=== PATIENT | female | born 1935 | race Caucasian/White ===

== ENCOUNTER → 2017-11-04 11:11 | Outpatient (CLI) | payer MEDICARE, OTHER, SELFPAY ==
[2017-11-04 12:32] LABS: Absolute Neutrophil Count 3.7 X10^3/uL (2.0-7.7); Basophil# 0.05 X10^3/uL; Basophil% 0.9 % (0-1); Eosinophil# 0.11 X10^3/uL; Hematocrit 39.6 % (37-47); Hemoglobin 13.6 g/dl (12.0-15.0); Lymphocyte % 23.4 % (19-41); Mean Corp Hgb Conc 34.3 g/gl (32-36); Mean Platelet Vol. 9.9 fl (6.2-12.0); Monocyte# 0.42 X10^3/uL; Monocyte% 7.6 % (0-10); Neutrophil # 3.66 X10^3/uL (2.7-7.7); Neutrophil % 65.9 % (47-70); Platelet Count 206 K/mm3 (150-450); RBC Distribution Width CV 12.6 % (11.6-14.6); RBC Distribution Width SD 44.8 fl (35.1-43.9); White Blood Count 5.6 K/mm3 (4.4-11.0)
[2017-11-04 12:39] LABS: POSITIVE COUNT NO; POSITIVE DIFFERENTIAL NO; POSITIVE MORPHOLOGY NO
[2017-11-04 13:30] LABS: AST(SGOT) 30 U/L (15-37); Alanine Aminotransfer ALT/SGPT 30 U/L (13-56); Albumin, Serum 3.6 g/dL (3.2-5.0); Alkaline Phosphatase 82 U/L (45-117); Anion Gap 8 (5-15); BUN 13 mg/dL (7-18); BUN/Creat Ratio 21.1 RATIO (10-20); Calcium,Total 9.3 mg/dL (8.5-10.1); Chloride 101 mmol/L (98-107); Creatinine, Serum 0.62 mg/dL (0.55-1.02); EST Glomerular Filtration Rate 98 mL/min (>60); Est Glom Filt Rate - Afr Amer 119 mL/min (>60); Globulin 3.6 g/dL (2.2-4.2); Glucose 92 mg/dL (74-106); Potassium 3.6 mmol/L (3.5-5.1); Protein, Total 7.2 g/dL (6.4-8.2); Sodium Level 137 mmol/L (136-145); Thyroid Stim Hormone (TSH) 1.65 uIU/mL (0.358-3.74)
[2017-11-05 08:37] LABS: Vitamin D,25 Hydroxy 45.9 ng/mL (29.95-100.01)
== END ==
PROVIDERS: Family Provider Family Medicine Geriatric Medicine; PCP Family Medicine Geriatric Medicine; Visit Provider Family Medicine Geriatric Medicine
DX: E55.9 Vitamin D deficiency, unspecified (principal); I10 Essential (primary) hypertension
CPT/HCPCS: 36415; 80053; 82306; 84443; 85025

== ENCOUNTER 2017-11-14 06:24 | Day surgery (SDC) | payer MEDICARE, OTHER, SELFPAY ==
[2017-11-14] VITALS (8 sets, daily range): BP systolic 106–140; BP diastolic 64–88; PULSE 73–86; RESP 16–18; TEMP 36.4–36.9; O2SAT 93–100; BMI 22.3
--- NOTE | 2017-11-14 | COLBX_PTH ---
PATIENT: JADON SUNG LOC: EN U#:[id number] AGE/SX: 81/F ROOM: RE11/14/[address]: Dr. Jerry Claudio MD : [id number] BED: DIS: 11/14/2017 SPEC #: [id number] RECD: 11/14/17 14:30 STATUS: [place] LIAM #: [id number] MARIANNA: 11/14/17 00:[address]: Jerry Claudio DEPT: SURGICAL PATHOLOGY RECD BY: Jeramy Camacho ENTERED: 11/14/17 14:31 SP TYPE: COLON BX OTHR DR: Dr. Moreno Hernandez MD Tissues: A - Ascending colon B - COLON BIOPSY C - Rectum, NOS Procedures: Surgery Specimen Level IV HEADER OPERATION: Colonoscopy PRE-OP DIAGNOSIS: Screening and diarrhea unspecified TISSUE SUBMITTED: A ? Polyp of ascending colon cold snare, B ? Random colon biopsies, C ? Polyps of rectal biopsies MICROSCOPIC DIAGNOSIS A. Ascending colon polyp, biopsy: Tubular adenoma. B. Random biopsy: Mild melanosis coli. C. Rectal polyps, biopsy: Fragments of tubular adenoma. AM:eric 11/17/17 MICROSCOPIC DESCRIPTION Slides are reviewed. GROSS DESCRIPTION A - Received is one container labeled with the patient name and designated polyp ascending colon. The specimen consists of one irregular fragment of light pardo soft tissue that measures 0.5 x 0.5 x 0.1 cm. The specimen is totally submitted in one cassette. B - Received is one container labeled with the patient name and designated random colon. The specimen consists of multiple irregular fragments of light pardo soft tissue that in aggregate measure 0.6 x 0.3 x 0.1 cm. The specimen is totally submitted in one cassette. C - Received is one container labeled with the patient name and designated rectal polyps. The specimen consists of multiple irregular fragments of light pardo soft tissue that in aggregate measure 1 x 0.5 x 0.1 cm. The specimen is totally submitted in one cassette. /AM:eric 11/14/17 TC: 5 CPT: 02930 x3
--- NOTE | 2017-11-14 06:02 | PCM.HP.STD ---
Problem List (1) Screen for colon cancer Status: Acute History of Present Illness Date of Admission: 11/14/17 The patient is a 81 year old F who presents for screening colonoscopy. On March 11, 2017 I performed a hand-assisted laparoscopic sigmoid colectomy for severe diverticular disease with obstruction. I could not achieve a preoperative colonoscopy. She does have some problems with incontinence and excessive gas. She feels like things build up and then suddenly release. The length of the specimen was 22 cm and multiple diverticula were identified. The patient has multiple drug intolerances. 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) Hypertension (Chronic) Medical History: Medical History (Last Reviewed 09/15/17 @ 15:28 by Halima Sharma) Diarrhea (Acute) R19.7 Screen for colon cancer (Acute) Z12.11 Palpitations (Chronic) R00.2 Ventricular premature depolarization (Chronic) I49.3 Abnormal electrocardiogram (Chronic) R94.31 Benign cardiac neoplasm (Chronic) D15.1 Atrial myxoma (Chronic) D15.1 Diverticulitis large intestine (Acute) K57.32 Hypertension (Chronic) I10 Abdominal pain (Acute) R10.9 Allergies alprazolam [From Xanax] Allergy (Verified 09/15/17 15:29) Unknown amlodipine [From Norvasc] Allergy (Verified 09/15/17 15:29) Other cetirizine [From Zyrtec] Allergy (Verified 09/15/17 15:29) Unknown cimetidine [From Tagamet] Allergy (Verified 09/15/17 15:29) Unknown diltiazem [From Cardizem] Allergy (Verified 09/15/17 15:29) Unknown erythromycin base Allergy (Verified 09/15/17 15:29) Unknown famotidine [From Pepcid] Allergy (Verified 09/15/17 15:29) Unknown guaifenesin [From Entex LA] Allergy (Verified 09/15/17 15:29) Unknown house dust Allergy (Verified 09/15/17 15:29) Unknown lansoprazole [From Prevacid] Allergy (Verified 09/15/17 15:29) Unknown loracarbef [From Lorabid] Allergy (Verified 09/15/17 15:29) Unknown metoprolol [From Toprol XL] Allergy (Verified 09/15/17 15:29) Unknown mold Allergy (Verified 09/15/17 15:29) Unknown phenylephrine [From Entex LA] Allergy (Verified 09/15/17 15:29) Unknown phenylpropanolamine [From Entex LA] Allergy (Verified 09/15/17 15:29) Unknown promethazine [From Phenergan] Allergy (Verified 09/15/17 15:29) Unknown raloxifene [From Evista] Allergy (Verified 09/15/17 15:29) Unknown ranitidine [From Zantac] Allergy (Verified 09/15/17 15:29) Unknown risedronate sodium [From Actonel] Allergy (Verified 09/15/17 15:29) Unknown escitalopram [From Lexapro] Adverse Reaction (Severe, Verified 09/15/17 15:29) Unknown lisinopril Adverse Reaction (Severe, Verified 09/15/17 15:29) Lip swelling losartan [From Cozaar] Adverse Reaction (Severe, Verified 09/15/17 15:29) Swelling lips meloxicam Adverse Reaction (Severe, Verified 09/15/17 15:29) Unknown prednisone Adverse Reaction (Severe, Verified 09/15/17 15:29) Unknown zolpidem [From Ambien] Adverse Reaction (Severe, Verified 09/15/17 15:29) Unknown grass bent Allergy (Uncoded 03/04/17 13:05) Unknown Home Medications: Ambulatory Orders Medication Instructions Recorded Triamterene 37.5MG/Hctz 25MG 1 tab PO DAILY 06/25/16 [Maxzide 37.5 mg-25 mg Tablet] Potassium (Otc) [Potassium OTC] 99 mg PO TID 02/09/17 Ascorbic Acid [Vitamin C] 1,000 mg PO DAILY 03/04/17 Cholecalciferol (Vitamin D3) 1,000 unit PO BID 03/04/17 [Vitamin D3] [place] [[place]] 500 mg PO DAILY 03/04/17 Magnesium Oxide [Magnesium] 250 mg PO TID 03/04/17 Ubidecarenone/Vitamin E Mixed 1 ea PO DAILY 03/04/17 [Qzj12-Biy E 200 mg-20 Unit Sfg] Vit A/Vit C/Vit E/Zinc/Copper 1 ea PO BID 03/04/17 [Icaps Areds Formula Dr Tablet] Vitamin B Complex 1 ea PO DAILY 03/04/17 Surgical History: Surgical History (Last Reviewed 09/15/17 @ 15:29 by Halima Sharma) H/O partial resection of colon Z98.890, Z90.49 03/09 Surgical History: hysterectomy Psychiatric History: No pertinent psych hx WIRE STITCHER MACHINE History: No pertinent WIRE STITCHER MACHINE history Smoking Status: Former smoker - *Family History Maternal Family History: Family History (Last Reviewed 09/15/17 @ 15:29 by Halima Sharma) Mother CAD (coronary artery disease) Father Kidney disease History Items: No pertinent history Paternal Family History: Family History (Last Reviewed 09/15/17 @ 15:29 by Halima Sharma) Mother CAD (coronary artery disease) Father Kidney disease History Items: No pertinent history Review of Systems Constitutional: Reports: Fatigue HEENT: Denies: Difficulty Swallowing Cardiovascular: Denies: Chest Pain Respiratory: Denies: Cough Gastrointestinal: Reports: Diarrhea Genitourinary: Denies: Dysuria Skin: Denies: Dryness Neurological: Denies: Balance problems Psychiatric: Reports: Anxiety VTE Information - Inpt Only VTE Present on Admission: No - Physical Exam General: Alert, Oriented x3, Cooperative, No apparent distress HEENT: Atraumatic Oral: Moist Mucosa Lungs: Clear to auscultation Cardiovascular: Regular rate, Regular Rhythm Abdomen: Bowel Sounds Present, Soft, Non Tender Extremities: No clubbing Skin: No rashes Psych/Mental Status: Anxious Assessment/Plan All Active Problems (Last Reviewed 09/15/17 @ 15:28 by Halima Sharma) Diarrhea (Acute) Screen for colon cancer (Acute) Diverticulitis large intestine (Acute) Abdominal pain (Acute) Screening for intestinal cancer. Some alternating problems of diarrhea incontinence and constipation. Consideration for possible random colonic biopsies. She is aware of the technique, benefits, risks, alternatives. She has had an opportunity to ask and have questions answered. We will proceed as noted. Jerry Claudio M.D., F.A.C.S.
--- NOTE | 2017-11-14 06:08 | HP.PCM_ITS ---
Problem List (1) Screen for colon cancer Status: Acute History of Present Illness Date of Admission: 11/14/17 The patient is a 81 year old F who presents for screening colonoscopy. On March 11, 2017 I performed a hand-assisted laparoscopic sigmoid colectomy for severe diverticular disease with obstruction. I could not achieve a preoperative colonoscopy. She does have some problems with incontinence and excessive gas. She feels like things build up and then suddenly release. The length of the specimen was 22 cm and multiple diverticula were identified. The patient has multiple drug intolerances. 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) Hypertension (Chronic) Medical History: Medical History (Last Reviewed 09/15/17 @ 15:28 by Halima Sharma) Diarrhea (Acute) R19.7 Screen for colon cancer (Acute) Z12.11 Palpitations (Chronic) R00.2 Ventricular premature depolarization (Chronic) I49.3 Abnormal electrocardiogram (Chronic) R94.31 Benign cardiac neoplasm (Chronic) D15.1 Atrial myxoma (Chronic) D15.1 Diverticulitis large intestine (Acute) K57.32 Hypertension (Chronic) I10 Abdominal pain (Acute) R10.9 Allergies alprazolam [From Xanax] Allergy (Verified 09/15/17 15:29) Unknown amlodipine [From Norvasc] Allergy (Verified 09/15/17 15:29) Other cetirizine [From Zyrtec] Allergy (Verified 09/15/17 15:29) Unknown cimetidine [From Tagamet] Allergy (Verified 09/15/17 15:29) Unknown diltiazem [From Cardizem] Allergy (Verified 09/15/17 15:29) Unknown erythromycin base Allergy (Verified 09/15/17 15:29) Unknown famotidine [From Pepcid] Allergy (Verified 09/15/17 15:29) Unknown guaifenesin [From Entex LA] Allergy (Verified 09/15/17 15:29) Unknown house dust Allergy (Verified 09/15/17 15:29) Unknown lansoprazole [From Prevacid] Allergy (Verified 09/15/17 15:29) Unknown loracarbef [From Lorabid] Allergy (Verified 09/15/17 15:29) Unknown metoprolol [From Toprol XL] Allergy (Verified 09/15/17 15:29) Unknown mold Allergy (Verified 09/15/17 15:29) Unknown phenylephrine [From Entex LA] Allergy (Verified 09/15/17 15:29) Unknown phenylpropanolamine [From Entex LA] Allergy (Verified 09/15/17 15:29) Unknown promethazine [From Phenergan] Allergy (Verified 09/15/17 15:29) Unknown raloxifene [From Evista] Allergy (Verified 09/15/17 15:29) Unknown ranitidine [From Zantac] Allergy (Verified 09/15/17 15:29) Unknown risedronate sodium [From Actonel] Allergy (Verified 09/15/17 15:29) Unknown escitalopram [From Lexapro] Adverse Reaction (Severe, Verified 09/15/17 15:29) Unknown lisinopril Adverse Reaction (Severe, Verified 09/15/17 15:29) Lip swelling losartan [From Cozaar] Adverse Reaction (Severe, Verified 09/15/17 15:29) Swelling lips meloxicam Adverse Reaction (Severe, Verified 09/15/17 15:29) Unknown prednisone Adverse Reaction (Severe, Verified 09/15/17 15:29) Unknown zolpidem [From Ambien] Adverse Reaction (Severe, Verified 09/15/17 15:29) Unknown grass bent Allergy (Uncoded 03/04/17 13:05) Unknown Home Medications: Ambulatory Orders Medication Instructions Recorded Triamterene 37.5MG/Hctz 25MG 1 tab PO DAILY 06/25/16 [Maxzide 37.5 mg-25 mg Tablet] Potassium (Otc) [Potassium OTC] 99 mg PO TID 02/09/17 Ascorbic Acid [Vitamin C] 1,000 mg PO DAILY 03/04/17 Cholecalciferol (Vitamin D3) 1,000 unit PO BID 03/04/17 [Vitamin D3] [place] [[place]] 500 mg PO DAILY 03/04/17 Magnesium Oxide [Magnesium] 250 mg PO TID 03/04/17 Ubidecarenone/Vitamin E Mixed 1 ea PO DAILY 03/04/17 [Xym81-Wbh E 200 mg-20 Unit Sfg] Vit A/Vit C/Vit E/Zinc/Copper 1 ea PO BID 03/04/17 [Icaps Areds Formula Dr Tablet] Vitamin B Complex 1 ea PO DAILY 03/04/17 Surgical History: Surgical History (Last Reviewed 09/15/17 @ 15:29 by Halima Sharma) H/O partial resection of colon Z98.890, Z90.49 03/09 Surgical History: hysterectomy Psychiatric History: No pertinent psych hx DIRECTOR OF UNDERGRADUATE ADMISSIONS History: No pertinent DIRECTOR OF UNDERGRADUATE ADMISSIONS history Smoking Status: Former smoker - *Family History Maternal Family History: Family History (Last Reviewed 09/15/17 @ 15:29 by Halima Sharma) Mother CAD (coronary artery disease) Father Kidney disease History Items: No pertinent history Paternal Family History: Family History (Last Reviewed 09/15/17 @ 15:29 by Halima Sharma) Mother CAD (coronary artery disease) Father Kidney disease History Items: No pertinent history Review of Systems Constitutional: Reports: Fatigue HEENT: Denies: Difficulty Swallowing Cardiovascular: Denies: Chest Pain Respiratory: Denies: Cough Gastrointestinal: Reports: Diarrhea Genitourinary: Denies: Dysuria Skin: Denies: Dryness Neurological: Denies: Balance problems Psychiatric: Reports: Anxiety VTE Information - Inpt Only VTE Present on Admission: No - Physical Exam General: Alert, Oriented x3, Cooperative, No apparent distress HEENT: Atraumatic Oral: Moist Mucosa Lungs: Clear to auscultation Cardiovascular: Regular rate, Regular Rhythm Abdomen: Bowel Sounds Present, Soft, Non Tender Extremities: No clubbing Skin: No rashes Psych/Mental Status: Anxious Assessment/Plan All Active Problems (Last Reviewed 09/15/17 @ 15:28 by Halima Sharma) Diarrhea (Acute) Screen for colon cancer (Acute) Diverticulitis large intestine (Acute) Abdominal pain (Acute) Screening for intestinal cancer. Some alternating problems of diarrhea incontinence and constipation. Consideration for possible random colonic biopsies. She is aware of the technique, benefits, risks, alternatives. She has had an opportunity to ask and have questions answered. We will proceed as noted. Jerry Claudio M.D., F.A.C.S.
--- NOTE | 2017-11-14 08:05 | PCM.OPRPT ---
Problem List (1) Screen for colon cancer Status: Acute Report of Operation Date of Procedure: 11/14/17 Pre-Operative Diagnosis: Screening for intestinal malignancy, constipation diarrhea Post-Operative Diagnosis: Widely patent colorectal anastomosis, scattered sigmoid and pancolonic diverticulosis, sessile polyp of the ascending colon 11 mm, sessile polyps of the rectum 8 mm and 6 mm Surgery/Procedure Performed:: Colonoscopy with cold snare polypectomy ascending colon. Colonoscopy with cold forcep rectal polypectomy ?2. Random colonic biopsies with cold forceps Description of Surgical Findings:: Timeout and informed consent was obtained. 81-year-old female was taken to the endoscopy suite. She was placed in a left lateral decubitus position. Throughout the procedure she received 75 mg Demerol 3 mg of Versed as intravenous sedation. Digital rectal exam performed. Mild to moderate anal stenosis. No mass lesions. Flexible colonoscope was in the rectum. A colorectal anastomosis was identified absolutely widely patent. The scope was advanced through the remnant of the sigmoid descending colon readily advanced to the transverse colon. The cecum ileocecal valve area was nicely achieved. Bowel prep was adequate. There was a sessile 11 mm polyp of the ascending colon. Cold snare was used to resect and retrieved. Hemostasis was intact. The scope was further withdrawn from the ascending colon transverse colon and descending colon. There was scattered diverticulosis throughout the colon with more concentrated diverticulosis in the descending colon. There is no evidence of any obstruction. No mucosal thickening. No stricturing. Scope was withdrawn to the rectum the patent colorectal anastomosis identified. The scope was retroflexed and upon so doing 2 sessile polyps were identified. These were both removed with cold forcep eradication technique. Hemostasis again was intact. The scope was placed back in in antegrade viewing position. Excess fluid and air was aspirated free. The procedure was completed with patient tolerating it well. Throughout the procedure random colonic cold forcep biopsies were obtained as well. Impression Sessile polyp of the ascending colon. Sessile polyp of the rectum ?2. Scattered pancolonic diverticulosis with more concentrated diverticulosis of the descending colon No evidence for obstructive pattern Random colonic biopsy results pending One year ago the patient had a previous attempted a colonoscopy which failed Next colonoscopy recommended in 1 years secondary to identification of multiple polyps The patient will be notified of pathology results. No findings would correlate with the patient's complaint of alternating constipation and diarrhea. She will be notified of pathology if that adds any further information. The meds were given at 0745. The scope was inserted 0747. The cecum was reached at 0749. The procedure was completed at 0759. Cc: Dr. David Claudio M.D., F.A.C.S. Type of Anesthesia:: IV Sedation
== END 2017-11-14 09:30 | disposition home or self-care (01) ==
LOC: EN 06:24 → AC 06:26
PROVIDERS: Family Provider Family Medicine Geriatric Medicine; PCP Family Medicine Geriatric Medicine; Visit Provider Surgery
PROC: 0DJD8ZZ Inspection of Lower Intestinal Tract, Via Natural or Artificial Opening Endoscopic (ICD-10-PCS; CPT 45378; principal; 2017-11-14 07:25)
DX: Z12.11 Encounter for screening for malignant neoplasm of colon (principal); D12.2 Benign neoplasm of ascending colon; D12.8 Benign neoplasm of rectum; K57.30 Diverticulosis of large intestine without perforation or abscess without bleeding; K63.89 Other specified diseases of intestine; I49.3 Ventricular premature depolarization; D15.1 Benign neoplasm of heart; I10 Essential (primary) hypertension; Z87.19 Personal history of other diseases of the digestive system; Z79.899 Other long term (current) drug therapy; Z87.891 Personal history of nicotine dependence
CPT/HCPCS: 45380; 45385; 88305; 99152; 99153; J7120

== ENCOUNTER → 2018-11-30 15:23 | Outpatient (CLI) | payer MEDICARE, SELFPAY ==
[2018-08-03 13:32] VITALS: BMI 23.5
[2018-11-30 17:23] LABS: Absolute Lymphocyte Count 1.33 X10^3/uL (0.83-4.51); Absolute Neutrophil Count 5.7 X10^3/uL (2.0-7.7); Basophil# 0.07 X10^3/uL; Basophil% 0.9 % (0-1); Eosinophil# 0.07 X10^3/uL; Eosinophils% 0.9 % (0-5); Hematocrit 42.5 % (37-47); Hemoglobin 14.6 g/dL (12.0-15.0); Lymphocyte # 1.33 X10^3/ul (4.0); Lymphocyte % 16.6 % (19-41); Mean Corp Hgb Conc 34.4 g/dL (32-36); Mean Corpuscular Volume 99.1 fL (81-99); Mean Platelet Vol. 9.6 fl (6.2-12.0); Monocyte# 0.83 X10^3/uL; Monocyte% 10.4 % (0-10); NRBC Flagged by Analyzer 0 % (0-5); Neutrophil # 5.69 X10^3/uL (2.7-7.7); Platelet Count 230 K/mm3 (150-450); RBC Distribution Width CV 11.9 % (11.6-14.6); Red Blood Count 4.29 M/mm3 (4.2-5.4)
[2018-11-30 17:39] LABS: Vitamin D,25 Hydroxy 23.6 ng/mL (29.95-100.01)
[2018-11-30 17:44] LABS: AST(SGOT) 25 U/L (15-37); Alanine Aminotransfer ALT/SGPT 29 U/L (13-56); Albumin, Serum 3.6 g/dL (3.2-5.0); Alkaline Phosphatase 94 U/L (45-117); Anion Gap 6 (5-15); BUN 9 mg/dL (7-18); Calcium,Total 9.2 mg/dL (8.5-10.1); Chloride 100 mmol/L (98-107); EST Glomerular Filtration Rate 64 mL/min (>60); Est Glom Filt Rate - Afr Amer 77 mL/min (>60); Globulin 3.7 g/dL (2.2-4.2); Glucose 120 mg/dL (74-106); Potassium 3.4 mmol/L (3.5-5.1); Protein, Total 7.3 g/dL (6.4-8.2); Sodium Level 136 mmol/L (136-145); Thyroid Stim Hormone (TSH) 1.31 uIU/mL (0.358-3.74)
== END ==
PROVIDERS: Family Provider Family Medicine Geriatric Medicine; PCP Family Medicine Geriatric Medicine; Visit Provider Family Medicine Geriatric Medicine
DX: I10 Essential (primary) hypertension (principal); E55.9 Vitamin D deficiency, unspecified
CPT/HCPCS: 36415; 80053; 82306; 84443; 85025

== ENCOUNTER → 2018-12-09 15:39 | Outpatient (CLI) | payer MEDICARE, OTHER, SELFPAY ==
[2018-08-03 13:32] VITALS: BMI 23.5
[2018-12-09 17:29] LABS: Anion Gap 10 (5-15); BUN 17 mg/dL (7-18); Calcium,Total 9.5 mg/dL (8.5-10.1); Chloride 98 mmol/L (98-107); Creatinine, Serum 0.74 mg/dL (0.55-1.02); EST Glomerular Filtration Rate 80 mL/min (>60); Est Glom Filt Rate - Afr Amer 96 mL/min (>60); Glucose 102 mg/dL (74-106); Potassium 3.6 mmol/L (3.5-5.1); Sodium Level 137 mmol/L (136-145)
== END ==
PROVIDERS: Family Provider Family Medicine Geriatric Medicine; PCP Family Medicine Geriatric Medicine; Visit Provider Family Medicine Geriatric Medicine
DX: E87.6 Hypokalemia (principal)
CPT/HCPCS: 36415; 80048

== ENCOUNTER → 2019-03-01 15:40 | Outpatient (CLI) | payer MEDICARE, OTHER, SELFPAY ==
[2019-02-11 11:55] VITALS: BMI 24.3
[2019-03-01 16:57] LABS: Absolute Lymphocyte Count 1.39 X10^3/uL (0.83-4.51); Absolute Neutrophil Count 5.1 X10^3/uL (2.0-7.7); Basophil# 0.06 X10^3/uL; Basophil% 0.8 % (0-1); Eosinophil# 0.16 X10^3/uL; Eosinophils% 2.1 % (0-5); Hematocrit 39.9 % (37-47); Hemoglobin 13.7 g/dL (12.0-15.0); Lymphocyte # 1.39 X10^3/ul (4.0); Lymphocyte % 18.4 % (19-41); Mean Corp Hgb Conc 34.3 g/dL (32-36); Monocyte% 10.6 % (0-10); NRBC Flagged by Analyzer 0 % (0-5); Neutrophil # 5.13 X10^3/uL (2.7-7.7); Neutrophil % 67.8 % (47-70); Platelet Count 221 K/mm3 (150-450); RBC Distribution Width CV 12.1 % (11.6-14.6); RBC Distribution Width SD 43.8 fl (35.1-43.9); Red Blood Count 4.03 M/mm3 (4.2-5.4); White Blood Count 7.6 K/mm3 (4.4-11.0)
[2019-03-01 17:28] LABS: AST(SGOT) 24 U/L (15-37); Alanine Aminotransfer ALT/SGPT 28 U/L (13-56); Albumin, Serum 3.4 g/dL (3.2-5.0); Alkaline Phosphatase 91 U/L (45-117); Anion Gap 7 (5-15); BUN 13 mg/dL (7-18); BUN/Creat Ratio 17.2 RATIO (10-20); Calcium,Total 8.9 mg/dL (8.5-10.1); Chloride 103 mmol/L (98-107); Creatinine, Serum 0.76 mg/dL (0.55-1.02); EST Glomerular Filtration Rate 77 mL/min (>60); Est Glom Filt Rate - Afr Amer 94 mL/min (>60); Globulin 3.5 g/dL (2.2-4.2); Glucose 129 mg/dL (74-106); Potassium 3.5 mmol/L (3.5-5.1); Protein, Total 6.9 g/dL (6.4-8.2); Sodium Level 137 mmol/L (136-145); Thyroid Stim Hormone (TSH) 1.79 uIU/mL (0.358-3.74)
[2019-03-01 17:36] LABS: Vitamin D,25 Hydroxy 27.1 ng/mL (29.95-100.01)
== END ==
PROVIDERS: Family Provider Family Medicine Geriatric Medicine; PCP Family Medicine Geriatric Medicine; Visit Provider Family Medicine Geriatric Medicine
DX: I10 Essential (primary) hypertension (principal); E55.9 Vitamin D deficiency, unspecified
CPT/HCPCS: 36415; 80053; 82306; 84443; 85025

== ENCOUNTER → 2019-05-03 14:25 | Outpatient (CLI) | payer MEDICARE, OTHER, SELFPAY ==
[2019-05-03 14:21] VITALS: BMI 24.3
--- NOTE | 2019-05-03 14:26 | RAD_ITS ---
STUDY: X-RAY - RIGHT SHOULDER REASON FOR EXAM: Female, 83 years old. FALL, RT SHOULDER PAIN W/CONTUSION TECHNIQUE: 4 view(s) of the shoulder. COMPARISON: None. FINDINGS: Normal glenohumeral articulation. Normal acromioclavicular joint. Normal acromion. Normal humeral head and visualized proximal humerus. There is periarticular soft tissue calcification consistent with a calcific tendinitis. Normal visualized pulmonary apex. RAD/Shoulder min 2 Views IMPRESSION: Calcific tendinitis. Electronically Signed: Negrito Honeycutt, at 14:57 EST , Service support ,
== END ==
PROVIDERS: PCP Family Medicine Geriatric Medicine; Referring Provider Physician Assistant Surgical; Visit Provider Physician Assistant Surgical
DX: S40.011A Contusion of right shoulder, initial encounter (principal); X58.XXXA Exposure to other specified factors, initial encounter; Y93.9 Activity, unspecified; Y92.9 Unspecified place or not applicable; Y99.9 Unspecified external cause status
CPT/HCPCS: 73030

== ENCOUNTER → 2019-06-07 10:56 | Outpatient (CLI) | payer MEDICARE, OTHER, SELFPAY ==
[2019-05-03 14:21] VITALS: BMI 24.3
[2019-06-07 12:44] LABS: Absolute Lymphocyte Count 1.16 X10^3/uL (0.83-4.51); Absolute Neutrophil Count 5.7 X10^3/uL (2.0-7.7); Basophil# 0.06 X10^3/uL; Basophil% 0.8 % (0-1); Eosinophil# 0.03 X10^3/uL; Eosinophils% 0.4 % (0-5); Hematocrit 42.6 % (37-47); Hemoglobin 14.3 g/dL (12.0-15.0); Lymphocyte # 1.16 X10^3/ul (4.0); Lymphocyte % 15.4 % (19-41); Mean Corp Hgb Conc 33.6 g/dL (32-36); Mean Corpuscular Hgb 33.6 pg (27.0-32.0); Mean Corpuscular Volume 100.2 fL (81-99); Mean Platelet Vol. 9.7 fl (6.2-12.0); Monocyte# 0.55 X10^3/uL; Monocyte% 7.3 % (0-10); NRBC Flagged by Analyzer 0 % (0-5); Neutrophil # 5.73 X10^3/uL (2.7-7.7); Neutrophil % 75.8 % (47-70); Platelet Count 236 K/mm3 (150-450); RBC Distribution Width CV 12.7 % (11.6-14.6); RBC Distribution Width SD 47.1 fl (35.1-43.9); Red Blood Count 4.25 M/mm3 (4.2-5.4); White Blood Count 7.6 K/mm3 (4.4-11.0)
[2019-06-07 13:47] LABS: ALB/GLOB Ratio 1.2 RATIO (0.9-2.4); AST(SGOT) 21 U/L (15-37); Alanine Aminotransfer ALT/SGPT 20 U/L (13-56); Albumin, Serum 3.8 g/dL (3.2-5.0); Alkaline Phosphatase 85 U/L (45-117); Amylase 44 U/L (25-115); Anion Gap 10 (5-15); BUN 11 mg/dL (7-18); BUN/Creat Ratio 16.5 RATIO (10-20); Calcium,Total 9.4 mg/dL (8.5-10.1); Chloride 99 mmol/L (98-107); Creatinine, Serum 0.67 mg/dL (0.55-1.02); EST Glomerular Filtration Rate 90 mL/min (>60); Est Glom Filt Rate - Afr Amer 108 mL/min (>60); Globulin 3.2 g/dL (2.2-4.2); Glucose 147 mg/dL (74-106); Lipase 227 U/L (73-393); Potassium 3.3 mmol/L (3.5-5.1); Sodium Level 137 mmol/L (136-145); Thyroid Stim Hormone (TSH) 1.44 uIU/mL (0.358-3.74)
== END ==
PROVIDERS: PCP Family Medicine; Referring Provider Family Medicine; Visit Provider Family Medicine
DX: R00.0 Tachycardia, unspecified (principal); R14.0 Abdominal distension (gaseous)
CPT/HCPCS: 36415; 80053; 82150; 83690; 84443; 85025

== ENCOUNTER → 2019-11-11 10:52 | Outpatient (CLI) | payer MEDICARE, OTHER, SELFPAY ==
[2019-08-11 15:43] VITALS: BMI 24.3
[2019-11-11 12:39] LABS: Hemoglobin 13.8 g/dL (12.0-15.0); Mean Corp Hgb Conc 34.5 g/dL (32-36); Mean Corpuscular Hgb 35.8 pg (27.0-32.0); Mean Corpuscular Volume 103.9 fL (81-99); Mean Platelet Vol. 10.1 fl (6.2-12.0); Platelet Count 245 K/mm3 (150-450); RBC Distribution Width CV 12.2 % (11.6-14.6); Red Blood Count 3.85 M/mm3 (4.2-5.4); White Blood Count 8.9 K/mm3 (4.4-11.0)
[2019-11-11 13:24] LABS: ALB/GLOB Ratio 0.9 RATIO (0.9-2.4); AST(SGOT) 46 U/L (15-37); Alanine Aminotransfer ALT/SGPT 45 U/L (13-56); Albumin, Serum 3.4 g/dL (3.2-5.0); Alkaline Phosphatase 103 U/L (45-117); Anion Gap 5 (5-15); BUN 12 mg/dL (7-18); Calcium,Total 9.2 mg/dL (8.5-10.1); Chloride 96 mmol/L (98-107); Creatinine, Serum 0.93 mg/dL (0.55-1.02); EST Glomerular Filtration Rate 61 mL/min (>60); Est Glom Filt Rate - Afr Amer 74 mL/min (>60); Globulin 3.6 g/dL (2.2-4.2); Glucose 120 mg/dL (74-106); Potassium 3.1 mmol/L (3.5-5.1); Sodium Level 132 mmol/L (136-145)
== END ==
PROVIDERS: PCP Family Medicine; Referring Provider Family Medicine; Visit Provider Family Medicine
DX: I48.91 Unspecified atrial fibrillation (principal)
CPT/HCPCS: 36415; 80053; 84443; 85027

== ENCOUNTER → 2019-11-18 10:41 | Outpatient (CLI) | payer MEDICARE, OTHER, SELFPAY ==
[2019-08-11 15:43] VITALS: BMI 24.3
[2019-11-11 13:15] VITALS: BMI 25.2
--- NOTE | 2019-11-18 10:44 | ECHOD_ITS ---
Reason For Study: Afib Procedure This was a 2D Doppler, Color Flow transthoracic echocardiogram. Exam performed in department. Left Ventricle Normal LV size. Mild concentric left ventricular hypertrophy. Left ventricular systolic function is normal. The estimated ejection fraction is 60 %. No regional wall motion abnormalities noted. Atria Normal left atrium. Normal right atrium. 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 Mass measuring 1.4 by 1.5in RA unchanged from the previous. Mitral Valve Normal mitral valve. Mild (1+) eccentric mitral valve insufficiency. Tricuspid Valve Normal tricuspid valve. Mild tricuspid valve insufficiency. Pulmonary artery systolic pressure is 25 mmHg. Aortic Valve Trisinus/trileaflet aortic valve. Mild focal aortic valve calcification. Pulmonic Valve Normal pulmonic valve. Great Vessels Normal aortic root. The pulmonary artery is normal size. Normal inferior vena cava. Pericardium/Pleural No pericardial effusion. MMode/2D Measurements & Calculations LVIDd: 3.9 cm IVSd: 1.2 cm Ao root diam: 3.2 cm LVIDs: 2.4 cm LVPWd: 1.2 cm RVDd: 3.2 cm FS: 38.6 % LAV(MOD-bp): 53.1 ml LA A4 area: 17.9 cm2 LA dimension(2D): 4.8 cm LAV(MOD-bp) Indexed: 31.6 ml/m2 LAV(MOD-sp2): 51.2 ml LAV(MOD-sp4): 52.6 ml RA A4 area: 11.5 cm2 Doppler Measurements & Calculations MV E max bakari: 99.8 cm/sec Lat Peak E' Bakari: 7.0 cm/sec Med Peak E' Bakari: 4.1 cm/sec MV A max bakari: 117.6 cm/sec E/E' lat: 14.3 E/E' med: 24.2 MV E/A: 0.85 Ao V2 max: 169.9 cm/sec LV V1 max: 116.4 cm/sec PA V2 max: 78.0 cm/sec Ao max P.5 mmHg LV V1 max P.4 mmHg Ao V2 mean: 121.9 cm/sec Ao mean P.4 mmHg Ao V2 VTI: 36.0 cm PI end-d bakari: 116.5 cm/sec TR max bakari: 232.5 cm/sec TR max P.6 mmHg Interpretation Summary Normal LV size. Left ventricular systolic function is normal. The estimated ejection fraction is 60 %. 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 Mass measuring 1.4 by 1.5in RA unchanged from the previous. Ordering Physician: Tulio Roberts Referring Physician: Tulio Roberts Performed By: Delilah Tate, PADMINI, RVT
== END ==
PROVIDERS: PCP Family Medicine; Referring Provider Family Medicine; Visit Provider Family Medicine
DX: I48.91 Unspecified atrial fibrillation (principal); I34.0 Nonrheumatic mitral (valve) insufficiency; I36.1 Nonrheumatic tricuspid (valve) insufficiency; I35.8 Other nonrheumatic aortic valve disorders
CPT/HCPCS: 93306

== ENCOUNTER 2020-01-24 12:29 | Inpatient (IN) | payer MEDICARE, OTHER, SELFPAY ==
[2020-01-03 12:44] VITALS: BMI 25.0
[2020-01-24] VITALS (11 sets, daily range): BP systolic 134–178; BP diastolic 77–109; PULSE 78–124; RESP 12–20; TEMP 36.3–37.1; O2SAT 95–98; BMI 24.0; BMI 24.3; BMI 24.4
[2020-01-24 13:21] LABS: Absolute Lymphocyte Count 0.87 X10^3/uL (0.83-4.51); Absolute Neutrophil Count 5.1 X10^3/uL (2.0-7.7); Basophil# 0.07 X10^3/uL; Eosinophil# 0.03 X10^3/uL; Eosinophils% 0.4 % (0-5); Hematocrit 42.9 % (37-47); Hemoglobin 14.8 g/dL (12.0-15.0); Lymphocyte # 0.87 X10^3/ul (4.0); Lymphocyte % 12.5 % (19-41); Mean Corp Hgb Conc 34.5 g/dL (32-36); Mean Corpuscular Hgb 35.1 pg (27.0-32.0); Mean Corpuscular Volume 101.7 fL (81-99); Mean Platelet Vol. 9.2 fl (6.2-12.0); Monocyte# 0.83 X10^3/uL; Monocyte% 11.9 % (0-10); NRBC Flagged by Analyzer 0 % (0-5); Neutrophil # 5.13 X10^3/uL (2.7-7.7); Neutrophil % 73.6 % (47-70); Platelet Count 264 K/mm3 (150-450); RBC Distribution Width CV 12.7 % (11.6-14.6); Red Blood Count 4.22 M/mm3 (4.2-5.4)
--- NOTE | 2020-01-24 13:21 | ED.VISSUMM ---
- ER Visit Summary Date of Service: 01/24/20 Chief Complaint: Requesting alcohol detox History of Present Illness: The patient is a 84 F presenting requesting detox from alcohol. Patient states she drinks 6 drinks per day, vodka. She has been drinking for the past 50 years. She discussed this with 180 today and was advised to come to the hospital for admission for detox. She states she stopped drinking several years ago and developed an arrhythmia and started drinking again. She has felt anxious about quitting drinking. Denies other complaints. Last drink was this morning. She is not a smoker. Physical Examination: Vitals are stable. Patient is afebrile. Alert no acute distress. HEENT exam is unremarkable. Neck is supple. Lungs are clear and equal bilaterally. Heart is regular and tachycardic Abdomen is soft nontender nondistended. Extremities are unremarkable. Skin is warm and dry. No focal neurologic deficit. Remainder of exam is unremarkable. Emergency Department Course and Treatment: CBC, chemistries unremarkable other than sodium 129, potassium 3.0, glucose 111. Total bili 1.2, direct bili 0.54, alk phos 137. ALT 65, AST 83. Alcohol 61. Urine tox is pending. Discussed with the hospitalist for admission. Disposition: Admission Impression: Alcohol dependence This note was generated with [employer] dictation software. It may contain incorrect words, spelling, and punctuation that were not noted in review of the chart prior to signing ED Disposition - Plan for ED Patient: Referrals: Tulio Roberts MD [Primary Care Provider] -
[2020-01-24 13:34] LABS: AST(SGOT) 83 U/L (15-37); Alanine Aminotransfer ALT/SGPT 65 U/L (13-56); Albumin, Serum 3.2 g/dL (3.2-5.0); Alkaline Phosphatase 137 U/L (45-117); Anion Gap 11 (5-15); BUN 7 mg/dL (7-18); BUN/Creat Ratio 9.1 RATIO (10-20); Bilirubin, Direct 0.54 mg/dL (0.00-0.30); Calcium,Total 8.7 mg/dL (8.5-10.1); Chloride 92 mmol/L (98-107); Creatinine, Serum 0.77 mg/dL (0.55-1.02); EST Glomerular Filtration Rate 76 mL/min (>60); Est Glom Filt Rate - Afr Amer 92 mL/min (>60); Estimated Creatinine Clearance 35.52 ml/min; Globulin 3.6 g/dL (2.2-4.2); Glucose 111 mg/dL (74-106); Protein, Total 6.8 g/dL (6.4-8.2); Sodium Level 129 mmol/L (136-145)
[2020-01-24 13:56] LABS: Amphetamine Urine VISTA NEGATIVE (<1000 ng/mL); Barbiturate Urine VISTA NEGATIVE (< 200 ng/mL); Benzodiazepine Urine VISTA NEGATIVE (< 200 ng/mL); Cocaine Urine VISTA NEGATIVE (< 300 ng/mL); Ecstacy Urine VISTA NEGATIVE (< 500 ng/mL); Methadone Urine VISTA NEGATIVE (< 300 ng/mL); PCP Urine VISTA NEGATIVE (< 25 ng/mL); THC Urine VISTA NEGATIVE (< 50 ng/mL); Vista UDS pH Range 7
--- NOTE | 2020-01-24 14:02 | CM.ED ---
Social Work Consult: Substance Abuse Informant: Self Referral Met with patient in room. Introduced self and social media sr strategy manager role. Patient agreeable to speaking with this social media sr strategy manager. Patient confirms to be seeking medical management of withdrawal symptoms. Patient reports substance of choice as alcohol. Patient reports to drink 6 cocktails daily, vodka. Patient reports to have started drinking 40-50 years ago. Patient identifies next of kin at patient niece, Martha Watson that lives in [place]. Patient reports to have no family that lives local, no children. Patient identifies friends and local community activities as patient main support. Patient reports to have been depressed and down over the past 8 months due to being isolated to own home and community activities being canceled. Patient reports to spend a lot of time alone. Patient denies suicidal thoughts/plans/intents. Patient reports prior level of functioning as independent. Patient identifies Martha as HCPOA. Patient provides HCPOA to this social media sr strategy manager. This social media sr strategy manager obtained copy of HCPOA and placed on patient chart. Patient verbally agreeing to RAMP contact. Patient with no current questions. Support provided. Telephone call to Janessa Da Silva. This social media sr strategy manager updated on patient being admitted. Janessa to come and completed assessment with patient tomorrow. Rossy MAYFIELD, LIZETH
--- NOTE | 2020-01-24 14:06 | EKG12_ITS ---
Test Reason : SUBSTANCE ABUSE Blood Pressure : / mmHG Vent. 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
--- NOTE | 2020-01-24 14:13 | HP.PCM_ITS ---
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 The patient is a 84 year old F with past medical history as mentioned above presented to the emergency room requesting admission for acute alcohol withdrawal for medical stabilization. Patient states that she has been drinking for almost 50 years, every day. She drinks 5-6 drinks of mixed vodka every day and her last drink was this morning. She never went into detoxification program in the past. She has no significant withdrawal symptoms at this point. She had a history of hypertension and she has been on HCTZ/triamterene and take blood pressure has been under fair control according to the patient. She had a histo ry of diverticulitis in the past status post colectomy back in 2017. She had a history of multifocal atrial tachycardia but she is not on treatment and she has no complaints about it. In the emergency department, she was afebrile, with slight tachycardia, blood pressure was elevated, pulse ox was 98% on room air. Routine blood work was remarkable for sodium of 129, potassium is 3. LFT revealed slightly elevated bilirubin and liver transaminases as well as alkaline phosphatase. Urine drug screen was negative. Blood alcohol level was 61. EKG was done and patient was found to be in A. fib with RVR which is new. She is being admitted for acute alcohol withdrawal for medical stabilization as well as new onset A. fib with RVR. Past Medical History Past Medical History (Chronic Problems): Chronic Problems (Last Updated 01/24/20 @ 14:[address] Jazz Dietrich MD) Multifocal atrial tachycardia (Chronic) Alcohol abuse (Chronic) Atrial myxoma (Chronic) Essential hypertension (Chronic) Medical History: Medical History (Last Updated 01/24/20 @ 14:[address] Jazz Dietrich MD) Atrial myxoma (Chronic) D15.1 Essential hypertension (Chronic) I10 Benign cardiac neoplasm D15.1 ETOH abuse F10.10 Ventricular premature depolarization I49.3 Abnormal electrocardiogram (Inactive) R94.31 Allergies alprazolam [From Xanax] Allergy (Verified 01/24/20 12:40) Unknown atenolol Allergy (Verified 01/24/20 12:40) Shortness of breath cetirizine [From Zyrtec] Allergy (Verified 01/24/20 12:40) Unknown cimetidine [From Tagamet] Allergy (Verified 01/24/20 12:40) Unknown diltiazem [From Cardizem] Allergy (Verified 01/24/20 12:40) Unknown erythromycin base Allergy (Verified 01/24/20 12:40) Unknown famotidine [From Pepcid] Allergy (Verified 01/24/20 12:40) Unknown guaifenesin [From Entex LA] Allergy (Verified 01/24/20 12:40) Unknown house dust Allergy (Verified 01/24/20 12:40) Unknown lansoprazole [From Prevacid] Allergy (Verified 01/24/20 12:40) Unknown loracarbef [From Lorabid] Allergy (Verified 01/24/20 12:40) Unknown metoprolol [From Toprol XL] Allergy (Verified 01/24/20 12:40) Unknown mold Allergy (Verified 01/24/20 12:40) Unknown phenylephrine [From Entex LA] Allergy (Verified 01/24/20 12:40) Unknown phenylpropanolamine [From Entex LA] Allergy (Verified 01/24/20 12:40) Unknown promethazine [From Phenergan] Allergy (Verified 01/24/20 12:40) Unknown raloxifene [From Evista] Allergy (Verified 01/24/20 12:40) Unknown ranitidine [From Zantac] Allergy (Verified 01/24/20 12:40) Unknown risedronate sodium [From Actonel] Allergy (Verified 01/24/20 12:40) Unknown escitalopram [From Lexapro] Adverse Reaction (Severe, Verified 01/24/20 12:40) Unknown lisinopril Adverse Reaction (Severe, Verified 01/24/20 12:40) Lip swelling losartan [From Cozaar] Adverse Reaction (Severe, Verified 01/24/20 12:40) Swelling lips meloxicam Adverse Reaction (Severe, Verified 01/24/20 12:40) Unknown prednisone Adverse Reaction (Severe, Verified 01/24/20 12:40) Unknown zolpidem [From Ambien] Adverse Reaction (Severe, Verified 01/24/20 12:40) Unknown amlodipine [From Norvasc] Adverse Reaction (Verified 01/24/20 12:40) SOB clonazepam [From Klonopin] Adverse Reaction (Verified 01/24/20 12:40) NEEDS FOLLOW-UP reaction like hangover diphenhydramine [From Benadryl] Adverse Reaction (Verified 01/24/20 12:40) NEEDS FOLLOW-UP agitation metronidazole [From Flagyl] Adverse Reaction (Verified 01/24/20 12:41) Pain in joints grass bent Allergy (Uncoded 01/24/20 12:40) Unknown Home Medications: Ambulatory Orders Medication Instructions Recorded triamterene 37.5 1 tab PO DAILY #30 tab 02/11/19 mg-hydrochlorothiazide 25 mg tablet cholecalciferol (vitamin D3) 25 25 mcg PO DAILY 11/11/19 mcg (1,000 unit) capsule magnesium oxide 400 mg PO DAILY 11/11/19 zinc 50 mg tablet 50 mg PO DAILY 11/11/19 Ascorbic Acid 500 mg PO DAILY 01/24/20 Atenolol 25 mg PO DAILY 01/24/20 Potassium Chloride [K-Tab ER] 10 meq PO BID 01/24/20 Vitamin B Complex [B Complex] 1 tab PO DAILY 01/24/20 Vits A,C,E/Lutein/Minerals 1 tab PO DAILY 01/24/20 [Ocuvite with Lutein Tablet] Surgical History: Surgical History (Last Reviewed 01/24/20 @ 14:[address] Jazz Dietrich MD) H/O partial resection of colon Z98.890, Z90.49 03/09 History of hysterectomy Z90.710 Surgical History: hysterectomy Psychiatric History: No pertinent psych hx [employer] History: No pertinent [employer] history Lives: Alone Smoking Status: Former smoker Alcohol: Heavy Drugs: None - *Family History Maternal Family History: Family History (Last Reviewed 11/11/19 @ 16:[address] Rahul Hernandez MD) Mother CAD (coronary artery disease) Father Kidney disease Paternal Family History: Family History (Last Reviewed 11/11/19 @ 16:[address] Rahul Hernandez MD) Mother CAD (coronary artery disease) Father Kidney disease Review of Systems Constitutional: Denies: Anorexia, Fever, Weakness Eyes: Denies: Cataracts, Double vision, Drainage, Redness HEENT: Denies: Difficulty Hearing, Dysphasia, Ear Pain, Eye Pain, Nasal Congestion, Sore Throat Cardiovascular: Denies: Chest Pain, Claudication, Chest Pressure, Edema, Heaviness, Palpitations, Syncope Respiratory: Reports: Cough. Denies: Pleuritic Pain, Shortness of Breath, Sputum production, Wheezing Gastrointestinal: Denies: Abdominal Pain, Constipation, Diarrhea, Nausea, Vomiting Genitourinary: Denies: Dysuria, Frequency, Hematuria Musculoskeletal: Denies: Arm Pain, Back Pain, Foot Pain Skin: Denies: Dryness, Rash Neurological: Denies: Balance problems, Double vision, Change in Speech, Slurred speech, Headaches Psychiatric: Denies: Anxiety, Depression Endocrine: Denies: Change in Body Habitus, Polydipsia, Polyuria VTE Information - Inpt Only VTE Present on Admission: No VTE Mechan Device Prophylaxis: None VTE Pharm Prophylaxis ordered?: Yes Patient Problems: Active and Suspected Problems (Last Updated 01/24/20 @ 14:[address] Jazz Dietrich MD) Acute alcohol withdrawal (Acute) Hypokalemia (Acute) Hyponatremia (Acute) - Physical Exam Vitals/I&O's: Vital Signs Temp Pulse Resp BP Pulse Ox 97.4 F L 101 H 16 154/109 H 98 01/24/20 13:46 01/24/20 13:46 01/24/20 13:46 01/24/20 13:46 01/24/20 12:41 Oxygen Delivery Method Room Air Weight: 142 lb Body Mass Index (BMI) 24.0 General: Alert, Oriented x3, Cooperative, No apparent distress HEENT: Atraumatic, PERRLA, EOMI, Normocephalic Oral: Moist Mucosa, No Gingival or Mucosal Lesions/ Ulcerations Neck: Supple, No JVD, Negative Carotid Bruits Lungs: Clear to auscultation, Normal air movement, No rhonchi, No wheeze, No rales, Diminished Cardiovascular: Regular rate, Regular Rhythm, Normal S1, Normal S2, PMI Normal, Tachycardic Abdomen: Bowel Sounds Present, Soft, Non Tender, Non-Distended, No Hepato- splenomegaly, Obese Extremities: No clubbing, No cyanosis, Edema - Trace edema. Skin: No rashes, No breakdown Lymphatic: No Cervical, Supraclavicular, or Inguinal Adenopathy Neurological: Cranial nerves II-XII grossly intact, Motor Exam 5/5 strength throughout Psych/Mental Status: Normal Affect, Appropriate, Alert and oriented to time, place, person, mood and affect Laboratory Results 01/24/20 12:57: WBC 7.0, RBC 4.22, Hgb 14.8, Hct 42.9, MCV 101.7 H, MCH 35.1 H, MCHC 34.5, RDW Std Deviation 48.0 H, RDW Coeff of Jared 12.7, Plt Count 264, MPV 9.2, Immature Gran % (Auto) 0.600, Neut % (Auto) 73.6 H, Lymph % (Auto) 12.5 L, [place] % (Auto) 11.9 H, Eos % (Auto) 0.4, Baso % (Auto) 1.0, Absolute Neuts (auto) 5.1, Absolute Lymphs (auto) 0.87, Nucleated RBC % 0 01/24/20 12:57: Sodium 129 L, Potassium 3.0 L, Chloride 92 L, Carbon Dioxide 26.0, Anion Gap 11, BUN 7, Creatinine 0.77, Estim Creat Clear Calc 35.52, Est GFR (MDRD) Af Amer 92, Est GFR (MDRD) Non-Af 76, BUN/Creatinine Ratio 9.1 L, Glucose 111 H, Calcium 8.7, Total Bilirubin 1.20 H, Direct Bilirubin 0.54 H, AST 83 H, ALT 65 H, Alkaline Phosphatase 137 H, Total Protein 6.8, Albumin 3.2, Globulin 3.6 01/24/20 12:57: Ethyl Alcohol 61.0 01/24/20 13:20: Urine Opiates Screen NEGATIVE, Urine Methadone Screen NEGATIVE, Ur Barbiturates Screen NEGATIVE, Ur Phencyclidine Scrn NEGATIVE, Ur Amphetamines Screen NEGATIVE, U Methamphetamin-MDMA NEGATIVE, U Benzodiazepines Scrn NEGATIVE, Urine Cocaine Screen NEGATIVE, U Cannabinoids Screen NEGATIVE, Ur Drug Screen Comment Assessment/Plan All Active Problems (Last Updated 01/24/20 @ 14:[address] Jazz Dietrich MD) New onset A. fib with RVR (Acute) Acute alcohol withdrawal (Acute) Hypokalemia (Acute) Hyponatremia (Acute) This is an 84 years old female patient presented to the emergency room requestin g admission for acute alcohol withdrawal for medical stabilization and she was found to have new onset A. fib with RVR and she is being admitted for evaluation and treatment. #1 acute alcohol withdrawal: Patient has been drinking daily for almost 50 years. Blood alcohol level is 61. Urine drug screen was negative. Plan: Admit to PCU, cardiac monitoring, initiate alcohol withdrawal protocol with tapering phenobarbital, as needed Bentyl, Neurontin, Imodium, Zofran, trazodone, daily folic acid and thiamine, consult 180 program. Patient was worried about giving her new medicine which is phenobarbital for withdrawal because she has a very long list of allergies to medications. I discussed this with the pharmacy staff and stated that there was no interactions of phenobarbital with her medications and she does not need any adjustment of phenobarbital dosage. #2 acute new onset A. fib with RVR: In the past, patient had multifocal atrial tachycardia, was tried on multiple beta-blockers but she mentioned that she gets short of breath with atenolol metoprolol. Also, she is allergic to Cardizem. Case discussed with cardiology and recommended to start patient on metoprolol and recommended that she is not a candidate for anticoagulation. 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 Plan: Correct potassium, check serum magnesium, check TSH, start metoprolol 25 mg p.o. twice daily. No anticoagulation. #3 hypokalemia/hyponatremia: Low potassium is likely because of HCTZ/triamterene and low-sodium also because of the diuretics in addition to chronic liver disease secondary to alcohol abuse. Plan: Replace potassium, check serum magnesium, repeat BMP tomorrow morning. #4 elevated LFT: Likely due to alcoholic hepatitis, will monitor. #5 hypertension: Blood pressure was elevated, continue HCTZ/triamterene, start IV hydralazine as needed, she will be started on metoprolol twice daily as well. #6 DVT prophylaxis: Subcu Lovenox. This note was generated with [employer] dictation software. It may contain incorrect words, spelling, and punctuation that were not noted in checking the note before signing. Inpatient E&M: 69517 Init Hosp L3
[2020-01-24 15:59] LABS: Thyroid Stim Hormone (TSH) 1.82 uIU/mL (0.358-3.74)
[2020-01-24] MEDS: Phenobarbital 32.4 MG Tablet 64.8 MG PO ×3 (16:03→23:33)
[2020-01-24] MEDS: Metoprolol Tartrate 25 MG Tablet PO (21:04)
[2020-01-25] VITALS (11 sets, daily range): BP systolic 111–151; BP diastolic 73–91; PULSE 69–119; RESP 16–18; TEMP 36.1–36.9; O2SAT 94–96
[2020-01-25] MEDS: Phenobarbital 32.4 MG Tablet 64.8 MG PO ×5 (04:41→21:05)
[2020-01-25 05:33] LABS: ALB/GLOB Ratio 0.8 RATIO (0.9-2.4); AST(SGOT) 54 U/L (15-37); Alanine Aminotransfer ALT/SGPT 50 U/L (13-56); Albumin, Serum 2.6 g/dL (3.2-5.0); Alkaline Phosphatase 112 U/L (45-117); Anion Gap 7 (5-15); BUN 9 mg/dL (7-18); BUN/Creat Ratio 14.1 RATIO (10-20); Calcium,Total 8.3 mg/dL (8.5-10.1); Chloride 96 mmol/L (98-107); Creatinine, Serum 0.64 mg/dL (0.55-1.02); EST Glomerular Filtration Rate 94 mL/min (>60); Est Glom Filt Rate - Afr Amer 114 mL/min (>60); Estimated Creatinine Clearance 35.52 ml/min; Globulin 3.1 g/dL (2.2-4.2); Glucose 107 mg/dL (74-106); Potassium 3.6 mmol/L (3.5-5.1); Protein, Total 5.7 g/dL (6.4-8.2); Sodium Level 132 mmol/L (136-145)
[2020-01-25] MEDS: Magnesium Chloride 64 MG Delay Rel.Tablet 128 MG PO (08:02)
[2020-01-25] MEDS: Thiamine Hydrochloride 100 MG Tablet PO (08:03)
[2020-01-25] MEDS: Folic Acid 1 MG Tablet PO (08:03)
[2020-01-25] MEDS: Triamterene 37.5MG/Hctz 25MG Capsule 1 CAP PO (08:03)
--- NOTE | 2020-01-25 09:42 | ADDICTION ---
This service writer met with patient in her room to complete MSE, AUDIT, ASAM assessments and to begin planning for discharge. Patient was alert and oriented x4 and participated appropriately during interview. [facility]. She is scheduled to meet with Yadira Bautista, PhD at the [facility] for assessment and ongoing counseling on 02/04/2020. She plans to discharge to home and will engage in AA meetings and other fellowships for support. This service writer will inform [facility] Peer support that this patient needs recovery literature, meeting lists and other support-related information.
[2020-01-25] MEDS: Digoxin 250 MCG/ML Ampul 500 MCG IV (14:46)
[2020-01-25] MEDS: 0.9% Saline Lock 10 ML Syringe IV (14:46)
--- NOTE | 2020-01-25 15:08 | NURSING ---
This RN administering IV digoxin when pt complains of tender IV. Flushed with Saline with no issues or complaints. Continued to administer IV digoxin and pt refused for anymore to be given and refused another IV site. 75mcg out of 500mcg IV digoxin were not given. IV removed from RFA. Dr. Welsh notified.
[2020-01-25] MEDS: Carvedilol 12.5 MG Tablet PO (16:44)
--- NOTE | 2020-01-25 19:30 | PN_ITS ---
Patient Problems: Active and Suspected Problems (Last Updated 01/24/20 @ 14:[address] Jazz Dietrich MD) Acute alcohol withdrawal (Acute) Hypokalemia (Acute) Hyponatremia (Acute) Subjective: Patient was seen and examined today, she does not complain of any tremors, she states that she does not believe she can take metoprolol due to an allergy to this medication. I asked her if she would consent to take carvedilol and she agreed to try this. I have changed her to carvedilol 12 and half milligrams twice daily and also gave her 1 dose of IV Lanoxin today. This appeared to slow her rate down, she remains in atrial fib at this time. - Physical Exam Vitals/I&O's: Vital Signs Temp Pulse Resp BP Pulse Ox 97.3 F L 111 H 18 126/81 H 96 01/25/20 15:00 01/25/20 16:59 01/25/20 15:00 01/25/20 15:00 01/25/20 15:00 Oxygen Delivery Method Room Air Weight: 64.5 kg Body Mass Index (BMI) 24.3 Intake and Output for Last 24 Hours 01/23/20 01/24/20 01/25/20 23:59 23:59 23:59 Intake Total 800 / 800 600 / 600 Balance 800 / 800 600 / 600 General: Alert, Oriented x3, Cooperative, No apparent distress, Well developed, Well nourished HEENT: Atraumatic, PERRLA, EOMI, Normocephalic Oral: Moist Mucosa Neck: Supple, No JVD, Trachea Midline, Thyroid Normal Size and Texture Lungs: Clear to auscultation, Normal air movement, No rhonchi, No wheeze, No rales Cardiovascular: No murmurs, PMI Normal, Irregular Rate, No rub noted, No Gallop Abdomen: Bowel Sounds Present, Soft, Non Tender, Non-Distended Extremities: No clubbing, No cyanosis, No edema, Capillary Refill Less than 3 Seconds Skin: No rashes, No breakdown Musculoskeletal: No Tenderness to Palpation of Joints or Extremities Neurological: Cranial nerves II-XII grossly intact, Neuro grossly intact, Sensory exam intact to light touch and pain, Coordination normal Psych/Mental Status: Normal Affect, Appropriate, Alert and oriented to time, place, person, mood and affect Laboratory Results 01/25/20 04:38: Sodium 132 L, Potassium 3.6, Chloride 96 L, Carbon Dioxide 29.0, Anion Gap 7, BUN 9, Creatinine 0.64, Estim Creat Clear Calc 35.52, Est GFR (MDRD) Af Amer 114, Est GFR (MDRD) Non-Af 94, BUN/Creatinine Ratio 14.1, Glucose 107 H, Calcium 8.3 L, Total Bilirubin 1.70 H, AST 54 H, ALT 50, Alkaline Phosphatase 112, Total Protein 5.7 L, Albumin 2.6 L, Globulin 3.1, Albumin/Globulin Ratio 0.8 L Current Medications Carvedilol (Carvedilol 12.5 Mg Tablet) 12.5 mg PO BIDCM [facility] Last Admin: 01/25/20 16:44 Dose: 12.5 mg Documented by: Dicyclomine HCl (Dicyclomine 10 Mg Capsule) 20 mg PO Q6H PRN PRN PRN Reason: abdominal discomfort Enoxaparin Sodium (Enoxaparin 40 Mg/0.4 Ml Syringe) 40 mg SC DAILY [facility] Last Admin: 01/25/20 08:03 Dose: Not Given Documented by: Folic Acid (Folic Acid 1 Mg Tablet) 1 mg PO DAILY@0800 [facility] Last Admin: 01/25/20 08:03 Dose: 1 mg Documented by: Gabapentin (Gabapentin 300 Mg Capsule) 300 mg PO Q8H PRN PRN PRN Reason: moderate to severe anxiety Hydralazine HCl (Hydralazine 20 Mg/Ml Vial) 10 mg IV Q8H PRN PRN PRN Reason: for SBP>160 Sodium Chloride () 500 mls @ 15 mls/hr IV PRN PRN PRN Reason: Blood Transfusion Sodium Chloride () 250 mls @ 15 mls/hr IV .[id number] PRN PRN Reason: Saline Flush Sodium Chloride () 250 mls @ 15 mls/hr IV .[id number] PRN PRN Reason: Additional IVPB Infusion Loperamide HCl (Loperamide 2 Mg Capsule) 2 mg PO Q4H PRN PRN PRN Reason: LOOSE STOOLS Magnesium Chloride (Magnesium Chloride 64 Mg Delay Rel.Tablet) 128 mg PO DAILY [facility] Last Admin: 01/25/20 08:02 Dose: 128 mg Documented by: Ondansetron HCl (Ondansetron 8 Mg Tablet) 8 mg PO Q8H PRN PRN PRN Reason: NAUSEA Phenobarbital (Phenobarbital 32.4 Mg Tablet) 97.2 mg PO Q4H [facility]; Taper Stop: 01/28/20 23:59 Last Admin: 01/25/20 16:44 Dose: 97.2 mg Documented by: Potassium Chloride ([facility] 10 [facility]eq [facility]) [facility] Admin: 01/25/20 16:44 Dose: 10 meq Documented by: Senna (Senna Tablet) 2 tablet PO QHS PRN PRN PRN Reason: Constipation Sodium Chloride (0.9% Saline Lock 10 Ml Syringe) 10 - 40 ml IV UD PRN PRN Reason: SALINE FLUSH Last Admin: 01/25/20 14:46 Dose: 10 ml Documented by: Thiamine HCl (Thiamine Hydrochloride 100 Mg Tablet) [facility] Last Admin: 01/25/20 08:03 Dose: 100 mg Documented by: Trazodone HCl (Trazodone 100 Mg Tablet) 100 mg PO QHS PRN PRN PRN Reason: INSOMNIA Triamterene/HCTZ (Triamterene 37.5mg/Hctz 25mg Capsule) 1 cap PO DAILY [facility] Last Admin: 01/25/20 08:03 Dose: 1 cap Documented by: Medical Necessity - Tobacco Use Smoking Status: Former smoker Assessment/Plan All Active Problems (Last Updated 01/24/20 @ 14:[address] Jazz Dietrich MD) New onset A. fib with RVR (Acute) Acute alcohol withdrawal (Acute) Hypokalemia (Acute) Hyponatremia (Acute) #1 new onset atrial fibrillation with rapid ventricular response-patient remains in atrial fib at this time but the rate has decreased with the addition of a beta-adam and IV Lanoxin, continue present therapy, I will decide tomorrow whether the patient needs continued digoxin. #2 acute alcohol withdrawal-continue present medications #3 chronic alcoholism-patient is going to follow-up with 180 #4 hypokalemia-corrected at this time #5 elevated liver function tests-secondary to chronic alcohol use-improved at this time #6 right atrial myxoma-chronic #7 essential hypertension Inpatient E&M: 51445 [facility] Hosp L2
[2020-01-26] VITALS (11 sets, daily range): BP systolic 104–150; BP diastolic 51–83; PULSE 61–86; RESP 14–18; TEMP 36.7–37.1; O2SAT 91–95
[2020-01-26] MEDS: Phenobarbital 32.4 MG Tablet 64.8 MG PO ×5 (00:10→16:07)
[2020-01-26] MEDS: Thiamine Hydrochloride 100 MG Tablet PO (07:46)
[2020-01-26] MEDS: Carvedilol 12.5 MG Tablet PO ×2 (07:47→16:09)
[2020-01-26] MEDS: Folic Acid 1 MG Tablet PO (07:47)
--- NOTE | 2020-01-26 08:36 | ADDICTION ---
This headline writer met with patient to process discharge planning. Patient reported that she plans to discharge today per her physician. She reports that she plans to leave with or without successful completion. She reported feeling resentful about her personal belongings being locked up and noted that she believes that she has received the benefits from this program and does not want to continue after today. She also reported that she will need to call around for transportation but does have personal transportation options.
[2020-01-26] MEDS: Magnesium Chloride 64 MG Delay Rel.Tablet 128 MG PO (10:04)
[2020-01-26] MEDS: Triamterene 37.5MG/Hctz 25MG Capsule 1 CAP PO (10:05)
--- NOTE | 2020-01-26 18:34 | PCM.PROGNOTE ---
Patient Problems: Active and Suspected Problems (Last Updated 01/24/20 @ 14:[address] Jazz Dietrich MD) Acute alcohol withdrawal (Acute) Hypokalemia (Acute) Hyponatremia (Acute) Subjective: Patient was seen and examined today, she denies any tremor or nervousness, her heart rate is better controlled. Patient appears to be in atrial bigeminy at times. Objective: General: Alert, Oriented x3, Cooperative, No apparent distress, Well developed, Well nourished HEENT: Atraumatic, PERRLA, EOMI, Normocephalic Oral: Moist Mucosa Neck: Supple, No JVD, Trachea Midline, Thyroid Normal Size and Texture Lungs: Clear to auscultation, Normal air movement, No rhonchi, No wheeze, No rales Cardiovascular: No murmurs, PMI Normal, Irregular Rate, No rub noted, No Gallop Abdomen: Bowel Sounds Present, Soft, Non Tender, Non-Distended Extremities: No clubbing, No cyanosis, No edema, Capillary Refill Less than 3 Seconds Skin: No rashes, No breakdown Musculoskeletal: No Tenderness to Palpation of Joints or Extremities Neurological: Cranial nerves II-XII grossly intact, Neuro grossly intact, Sensory exam intact to light touch and pain, Coordination normal Psych/Mental Status: Normal Affect, Appropriate, Alert and oriented to time, place, person, mood and affect - Physical Exam Vitals/I&O's: Vital Signs Temp Pulse Resp BP Pulse Ox 98.7 F 82 16 104/71 95 01/26/20 14:35 01/26/20 14:35 01/26/20 14:35 01/26/20 14:35 01/26/20 14:35 Oxygen Delivery Method Room Air Weight: 64.5 kg Body Mass Index (BMI) 24.3 Intake and Output for Last 24 Hours 01/24/20 01/25/20 01/26/20 23:59 23:59 23:59 Intake Total 800 / 800 600 / 800 200 / 200 Balance 800 / 800 600 / 800 200 / 200 Current Medications Carvedilol ([facility]ilol 12.5 Mg Tablet) [facility] Last Admin: 01/26/20 16:09 Dose: 12.5 mg Documented by: Dicyclomine HCl (Dicyclomine 10 Mg Capsule) 20 mg PO Q6H PRN PRN PRN Reason: abdominal discomfort Enoxaparin Sodium (Enoxaparin 40 Mg/0.4 Ml Syringe) 40 mg SC DAILY [facility] Last Admin: 01/26/20 10:01 Dose: Not Given Documented by: Folic Acid (Folic Acid 1 Mg Tablet) 1 mg PO DAILY@0800 [facility] Last Admin: 01/26/20 07:47 Dose: 1 mg Documented by: Gabapentin (Gabapentin 300 Mg Capsule) 300 mg PO Q8H PRN PRN PRN Reason: moderate to severe anxiety Hydralazine HCl (Hydralazine 20 Mg/Ml Vial) 10 mg IV Q8H PRN PRN PRN Reason: for SBP>160 Sodium Chloride () 500 mls @ 15 mls/hr IV PRN PRN PRN Reason: Blood Transfusion Sodium Chloride () 250 mls @ 15 mls/hr IV .[id number] PRN PRN Reason: Saline Flush Sodium Chloride () 250 mls @ 15 mls/hr IV .[id number] PRN PRN Reason: Additional IVPB Infusion Loperamide HCl (Loperamide 2 Mg Capsule) 2 mg PO Q4H PRN PRN PRN Reason: LOOSE STOOLS Magnesium Chloride (Magnesium Chloride 64 Mg Delay Rel.Tablet) 128 mg PO DAILY [facility] Last Admin: 01/26/20 10:04 Dose: 128 mg Documented by: Ondansetron HCl (Ondansetron 8 Mg Tablet) 8 mg PO Q8H PRN PRN PRN Reason: NAUSEA Potassium Chloride (Potassium Chloride 10 Meq Tablet) [facility] Last Admin: 01/26/20 16:08 Dose: 10 meq Documented by: Senna (Senna Tablet) 2 tablet PO QHS PRN PRN PRN Reason: Constipation Sodium Chloride (0.9% Saline Lock 10 Ml Syringe) 10 - 40 ml IV UD PRN PRN Reason: SALINE FLUSH Last Admin: 01/25/20 14:46 Dose: 10 ml Documented by: Thiamine HCl (Thiamine Hydrochloride 100 Mg Tablet) [facility] Last Admin: 01/26/20 07:46 Dose: 100 mg Documented by: Trazodone HCl (Trazodone 100 Mg Tablet) 100 mg PO QHS PRN PRN PRN Reason: INSOMNIA Triamterene/HCTZ (Triamterene 37.5mg/Hctz 25mg Capsule) 1 cap PO DAILY [facility] Last Admin: 01/26/20 10:05 Dose: 1 cap Documented by: Medical Necessity - Tobacco Use Smoking Status: Former smoker Assessment/Plan All Active Problems (Last Updated 01/24/20 @ 14:[address] Jazz Dietrich MD) New onset A. fib with RVR (Acute) Acute alcohol withdrawal (Acute) Hypokalemia (Acute) Hyponatremia (Acute) #1 new onset atrial fibrillation with rapid ventricular response-patient remains in atrial fib at this time with what appears to be periods of atrial bigeminy, patient's rate is better controlled on her current medications and she has no complaints of any side effects. #2 acute alcohol withdrawal-I have decided to decrease the patient's phenobarbital to 3 times daily at a lower dose. #3 chronic alcoholism-patient is going to follow-up with 180 #4 hypokalemia-corrected at this time #5 elevated liver function tests-secondary to chronic alcohol use-improved at this time #6 right atrial myxoma-chronic #7 essential hypertension Inpatient E&M: 99318 Subs Hosp L2
[2020-01-26] MEDS: Phenobarbital 32.4 MG Tablet PO (22:16)
[2020-01-27 02:00] VITALS: BP 139/76; PULSE 74; RESP 12; TEMP 36.7; O2SAT 94
[2020-01-27 03:00] VITALS: PULSE 73
[2020-01-27 06:00] VITALS: BP 126/68; PULSE 73; RESP 18; TEMP 36.6; O2SAT 96
[2020-01-27] MEDS: Phenobarbital 32.4 MG Tablet PO (06:18)
[2020-01-27 07:51] VITALS: PULSE 78
[2020-01-27 08:24] VITALS: BP 141/92; PULSE 76; RESP 18; TEMP 36.8; O2SAT 98
[2020-01-27 08:27] VITALS: PULSE 76; O2SAT 98
[2020-01-27] MEDS: Carvedilol 12.5 MG Tablet PO (08:53)
[2020-01-27] MEDS: Enoxaparin 40 MG/0.4 ML Syringe SC (08:53)
[2020-01-27] MEDS: Triamterene 37.5MG/Hctz 25MG Capsule 1 CAP PO (08:53)
[2020-01-27] MEDS: Thiamine Hydrochloride 100 MG Tablet PO (08:53)
[2020-01-27] MEDS: Folic Acid 1 MG Tablet PO (08:53)
[2020-01-27] MEDS: Magnesium Chloride 64 MG Delay Rel.Tablet 128 MG PO (08:54)
--- NOTE | 2020-01-27 09:03 | PCM.DC ---
- Discharge Diagnoses Current Active Problems: Current Active and Chronic Problems (Last Updated 01/24/20 @ 14:[address] Jazz Dietrich MD) Multifocal atrial tachycardia (Chronic) Alcohol abuse (Chronic) Acute alcohol withdrawal (Acute) Hypokalemia (Acute) Hyponatremia (Acute) Atrial myxoma (Chronic) Essential hypertension (Chronic) You will use the following diet at home:: No restrictions Your food should be the consistency of: Regular Your liquids should be the consistency of: Regular/Thin Discharge Activity: Return to Normal Activity Weight Bearing Status: Full weight bearing Allergies/Adverse Reactions: Allergies alprazolam [From Xanax] Allergy (Verified 01/24/20 12:40) Unknown atenolol Allergy (Verified 01/24/20 12:40) Shortness of breath cetirizine [From Zyrtec] Allergy (Verified 01/24/20 12:40) Unknown cimetidine [From Tagamet] Allergy (Verified 01/24/20 12:40) Unknown diltiazem [From Cardizem] Allergy (Verified 01/24/20 12:40) Unknown erythromycin base Allergy (Verified 01/24/20 12:40) Unknown famotidine [From Pepcid] Allergy (Verified 01/24/20 12:40) Unknown guaifenesin [From Entex LA] Allergy (Verified 01/24/20 12:40) Unknown house dust Allergy (Verified 01/24/20 12:40) Unknown lansoprazole [From Prevacid] Allergy (Verified 01/24/20 12:40) Unknown loracarbef [From Lorabid] Allergy (Verified 01/24/20 12:40) Unknown metoprolol [From Toprol XL] Allergy (Verified 01/24/20 12:40) Unknown mold Allergy (Verified 01/24/20 12:40) Unknown phenylephrine [From Entex LA] Allergy (Verified 01/24/20 12:40) Unknown phenylpropanolamine [From Entex LA] Allergy (Verified 01/24/20 12:40) Unknown promethazine [From Phenergan] Allergy (Verified 01/24/20 12:40) Unknown raloxifene [From Evista] Allergy (Verified 01/24/20 12:40) Unknown ranitidine [From Zantac] Allergy (Verified 01/24/20 12:40) Unknown risedronate sodium [From Actonel] Allergy (Verified 01/24/20 12:40) Unknown escitalopram [From Lexapro] Adverse Reaction (Severe, Verified 01/24/20 12:40) Unknown lisinopril Adverse Reaction (Severe, Verified 01/24/20 12:40) Lip swelling losartan [From Cozaar] Adverse Reaction (Severe, Verified 01/24/20 12:40) Swelling lips meloxicam Adverse Reaction (Severe, Verified 01/24/20 12:40) Unknown prednisone Adverse Reaction (Severe, Verified 01/24/20 12:40) Unknown zolpidem [From Ambien] Adverse Reaction (Severe, Verified 01/24/20 12:40) Unknown amlodipine [From Norvasc] Adverse Reaction (Verified 01/24/20 12:40) SOB clonazepam [From Klonopin] Adverse Reaction (Verified 01/24/20 12:40) NEEDS FOLLOW-UP reaction like hangover diphenhydramine [From Benadryl] Adverse Reaction (Verified 01/24/20 12:40) NEEDS FOLLOW-UP agitation metronidazole [From Flagyl] Adverse Reaction (Verified 01/24/20 12:41) Pain in joints grass bent Allergy (Uncoded 01/24/20 12:40) Unknown Medications to take at Discharge triamterene 37.5 mg-hydrochlorothiazide 25 mg tablet 1 tab PO DAILY #30 tab 02/11/19 cholecalciferol (vitamin D3) 25 mcg (1,000 unit) capsule 25 mcg PO DAILY 11/11/19 magnesium oxide 400 mg PO DAILY 11/11/19 zinc 50 mg tablet 50 mg PO DAILY 11/11/19 Ascorbic Acid 500 mg PO DAILY 01/24/20 Potassium Chloride [K-Tab ER] 10 meq PO BID 01/24/20 Vitamin B Complex [B Complex] 1 tab PO DAILY 01/24/20 Vits A,C,E/Lutein/Minerals [Ocuvite with Lutein Tablet] 1 tab PO DAILY 01/24/20 Carvedilol [Coreg (Beta Nia)] 12.5 mg PO BIDCM #60 tab 01/27/20 Phenobarbital 15 mg PO BID #4 tablet 01/27/20 Potassium Chloride [K-Dur] 10 meq PO BIDCM tablet 01/27/20 The following prescriptions were given: Carvedilol [Coreg (Beta Nia)] 12.5 mg PO BIDCM #60 tab Transmission Status: Pending to [facility] Phenobarbital 15 mg PO BID #4 tablet Transmission Status: Sent to [facility] Primary Care Physician: Tulio Roberts MD [Primary Care Provider] - Please follow up with your Primary Care Physician in: in two weeks Test Results: Test results from this visit will be discussed in further detail at your follow-up appointment, if applicable. Please Follow Up With: 180 as directed
--- NOTE | 2020-01-27 18:09 | PCM.DC.SUM ---
Discharge Date and Diagnosis - Problem List Patient Problems: Active and Suspected Problems (Last Updated 01/24/20 @ 14:[address] Jazz Dietrich MD) Acute alcohol withdrawal (Acute) Hypokalemia (Acute) Hyponatremia (Acute) Date of Admission: 01/24/20 Date of Discharge: 01/27/20 - Primary Discharge Diagnosis Acute Problems: Active Problems (Last Updated 01/24/20 @ 14:[address] Jazz Dietrich MD) #1 new onset atrial fibrillation with rapid ventricular response-converted to normal sinus rhythm. #2 acute alcohol withdrawal #3 chronic alcoholism #4 hypokalemia #5 elevated liver function tests-secondary to chronic alcohol use #6 right atrial myxoma-chronic #7 essential hypertension - Secondary Discharge Diagnosis Chronic Problems: Chronic Problems (Last Updated 01/24/20 @ 14:[address] Jazz Dietrich MD) Multifocal atrial tachycardia (Chronic) Alcohol abuse (Chronic) Atrial myxoma (Chronic) Essential hypertension (Chronic) Hospital Course and Treatment Operations: None, colectomy - laparoscopic converted to hand assist left colectomy with mobilization of splenic flexure Procedures: None Summary of Care Provided: The patient is a 84 year old F was seen in the emergency room at [facility] requesting detox services for alcoholism. Work-up in the emergency room included labs which showed a sodium of 129, potassium of 3, patient's bilirubin was 1.2, tox screen was unremarkable, blood alcohol level 61. EKG was performed which showed the patient to be in atrial fib with RVR, she was admitted to PCU and started on metoprolol for her atrial fibrillation because she is not felt to be a good candidate for anticoagulation due to her alcohol use. Patient was placed on phenobarbital taper for her alcohol withdrawals which was very minor during the time of her stay in the hospital. Patient eventually converted to normal sinus rhythm. She was contacted by 180 and agreed to follow-up as an outpatient with them but not go into an inpatient alcohol detox program. On 01/27/2020, patient was seen and examined: On examination she appeared in good health and spirits, she does not appear to be in any distress. Vital signs as documented. Skin warm and dry and without overt rashes. Neck without JVD, thyroid appears normal, trachea is midline, neck is supple. Lungs clear, normal air movement was noted. Heart exam notable for regular rhythm, normal sounds and absence of murmurs, rubs or gallops. Abdomen unremarkable and without evidence of organomegaly, masses, or abdominal aortic enlargement, bowel sounds are present in all 4 quadrants, no abdominal tenderness was noted. Extremities nonedematous, no cyanosis was noted, no clubbing was noted. Neuro: Cranial nerves II through XII are grossly intact, no focal motor deficits were noted, sensation to light touch and pinprick is intact, motor exam 5/5 throughout. Psych: Patient is alert and oriented x3, she does not appear anxious or depressed, she does not appear agitated. Patient was felt to be stable for discharge on 01/27/2020. Patient Problems: Active and Suspected Problems (Last Updated 01/24/20 @ 14:[address] Jazz Dietrich MD) Acute alcohol withdrawal (Acute) Hypokalemia (Acute) Hyponatremia (Acute) - Physical Exam Vitals/I&O's: Vital Signs Temp Pulse Resp BP Pulse Ox 98.2 F 76 18 141/92 H 98 01/27/20 08:24 01/27/20 08:27 01/27/20 08:24 01/27/20 08:24 01/27/20 08:27 Oxygen Flow Rate (L/min) 2 Oxygen Delivery Method Room Air Weight: 64.5 kg Body Mass Index (BMI) 24.3 Intake and Output for Last 24 Hours 01/25/20 01/26/20 01/27/20 23:59 23:59 23:59 Intake Total 600 / 800 440 / 440 240 / 240 Balance 600 / 800 440 / 440 240 / 240 Discharge Activity: Return to Normal Activity Weight Bearing Status: Full weight bearing Home Medications: Medications to take at Discharge triamterene 37.5 mg-hydrochlorothiazide 25 mg tablet 1 tab PO DAILY #30 tab 02/11/19 cholecalciferol (vitamin D3) 25 mcg (1,000 unit) capsule 25 mcg PO DAILY 11/11/19 magnesium oxide 400 mg PO DAILY 11/11/19 zinc 50 mg tablet 50 mg PO DAILY 11/11/19 Ascorbic Acid 500 mg PO DAILY 01/24/20 Potassium Chloride [K-Tab ER] 10 meq PO BID 01/24/20 Vitamin B Complex [B Complex] 1 tab PO DAILY 01/24/20 Vits A,C,E/Lutein/Minerals [Ocuvite with Lutein Tablet] 1 tab PO DAILY 01/24/20 Carvedilol [Coreg (Beta Nia)] 12.5 mg PO BIDCM #60 tab 01/27/20 Phenobarbital 15 mg PO BID #4 tab 01/27/20 Potassium Chloride [K-Dur] 10 meq PO BIDCM tab 01/27/20 Following Prescriptions Were Given to Patient: Carvedilol [Coreg (Beta Nia)] 12.5 mg PO BIDCM #60 tab Transmission Status: Received by [facility] Phenobarbital 15 mg PO BID #4 tab Transmission Status: Received by [facility] Primary Care Physician: Tulio Roberts MD [Primary Care Provider] - Please follow up with your Primary Care Physician in: in two weeks Please Follow Up With: one-eighty Please Follow Up With: Tulio Roberts MD Disposition: Home Minutes spent on discharge:: 32 Patient Condition:: Stable Medical Necessity - Tobacco Use Smoking Status: Former smoker Meaningful Use Info Meaningful Use Diagnoses (Choose all that apply): None applicable Inpatient E&M: 47921 Disch Hosp
== END 2020-01-27 11:42 | disposition home or self-care (01) | DRG 897 ==
LOC: ED 14:26 → PCU 14:54
PROVIDERS: Admitting Provider Hospitalist; Emergency Provider Emergency Medicine; PCP Family Medicine; Visit Provider Internal Medicine
DX: F10.239 Alcohol dependence with withdrawal, unspecified (principal); K70.10 Alcoholic hepatitis without ascites; Y90.3 Blood alcohol level of 60-79 mg/100 ml; E87.1 Hypo-osmolality and hyponatremia; E87.6 Hypokalemia; I47.1 Supraventricular tachycardia; I49.3 Ventricular premature depolarization; I48.91 Unspecified atrial fibrillation; I10 Essential (primary) hypertension; Z79.899 Other long term (current) drug therapy; Z87.891 Personal history of nicotine dependence
CPT/HCPCS: 36415; 80048; 80053; 80076; 80307; 80320; 83735; 84443; 85025; 93005; 97110; 97162; 97166; 97530; 97535; 97802; 99285; A4216; G0480

== ENCOUNTER → 2020-03-31 | Outpatient (CLI) | payer MEDICARE, OTHER, SELFPAY ==
[2020-01-24 15:31] VITALS: BMI 24.3
--- NOTE | 2020-03-31 09:58 | VDLE_ITS ---
Reason For Study: Pain and swelling RIGHT GSV is normal. CFV is compressible, spontaneous, phasic, competent and demonstrates normal augmentation. FV is compressible, spontaneous, phasic, competent and demonstrates normal augmentation. POP V is compressible, spontaneous, phasic, competent and demonstrates normal augmentation. T/P Trunk is compressible. PTV is compressible. RT PerV is compressible. Heterogenous, vascular structure noted Rt Groin measuring 3.11cm x 1.19cm. Procedure Exam performed in department. A preliminary report was called and/or faxed to Halima Napoles NP. Interpretation Summary Deep veins of the right lower extremity are patent and compressible segmentally. There is no evidence of right lower extremity deep vein thrombosis. Valvular competence appears intact within the proximal deep venous system on the right . The right great saphenous vein appears patent and compressible segmentally. A heterogeneous, vascularized structure is noted in the right groin, measuring 3.11 cm x 1.19 cm. This may represent lymphadenopathy. Clinical correlation is advised. Ordering Physician: Halima Napoles Performed By: Delilah Tate, BENNETTCS, RVT
== END | disposition home or self-care (01) ==
PROVIDERS: PCP Family Medicine; Referring Provider Nurse Practitioner Family; Visit Provider Nurse Practitioner Family
DX: M79.89 Other specified soft tissue disorders (principal); M79.661 Pain in right lower leg
CPT/HCPCS: 93971

== ENCOUNTER → 2020-04-27 10:37 | Outpatient (CLI) | payer MEDICARE, OTHER, SELFPAY ==
[2020-01-24 15:31] VITALS: BMI 24.3
--- NOTE | 2020-04-27 10:41 | RAD_ITS ---
STUDY: X-RAY - RIGHT ANKLE REASON FOR EXAM: Right ankle pain, no specific injury. TECHNIQUE: 3 view(s) of the ankle. COMPARISON: None. FINDINGS: There is osteopenia. Normal visualized distal tibia and fibula. Normal medial and lateral malleoli. Normal tibiotalar articulation and ankle mortise. Normal visualized talus and calcaneus. The visualized subtalar, talonavicular, calcaneocuboid and tarsal articulations are normal. There is soft tissue swelling. RAD/Ankle min 3 Views IMPRESSION: Soft tissue swelling. No demonstrated fracture. Electronically Signed: Etienne Edwards MD at 14:42 EST Tel , Service support ,
--- NOTE | 2020-04-27 10:41 | RAD_ITS ---
STUDY: X-RAY CHEST REASON FOR EXAM: Female, 84 years old. cough TECHNIQUE: PA and lateral views of the chest. COMPARISON: 02/09/2017 FINDINGS: There are interstitial fibrotic changes of the lungs. There is no demonstrated pleural abnormality. Normal size heart. Normal mediastinum and shazia. Normal visualized pulmonary arteries. There is atherosclerotic calcification of the aortic arch with tortuosity. There is demineralization of the osseous structures. Prior vertebral augmentation of lower thoracic vertebral body with residual compression deformity. There is no demonstrated abnormality of the visualized soft tissue structures of the upper abdomen. RAD/Chest PA and Lateral IMPRESSION: No airspace consolidation or pleural effusion. Electronically Signed: Flakito Alford MD (Brooks) at 14:09 EST , Service support ,
[2020-04-27 11:52] LABS: Absolute Lymphocyte Count 1.24 X10^3/uL (0.83-4.51); Absolute Neutrophil Count 5.5 X10^3/uL (2.0-7.7); Basophil# 0.09 X10^3/uL; Basophil% 1.2 % (0-1); Eosinophils% 2.6 % (0-5); Hematocrit 37.7 % (37-47); Hemoglobin 12.2 g/dL (12.0-15.0); Lymphocyte # 1.24 X10^3/ul (4.0); Lymphocyte % 16.1 % (19-41); Mean Corp Hgb Conc 32.4 g/dL (32-36); Mean Corpuscular Hgb 32.6 pg (27.0-32.0); Mean Corpuscular Volume 100.8 fL (81-99); Mean Platelet Vol. 9.6 fl (6.2-12.0); Monocyte# 0.61 X10^3/uL; Monocyte% 7.9 % (0-10); NRBC Flagged by Analyzer 0 % (0-5); Neutrophil # 5.53 X10^3/uL (2.7-7.7); Neutrophil % 71.9 % (47-70); Platelet Count 266 K/mm3 (150-450); RBC Distribution Width CV 11.8 % (11.6-14.6); RBC Distribution Width SD 43.8 fl (35.1-43.9); Red Blood Count 3.74 M/mm3 (4.2-5.4); White Blood Count 7.7 K/mm3 (4.4-11.0)
[2020-04-27 12:13] LABS: ALB/GLOB Ratio 0.9 RATIO (0.9-2.4); AST(SGOT) 13 U/L (15-37); Alanine Aminotransfer ALT/SGPT 15 U/L (13-56); Albumin, Serum 3.5 g/dL (3.2-5.0); Alkaline Phosphatase 87 U/L (45-117); Anion Gap 3 (5-15); BUN 13 mg/dL (7-18); BUN/Creat Ratio 14.3 RATIO (10-20); Calcium,Total 9.9 mg/dL (8.5-10.1); Chloride 102 mmol/L (98-107); Creatinine, Serum 0.91 mg/dL (0.55-1.02); EST Glomerular Filtration Rate 63 mL/min (>60); Est Glom Filt Rate - Afr Amer 76 mL/min (>60); Globulin 3.7 g/dL (2.2-4.2); Glucose 111 mg/dL (74-106); Potassium 3.4 mmol/L (3.5-5.1); Protein, Total 7.2 g/dL (6.4-8.2); Sodium Level 137 mmol/L (136-145)
[2020-04-27 12:30] LABS: Vitamin B12 501 pg/mL (211-911); Vitamin D,25 Hydroxy 23.7 ng/mL
[2020-05-04 09:37] LABS: Vitamin B1, Thiamine 99.8 nmol/L (66.5-200.0)
== END ==
PROVIDERS: PCP Family Medicine; Referring Provider Family Medicine; Visit Provider Family Medicine
DX: R05 Cough (principal); R53.1 Weakness; I48.91 Unspecified atrial fibrillation; M25.571 Pain in right ankle and joints of right foot; Z87.81 Personal history of (healed) traumatic fracture; Z87.898 Personal history of other specified conditions
CPT/HCPCS: 36415; 71046; 73610; 80053; 82306; 82607; 84425; 85025

== ENCOUNTER → 2020-05-16 10:45 | Outpatient (CLI) | payer MEDICARE, OTHER, SELFPAY ==
[2020-05-02 14:35] VITALS: BMI 23.9
--- NOTE | 2020-05-16 10:48 | CDU_ITS ---
Reason For Study: Vision loss Rt. Velocities/BP Lt. Velocities/BP Prox CCA 61.7/14.7 cm/sec. Prox CCA 65.7/13.3 cm/sec. Mid CCA 39.5/13.4 cm/sec. Mid CCA 59.6/15.1 cm/sec. Dist CCA 46.5/17.9 cm/sec. Dist CCA 47.4/13.3 cm/sec. Prox ICA 30.8/10.7 cm/sec. Prox ICA 38.6/13.3 cm/sec. Mid ICA 48.2/17.7 cm/sec. Mid ICA 45.6/13.3 cm/sec. Dist ICA 53.5/21.2 cm/sec. Dist ICA 71.1/23.9 cm/sec. Rt. ICA/CCA = 1.2. Lt. ICA/CCA = 1.2. Prox ECA 69.5/9.1 cm/sec. Prox ECA 50/6.4 cm/sec. Rt. Vert. 36/12.5 cm/sec. Lt. Vert. 27.9/8.2 cm/sec. Right Extracranial There is homogeneous, smooth atherosclerotic plaque noted in the right common carotid artery. There is heterogeneous, irregular atherosclerotic plaque noted in the right internal carotid artery. There is intimal thickening but no significant atherosclerotic plaque noted in the right external carotid artery. Antegrade flow is noted in the right vertebral artery. Left Extracranial There is homogeneous, smooth atherosclerotic plaque noted in the left common carotid artery. There is homogeneous, smooth atherosclerotic plaque noted in the left internal carotid artery. There is intimal thickening but no significant atherosclerotic plaque noted in the left external carotid artery. Antegrade flow is noted in the left vertebral artery. Procedure Carotid Duplex 15781. This is a Carotid Duplex examination using B-mode, color flow and specral Doppler. Exam performed in department. Interpretation Summary Minimal plaque at the proximal right internal carotid artery with less than 50% stenosis. <50% stenosis right external carotid Smooth plaque at the origin of the left internal carotid artery with less than 50% stenosis <50% stenosis left external carotid Patent and antegrade vertebrals bilaterally Ordering Physician: Selam Bliss Referring Physician: Tulio Roberts Performed By: Ludmila Bee RVT
== END ==
PROVIDERS: PCP Family Medicine; Referring Provider Physician Assistant Medical; Visit Provider Physician Assistant Medical
DX: H53.122 Transient visual loss, left eye (principal)
CPT/HCPCS: 93880

== ENCOUNTER 2020-05-25 12:25 | Outpatient (RCR) | payer MEDICARE, OTHER, SELFPAY ==
[2020-05-02 14:35] VITALS: BMI 23.9
[2020-05-25] MEDS: COVID-19 VACC, MRNA(PFIZER)/PF 30 MCG/0.3 ML SYRINGE IM (12:59)
[2020-06-15] MEDS: COVID-19 VACC, MRNA(PFIZER)/PF 30 MCG/0.3 ML SYRINGE IM (12:49)
== END 2020-05-25 23:59 ==
LOC: IMMUN 12:25
PROVIDERS: PCP Family Medicine; Visit Provider Family Medicine
DX: Z23 Encounter for immunization (principal)
CPT/HCPCS: 0001A; 0002A; 91300

== ENCOUNTER → 2020-07-25 14:27 | Outpatient (CLI) | payer MEDICARE, OTHER, SELFPAY ==
[2020-05-02 14:35] VITALS: BMI 23.9
--- NOTE | 2020-07-25 14:30 | RAD_ITS ---
STUDY: X-RAY - SACROILIAC JOINTS REASON FOR EXAM: Female, 84 years old. Pain. TECHNIQUE: 3 view(s) of the sacroiliac joints were obtained. COMPARISON: None. FINDINGS: Normal bilateral sacroiliac joints. Normal visualized sacral ala and sacrum. Normal visualized iliac bones. There is atherosclerotic changes of the thoracic aorta and iliac arteries without aneurysm. RAD/S-I Jts 3 or More Views IMPRESSION: Normal x-ray examination of the bilateral sacroiliac joints. Electronically Signed: Jovani Christian DO at 23:17 EDT Tel [phone], Service support ,
--- NOTE | 2020-07-25 14:33 | RAD_ITS ---
STUDY: X-RAY - LUMBAR SPINE REASON FOR EXAM: Female, 84 years old. Lower back pain. TECHNIQUE: 5 view(s) of the lumbar spine were obtained. COMPARISON: 03/09/2015. FINDINGS: Normal lumbar lordosis. There is no substantial scoliosis. There is a normal alignment of the vertebrae. There is generalized demineralization of the vertebral bodies. There is a compression deformity of T12 with vertebral augmentation. There is age indeterminate compression deformities of both L3 and L4 which have mildly increased since the previous study. The remainder of the vertebral axial heights are maintained. There is multi-level degenerative disc disease with multi-level disc space narrowing. The soft tissue structures are unremarkable. RAD/L/S Spine Min 4 Views IMPRESSION: 1. Interval vertebral augmentation of a T12 compression deformity. 2. Mild worsening of compression deformities at L2 and L4 when compared previous study. 3. Osteopenia and degenerative changes. Electronically Signed: Jovani Christian DO at 23:16 EDT Tel [phone], Service support ,
== END ==
PROVIDERS: PCP Family Medicine; Referring Provider Family Medicine; Visit Provider Family Medicine
DX: M54.5 Low back pain (principal)
CPT/HCPCS: 72110; 72202

== ENCOUNTER 2020-08-12 05:57 | Inpatient (IN) | payer MEDICARE, OTHER, SELFPAY ==
[2020-05-02 14:35] VITALS: BMI 23.9
[2020-08-12] VITALS (17 sets, daily range): BP systolic 138–198; BP diastolic 88–118; PULSE 90–138; RESP 13–19; TEMP 36.6–37.1; O2SAT 92–98; BMI 30.7; BMI 26.1
--- NOTE | 2020-08-12 06:10 | RAD_ITS ---
STUDY: X-RAY CHEST REASON FOR EXAM: Female, 84 years old. SOB TECHNIQUE: Single AP portable view of the chest. COMPARISON: 04/27/2020 FINDINGS: Linear opacities in both lung bases consistent with bibasilar discoid atelectasis. Slightly elevated left hemidiaphragm which is unchanged. There is moderate cardiac enlargement. Normal mediastinum and shazia. Normal visualized pulmonary arteries. Normal visualized aortic arch and descending thoracic aorta. Normal visualized thoracic spine. Normal visualized ribs, clavicles, and shoulders. There is no demonstrated abnormality of the visualized soft tissue structures of the upper abdomen. RAD/Chest 1 View (Portable) IMPRESSION: Some bibasilar discoid atelectasis. Electronically Signed: Kishan Estrada MD at 6:26 EDT Tel , Service support ,
--- NOTE | 2020-08-12 06:10 | EKG12_ITS ---
Test Reason : DYSRHYTHMIA Blood Pressure : / mmHG Vent. Rate : 099 BPM Atrial Rate : 099 BPM P-R Int : 000 ms QRS Dur : 078 ms QT Int : 362 ms P-R-T Axes : 000 -52 023 degrees QTc Int : 464 ms Atrial fibrillation Left axis deviation Low voltage QRS Inferior infarct , age undetermined Possible Anterolateral infarct , age undetermined Abnormal ECG Confirmed by COLLIN OQUENDO, YAN ([id number]), metropolitan editor MERARI RUSSELL ([id number]) on 08/15/2020 9:39:25 AM Referred By: ZOE Confirmed By:YAN POALNCO MD
[2020-08-12 06:35] LABS: Absolute Lymphocyte Count 1.31 X10^3/uL (0.83-4.51); Absolute Neutrophil Count 8.7 X10^3/uL (2.0-7.7); Basophil# 0.04 X10^3/uL; Basophil% 0.4 % (0-1); Eosinophils% 0.9 % (0-5); Hematocrit 38.4 % (37-47); Hemoglobin 13.1 g/dL (12.0-15.0); Lymphocyte # 1.31 X10^3/ul (0.83-4.51); Lymphocyte % 11.6 % (19-41); Mean Corp Hgb Conc 34.1 g/dL (32-36); Mean Corpuscular Hgb 32.2 pg (27.0-32.0); Mean Corpuscular Volume 94.3 fL (81-99); Mean Platelet Vol. 9.8 fl (6.2-12.0); Monocyte# 1.09 X10^3/uL; Monocyte% 9.6 % (0-10); NRBC Flagged by Analyzer 0 % (0-5); Neutrophil # 8.71 X10^3/uL (2.7-7.7); Neutrophil % 77.1 % (47-70); Platelet Count 265 K/mm3 (150-450); RBC Distribution Width CV 13.1 % (11.6-14.6); RBC Distribution Width SD 45.3 fl (35.1-43.9); Red Blood Count 4.07 M/mm3 (4.2-5.4); White Blood Count 11.3 K/mm3 (4.4-11.0)
[2020-08-12] MEDS: Ondansetron 4 MG/2 ML Vial IV (06:37)
[2020-08-12] MEDS: Morphine 4 MG/ML Syringe IV (06:38)
--- NOTE | 2020-08-12 06:40 | EDS_ITS ---
HPI History of Present Illness Chief Complaint: Shortness of Breath Narrative Narrative: 84-year-old female patient of Dr. Roberts who is a poor informant. She reports that at 430 this morning she had the abrupt onset of shortness of breath. States that it was severe at worst moderate currently. It is worsened by nothing. Is also relieved by nothing. Patient reports that this began while she was sleeping in a chair. Patient denies any fever, chills, chest pain, or cough. She reports that she has epigastric abdominal pain that began today as well. She has had nausea without vomiting. No diarrhea. No melena or hematochezia. No dysuria or frequency. Patient reports that she has low back pain that began approximately 4 weeks ago after she tried to move something heavy. She reports that this is why she is sleeping in the chair. She states that pain is an 8 out of 10 currently and 10 out of 10 at worst. It is increased with movement. She denies any ration to her legs. No numbness or weakness in her legs. She states that she has been on [place], tramadol, and is currently on gabapentin for this. She has had x-rays. She has not had an MRI. She saw Dr. Vasquez yesterday for this. Prior similar symptoms: No PFSH [facility] Medical History (Updated 08/12/20 @ 07:[address] Cruz Dai MD) Abnormal electrocardiogram Atrial myxoma Benign cardiac neoplasm Essential hypertension ETOH abuse Ventricular premature depolarization Home Medications triamterene 37.5 mg-hydrochlorothiazide 25 mg tablet 1 tab PO DAILY #30 tab 02/11/19 [Rx Last Taken Unknown] cholecalciferol (vitamin D3) 25 mcg (1,000 unit) capsule 25 mcg PO DAILY 11/11/19 [History Last Taken 2 Days Ago ~01/22/20] magnesium oxide 400 mg PO DAILY 11/11/19 [History Last Taken 01/23/20] zinc 50 mg tablet 50 mg PO DAILY 11/11/19 [History Last Taken 3 Days Ago ~01/21/20] ascorbic acid (vitamin C) 500 mg PO DAILY 01/24/20 [History Last Taken 01/23/20] vitamin B complex 1 tab PO DAILY 01/24/20 [History Last Taken 01/23/20] potassium chloride 10 meq PO BIDCM tab 01/27/20 [Rx Last Taken Unknown] Allergy/AdvReac Type Severity Reaction Status Date / Time alprazolam [From Xanax] Allergy Unknown Verified 05/02/20 14:31 atenolol Allergy Shortness Verified 05/02/20 14:31 of breath carvedilol Allergy Anaphylaxis Verified 08/12/20 06:04 cetirizine [From Zyrtec] Allergy Unknown Verified 05/02/20 14:31 cimetidine [From Tagamet] Allergy Unknown Verified 05/02/20 14:31 diltiazem [From Cardizem] Allergy Unknown Verified 05/02/20 14:31 erythromycin base Allergy Unknown Verified 05/02/20 14:31 famotidine [From Pepcid] Allergy Unknown Verified 05/02/20 14:31 guaifenesin [From Entex [place]] Allergy Unknown Verified 05/02/20 14:31 house dust Allergy Unknown Verified 05/02/20 14:31 lansoprazole [From Prevacid] Allergy Unknown Verified 05/02/20 14:31 loracarbef [From Lorabid] Allergy Unknown Verified 05/02/20 14:31 metoprolol [From Toprol XL] Allergy Unknown Verified 05/02/20 14:31 mold Allergy Unknown Verified 05/02/20 14:31 phenylephrine [From Entex LA] Allergy Unknown Verified 05/02/20 14:31 phenylpropanolamine Allergy Unknown Verified 05/02/20 14:31 [From Entex LA] promethazine [From Phenergan] Allergy Unknown Verified 05/02/20 14:31 raloxifene [From Evista] Allergy Unknown Verified 05/02/20 14:31 ranitidine [From Zantac] Allergy Unknown Verified 05/02/20 14:31 risedronate sodium Allergy Unknown Verified 05/02/20 14:31 [From Actonel] escitalopram [From Lexapro] AdvReac Severe Unknown Verified 05/02/20 14:31 lisinopril AdvReac Severe Lip Verified 05/02/20 14:31 swelling losartan [From Cozaar] AdvReac Severe Swelling Verified 05/02/20 14:31 lips meloxicam AdvReac Severe Unknown Verified 05/02/20 14:31 prednisone AdvReac Severe Unknown Verified 05/02/20 14:31 zolpidem [From Ambien] AdvReac Severe Unknown Verified 05/02/20 14:31 amlodipine [From Norvasc] AdvReac SOB Verified 05/02/20 14:31 clonazepam [From Klonopin] AdvReac NEEDS Verified 05/02/20 14:31 FOLLOW-UP diphenhydramine AdvReac NEEDS Verified 05/02/20 14:31 [From Benadryl] FOLLOW-UP metronidazole [From Flagyl] AdvReac Pain in Verified 05/02/20 14:31 joints grass bent Allergy Unknown Uncoded 01/24/20 12:40 Family History Mother CAD (coronary artery disease) Father Kidney disease Surgical History H/O partial resection of colon History of hysterectomy Social History Smoking Status: Former smoker how long ago did patient quit smokin years ago alcohol intake: current alcohol intake frequency: 0-2 drinks per day Alcohol type: wine and hard liquor substance use type: does not use caffeine: Yes Type: coffee Number of servings: 1 ROS ROS ED Constitutional Constitutional ED: Denies chills, fever(s) or sweats Eyes Eyes: Denies change in vision ENT ENT ED: Denies sore throat Cardiovascular Cardiovascular: Denies chest pain Respiratory/Chest Respiratory/Chest: Reports dyspnea; Denies cough or dyspnea on exertion Gastrointestinal Gastrointestinal: Reports abdominal pain and nausea; Denies diarrhea, melena or vomiting Genitourinary Genitourinary ED: Denies dysuria or urinary frequency Musculoskeletal Musculoskeletal: Reports back pain; Denies myalgias Integumentary Denies rash Neurologic Neurologic: Denies headache(s), paresthesias or weakness EXAM Physical Exam Const Vital Signs: 08/12/20 05:59 08/12/20 06:28 Temperature 97.8 F Temperature Source Oral Pulse Rate 108 H Respiratory Rate 14 Respiratory Effort Short of Breath Respiratory Depth Normal Respiratory Pattern Normal Blood Pressure 198/114 H Blood Pressure Mean 142 Pulse Ox 94 Oxygen Delivery Method Room Air Room Air Positive well nourished and well developed General Appearance ED: well developed HEENT Reports normocephalic and head/scalp atraumatic Eyes PERRL Neck no lymphadenopathy, supple and no JVD General: Negative for tenderness Resp normal respiratory effort and clear to auscultation bilaterally Resp Narrative: No respiratory distress. No crackles or wheezing. Cardio no murmurs Rhythm: abnormal rhythm irregularly irregular GI non-distended GI Narrative: Moderate epigastric tenderness to palpation. Mild right upper quadrant tenderness to palpation. No guarding, rebound, or peritoneal signs. Auscultation: normoactive bowel sounds Palpation: soft and tender Back/Spine no CVA tenderness Back/Spine Narrative: Nontender. Negative straight leg raise bilaterally. 5 out of 5 dorsiflexion, plantarflexion, extensor hallucis longus bilaterally. Normal sensation light touch throughout. 2+ dorsalis pedis pulse bilaterally. Thoracic Spine / Upper Back: Negative for thoracic spinal tenderness or paraspinal muscle tenderness Lumbar Spine / Lower Back: Negative for lumbar spinal tenderness Extremity General Extremety ED: Negative for edema or tenderness General Extremity: Negative for edema Neuro oriented x3, CN's II-XII intact bilaterally and no sensory deficits noted Sensorium / Orientation: alert Motor Exam: strength 5/5 throughout Psych mental status grossly normal Skin no rashes or lesions noted MDM [facility] Lab Data Attestation: I reviewed the patient's lab results. Labs: Laboratory Results - last 24 hr 08/12/20 06:30 WBC 11.3 H RBC 4.07 L Hgb 13.1 Hct 38.4 MCV 94.3 MCH 32.2 H MCHC 34.1 RDW Std Deviation 45.3 H RDW Coeff of Jared 13.1 Plt Count 265 MPV 9.8 Immature Gran % (Auto) 0.400 Neut % (Auto) 77.1 H Lymph % (Auto) 11.6 L [place] % (Auto) 9.6 Eos % (Auto) 0.9 Baso % (Auto) 0.4 Absolute Neuts (auto) 8.7 H Absolute Lymphs (auto) 1.31 Nucleated RBC % 0 Radiography Chest X-Ray - ED: 1 View, Read by ED Physician and Read by Radiologist Diagnostic Testing: Radiology Impression Chest X-Ray 08/12/20 06:10 IMPRESSION: Some bibasilar discoid atelectasis. Electronically Signed: Kishan Estrada MD at 6:26 EDT Tel , Service support , One-view portable chest x-ray read by myself shows atelectasis. No infiltrate, effusion, or pulmonary edema. EKG Initial EKG: Attestation: I personally reviewed and interpreted this EKG as follows: Interpretation: Atrial Fibrillation Comments: EKG is A. fib at [address] changes. This is unchanged from January 2020. Treatment and Re-Evaluation Comments:: Emergency department course: Patient had an IV placed. She was given morphine and Zofran IV. She is resting more comfortably. Treatment plan: Patient will be checked out to the oncoming physician. Chest x- ray does not show an obvious source for her dyspnea. She does have atelectasis. I suspect that this is really more an issue from her abdominal pain. Appropriate labs, CT, and right upper quadrant ultrasound were ordered and are pending. Discharge Plan Triage Chief Complaint: Shortness of Breath ED Provider: Cruz Dai Dx/Rx/DC Orders Clinical Impression: Essential hypertension, Atrial fibrillation, Abdominal pain, acute, epigastric, Back pain Prescriptions: No Action triamterene-hydrochlorothiazid 37.5-25 mg tablet 1 tab PO DAILY Qty: 30 RF: 12 magnesium oxide 400 mg magnesium tablet 400 mg PO DAILY RF: 0 cholecalciferol (vitamin D3) 25 mcg (1,000 unit) capsule 25 mcg PO DAILY RF: 0 zinc 50 mg tablet 50 mg PO DAILY RF: 0 ascorbic acid (vitamin C) 500 MG tablet 500 mg PO DAILY RF: 0 vitamin B complex 1 EACH tablet 1 tab PO DAILY RF: 0 potassium chloride 10 MEQ tablet 10 meq PO BIDCM RF: 0 Primary Care Provider: Tulio Roberts Referrals: Tulio Roberts MD [Primary Care Provider] -
--- NOTE | 2020-08-12 06:46 | CT_ITS ---
STUDY: CT ABDOMEN AND PELVIS WITH CONTRAST REASON FOR EXAM: Female, 84 years old. Epigastric/Back pain RADIATION DOSAGE (If Supplied By Facility): CTDIvol = ( 15.59 ) mGy, DLP = ( 666.80 ) mGycm TECHNIQUE: Transaxial images were obtained from the dome of the diaphragm to the symphysis pubis without oral contrast. IV 100mL Isovue-300 was administered. Sagittal and coronal images were reconstructed. Individualized dose optimization techniques were used for this CT. COMPARISON: 02/09/2017 FINDINGS: The visualized lung bases are unremarkable. The visualized portions of the heart are within normal limits. No change in 1.5 cm bilobed cyst within the anterior segment the right lobe of the liver. Normal gallbladder and extrahepatic biliary system. Normal spleen. Normal pancreas. Normal bilateral adrenal glands. Normal right kidney. No change in exophytic cyst in the upper pole the left kidney. Normal visualized stomach. Normal small intestine. Normal colon. The appendix is visualized and appears normal. There is diffuse atherosclerotic calcification of the abdominal aorta, without a demonstrated aneurysm. Normal inferior vena cava. Normal retroperitoneum. Normal urinary bladder. Normal abdominal wall. Multiple chronic compression fractures of the lumbar spine with vertebroplasty at T12. CT/Abdomen/Pelvis W IV Cont ONLY IMPRESSION: No acute abnormality. Multiple compression fractures of the lumbar spine which are likely chronic. Clinical correlation and MRI may be useful. Electronically Signed: Kishan Estrada MD at 8:36 EDT Tel , Service support ,
--- NOTE | 2020-08-12 06:47 | US_ITS ---
STUDY: ABDOMINAL ULTRASOUND - RIGHT UPPER QUADRANT REASON FOR VISIT: Female, 84 years old abdominal pain. TECHNIQUE: Ultrasound evaluation of the right upper quadrant was performed with real-time and static fine-scale imaging. TECHNICAL QUALITY: Adequate. COMPARISON: CT abdomen and pelvis with IV contrast 08/12/2020. FINDINGS: Liver: The liver measures 17.2 cm. Mild increased echogenicity of the liver parenchyma due to fatty infiltration. The bile ducts are within normal limits. There is hepatic color flow. The direction of portal flow is hepatopetal. Anechoic cyst in the right hepatic lobe measures 2.0 x 1.6 x 1.7 cm. Gallbladder: Normal distended gallbladder. The gallbladder wall measures 1.7 mm. There is a negative sonographic Angel''s sign. There is no pericholecystic fluid. There is a small gallbladder polyp measuring 4 x 2 x 2 mm. No gallstones or sludge. Common Bile Duct (C.B.D.): The common bile duct measures 4.9 mm. Pancreas: The pancreatic tail is obscured by overlying bowel gas. The visualized portions of the pancreas are normal. There is normal echogenicity of the visualized portions of the pancreas. No mass or cyst in the visualized portions of the pancreas. The pancreatic duct is not dilated. Right Kidney: Normal size of the right kidney. The right kidney measures 9.6 x 5.0 x 5.7 cm. Normal renal cortex. The right cortex measures 0.8 cm. There is no demonstrated renal mass or cyst. There is no right hydronephrosis. US/Gallbladder IMPRESSION: 1. 2.0 x 1.6 x 1.7 cm right hepatic lobe cyst. 2. Mild hepatic steatosis. 3. 4 x 2 x 2 mm gallbladder polyp and negative sonographic Angel''s sign. 4. No acute abnormality in the right upper quadrant of the abdomen. Electronically Signed: Keith Hammer MD at 8:21 EDT , Service support ,
[2020-08-12 07:54] LABS: BNP,B-Type NATRIURETIC PEPTIDE 126.5 pg/mL (0-100)
[2020-08-12 08:06] LABS: ALB/GLOB Ratio 0.8 RATIO (0.9-2.4); AST(SGOT) 15 U/L (15-37); Alanine Aminotransfer ALT/SGPT 11 U/L (13-56); Alkaline Phosphatase 140 U/L (45-117); Anion Gap 12 (5-15); BUN 10 mg/dL (7-18); BUN/Creat Ratio 16.1 RATIO (10-20); Calcium,Total 9.1 mg/dL (8.5-10.1); Chloride 101 mmol/L (98-107); Creatinine, Serum 0.62 mg/dL (0.55-1.02); EST Glomerular Filtration Rate 97 mL/min (>60); Est Glom Filt Rate - Afr Amer 117 mL/min (>60); Estimated Creatinine Clearance 29.54 ml/min; Glucose 134 mg/dL (74-106); Lipase 83 U/L (73-393); Potassium 2.9 mmol/L (3.5-5.1); Sodium Level 137 mmol/L (136-145)
--- NOTE | 2020-08-12 11:44 | NURSING ---
aware per Dr. Barreto who just seen patient transfering patient to PCU for chestpain, more than back pain. Collar Tacker informed. Primary RN aware.
--- NOTE | 2020-08-12 11:50 | NURSING ---
Primary RN informed room 105 in pcu per supervisor blueprinting and photocopy.
[2020-08-12 12:01] LABS: Magnesium 1.8 mg/dL (1.6-2.6)
--- NOTE | 2020-08-12 12:06 | HP.PCM.HOS_ITS ---
HPI - General General Date of Admission: 08/12/20 HPI Narrative JADON SUNG, is a 84 F who came to the ER by EMS for chest pain and shortness of breath about 4 AM and felt her lower chest like vice. She said it persisted until she got morphine in ED about 7 AM. She further it was localized without radiation, diaphoresis, dizziness or syncope. She denies prior history of heart attack/coronary artery disease. EMS EKG shows sinus tachycardia with sinus arrhythmia and PVCs, LAD. ED EKG shows A. fib at 99 bpm with no RR progression. Old inferior lead Q waves. Currently patient does not have chest pain. After my ER patient patient seen patient back pain/chest pain rated with spine and therefore was admitted on MedSurg but it turned out to be atypical chest pain, ACS ruled out for transfer to PCU. First troponin is negative. Found to be hypokalemic and mild leukocytosis. Chest x-ray shows bibasilar atelectasis. Per ER physician she also complained of epigastric and upper abdominal pain for which CT abdomen and right upper quadrant sonogram were done. CT abdomen does not show acute abnormality. 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 (Unknown) Home Medications triamterene 37.5 mg-hydrochlorothiazide 25 mg tablet 1 tab PO DAILY #30 tab 02/11/19 [Rx Last Taken Unknown] cholecalciferol (vitamin D3) 25 mcg (1,000 unit) capsule 25 mcg PO DAILY 11/11/19 [History Last Taken 2 Days Ago ~01/22/20] magnesium oxide 400 mg PO DAILY 11/11/19 [History Last Taken 01/23/20] zinc 50 mg tablet 50 mg PO DAILY 11/11/19 [History Last Taken 3 Days Ago ~01/21/20] ascorbic acid (vitamin C) 500 mg PO DAILY 01/24/20 [History Last Taken 01/23/20] vitamin B complex 1 tab PO DAILY 01/24/20 [History Last Taken 11/01/20] potassium chloride 10 meq PO BIDCM tab 01/27/20 [Rx Last Taken Unknown] Allergy/AdvReac Type Severity Reaction Status Date / Time alprazolam [From Xanax] Allergy Unknown Verified 05/02/20 14:31 atenolol Allergy Shortness Verified 05/02/20 14:31 of breath carvedilol Allergy Anaphylaxis Verified 08/12/20 06:04 cetirizine [From Zyrtec] Allergy Unknown Verified 05/02/20 14:31 cimetidine [From Tagamet] Allergy Unknown Verified 05/02/20 14:31 diltiazem [From Cardizem] Allergy Unknown Verified 05/02/20 14:31 erythromycin base Allergy Unknown Verified 05/02/20 14:31 famotidine [From Pepcid] Allergy Unknown Verified 05/02/20 14:31 guaifenesin [From Entex LA] Allergy Unknown Verified 05/02/20 14:31 house dust Allergy Unknown Verified 05/02/20 14:31 lansoprazole [From Prevacid] Allergy Unknown Verified 05/02/20 14:31 loracarbef [From Lorabid] Allergy Unknown Verified 05/02/20 14:31 metoprolol [From Toprol XL] Allergy Unknown Verified 05/02/20 14:31 mold Allergy Unknown Verified 05/02/20 14:31 phenylephrine [From Entex LA] Allergy Unknown Verified 05/02/20 14:31 phenylpropanolamine Allergy Unknown Verified 05/02/20 14:31 [From Entex LA] promethazine [From Phenergan] Allergy Unknown Verified 05/02/20 14:31 raloxifene [From Evista] Allergy Unknown Verified 05/02/20 14:31 ranitidine [From Zantac] Allergy Unknown Verified 05/02/20 14:31 risedronate sodium Allergy Unknown Verified 05/02/20 14:31 [From Actonel] escitalopram [From Lexapro] AdvReac Severe Unknown Verified 05/02/20 14:31 lisinopril AdvReac Severe Lip Verified 05/02/20 14:31 swelling losartan [From Cozaar] AdvReac Severe Swelling Verified 05/02/20 14:31 lips meloxicam AdvReac Severe Unknown Verified 05/02/20 14:31 prednisone AdvReac Severe Unknown Verified 05/02/20 14:31 zolpidem [From Ambien] AdvReac Severe Unknown Verified 05/02/20 14:31 amlodipine [From Norvasc] AdvReac SOB Verified 05/02/20 14:31 clonazepam [From Klonopin] AdvReac NEEDS Verified 05/02/20 14:31 FOLLOW-UP diphenhydramine AdvReac NEEDS Verified 05/02/20 14:31 [From Benadryl] FOLLOW-UP metronidazole [From Flagyl] AdvReac Pain in Verified 05/02/20 14:31 joints grass bent Allergy Unknown Uncoded 01/24/20 12:40 Family History Mother CAD (coronary artery disease) Father Kidney disease Surgical History H/O partial resection of colon History of hysterectomy Social History (Updated 08/12/20 @ 12:[address] Tunde Barreto MD) Smoking Status: Former smoker how long ago did patient quit smokin years ago alcohol intake: former details: Patient states he quit alcohol in January 2020. substance use type: does not use caffeine: Yes Type: coffee Number of servings: 1 Prior Cardiac Testing/Procedures Prior Cardiac Testing/Procedures: Echocardiogram ROS ROS Narrative Constitutional: Reports fatigue and weakness HEENT: Left eye AMD and vision loss. Reports systems reviewed and no addt'l complaints, except as documented Respiratory/Chest: Chest pain or shortness of breath as mentioned in HPI. Gastrointestinal: Upper abdominal discomfort/dyspepsia. Denies coffee ground emesis, hematemesis or vomiting Genitourinary: Denies burning urination. Chronic urinary incontinence. Musculoskeletal: Lumbar spine and parasternal pain. Reports joint pain and limited range of motion Neurologic: Denies seizure-like activity Endocrinology: Reports systems reviewed and no addt'l complaints, except as documented Hematologic/Lymphatic: Reports systems reviewed and no addt'l complaints, except as documented Rest 12 ROS are negative except as mentioned in HPI Vital Signs Vital Signs Vital Signs: 08/12/20 05:59 08/12/20 06:28 08/12/20 08:54 Temperature 97.8 F Temperature Source Oral Pulse Rate 108 H 104 H Respiratory Rate 14 13 Respiratory Effort Short of Breath Respiratory Depth Normal Respiratory Pattern Normal Blood Pressure 198/114 H Blood Pressure Mean 142 Blood Pressure Source Blood Pressure Position Blood Pressure Location Pulse Ox 94 93 Oxygen Delivery Method Room Air Room Air Nasal Cannula Oxygen Flow Rate (L/min) 2 08/12/20 09:01 08/12/20 10:01 08/12/20 10:25 Temperature 97.8 F 98.8 F Temperature Source Temporal Oral Pulse Rate 101 H 101 H 95 Respiratory Rate 19 H 18 18 Respiratory Effort Respiratory Depth Respiratory Pattern Blood Pressure 190/114 H 190/112 H 186/106 H Blood Pressure Mean 139 138 132 Blood Pressure Source Monitor Blood Pressure Position Semi-Fowlers Blood Pressure Location Right Arm Pulse Ox 96 96 97 Oxygen Delivery Method Nasal Cannula Nasal Cannula Nasal Cannula Oxygen Flow Rate (L/min) 2 2 2 08/12/20 10:47 Temperature Temperature Source Pulse Rate 90 Respiratory Rate Respiratory Effort Respiratory Depth Respiratory Pattern Blood Pressure Blood Pressure Mean Blood Pressure Source Blood Pressure Position Blood Pressure Location Pulse Ox Oxygen Delivery Method Oxygen Flow Rate (L/min) Physical Exam Narrative General: Alert, Oriented x3, Cooperative HEENT: Atraumatic, PERRLA, EOMI, Normocephalic Oral: No Gingival or Mucosal Lesions/ Ulcerations Neck: Supple, No JVD, Negative Carotid Bruits Lungs: Air entry diminished in bilateral lung bases. No crepitation/rhonchi Cardiovascular: Irregular rate and rhythm, A. fib, PVCs, Normal S1, Normal S2, No murmurs Abdomen: Bowel Sounds Present, Soft, Non Tender, Non-Distended : No renal angle tenderness. No suprapubic tenderness. Extremities: No ankle edema, Capillary Refill Less than 3 Seconds Skin: No rashes, No breakdown Musculoskeletal/spine: Paraspinal lumbar muscles tenderness present. SLR bilateral negative. No acute bladder retention or cauda equina syndrome.. Neurological: Cranial nerves II-XII grossly intact, Deep Tendon Reflexes 2+/4 and Symmetrical, Neuro grossly intact Psych/Mental Status: Normal Affect, Appropriate. Lab / Micro Data Result Diagrams: 08/12/20 06:30 08/12/20 06:30 Labs: Laboratory Results - last 24 hr 08/12/20 08/12/20 08/12/20 06:30 06:30 06:30 WBC 11.3 H RBC 4.07 L Hgb 13.1 Hct 38.4 MCV 94.3 MCH 32.2 H MCHC 34.1 RDW Std Deviation 45.3 H RDW Coeff of Jared 13.1 Plt Count 265 MPV 9.8 Immature Gran % (Auto) 0.400 Neut % (Auto) 77.1 H Lymph % (Auto) 11.6 L [place] % (Auto) 9.6 Eos % (Auto) 0.9 Baso % (Auto) 0.4 Absolute Neuts (auto) 8.7 H Absolute Lymphs (auto) 1.31 Nucleated RBC % 0 Sodium 137 Potassium 2.9 L Chloride 101 Carbon Dioxide 24.0 Anion Gap 12 BUN 10 Creatinine 0.62 Estim Creat Clear Calc 29.54 Est GFR (MDRD) Af Amer 117 Est GFR (MDRD) Non-Af 97 BUN/Creatinine Ratio 16.1 Glucose 134 H Calcium 9.1 Magnesium Total Bilirubin 1.20 H AST 15 ALT 11 L Alkaline Phosphatase 140 H Troponin I < 0.015 B-Natriuretic Peptide 126.5 H Total Protein 7.0 Albumin 3.0 L Globulin 4.0 Albumin/Globulin Ratio 0.8 L Lipase 83 08/12/20 11:43 WBC RBC Hgb Hct MCV MCH MCHC RDW Std Deviation RDW Coeff of Jared Plt Count MPV Immature Gran % (Auto) Neut % (Auto) Lymph % (Auto) [place] % (Auto) Eos % (Auto) Baso % (Auto) Absolute Neuts (auto) Absolute Lymphs (auto) Nucleated RBC % Sodium Potassium Chloride Carbon Dioxide Anion Gap BUN Creatinine Estim Creat Clear Calc Est GFR (MDRD) Af Amer Est GFR (MDRD) Non-Af BUN/Creatinine Ratio Glucose Calcium Magnesium 1.8 Total Bilirubin AST ALT Alkaline Phosphatase Troponin I B-Natriuretic Peptide Total Protein Albumin Globulin Albumin/Globulin Ratio Lipase Radiology Impression Chest X-Ray 08/12/20 06:10 IMPRESSION: Some bibasilar discoid atelectasis. Electronically Signed: Kishan Estrada MD at 6:26 EDT Tel , Service support , Abdomen/Pelvis CT 08/12/20 06:46 IMPRESSION: No acute abnormality. Multiple compression fractures of the lumbar spine which are likely chronic. Clinical correlation and MRI may be useful. Electronically Signed: Kishan Estrada MD at 8:36 EDT Tel , Service support , Gallbladder Ultrasound 08/12/20 06:47 IMPRESSION: 1. 2.0 x 1.6 x 1.7 cm right hepatic lobe cyst. 2. Mild hepatic steatosis. 3. 4 x 2 x 2 mm gallbladder polyp and negative sonographic Angel''s sign. 4. No acute abnormality in the right upper quadrant of the abdomen. Electronically Signed: Keith Hammer MD at 8:21 EDT , Service support , Assessment & Plan Assessment/Plan (1) Hypokalemia: (2) New onset A. fib with RVR: (3) Atypical chest pain: PLAN: JADON SUNG, is a 84 F who came to the ER by EMS for chest pain and shortness of breath about 4 AM and felt better after morphine, First troponin is negative. 1. Atypical chest pain with shortness of breath suspicion of unstable angina: Patient is being admitted in PCU. Serial troponin enzymes. Repeat twelve-lead EKG. Patient initially not acutely distressed but convinced her to treadmill nuclear stress test. 2D echo ordered. ACS protocol ordered. ARLEEN risk score is 2. 2. Paroxysmal A. fib: [id number] score is 4 With 4.8%/year. Patient understands the risk and benefit of anticoagulant and does not want anticoagulants. She has refused in the past too. She is documented to have Afib WITH RVR during previous admission in 01/2020 whenseh was admitted for Alcohol withdrawal. Started on coreg 6.25 mg bid with holding parameters 3 hypokalemia: Low potassium is likely because of HCTZ/triamterene and low solute intake. She states she quit alcohol in 01/2020. K is replaced. Check Mg and Phos and repeat BMP tomorrow 4 Abd pain and elevated Alk phos: Right upper quadrant shows 4.2 x 2 mm gallbl adder polyp and about 2 cm right hepatic lobe cyst otherwise no acute abnormality. Probably bone source. CT abdomen does not show acute abnormality. 5 hypertension: Blood pressure was elevated, continue HCTZ/triamterene, start IV hydralazine as needed 6 DVT prophylaxis: Subcu Lovenox. Living will/advanced directive/end of life care: Patient does have living will or advanced directive. After discussion of benefits/risks procedures involved with full code, DNR CC arrest and DNR CC, the patient opted for DNR-CC Arrest with no intubation Patient does not want artificial life support including intubation, tube feed, ventilator and/chest compression, central venous catheter, vasopressor and DC shock if needed Total time spent in [id number] encounter in discussion of advanced direct benjamin 16 minutes. Visit Charges Inpatient E&M: 13477 Init Hosp L3 Procedures Hospitalists Procedures: 60089 Advncd Care Plan 30 Min
--- NOTE | 2020-08-12 12:22 | ECHOCS_ITS ---
Reason For Study: Afib/Flutter Procedure This was a 2D Doppler, Color Flow transthoracic echocardiogram. Technically difficult study. Patient had a hard time staying in position due to recent back injury. Multiple positions attempted and Definity used to calender let off helper in image quality. Exam performed portable in patient room. Left Ventricle Normal LV size. Left ventricular systolic function is normal. The estimated ejection fraction is 60 %. Stage 1 diastolic dysfunction. No regional wall motion abnormalities noted. Right Ventricle Normal RV size. Normal systolic function. Atria Normal left atrium. Normal right atrium. 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 unchanged. Mitral Valve Normal mitral valve. Tricuspid Valve Normal tricuspid valve. Aortic Valve Trisinus/trileaflet aortic valve. Pulmonic Valve The pulmonic valve is not well visualized. Great Vessels Normal aortic root. Pericardium/Pleural No pericardial effusion. Medication Diluted definity 4ml given slow IV push to enhance endocardial definition. MMode/2D Measurements & Calculations LVIDd: 3.8 cm IVSd: 1.4 cm LVOT diam: 1.9 cm LVIDs: 2.9 cm LVPWd: 0.94 cm FS: 23.4 % LVOT area: 2.9 cm2 LA dimension: 3.8 cm LAV(MOD-bp): 44.5 ml LA A4 area: 16.1 cm2 LAV(MOD-bp) Indexed: 25.9 ml/m2 LAV(MOD-sp2): 51.4 ml LAV(MOD-sp4): 37.7 ml Time Measurements MV dec time: 0.24 sec Doppler Measurements & Calculations MV E max bakari: 66.2 cm/sec Lat Peak E' Bakari: 5.4 cm/sec Med Peak E' Bakari: 6.1 cm/sec MV A max bakari: 131.7 cm/sec E/E' lat: 12.2 E/E' med: 10.9 MV E/A: 0.50 MV V2 max: 138.7 cm/sec MV P1/2t max bakari: 76.2 cm/sec Ao V2 max: 158.5 cm/sec MV max P.7 mmHg MV P1/2t: 81.3 msec Ao max P.1 mmHg MV V2 mean: 65.7 cm/sec MV dec slope: 274.7 cm/sec2 Ao V2 mean: 105.0 cm/sec MV mean P.2 mmHg Ao mean P.1 mmHg MV V2 VTI: 28.0 cm MVA(P1/2t): 2.7 cm2 Ao V2 VTI: 23.2 cm MVA(VTI): 2.0 cm2 TO(I,D): 2.4 cm2 TO(V,D): 2.2 cm2 LV V1 max: 120.4 cm/sec SV(LVOT): 56.1 ml PA V2 max: 93.1 cm/sec LV V1 max P.8 mmHg LV V1 mean P.6 mmHg LV V1 mean: 74.4 cm/sec LV V1 VTI: 19.2 cm PI end-d bakari: 131.1 cm/sec ECHO/Echo Complete W/ Contrast Interpretation Summary Normal LV size. Left ventricular systolic function is normal. The estimated ejection fraction is 60 %. Stage 1 diastolic dysfunction. 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 unchanged Contrast injection was performed. The study was technically difficult. Ordering Physician: Tunde Barreto Referring Physician: Tulio Roberts Performed By: Benjie Bettencourt RCS
--- NOTE | 2020-08-12 12:22 | EKG12_ITS ---
Test Reason : Blood Pressure : / mmHG Vent. Rate : 097 BPM Atrial Rate : 097 BPM P-R Int : 000 ms QRS Dur : 080 ms QT Int : 372 ms P-R-T Axes : 000 -52 -01 degrees QTc Int : 472 ms Atrial fibrillation Left axis deviation Inferior infarct , age undetermined Anterolateral infarct , age undetermined Abnormal ECG Confirmed by GRACIELA OQUENDO, VIJAY ([id number]), general expeditor MERARI RUSSELL ([id number]) on 08/16/2020 9:54:45 AM Referred By: JAY Confirmed By:VIJAY OWENS MD
[2020-08-12] MEDS: oxyCODONE 5 MG Tablet PO ×2 (13:11→21:51)
[2020-08-12 13:18] LABS: Phosphorus 3.4 mg/dL (2.5-4.9)
[2020-08-12] MEDS: Lactated Ringers 1,000 ML 75 ML IV (13:32)
[2020-08-12] MEDS: Cholecalciferol (VIT D3) 25 MCG TABLET (1,000 UNITS) PO (14:57)
[2020-08-12] MEDS: Ascorbic Acid 500 MG Tablet PO (14:58)
[2020-08-12] MEDS: Vitamin B Comp W-C Capsule 1 CAP PO (14:58)
[2020-08-12] MEDS: Magnesium Chloride 64 MG Delay Rel.Tablet 128 MG PO (14:58)
[2020-08-12] MEDS: Triamterene 37.5MG/Hctz 25MG Capsule 1 CAP PO (14:58)
[2020-08-12] MEDS: hydrALAZINE 25 MG Tablet PO ×2 (14:59→21:47)
[2020-08-12] MEDS: Potassium Chloride 10mEq/100mL 10 MEQ/100 ML IV.SOLN. 100 MEQ IV BOLUS ×4 (15:01→18:20)
--- NOTE | 2020-08-12 22:00 | NURSING ---
Pt given extensive education related to amiodarone d/t increased HR in afib. Pt is hesitant to take any rate controlling medication d/t several allergies to previous rate controlling medications. Offered written education but pt refused. Medicated pt for pain and pt states she is going to sleep. This RN suggested waiting for pain management to take effect and re-assess HR and if still uncontrolled then we would try the amiodarone Pt agreeable to this plan.
[2020-08-13] VITALS (14 sets, daily range): BP systolic 117–169; BP diastolic 70–118; PULSE 99–145; RESP 18–20; TEMP 36.8–38.1; O2SAT 91–99
[2020-08-13 06:28] LABS: Hematocrit 35.8 % (37-47); Hemoglobin 11.9 g/dL (12.0-15.0); Mean Corp Hgb Conc 33.2 g/dL (32-36); Mean Corpuscular Hgb 31.7 pg (27.0-32.0); Mean Corpuscular Volume 95.5 fL (81-99); Mean Platelet Vol. 9.7 fl (6.2-12.0); Platelet Count 248 K/mm3 (150-450); RBC Distribution Width CV 13.3 % (11.6-14.6); RBC Distribution Width SD 47.3 fl (35.1-43.9); Red Blood Count 3.75 M/mm3 (4.2-5.4); White Blood Count 11.8 K/mm3 (4.4-11.0)
[2020-08-13 06:56] LABS: ALB/GLOB Ratio 0.7 RATIO (0.9-2.4); AST(SGOT) 11 U/L (15-37); Alanine Aminotransfer ALT/SGPT 10 U/L (13-56); Albumin, Serum 2.6 g/dL (3.2-5.0); Alkaline Phosphatase 118 U/L (45-117); Anion Gap 8 (5-15); BUN 13 mg/dL (7-18); BUN/Creat Ratio 18.3 RATIO (10-20); Chloride 97 mmol/L (98-107); Cholesterol 178 mg/dL (200); Creatinine, Serum 0.71 mg/dL (0.55-1.02); EST Glomerular Filtration Rate 83 mL/min (>60); Est Glom Filt Rate - Afr Amer 101 mL/min (>60); Estimated Creatinine Clearance 29.54 ml/min; Globulin 3.8 g/dL (2.2-4.2); Glucose 129 mg/dL (74-106); High Density Lipoprotein 48 mg/dL; Potassium 3.1 mmol/L (3.5-5.1); Protein, Total 6.4 g/dL (6.4-8.2); Sodium Level 135 mmol/L (136-145); Thyroid Stim Hormone (TSH) 1.23 uIU/mL (0.358-3.74); Triglycerides 130 mg/dL; Very Low Density Lipoprotein 26 mg/dL (5-40)
[2020-08-13] MEDS: hydrALAZINE 25 MG Tablet PO (06:58)
[2020-08-13] MEDS: Potassium Chloride Oral Tablet 20 MEQ 40 MEQ PO ×2 (09:19→13:16)
[2020-08-13] MEDS: Vitamin B Comp W-C Capsule 1 CAP PO (09:19)
[2020-08-13] MEDS: Lidocaine 5% Patch 2 PATCH TOPICAL (09:20)
[2020-08-13] MEDS: Magnesium Chloride 64 MG Delay Rel.Tablet 128 MG PO (09:20)
[2020-08-13] MEDS: Triamterene 37.5MG/Hctz 25MG Capsule 1 CAP PO (09:20)
[2020-08-13] MEDS: Ascorbic Acid 500 MG Tablet PO (09:22)
[2020-08-13] MEDS: Cholecalciferol (VIT D3) 25 MCG TABLET (1,000 UNITS) PO (09:22)
[2020-08-13] MEDS: oxyCODONE 5 MG Tablet PO (09:34)
--- NOTE | 2020-08-13 12:04 | PN.HOSP_ITS ---
Subjective Subjective Patient did not had further chest pain. She has bony lumbar back pain and legs. No shortness of breath. Feels generalized weakness. Objective Data Objective Data Vital Signs: Vital Signs Temp Pulse Resp BP Pulse Ox 98.8 F 99 20 H 169/118 H 94 08/13/20 09:20 08/13/20 09:20 08/13/20 09:20 08/13/20 09:20 08/13/20 09:20 Oxygen Flow Rate (L/min) 2 Oxygen Delivery Method Room Air Weight: 132 lb 15.02 oz Body Mass Index (BMI) 26.1 Intake & Output: Intake and Output for Last 24 Hours 08/11/20 08/12/20 08/13/20 23:59 23:59 23:59 Intake Total 391.67 / 391.67 1000 / 1000 Balance 391.67 / 391.67 1000 / 1000 Lab / Micro Data Result Diagrams: 08/13/20 06:23 08/13/20 06:23 Labs: Laboratory Results - last 24 hr 08/12/20 08/12/20 08/12/20 11:18 11:43 17:05 WBC RBC Hgb Hct MCV MCH MCHC RDW Std Deviation RDW Coeff of Jared Plt Count MPV Sodium Potassium Chloride Carbon Dioxide Anion Gap BUN Creatinine Estim Creat Clear Calc Est GFR (MDRD) Af Amer Est GFR (MDRD) Non-Af BUN/Creatinine Ratio Glucose Calcium Phosphorus 3.4 Total Bilirubin AST ALT Alkaline Phosphatase Troponin I < 0.015 < 0.015 Total Protein Albumin Globulin Albumin/Globulin Ratio Triglycerides Cholesterol LDL Cholesterol VLDL Cholesterol HDL Cholesterol TSH 08/13/20 08/13/20 06:23 06:23 WBC 11.8 H RBC 3.75 L Hgb 11.9 L Hct 35.8 L MCV 95.5 MCH 31.7 MCHC 33.2 RDW Std Deviation 47.3 H RDW Coeff of Jared 13.3 Plt Count 248 MPV 9.7 Sodium 135 L Potassium 3.1 L Chloride 97 L Carbon Dioxide 30.0 Anion Gap 8 BUN 13 Creatinine 0.71 Estim Creat Clear Calc 29.54 Est GFR (MDRD) Af Amer 101 Est GFR (MDRD) Non-Af 83 BUN/Creatinine Ratio 18.3 Glucose 129 H Calcium 9.0 Phosphorus Total Bilirubin 0.90 AST 11 L ALT 10 L Alkaline Phosphatase 118 H Troponin I Total Protein 6.4 Albumin 2.6 L Globulin 3.8 Albumin/Globulin Ratio 0.7 L Triglycerides 130 Cholesterol 178 LDL Cholesterol 104 VLDL Cholesterol 26 HDL Cholesterol 48 TSH 1.23 Physical Exam Narrative General: Alert, Oriented x3, Cooperative HEENT: Atraumatic, PERRLA, EOMI, Normocephalic Oral: No Gingival or Mucosal Lesions/ Ulcerations Neck: Supple, No JVD, Negative Carotid Bruits Lungs: Air entry diminished in bilateral lung bases. No crepitation/rhonchi Cardiovascular: Sinus rhythm with PVCs, Normal S1, Normal S2, No murmurs Abdomen: Bowel Sounds Present, Soft, Non Tender, Non-Distended : No renal angle tenderness. No suprapubic tenderness. Extremities: No ankle edema, Capillary Refill Less than 3 Seconds Skin: No rashes, No breakdown Musculoskeletal/spine: Paraspinal lumbar muscles tenderness present. No acute cauda equina syndrome.. Neurological: Cranial nerves II-XII grossly intact, Deep Tendon Reflexes 2+/4 and Symmetrical, Neuro grossly intact Psych/Mental Status: Normal Affect, Appropriate. Assessment & Plan Assessment/Plan (1) Hypokalemia: (2) New onset A. fib with RVR: (3) Atypical chest pain: PLAN: JADON SUNG, is a 84 F who came to the ER by EMS for chest pain and shortness of breath about 4 AM and felt better after morphine, First troponin is negative. 1. Atypical chest pain with shortness of breath suspicion of unstable angina: Patient is being admitted in PCU. Serial troponin enzymes. Repeat twelve-lead EKG. 2D echo ordered. ACS protocol ordered. ARLEEN risk score is 2. 08/13: Serial troponin enzymes are negative. She is allergic to beta-adam, VERO/ARB, amlodipine, extensive allergy list. Fasting profile shows LDL 104, HDL 48. This is normal. Patient refused for stress test. 2. Paroxysmal A. fib: [id number] score is 4 With 4.8%/year. Patient understands the risk and benefit of anticoagulant and does not want anticoagulants. She has refused in the past too. She is documented to have Afib WITH RVR during previous admission in 01/2020 when she was admitted for Alcohol withdrawal. 08/13:quality assurance monitor body shows sinus tachycardia with PVCs, heart rate upper 100s. Patient is allergic to beta-adam metoprolol and Coreg. 3 hypokalemia: Low potassium is likely because of HCTZ/triamterene and low solute intake. She states she quit alcohol in 01/2020. K is replaced. Check Mg and Phos and repeat BMP tomorrow 08/13: Replace potassium. Magnesium and phosphorus are normal limit. 4 Abd pain and elevated Alk phos: Right upper quadrant shows 4.2 x 2 mm gall bladder polyp and about 2 cm right hepatic lobe cyst otherwise no acute abnormality. Probably bone source. CT abdomen does not show acute abnormality. 5 hypertension: Blood pressure was elevated, continue HCTZ/triamterene, start IV hydralazine as needed Blood pressure elevated. 6 DVT prophylaxis: Subcu Lovenox. PT and OT. Living will/advanced directive/end of life care: Patient does have living will or advanced directive. After discussion of benefits/risks procedures involved with full code, DNR CC arrest and DNR CC, the patient opted for DNR-CC Arrest with no intubation Patient does not want artificial life support including intubation, tube feed, ventilator and/chest compression, central venous catheter, vasopressor and DC shock if needed Total time spent in [id number] encounter in discussion of advanced directive 16 minutes. Visit Charges Inpatient E&M: 60069 Subs Hosp L2
[2020-08-13] MEDS: hydrALAZINE 50 MG Tablet PO (13:16)
[2020-08-13] MEDS: Morphine 2 MG/ML Syringe IV (13:16)
[2020-08-13] MEDS: 0.9% Saline Lock 10 ML Syringe IV (13:17)
[2020-08-13] MEDS: cloNIDine HCl 0.2 MG Tablet PO (16:35)
--- NOTE | 2020-08-13 18:14 | NURSING ---
Addendum entered by Shama Herrera 08/13/20 18:51: volleyball referee in room to talk with patient. Educated patient about beta adam importance and effects if HR remains elevated for long period of time. Patient has now decided to take metoprolol at this time. Notified pharmacy for them to re-enter into [facility]udose. Addendum entered by Shama Herrera 08/13/20 18:38: This RN in room to give PO metoprolol. Pt now refusing to take medication. Patient states that it is cause adverse reactions and she would rather not take it. She states that she is unable to recall what happens to her because she has taken so many medications, but she would rather not take. Original Note: This RN notified Dr barreto that 1 hour after clonidine PO given, HR remains 130-[address] Barreto Called this RN and asked to speak with the patient to talk about allergies to medications. Dr Barreto on speaker phone in room with patient and asked what her allergy is to metoprolol and coreg. Patient states that she has taken them before and they only worked for a short time. Attempted to educate the patient that this is different than an allergy to the medication. MD asked the patient how she would feel about taking metoprolol or coreg for just a day to see if it would help her HR since it is 130-140. Pt states, well I guess one pill won't kill me. Orders for Metoprolol 25 mg PO x1 and to d/c PO clonidine at this time. Per Dr Barreto, if no reaction in 1-2 hours, to have the supply chain planner RN ask night MD for Metoprolol 25 mg PO BID.
--- NOTE | 2020-08-13 18:50 | NURSING ---
Pt agreeable to taking Lopressor 25mg x1 at this time
[2020-08-13] MEDS: Metoprolol Tartrate 25 MG Tablet PO ×2 (18:55→22:42)
--- NOTE | 2020-08-13 22:26 | NURSING ---
PATIENT REFUSING TYLENOL FOR LOW GRADE TEMP. AT THIS TIME
[2020-08-14] VITALS (14 sets, daily range): BP systolic 109–134; BP diastolic 70–94; PULSE 94–126; RESP 20; TEMP 36.7–38.2; O2SAT 91–98
[2020-08-14] MEDS: 0.9% Saline Lock 10 ML Syringe IV ×2 (03:41→18:55)
[2020-08-14] MEDS: Lidocaine 5% Patch 2 PATCH TOPICAL (08:47)
[2020-08-14] MEDS: Triamterene 37.5MG/Hctz 25MG Capsule 1 CAP PO (08:48)
[2020-08-14] MEDS: Vitamin B Comp W-C Capsule 1 CAP PO (08:48)
[2020-08-14] MEDS: Cholecalciferol (VIT D3) 25 MCG TABLET (1,000 UNITS) PO (08:49)
[2020-08-14] MEDS: Ascorbic Acid 500 MG Tablet PO (08:49)
[2020-08-14] MEDS: Magnesium Chloride 64 MG Delay Rel.Tablet 128 MG PO (08:49)
[2020-08-14] MEDS: Metoprolol Tartrate 25 MG Tablet PO ×2 (09:57→22:23)
--- NOTE | 2020-08-14 10:55 | CASEMGMT ---
SARA FLORES assessment: Face to Face with patient for initial transition planning/care coordination assessment. SARA FLORES introduced self and role at [facility], pt voices understanding and consents to assessment. Pt is sitting up in chair in no distress. Pt is A/Ox4 and answers questions appropriately. Care providers, pharmacy, and demographics verified/updated. Presentation: Pt c/o SOB for 45 minutes with 'vice sequins stringer' feeling in lower chest Admitting dx: CP, intractable back pain PCP: Armando Specialists: Mary, cardio Preferred Pharmacy: [facility] Insurance: [facility] A/B, [employer] Prescription Benefit: MCR D Living Will/HPOA: Pt has LW/HPOA and is aware that they are on file at [facility]. Pt's niece, Martha Watson, is HPOA. LNOK: Martha Watson, niece/HPOA Living Arrangements: Pt states lives alone in 1 story condo with no steps in and states no concerns at home. Pt states has had more difficulty with ADL's s/p back injury about 4weeks ago and then again a couple days ago. Transportation: Pt states drives self or a friend drives and states no transportation concerns. DME/HHC: Pt states has a walker and states no need for any further DME. Pt states no hx of HHC or SNF in the past but has had OP therapy at [facility] in the last several weeks. Pt states concerns with going home at time of discharge and is interested in further rehab at discharge. Pt would like her niece/HPOA to be called regarding discharge plan and is ok with any information relayed with her. Terrell GOLDBERG updated on possible SNF, voices understanding. Pt is retired. Pt states does not smoke cigarettes or drink ETOH. Pt states no further concerns/needs. Call to niece and she states pt/niece would like [facility] and she just wants to make sure pt is safe on discharge. Niece lives in [place]. Pt is agreeable with referral to [facility], awaiting PT/OT mirian. CM/SW to follow. Advised pt to ask for CM if any further questions/concerns/needs arise, voices understanding. Pt Goal: Home, but is concerned about going home alone with back pain. Plan: SNF, pending acceptance/precert. S[place]en SARA FLORES
--- NOTE | 2020-08-14 12:16 | CASEMGMT ---
Addendum entered by Dunia Bedoya 08/14/20 13:31: SW received return call from Mary Jane at [facility] and they are full. YUSUF spoke with patient letting her know this information. She would like SW to call her niece. SW told her SW will do this, but wanted to keep her in the loop. YUSUF called patient's niece, Martha and let her know [facility] is full. She asked that referrals be sent to [facility] and [facility]. YUSUF told her SW will do this and let her know. YUSUF faxed referrals to both facilities and also called regarding referrals. Dunia CRAIN Original Note: Per RN CM patient feels she needs to go to a SNF for rehab. She asked that her niece be contacted regarding where she would go. SARA FLORES called patient's niece and they would like [facility]. SARA FLORES again confirmed this with patient. YUSUF faxed referral to [facility] and also called regarding referral. Plan: d/c SNF pending acceptance. Dunia Bedoya POWER PLANT OPERATOR APPRENTICEDelroy CRAIN
--- NOTE | 2020-08-14 12:34 | TREXTCAR_ITS ---
Diet 08/12/20 11:14 Diet: Cardiac - Heart Healthy Food consistency:: Regular Liquid Consistency:: Regular/Thin Type of Dietary Supplement:: Ensure Enlive Is pt able to select menu?: Yes Diet Comments: 120ml ensure enlive TID w/ meals Routine Orders/Code Status Suppository Type: Dulcolax 10mg Suppository Frequency: Daily PRN Routine Lab Work: CBC, BMP and - (Once weekly CBC and BMP.) Code Status: DNRCC-A (With no intubation) Therapies Weight Bearing: Weight bearing as tolerated Extremity Affected:: Bilateral Lower Physical Therapy: Eval and Treat Occupational Therapy: Eval and Treat Speech Therapy: Eval and Treat Problem/Diagnosis (1) Hypokalemia: Status: Acute (2) New onset A. fib with RVR: Status: Acute (3) Atypical chest pain: Status: Acute Allergies/Procedures Done in Hospital Allergies alprazolam [From Xanax] Allergy (Verified 05/02/20 14:31) Unknown atenolol Allergy (Verified 05/02/20 14:31) Shortness of breath carvedilol Allergy (Verified 08/12/20 06:04) Anaphylaxis cetirizine [From Zyrtec] Allergy (Verified 05/02/20 14:31) Unknown cimetidine [From Tagamet] Allergy (Verified 05/02/20 14:31) Unknown diltiazem [From Cardizem] Allergy (Verified 05/02/20 14:31) Unknown erythromycin base Allergy (Verified 05/02/20 14:31) Unknown famotidine [From Pepcid] Allergy (Verified 05/02/20 14:31) Unknown guaifenesin [From Entex LA] Allergy (Verified 05/02/20 14:31) Unknown house dust Allergy (Verified 05/02/20 14:31) Unknown lansoprazole [From Prevacid] Allergy (Verified 05/02/20 14:31) Unknown loracarbef [From Lorabid] Allergy (Verified 05/02/20 14:31) Unknown metoprolol [From Toprol XL] Allergy (Verified 05/02/20 14:31) Unknown mold Allergy (Verified 05/02/20 14:31) Unknown phenylephrine [From Entex LA] Allergy (Verified 05/02/20 14:31) Unknown phenylpropanolamine [From Entex LA] Allergy (Verified 05/02/20 14:31) Unknown promethazine [From Phenergan] Allergy (Verified 05/02/20 14:31) Unknown raloxifene [From Evista] Allergy (Verified 05/02/20 14:31) Unknown ranitidine [From Zantac] Allergy (Verified 05/02/20 14:31) Unknown risedronate sodium [From Actonel] Allergy (Verified 05/02/20 14:31) Unknown escitalopram [From Lexapro] Adverse Reaction (Severe, Verified 05/02/20 14:31) Unknown lisinopril Adverse Reaction (Severe, Verified 05/02/20 14:31) Lip swelling losartan [From Cozaar] Adverse Reaction (Severe, Verified 05/02/20 14:31) Swelling lips meloxicam Adverse Reaction (Severe, Verified 05/02/20 14:31) Unknown prednisone Adverse Reaction (Severe, Verified 05/02/20 14:31) Unknown zolpidem [From Ambien] Adverse Reaction (Severe, Verified 05/02/20 14:31) Unknown amlodipine [From Norvasc] Adverse Reaction (Verified 05/02/20 14:31) SOB clonazepam [From Klonopin] Adverse Reaction (Verified 05/02/20 14:31) NEEDS FOLLOW-UP reaction like hangover diphenhydramine [From Benadryl] Adverse Reaction (Verified 05/02/20 14:31) NEEDS FOLLOW-UP agitation metronidazole [From Flagyl] Adverse Reaction (Verified 05/02/20 14:31) Pain in joints grass bent Allergy (Uncoded 01/24/20 12:40) Unknown Type of Care/Length of Stay Estimated LOS: Convalescent Care Less Than 30 days Type of Care Needed: Skilled Rehab Potential: Good Prognosis: Good Additional Orders/Day of Discharge Day of Discharge: 08/14/20 Dietary and Speech Recommendations Dietitian Recommendations/Changes: Will continue cardiac diet as ordered and add 120ml ensure enlive TID w/ meals as tolerated. Follow Up Care Please follow up with your Primary Care Physician in: In 2 weeks Please Follow Up With: Kye Licona MD When: For osteoporosis, DEXA scan and bisphosphonate therapy Please Follow Up With: Rahul Hernandez MD When: In 2 to 3 weeks Discharge Plan Admission Admit Date/Time: 08/12/20 11:12 Primary Reason for Your Visit: Chest pain, A. fib with RVR Attending Provider: Tunde Barreto Primary Care Provider: Tulio Roberts Instructions Patient Instructions: ED AFIB, ED Chest Pain, Noncardiac Additional Instructions / Restrictions: Advised to take metoprolol 25 mg twice daily and hold it if heart rate is less than 60/min or SBP less than 100 mmHg. Patient is not allergic to metoprolol. Allergy list reviewed with patient and her niece with the nursing staff. Discharge Orders/Prescriptions Prescriptions: New polyethylene glycol 3350 17 gram Powder In Packet 17 g PO DAILY Qty: 0 RF: 0 sennosides-docusate sodium [Stool Softener-Stimulant Laxat] 8.6-50 mg Tablet 2 tab PO BID PRN (Reason: Constipation) Qty: 0 RF: 0 oxycodone 5 mg Tablet 5 mg PO Q4H PRN PRN (Reason: Pain Score 6-10) 2 Days Qty: 10 RF: 0 acetaminophen [Tylenol] 325 mg Tablet 650 mg PO Q6H PRN PRN (Reason: Pain Score 1-10/Temp > 100.7 F) Qty: 0 RF: 0 aspirin 81 mg Tablet,Delayed Release (Dr/Ec) 81 mg PO DAILY@0800 Qty: 0 RF: 0 bisacodyl 10 mg Suppository 10 mg CO DAILY PRN PRN (Reason: Constipation) Qty: 0 RF: 0 hydralazine 50 mg Tablet 50 mg PO BID Qty: 0 RF: 0 metoprolol tartrate 25 mg Tablet 25 mg PO BID Qty: 60 RF: 1 Continued triamterene-hydrochlorothiazid 37.5-25 mg tablet 1 tab PO DAILY Qty: 30 RF: 12 magnesium oxide 400 mg magnesium tablet 400 mg PO DAILY RF: 0 cholecalciferol (vitamin D3) 25 mcg (1,000 unit) capsule 25 mcg PO DAILY RF: 0 zinc 50 mg tablet 50 mg PO DAILY RF: 0 ascorbic acid (vitamin C) 500 MG tablet 500 mg PO DAILY RF: 0 vitamin B complex 1 EACH tablet 1 tab PO DAILY RF: 0 Changed potassium chloride 10 MEQ tablet 20 meq PO BIDCM Qty: 0 RF: 0 Referrals / Follow Up: Tulio Roberts MD [Primary Care Provider] - Disposition Disposition (needs filled in before D/C Order can be placed): Intermediate Facility
--- NOTE | 2020-08-14 12:58 | DS.PCM_ITS ---
Providers Date of Admission: 08/12/20 Primary Care Physician: Dr. Tulio Roberts MD Reason For Visit: INTRACTABLE BACK PAIN Diagnosis Discharge Diagnosis (1) Hypokalemia: Status: Acute Code(s): E87.6 - Hypokalemia (2) New onset A. fib with RVR: Status: Acute (3) Atypical chest pain: Status: Acute Code(s): R07.89 - Other chest pain Medications at Discharge Home Medications triamterene 37.5 mg-hydrochlorothiazide 25 mg tablet 1 tab PO DAILY #30 tab 02/11/19 cholecalciferol (vitamin D3) 25 mcg (1,000 unit) capsule 25 mcg PO DAILY 11/11/19 magnesium oxide 400 mg PO DAILY 11/11/19 zinc 50 mg tablet 50 mg PO DAILY 11/11/19 ascorbic acid (vitamin C) 500 mg PO DAILY 01/24/20 vitamin B complex 1 tab PO DAILY 01/24/20 acetaminophen [Tylenol] 650 mg PO Q6H PRN PRN #0 tab 08/14/20 aspirin 81 mg PO DAILY@0800 #0 tab 08/14/20 bisacodyl 10 mg MT DAILY PRN PRN #0 ea 08/14/20 hydralazine 50 mg PO BID #0 tab 08/14/20 metoprolol tartrate 25 mg PO BID #60 tab 08/14/20 oxycodone 5 mg PO Q4H PRN PRN 2 Days #10 tab 08/14/20 polyethylene glycol 3350 17 g PO DAILY #0 ea 08/14/20 potassium chloride 20 meq PO BIDCM #0 tab 08/14/20 sennosides-docusate sodium [Stool Softener-Stimulant Laxat] 2 tab PO BID PRN #0 tab 08/14/20 Hospital Course Summary of Care Provided Hospital Course: ? JADON SUNG, is a 84 F who came to the ER by EMS for chest pain and shortness of breath about 4 AM and felt better after morphine, First troponin is negative. 1.? Atypical chest pain with shortness of breath suspicion of unstable angina: Patient is being admitted in PCU.? Serial troponin enzymes.? Repeat twelve-lead EKG.?? ACS protocol ordered.? ARLEEN risk score is 2. Serial troponin enzymes are negative.? She is allergic to b VERO/ARB, amlodipine, extensive allergy list.? Fasting profile shows LDL 104, HDL 48.? This is normal.? Patient refused for stress test. Lastly she agreed for metoprolol. 2.? Paroxysmal A. fib: [id number]? score is 4 With 4.8%/year.? Patient understands the risk and benefit of anticoagulant and does not want anticoagulants.? She has refused in the past too.? She is documented to have Afib WITH RVR during previous admission in 01/2020 when she was admitted for Alcohol withdrawal. threat monitoring analyst shows sinus tachycardia with heart rate going up to 140s. Patient does not have true allergy of beta-adam but may be side effects. She agreed to take metoprolol after long discussion. Started on metoprolol 25 mg twice daily. Heart rate is better. ? I further talked to the patient's niece, Ms. Martha Watson and went into detail regarding beta-blockers but not to allergy of metoprolol.? Patient said she did not had or at least does not remember having hives rash or shortness of breath with this medication but might have unpleasant feeling or dizziness which may be side effect.? Advised to check heart rate before taking metoprolol and hold if heart rate is less than 60. Recent 2D echo in October 2019 shows EF 60% with normal left atrium, mild concentric LVH. 3 hypokalemia: Low potassium is likely because of HCTZ/triamterene and low solute intake. She states she quit alcohol in 01/2020. Potassium replaced. Magnesium and phosphorus are normal limit. 4 Abd pain and? elevated Alk phos: Right upper quadrant shows 4.2 x 2 mm gallbladder polyp and about 2 cm right hepatic lobe cyst otherwise no acute abnormality. Probably bone source. CT abdomen does not show acute abnormality.? 5 hypertension: Blood pressure was elevated, continue HCTZ/triamterene, start IV hydralazine as needed Blood pressure elevated. 6 DVT prophylaxis: Subcu Lovenox. PT and OT. ? Patient has osteoporosis advised to follow-up with Dr. Licona for DEXA scan. Discharge medication reconciliation done. Discharge follow-up instructions completed. Discharge process discussed with the patient and all questions were answered to patient's satisfaction. Patient in process of discharge to SNF Total time spent, exact 35 minutes on discharge meds reconciliation, examination, coordination of care with nurses and ancillary staff, review of imaging and blood test and discussion with the patient on follow-up instructions Living will/advanced directive/end of life care: Patient does have living will or advanced directive.? After discussion of benefits/risks procedures involved with? full code, DNR CC arrest and DNR CC, the patient opted for DNR-CC Arrest with no intubation Patient? does not want artificial life support including intubation, tube feed, ventilator and/chest compression, central venous catheter, vasopressor and DC shock if needed ?? Clinical Impression(s) from Imaging Studies Chest X-Ray 08/12/20 06:10 IMPRESSION: Some bibasilar discoid atelectasis. Electronically Signed: Kishan Estrada MD at 6:26 EDT Tel , Service support , Abdomen/Pelvis CT 08/12/20 06:46 IMPRESSION: No acute abnormality. Multiple compression fractures of the lumbar spine which are likely chronic. Clinical correlation and MRI may be useful. Electronically Signed: Kishan Estrada MD at 8:36 EDT Tel , Service support , Gallbladder Ultrasound 08/12/20 06:47 IMPRESSION: 1. 2.0 x 1.6 x 1.7 cm right hepatic lobe cyst. 2. Mild hepatic steatosis. 3. 4 x 2 x 2 mm gallbladder polyp and negative sonographic Angel''s sign. 4. No acute abnormality in the right upper quadrant of the abdomen. Physical Exam Narrative Please see progress note on the same date. ABG / Lab / Microbiology Data Result Diagrams: 08/13/20 06:23 08/13/20 06:23 D/C Instructions Please Follow Up With: Kye Licona MD Meaningful Use Info Meaningful Use Diagnoses (Choose all that apply): None applicable Discharge Plan Admission Admit Date/Time: 08/12/20 11:12 Primary Reason for Your Visit: Chest pain, A. fib with RVR Attending Provider: Tunde Barreto Primary Care Provider: Tulio Roberts Instructions Patient Instructions: ED AFIB, ED Chest Pain, Noncardiac Additional Instructions / Restrictions: Advised to take metoprolol 25 mg twice daily and hold it if heart rate is less than 60/min or SBP less than 100 mmHg. Patient is not allergic to metoprolol. Allergy list reviewed with patient and her niece with the nursing staff. Discharge Orders/Prescriptions Prescriptions: New polyethylene glycol 3350 17 gram Powder In Packet 17 g PO DAILY Qty: 0 RF: 0 sennosides-docusate sodium [Stool Softener-Stimulant Laxat] 8.6-50 mg Tablet 2 tab PO BID PRN (Reason: Constipation) Qty: 0 RF: 0 oxycodone 5 mg Tablet 5 mg PO Q4H PRN PRN (Reason: Pain Score 6-10) 2 Days Qty: 10 RF: 0 acetaminophen [Tylenol] 325 mg Tablet 650 mg PO Q6H PRN PRN (Reason: Pain Score 1-10/Temp > 100.7 F) Qty: 0 RF: 0 aspirin 81 mg Tablet,Delayed Release (Dr/Ec) 81 mg PO DAILY@0800 Qty: 0 RF: 0 bisacodyl 10 mg Suppository 10 mg MT DAILY PRN PRN (Reason: Constipation) Qty: 0 RF: 0 hydralazine 50 mg Tablet 50 mg PO BID Qty: 0 RF: 0 metoprolol tartrate 25 mg Tablet 25 mg PO BID Qty: 60 RF: 1 Continued triamterene-hydrochlorothiazid 37.5-25 mg tablet 1 tab PO DAILY Qty: 30 RF: 12 magnesium oxide 400 mg magnesium tablet 400 mg PO DAILY RF: 0 cholecalciferol (vitamin D3) 25 mcg (1,000 unit) capsule 25 mcg PO DAILY RF: 0 zinc 50 mg tablet 50 mg PO DAILY RF: 0 ascorbic acid (vitamin C) 500 MG tablet 500 mg PO DAILY RF: 0 vitamin B complex 1 EACH tablet 1 tab PO DAILY RF: 0 Changed potassium chloride 10 MEQ tablet 20 meq PO BIDCM Qty: 0 RF: 0 Referrals / Follow Up: Tulio Roberts MD [Primary Care Provider] - Disposition Disposition (needs filled in before D/C Order can be placed): Snf Facility Addendum Addendum: Please cancel the billing charge of the progress note on the same date. Visit Charges Inpatient E&M: 29769 Disch Hosp
[2020-08-14] MEDS: oxyCODONE 5 MG Tablet PO ×2 (14:11→22:47)
--- NOTE | 2020-08-14 14:14 | PHA.DC.MR ---
Pharmacy Service has performed discharge medication reconciliation for this patient. The patient's discharge medication list was reviewed for discrepancies and discrepancies were resolved. Home Medications triamterene 37.5 mg-hydrochlorothiazide 25 mg tablet 1 tab PO DAILY #30 tab 02/11/19 cholecalciferol (vitamin D3) 25 mcg (1,000 unit) capsule 25 mcg PO DAILY 11/11/19 magnesium oxide 400 mg PO DAILY 11/11/19 zinc 50 mg tablet 50 mg PO DAILY 11/11/19 ascorbic acid (vitamin C) 500 mg PO DAILY 01/24/20 vitamin B complex 1 tab PO DAILY 01/24/20 acetaminophen [Tylenol] 650 mg PO Q6H PRN PRN #0 tab 08/14/20 aspirin 81 mg PO DAILY@0800 #0 tab 08/14/20 bisacodyl 10 mg OR DAILY PRN PRN #0 ea 08/14/20 hydralazine 50 mg PO BID #0 tab 08/14/20 metoprolol tartrate 25 mg PO BID #60 tab 08/14/20 oxycodone 5 mg PO Q4H PRN PRN 2 Days #10 tab 08/14/20 polyethylene glycol 3350 17 g PO DAILY #0 ea 08/14/20 potassium chloride 20 meq PO BIDCM #0 tab 08/14/20 sennosides-docusate sodium [Stool Softener-Stimulant Laxat] 2 tab PO BID PRN #0 tab 08/14/20
--- NOTE | 2020-08-14 14:43 | PN.HOSP_ITS ---
Objective Data Objective Data Vital Signs: Vital Signs Temp Pulse Resp BP Pulse Ox 99.5 F H 94 20 H 118/89 H 92 08/14/20 14:20 08/14/20 14:20 08/14/20 14:20 08/14/20 14:20 08/14/20 14:20 Oxygen Flow Rate (L/min) 2 Oxygen Delivery Method Room Air Weight: 132 lb 15.02 oz Body Mass Index (BMI) 26.1 Intake & Output: Intake and Output for Last 24 Hours 08/12/20 08/13/20 08/14/20 23:59 23:59 23:59 Intake Total 391.67 / 391.67 1600 / 1650 630 / 630 Balance 391.67 / 391.67 1600 / 1650 630 / 630 Lab / Micro Data Result Diagrams: 08/13/20 06:23 08/13/20 06:23 Micro: Microbiology 08/14/20 13:40 Interface Orders SARS-CoV-2 Antigen (Rapid) - Final Physical Exam Narrative Seen and examined. Patient heart rate is controlled somewhat better on starting metoprolol yesterday. Patient questions regarding allergic medications answered. Actually, patient does not have true allergy-like rash, angioedema or shortness of breath or hives but may be side effect or adverse effect. General: Alert, Oriented x3, Cooperative HEENT: Atraumatic, PERRLA, EOMI, Normocephalic Oral: No Gingival or Mucosal Lesions/ Ulcerations Neck: Supple, No JVD, Negative Carotid Bruits Lungs:? Air entry diminished in bilateral lung bases.? No crepitation/rhonchi Cardiovascular: Sinus rhythm with PVCs, Normal S1, Normal S2, No murmurs Abdomen: Bowel Sounds Present, Soft, Non Tender, Non-Distended : No renal angle tenderness.? No suprapubic tenderness. Extremities: No ankle edema, Capillary Refill Less than 3 Seconds Skin: No rashes, No breakdown Musculoskeletal/spine: Paraspinal lumbar muscles tenderness present.? No acute cauda equina syndrome. Neurological: Cranial nerves II-XII grossly intact, Deep Tendon Reflexes 2+/4 and Symmetrical, Neuro grossly intact Psych/Mental Status: Normal Affect, Appropriate. Assessment & Plan Assessment/Plan (1) Hypokalemia: (2) New onset A. fib with RVR: (3) Atypical chest pain: PLAN: JADON STAMMER, is a 84 F who came to the ER by EMS for chest pain and shortness of breath about 4 AM and felt better after morphine, First troponin is negative. 1. Atypical chest pain with shortness of breath suspicion of unstable angina: Patient is being admitted in PCU. Serial troponin enzymes. Repeat twelve-lead EKG. 2D echo ordered. ACS protocol ordered. ARLEEN risk score is 2. 08/13: Serial troponin enzymes are negative. She is allergic to beta-adam, VERO/ARB, amlodipine, extensive allergy list. Fasting profile shows LDL 104, HDL 48. This is normal. Patient refused for stress test. 2. Paroxysmal A. fib: PUA1LO0-EOSs score is 4 With 4.8%/year. Patient understands the risk and benefit of anticoagulant and does not want anticoagulants. She has refused in the past too. She is documented to have Afib WITH RVR during previous admission in 01/2020 when she was admitted for Alcohol withdrawal. 08/13:gambling monitor shows sinus tachycardia with PVCs, heart rate upper 100s. 08/14: gambling monitor shows sinus rhythm with heart rate around 100s. I further talked to the patient's niece, Ms. Martha Watson and went into detail regarding beta-blockers but not to allergy of metoprolol. Patient said she did not had or at least does not remember having hives rash or shortness of breath with this medication but might have unpleasant feeling or dizziness which may be side effect. Advised to check heart rate before taking metoprolol and hold if heart rate is less than 60. 3 hypokalemia: Low potassium is likely because of HCTZ/triamterene and low solute intake. She states she quit alcohol in 01/2020. K is replaced. Check Mg and Phos and repeat BMP tomorrow 08/13: Replace potassium. Magnesium and phosphorus are normal limit. 4 Abd pain and elevated Alk phos: Right upper quadrant shows 4.2 x 2 mm gallbladder polyp and about 2 cm right hepatic lobe cyst otherwise no acute abnormality. Probably bone source. CT abdomen does not show acute abnormality. 5 hypertension: Blood pressure was elevated, continue HCTZ/triamterene, start IV hydralazine as needed Blood pressure elevated. 6 DVT prophylaxis: Subcu Lovenox. PT and OT. Discharge planning: Follow-up echo done not reported yet. Pending pre-CERT. Patient has osteoporosis advised to follow-up with Dr. Licona for DEXA scan. Living will/advanced directive/end of life care: Patient does have living will or advanced directive. After discussion of benefits/risks procedures involved with full code, DNR CC arrest and DNR CC, the patient opted for DNR-CC Arrest with no intubation Patient does not want artificial life support including intubation, tube feed, ventilator and/chest compression, central venous catheter, vasopressor and DC shock if needed Total time spent in tuce-wh-vgls encounter in discussion of advanced dir ective 16 minutes. Visit Charges Inpatient E&M: 17063 Subs Hosp L2
--- NOTE | 2020-08-14 14:55 | CASEMGMT ---
YUSUF received a call from Myrna at [facility] and they can accept patient. SW told her SW will let her know as soon as [place] gets back to and patient decides on a facility. Dunia CRIAN
--- NOTE | 2020-08-14 15:32 | CASEMGMT ---
Addendum entered by Dunia Bedoya 08/14/20 16:28: Patient said she prefers [facility]. YUSUF told her SW will work on setting up transportation. YUSUF notifed Ludmila at [facility], RN, racing secretary, and also called patient's niece. Convalescent completed on HENS. Physicians transported patient via [facility]c van. Plan: [facility] under skilled level of care on a convalescent stay. Physicians transported via [facility]c van. Dunia CRAIN Original Note: SW spoke with patient and updated her letting her know that her niece asked to send referrals to [facility] and [facility]. YUSUF told patient [facility] can accept her, but SW is still waiting on [facility] to get back to . PT/OT evaluations were faxed to [facility]. Await [facility]'s response and then see which facility patient prefers. Dunia CRAIN
[2020-08-14 15:59] LABS: Mucous, Urine 0 SEEN /hpf (<or=2+); Red Blood Cells-Urine 0 SEEN /hpf (0-5)
[2020-08-14 16:34] LABS: Color, Urine Yellow (Yellow); Glucose, Dipstick Normal (Normal); Ketone-Dipstick Negative (Negative); Leukocyte Esterase-Dipstick Negative /ul (Negative); Nitrite-Dipstick Negative (Negative); Occult Blood-Urine 10 /ul (Negative); Protein-Dipstick 30 mg/dl (Negative); Urine Bilirubin Dipstick Negative (Negative); Urine Clarity Clear (Clear); Urine Urobilinogen Normal (Normal)
[2020-08-14] MEDS: Acetaminophen 325 MG Tablet 650 MG PO (17:20)
[2020-08-14 17:31] LABS: Bacteria 1+ /hpf (None Seen); Squamous Epithelial Cells - UA 0-5 SEEN /hpf (5-10); White Blood Cells 0-5 SEEN /hpf (0-5)
--- NOTE | 2020-08-14 17:39 | RAD_ITS ---
STUDY: X-RAY CHEST REASON FOR EXAM: Female, 84 years old. Mild fever. No cough or respiratory symptoms TECHNIQUE: Single AP portable view of the chest. COMPARISON: 08/12/2020 FINDINGS: Poor inspiration with some bibasilar atelectasis. There is no demonstrated pleural abnormality. Normal size heart. Normal mediastinum and shazia. Normal visualized pulmonary arteries. There is atherosclerotic tortuosity of the aortic arch and descending thoracic aorta. Normal visualized thoracic spine. Normal visualized ribs, clavicles, and shoulders. There is no demonstrated abnormality of the visualized soft tissue structures of the upper abdomen. RAD/Chest 1 View (Portable) IMPRESSION: Poor inspiration with some bibasilar atelectasis per Electronically Signed: Kishan Estrada MD at 18:22 EDT Tel , Service support ,
[2020-08-14 17:50] LABS: Absolute Lymphocyte Count 1.08 X10^3/uL (0.83-4.51); Absolute Neutrophil Count 13.4 X10^3/uL (2.0-7.7); Basophil# 0.04 X10^3/uL; Basophil% 0.2 % (0-1); Hematocrit 38.7 % (37-47); Hemoglobin 12.9 g/dL (12.0-15.0); Lymphocyte # 1.08 X10^3/ul (0.83-4.51); Lymphocyte % 6.3 % (19-41); Mean Corp Hgb Conc 33.3 g/dL (32-36); Mean Platelet Vol. 10.1 fl (6.2-12.0); Monocyte# 2.56 X10^3/uL; Monocyte% 14.9 % (0-10); NRBC Flagged by Analyzer 0 % (0-5); Neutrophil # 13.36 X10^3/uL (2.7-7.7); POSITIVE DIFFERENTIAL YES; Platelet Count 262 K/mm3 (150-450); RBC Distribution Width CV 13.4 % (11.6-14.6); RBC Distribution Width SD 47.9 fl (35.1-43.9); Red Blood Count 4.03 M/mm3 (4.2-5.4); White Blood Count 17.1 K/mm3 (4.4-11.0)
[2020-08-14 18:06] LABS: Differential Indicated SCAN CRITERIA MET
[2020-08-14 18:13] LABS: ALB/GLOB Ratio 0.6 RATIO (0.9-2.4); AST(SGOT) 19 U/L (15-37); Alanine Aminotransfer ALT/SGPT 13 U/L (13-56); Albumin, Serum 2.6 g/dL (3.2-5.0); Alkaline Phosphatase 133 U/L (45-117); Anion Gap 6 (5-15); BUN 17 mg/dL (7-18); BUN/Creat Ratio 22.3 RATIO (10-20); Calcium,Total 9.3 mg/dL (8.5-10.1); Chloride 95 mmol/L (98-107); Creatinine, Serum 0.76 mg/dL (0.55-1.02); EST Glomerular Filtration Rate 76 mL/min (>60); Est Glom Filt Rate - Afr Amer 92 mL/min (>60); Estimated Creatinine Clearance 29.54 ml/min; Globulin 4.6 g/dL (2.2-4.2); Glucose 128 mg/dL (74-106); Potassium 4.3 mmol/L (3.5-5.1); Protein, Total 7.2 g/dL (6.4-8.2); Sodium Level 127 mmol/L (136-145)
[2020-08-14 18:49] LABS: Platelet Estimate ADEQUATE (ADEQ); Red Cell Morphology NORM C+C NORMAL (NORM C&C)
[2020-08-14] MEDS: levoFLOXacin IV 500 MG/100 ML BAG 100 MG IV (18:55)
[2020-08-15] VITALS (10 sets, daily range): BP systolic 111–132; BP diastolic 71–85; PULSE 88–125; RESP 15–18; TEMP 36.7–37.3; O2SAT 92–94
[2020-08-15] MEDS: Vitamin B Comp W-C Capsule 1 CAP PO (08:21)
[2020-08-15] MEDS: Triamterene 37.5MG/Hctz 25MG Capsule 1 CAP PO (08:21)
[2020-08-15] MEDS: Lidocaine 5% Patch 2 PATCH TOPICAL (08:21)
[2020-08-15] MEDS: Metoprolol Tartrate 25 MG Tablet PO (08:22)
[2020-08-15] MEDS: Magnesium Chloride 64 MG Delay Rel.Tablet 128 MG PO (08:22)
[2020-08-15] MEDS: Cholecalciferol (VIT D3) 25 MCG TABLET (1,000 UNITS) PO (08:23)
[2020-08-15] MEDS: Ascorbic Acid 500 MG Tablet PO (08:23)
[2020-08-15] MEDS: Acetaminophen 325 MG Tablet 650 MG PO (08:23)
[2020-08-15] MEDS: 0.9% Saline Lock 10 ML Syringe IV (10:00)
[2020-08-15] MEDS: levoFLOXacin IV 250 MG/50 ML BAG 50 MG IV (10:00)
--- NOTE | 2020-08-15 10:19 | CASEMGMT ---
YUSUF called Ludmila at [facility] and let her know patient will likely be coming today. Dunia Bedoya TRANSPORTATION MODELER BREANN
--- NOTE | 2020-08-15 10:50 | CASEMGMT ---
Patient has a Healthcare Power of Account Group Supervisor and a Healthcare Living Will on file at [facility]. Her niece Martha is her Healthcare Power of Account Group Supervisor. Dunia Bedoya TUBE MOUNTER BREANN
[2020-08-15] MEDS: oxyCODONE 5 MG Tablet PO (12:14)
[2020-08-15 12:44] LABS: Pathologist Review Reviewed
--- NOTE | 2020-08-15 13:50 | NURSING ---
Updated niece on patient condition
--- NOTE | 2020-08-15 15:01 | TREXTCAR_ITS ---
Diet 08/12/20 11:14 Diet: Cardiac - Heart Healthy Food consistency:: Regular Liquid Consistency:: Regular/Thin Type of Dietary Supplement:: Ensure Enlive Is pt able to select menu?: Yes Diet Comments: 120ml ensure enlive TID w/ meals Routine Orders/Code Status Suppository Type: Dulcolax 10mg Suppository Frequency: Daily PRN Routine Lab Work: CBC, BMP and - (Once weekly CBC and BMP.) Code Status: DNRCC-A (With no intubation) Therapies Weight Bearing: Weight bearing as tolerated Extremity Affected:: Bilateral Lower Physical Therapy: Eval and Treat Occupational Therapy: Eval and Treat Speech Therapy: Eval and Treat Problem/Diagnosis (1) Hypokalemia: Status: Acute (2) New onset A. fib with RVR: Status: Acute (3) Atypical chest pain: Status: Acute Allergies/Procedures Done in Hospital Allergies alprazolam [From Xanax] Allergy (Verified 05/02/20 14:31) Unknown atenolol Allergy (Verified 05/02/20 14:31) Shortness of breath carvedilol Allergy (Verified 08/12/20 06:04) Anaphylaxis cetirizine [From Zyrtec] Allergy (Verified 05/02/20 14:31) Unknown cimetidine [From Tagamet] Allergy (Verified 05/02/20 14:31) Unknown diltiazem [From Cardizem] Allergy (Verified 05/02/20 14:31) Unknown erythromycin base Allergy (Verified 05/02/20 14:31) Unknown famotidine [From Pepcid] Allergy (Verified 05/02/20 14:31) Unknown guaifenesin [From Entex LA] Allergy (Verified 05/02/20 14:31) Unknown house dust Allergy (Verified 05/02/20 14:31) Unknown lansoprazole [From Prevacid] Allergy (Verified 05/02/20 14:31) Unknown loracarbef [From Lorabid] Allergy (Verified 05/02/20 14:31) Unknown metoprolol [From Toprol XL] Allergy (Verified 05/02/20 14:31) Unknown mold Allergy (Verified 05/02/20 14:31) Unknown phenylephrine [From Entex LA] Allergy (Verified 05/02/20 14:31) Unknown phenylpropanolamine [From Entex LA] Allergy (Verified 05/02/20 14:31) Unknown promethazine [From Phenergan] Allergy (Verified 05/02/20 14:31) Unknown raloxifene [From Evista] Allergy (Verified 05/02/20 14:31) Unknown ranitidine [From Zantac] Allergy (Verified 05/02/20 14:31) Unknown risedronate sodium [From Actonel] Allergy (Verified 05/02/20 14:31) Unknown escitalopram [From Lexapro] Adverse Reaction (Severe, Verified 05/02/20 14:31) Unknown lisinopril Adverse Reaction (Severe, Verified 05/02/20 14:31) Lip swelling losartan [From Cozaar] Adverse Reaction (Severe, Verified 05/02/20 14:31) Swelling lips meloxicam Adverse Reaction (Severe, Verified 05/02/20 14:31) Unknown prednisone Adverse Reaction (Severe, Verified 05/02/20 14:31) Unknown zolpidem [From Ambien] Adverse Reaction (Severe, Verified 05/02/20 14:31) Unknown amlodipine [From Norvasc] Adverse Reaction (Verified 05/02/20 14:31) SOB clonazepam [From Klonopin] Adverse Reaction (Verified 05/02/20 14:31) NEEDS FOLLOW-UP reaction like hangover diphenhydramine [From Benadryl] Adverse Reaction (Verified 05/02/20 14:31) NEEDS FOLLOW-UP agitation metronidazole [From Flagyl] Adverse Reaction (Verified 05/02/20 14:31) Pain in joints grass bent Allergy (Uncoded 01/24/20 12:40) Unknown Type of Care/Length of Stay Estimated LOS: Convalescent Care Less Than 30 days Type of Care Needed: Skilled Rehab Potential: Good Prognosis: Good Additional Orders/Day of Discharge Day of Discharge: 08/14/20 Dietary and Speech Recommendations Dietitian Recommendations/Changes: Continue cardiac diet, 120ml ensure enlive TID w/ meals as tolerated. Follow Up Care Please follow up with your Primary Care Physician in: In 2 weeks Please Follow Up With: Kye Licona MD When: For osteoporosis, DEXA scan and bisphosphonate therapy Please Follow Up With: Rahul Hernandez MD When: In 2 to 3 weeks Discharge Plan Admission Admit Date/Time: 08/12/20 11:12 Primary Reason for Your Visit: Chest pain, A. fib with RVR Attending Provider: Shahram Osborne Primary Care Provider: Tulio Roberts Instructions Patient Instructions: ED AFIB, ED Chest Pain, Noncardiac Additional Instructions / Restrictions: Advised to take metoprolol 25 mg twice daily and hold it if heart rate is less than 60/min or SBP less than 100 mmHg. Patient is not allergic to metoprolol. Allergy list reviewed with patient and her niece with the nursing staff. Recommend BMP and CBC in 1 to 2 days to monitor resolution of her leukocytosis and hyponatremia. Cultures are still pending and if anything comes back positive we will notify the [facility]. Discharge Orders/Prescriptions Prescriptions: New polyethylene glycol 3350 17 gram Powder In Packet 17 g PO DAILY Qty: 0 RF: 0 sennosides-docusate sodium [Stool Softener-Stimulant Laxat] 8.6-50 mg Tablet 2 tab PO BID PRN (Reason: Constipation) Qty: 0 RF: 0 oxycodone 5 mg Tablet 5 mg PO Q4H PRN PRN (Reason: Pain Score 6-10) 2 Days Qty: 10 RF: 0 acetaminophen [Tylenol] 325 mg Tablet 650 mg PO Q6H PRN PRN (Reason: Pain Score 1-10/Temp > 100.7 F) Qty: 0 RF: 0 aspirin 81 mg Tablet,Delayed Release (Dr/Ec) 81 mg PO DAILY@0800 Qty: 0 RF: 0 bisacodyl 10 mg Suppository 10 mg NJ DAILY PRN PRN (Reason: Constipation) Qty: 0 RF: 0 hydralazine 50 mg Tablet 50 mg PO BID Qty: 0 RF: 0 metoprolol tartrate 25 mg Tablet 25 mg PO BID Qty: 60 RF: 1 levofloxacin 250 mg Tablet 250 mg PO DAILY@0600 Qty: 7 RF: 0 Continued magnesium oxide 400 mg magnesium tablet 400 mg PO DAILY RF: 0 cholecalciferol (vitamin D3) 25 mcg (1,000 unit) capsule 25 mcg PO DAILY RF: 0 zinc 50 mg tablet 50 mg PO DAILY RF: 0 ascorbic acid (vitamin C) 500 MG tablet 500 mg PO DAILY RF: 0 vitamin B complex 1 EACH tablet 1 tab PO DAILY RF: 0 Changed potassium chloride 10 MEQ tablet 20 meq PO BIDCM Qty: 0 RF: 0 Held triamterene-hydrochlorothiazid 37.5-25 mg tablet 1 tab PO DAILY Qty: 30 RF: 12 Hold Instructions: Resume on 08/18/20. She was hyponatremic to 127 on 08/14, recheck BMP in 1-2 days and restart if indicated Referrals / Follow Up: Tulio Roberts MD [Primary Care Provider] - Disposition Disposition (needs filled in before D/C Order can be placed): [facility]
--- NOTE | 2020-08-15 15:06 | DS.PCM_ITS ---
Providers Date of Admission: 08/12/20 Primary Care Physician: Dr. Tulio Roberts MD Reason For Visit: INTRACTABLE BACK PAIN Diagnosis Discharge Diagnosis (1) Hypokalemia: Status: Acute Code(s): E87.6 - Hypokalemia (2) New onset A. fib with RVR: Status: Acute (3) Atypical chest pain: Status: Acute Code(s): R07.89 - Other chest pain Medications at Discharge Home Medications triamterene 37.5 mg-hydrochlorothiazide 25 mg tablet 1 tab PO DAILY #30 tab 02/11/19 cholecalciferol (vitamin D3) 25 mcg (1,000 unit) capsule 25 mcg PO DAILY 11/11/19 magnesium oxide 400 mg PO DAILY 11/11/19 zinc 50 mg tablet 50 mg PO DAILY 11/11/19 ascorbic acid (vitamin C) 500 mg PO DAILY 01/24/20 vitamin B complex 1 tab PO DAILY 01/24/20 acetaminophen [Tylenol] 650 mg PO Q6H PRN PRN #0 tab 08/14/20 aspirin 81 mg PO DAILY@0800 #0 tab 08/14/20 bisacodyl 10 mg WI DAILY PRN PRN #0 ea 08/14/20 hydralazine 50 mg PO BID #0 tab 08/14/20 metoprolol tartrate 25 mg PO BID #60 tab 08/14/20 oxycodone 5 mg PO Q4H PRN PRN 2 Days #10 tab 08/14/20 polyethylene glycol 3350 17 g PO DAILY #0 ea 08/14/20 potassium chloride 20 meq PO BIDCM #0 tab 08/14/20 sennosides-docusate sodium [Stool Softener-Stimulant Laxat] 2 tab PO BID PRN #0 tab 08/14/20 levofloxacin 250 mg PO DAILY@0600 #7 tab 08/15/20 Hospital Course Operations None Procedures 2-D Echocardiogram Summary of Care Provided Minutes Spent on Discharge: 35 Hospital Course: Per HPI: JADON SUNG, is a 84 F who came to the ER by EMS for chest pain and shortness of breath about 4 AM and felt her lower chest like vice.? She said it persisted until she got morphine in ED about 7 AM.? She further it was localized without radiation, diaphoresis, dizziness or syncope.? She denies prior history of heart attack/coronary artery disease.? EMS EKG shows sinus tachycardia with sinus arrhythmia and PVCs, LAD.? ED EKG shows A. fib at 99 bpm with no RR progression.? Old inferior lead Q waves.? Currently patient does not have chest pain.? After my ER patient patient seen patient back pain/chest pain rated with spine and therefore was admitted on MedSurg but it turned out to be atypical chest pain, ACS ruled out for transfer to PCU. First troponin is negative.? Found to be hypokalemic and mild leukocytosis.? Chest x-ray shows bibasilar atelectasis.? Per ER physician she also complained of epigastric and upper abdominal pain for which CT abdomen and right upper quadrant sonogram were done.? CT abdomen does not show acute abnormality.? Right upper quadrant shows 4.2 x 2 mm gallbladder polyp and about 2 cm right hepatic lobe cyst otherwise no acute abnormality Hospital Course: 1.? Atypical chest pain with shortness of breath suspicion of unstable angina: Patient is being admitted in PCU.? Serial troponin enzymes.? Repeat twelve-lead EKG.? 2D echo ordered.? ACS protocol ordered.? ARLEEN risk score is 2. 08/13: Serial troponin enzymes are negative.? She is allergic to beta-adam, VERO/ARB, amlodipine, extensive allergy list.? Fasting profile shows LDL 104, HDL 48.? This is normal.? Patient refused for stress test. 08/15: Denies any chest pain or shortness of breath currently states that she actually feels much better. She has agreed to take metoprolol. Echo with an EF of 60% and stage I diastolic dysfunction. 2.? Paroxysmal A. fib: [id number]? score is 4 With 4.8%/year.? Patient understands the risk and benefit of anticoagulant and does not want anticoagulants.? She has refused in the past too.? She is documented to have Af ib WITH RVR during previous admission in 01/2020 when she was admitted for Alcohol withdrawal. 08/13:monitor worker shows sinus tachycardia with PVCs, heart rate upper 100s.? 08/14: monitor worker shows sinus rhythm with heart rate around 100s.? I further talked to the patient's niece, Ms. Martha Watson and went into detail regarding beta-blockers but not to allergy of metoprolol.? Patient said she did not had or at least does not remember having hives rash or shortness of breath with this medication but might have unpleasant feeling or dizziness which may be side effect.? Advised to check heart rate before taking metoprolol and hold if heart rate is less than 60. 08/15: With additional metoprolol 25 mg p.o. twice daily, her heart rate appears to have stabilized. She denies any shortness of breath or chest pain. Would recommend continue this medication potentially increasing it is necessary to control her heart rate on the outpatient side 3. Hypokalemia/hyponatremia: Low potassium is likely because of HCTZ/triamterene and low solute intake. She states she quit alcohol in 01/2020. K is replaced. Check Mg and Phos and repeat BMP tomorrow 08/13: Replace potassium.? Magnesium and phosphorus are normal limit. 08/15: Potassium is stable, would recommend following up BMP as an outpatient and hold her triamterene/hydrochlorothiazide on discharge until her sodium normalizes 4. Abd pain and? elevated Alk phos: Right upper quadrant shows 4.2 x 2 mm gallbladder polyp and about 2 cm right hepatic lobe cyst otherwise no acute abnormality. Probably bone source. CT abdomen does not show acute abnormality.? 5. Hypertension: Blood pressure was elevated, hold HCTZ/triamterene, continue with p.o. hydralazine twice daily to assist in controlling her hypertension 6. Fever of unknown origin: She was empirically started on Levaquin, she was given a dose of 500 mg x 1 and then transition to 250 mg daily secondary to her creatinine clearance being less than 30. Blood cultures are pending CT of her abdomen was unremarkable for any source of infection and her UA was not consistent with a UTI. She does not have any skin lesions to indicate the source of infection and her Covid test was negative. She is not complaining of any shortness of breath is not requiring any oxygen, will continue with Levaquin for 7 more days and will monitor her blood cultures and her urine cultures and relay any positive results to the senior living. I discussed the plan for discharge with her and she expressed understanding of the risk and benefits of going to the senior living today and she does want to go today to get started on her therapy for her back pain. I discussed with her the possibility of staying 1 more day to verify cultures and she felt like she could go to the senior living today. Physical Exam Const alert, oriented x3 and no apparent distress HEENT normocephalic and moist oral mucous membranes Eyes PERRL, EOMs intact bilaterally and conjunctivae normal Neck supple and no JVD Resp normal respiratory effort and clear to auscultation bilaterally Auscultation: Negative for crackles, rales, rhonchi or wheezes Cardio regular rate, S1 normal heart sound, S2 normal heart sound and no murmurs Rhythm: abnormal rhythm GI soft to palpation, non-tender and non-distended; Negative for hepatosplenomegaly Extremity no clubbing, cyanosis or edema Skin no rashes or lesions noted Neuro no focal motor deficits and no sensory deficits noted Psych affect normal ABG / Lab / Microbiology Data Result Diagrams: 08/14/20 17:20 08/14/20 17:20 Laboratory: Laboratory Results - last 24 hr 08/14/20 08/14/20 08/14/20 15:50 17:20 17:20 WBC 17.1 H RBC 4.03 L Hgb 12.9 Hct 38.7 MCV 96.0 MCH 32.0 MCHC 33.3 RDW Std Deviation 47.9 H RDW Coeff of Jared 13.4 Plt Count 262 MPV 10.1 Immature Gran % (Auto) 0.600 Neut % (Auto) 78.0 H Lymph % (Auto) 6.3 L Millard % (Auto) 14.9 H Eos % (Auto) 0.0 Baso % (Auto) 0.2 Absolute Neuts (auto) 13.4 H Absolute Lymphs (auto) 1.08 Nucleated RBC % 0 Differential Comment Diff Path Review Reviewed Platelet Estimate ADEQUATE RBC Morphology NORM C+C Sodium 127 L Potassium 4.3 Chloride 95 L Carbon Dioxide 26.0 Anion Gap 6 BUN 17 Creatinine 0.76 Estim Creat Clear Calc 29.54 Est GFR (MDRD) Af Amer 92 Est GFR (MDRD) Non-Af 76 BUN/Creatinine Ratio 22.3 H Glucose 128 H Calcium 9.3 Total Bilirubin 1.60 H AST 19 ALT 13 Alkaline Phosphatase 133 H Total Protein 7.2 Albumin 2.6 L Globulin 4.6 H Albumin/Globulin Ratio 0.6 L Urine Color Yellow Urine Clarity Clear Urine pH 7.0 Ur Specific Harford 1.010 Urine Protein 30 H Urine Glucose (UA) Normal Urine Ketones Negative Urine Occult Blood 10 H Urine Nitrite Negative Urine Bilirubin Negative Urine Urobilinogen Normal Ur Leukocyte Esterase Negative Urine RBC 0 SEEN Urine WBC 0-5 SEEN Ur Squamous Epith Cells 0-5 SEEN Urine Bacteria 1+ Urine Mucus 0 SEEN Microbiology: Microbiology 08/14/20 13:40 SARS-CoV-2 Antigen (Rapid) - Final Interface Orders Microbiology 08/14/20 13:40 Interface Orders SARS-CoV-2 Antigen (Rapid) - Final Radiography Diagnostic Testing: Radiology Impression Echocardiogram 08/12/20 12:22 Interpretation Summary Normal LV size. Left ventricular systolic function is normal. The estimated ejection fraction is 60 %. Stage 1 diastolic dysfunction. 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 unchanged Contrast injection was performed. The study was technically difficult. Ordering Physician: Tunde Barreto Referring Physician: Tulio Roberts Performed By: Benjie Bettencourt RCS Chest X-Ray 08/14/20 17:39 IMPRESSION: Poor inspiration with some bibasilar atelectasis per Electronically Signed: Kishan Estrada MD at 18:22 EDT Tel , Service support , D/C Instructions Please Follow Up With: Kye Licona MD Meaningful Use Info Meaningful Use Diagnoses (Choose all that apply): None applicable Discharge Plan Admission Admit Date/Time: 08/12/20 11:12 Primary Reason for Your Visit: Chest pain, A. fib with RVR Attending Provider: Shahram Osborne Primary Care Provider: Tulio Roberts Instructions Patient Instructions: ED AFIB, ED Chest Pain, Noncardiac Additional Instructions / Restrictions: Advised to take metoprolol 25 mg twice daily and hold it if heart rate is less than 60/min or SBP less than 100 mmHg. Patient is not allergic to metoprolol. Allergy list reviewed with patient and her niece with the nursing staff. Recommend BMP and CBC in 1 to 2 days to monitor resolution of her leukocytosis and hyponatremia. Cultures are still pending and if anything comes back positive we will notify the senior living. Discharge Orders/Prescriptions Prescriptions: New polyethylene glycol 3350 17 gram Powder In Packet 17 g PO DAILY Qty: 0 RF: 0 sennosides-docusate sodium [Stool Softener-Stimulant Laxat] 8.6-50 mg Tablet 2 tab PO BID PRN (Reason: Constipation) Qty: 0 RF: 0 oxycodone 5 mg Tablet 5 mg PO Q4H PRN PRN (Reason: Pain Score 6-10) 2 Days Qty: 10 RF: 0 acetaminophen [Tylenol] 325 mg Tablet 650 mg PO Q6H PRN PRN (Reason: Pain Score 1-10/Temp > 100.7 F) Qty: 0 RF: 0 aspirin 81 mg Tablet,Delayed Release (Dr/Ec) 81 mg PO DAILY@0800 Qty: 0 RF: 0 bisacodyl 10 mg Suppository 10 mg WI DAILY PRN PRN (Reason: Constipation) Qty: 0 RF: 0 hydralazine 50 mg Tablet 50 mg PO BID Qty: 0 RF: 0 metoprolol tartrate 25 mg Tablet 25 mg PO BID Qty: 60 RF: 1 levofloxacin 250 mg Tablet 250 mg PO DAILY@0600 Qty: 7 RF: 0 Continued magnesium oxide 400 mg magnesium tablet 400 mg PO DAILY RF: 0 cholecalciferol (vitamin D3) 25 mcg (1,000 unit) capsule 25 mcg PO DAILY RF: 0 zinc 50 mg tablet 50 mg PO DAILY RF: 0 ascorbic acid (vitamin C) 500 MG tablet 500 mg PO DAILY RF: 0 vitamin B complex 1 EACH tablet 1 tab PO DAILY RF: 0 Changed potassium chloride 10 MEQ tablet 20 meq PO BIDCM Qty: 0 RF: 0 Held triamterene-hydrochlorothiazid 37.5-25 mg tablet 1 tab PO DAILY Qty: 30 RF: 12 Hold Instructions: Resume on 08/18/20. She was hyponatremic to 127 on 08/14, recheck BMP in 1-2 days and restart if indicated Referrals / Follow Up: Tulio Roberts MD [Primary Care Provider] - Disposition Disposition (needs filled in before D/C Order can be placed): Custodial Facility Visit Charges Inpatient E&M: 94677 Disch Hosp
--- NOTE | 2020-08-15 15:19 | CASEMGMT ---
Patient is ready for discharge to [facility]. YUSUF set up transport for 430 via wc van. SW notified RN, school secretary, patient's niece, and Ludmila at [facility]. Orders were faxed to [facility]. Plan: d/c to [facility] under skilled level of care on a convalescent stay. [facility] transported patient via wc van. Dunia CRAIN
--- NOTE | 2020-08-15 16:00 | NURSING ---
Patient's niece Martha called and stated that she spoke with the patient and that she had confused nursing homes and actually wanted [facility]. I explained to her that Social Work was gone for the day and that I could not speak to [facility]'s availability, and transportation to [facility] was expected any moment. Jose F concluded the best course was to continue with DC to [facility] and if patient does not like it there she may pursue a transfer to [facility] at a later time.
--- NOTE | 2020-08-15 16:12 | CHAPLAIN ---
Type of Pastoral Visit _x__ Initial Visit ___ Follow-up Visit ___ On-call Visit ___ General Patient Visit ___ Spiritual Assessment ___ Family Conference ___ Bereavement ___ Rapid Response ___ Code Blue ___ Other (describe below) Pastoral Care Referral From _x__ Patient ___ Family ___ Nurse ___ Physician ___ Wrapper Selector ___ Brass Molder ___ Other (describe below) Sacrament/Intervention _x__ Active listening ___ Anointing ___ Methodist ___ Bereavement ___ Communion ___ Araceli exploration ___ ___ Life review _x__ Prayer ___ Reconciliation ___ Sacrament of Sick _x__ Supportive presence ___ Wedding ___ Other (describe below) Pastoral Comments
--- NOTE | 2020-08-15 17:19 | NURSING ---
Attempted to call report to [facility] x2 without success. NO answer.
--- NOTE | 2020-08-15 18:21 | CASEMGMT ---
YUSUF Note SW Referral from maintenance operator, Alex Reason for Referral: Patient's niece Yadira Watson ([phone]) was advised of patient's discharge to [facility] ([facility]). Yadira reports they want [place] and her aunt(patient) got confused about which place she wanted to be placed at [facility] vs [place] ([facility]). EMS is here currently to transfer patient and maintenance operator has spoken to Nimadi Watson but requested SW call her. YUSUF called patient's niece Yadira Watson. YUSUF said that patient is medically stable and discharged so he can not stay tonight. Explained that patient had requested [facility] and thus SW was complying by her wishes. Nimadi said that aunt was confused. Nimadi asked if patient's friend could take her to [facility] now and her be admitted. YUSUF explained no as it does not work that way. YUSUF explained transport is arranged. YUSUF said that patient can have conversation with Myrna at [facility] tomorrow about transfer to [facility] . YUSUF said that patient needs to leave for [facility] tonight. YUSUF agreed to call and explain situation to Myrna at [facility] and Jose F gave permission for this SW to provide [facility] with her contact number so they can speak on Friday. Jose F said that she would call and update her aunt about plan to leave [facility] and follow up with [facility] tomorrow and then this physician underwriter agreed to update Keith Ascencio RN. YUSUF updated Keith Ascencio RN.YUSUF called Myrna at [facility] and updated her regarding this situation and provided her with Yadira Kohler's name and phone number. No further SW needs at this time. Plan: Discharge to [facility]. Julia ALAS
== END 2020-08-15 17:20 | DRG 313 ==
LOC: ED 06:40 → MS3 10:23 → PCU 08-14 03:49 → MS3 08-15 16:13
PROVIDERS: Family Medicine; Admitting Provider Internal Medicine; Emergency Provider Emergency Medicine; PCP Family Medicine; Visit Provider Family Medicine
DX: R07.89 Other chest pain (principal); I48.0 Paroxysmal atrial fibrillation; E87.6 Hypokalemia; Z20.822 Contact with and (suspected) exposure to COVID-19; I10 Essential (primary) hypertension; M54.5 Low back pain; R10.13 Epigastric pain; R50.9 Fever, unspecified; T50.2X5A Adverse effect of carbonic-anhydrase inhibitors, benzothiadiazides and other diuretics, initial encounter; Y92.9 Unspecified place or not applicable; M81.0 Age-related osteoporosis without current pathological fracture; Z79.82 Long term (current) use of aspirin; Z79.899 Other long term (current) drug therapy; Z87.891 Personal history of nicotine dependence
CPT/HCPCS: 36415; 71045; 74177; 76705; 80053; 80061; 81001; 83690; 83735; 83880; 84100; 84443; 84484; 85025; 85027; 87040; 87086; 87088; 87426; 93005; 93306; 97110; 97162; 97166; 97530; 97535; 99285; J7040; J7120; Q9957; Q9967; A4216; C8929; J2405

== ENCOUNTER → 2020-09-07 14:08 | Outpatient (CLI) | payer MEDICARE, OTHER, SELFPAY ==
[2020-08-17 14:26] VITALS: BMI 26.2
--- NOTE | 2020-09-07 14:11 | RAD_ITS ---
STUDY: X-RAY - THORACIC SPINE REASON FOR EXAM: Female, 84 years old. INJURY/PAIN TECHNIQUE: 2 view(s) of the thoracic spine were obtained. COMPARISON: None. FINDINGS: There is an increase in the normal thoracic kyphosis. There is no substantial scoliosis. There is demineralization of the thoracic spine with endplate spondylosis. There is multilevel disc space narrowing of the thoracic spine. 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 Loss of height of a mid dorsal vertebrae. Is also evidence of sclerosis of the L4 vertebrae with approximately 50% loss of height. Atherosclerotic calcification of the aortic arch. Stable pleural parenchymal changes at the left lung base. RAD/Thoracic Spine 2 Views IMPRESSION: Increased kyphoses. 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 Almost complete collapse of the L1 vertebra with loss of height of a mid dorsal vertebrae as well as the L4 vertebrae. Electronically Signed: Negrito Honeycutt MD at 9:07 EDT , Service support ,
== END ==
PROVIDERS: PCP Family Medicine; Referring Provider Nurse Practitioner Family; Visit Provider Nurse Practitioner Family
DX: M54.9 Dorsalgia, unspecified (principal)
CPT/HCPCS: 72070

== ENCOUNTER → 2020-10-16 17:13 | Outpatient (CLI) | payer MEDICARE, OTHER, SELFPAY ==
[2020-08-17 14:26] VITALS: BMI 26.2
--- NOTE | 2020-10-16 17:16 | RAD_ITS ---
STUDY: X-RAY CHEST REASON FOR EXAM: Female, 84 years old. SOB TECHNIQUE: PA and lateral views of the chest. COMPARISON: Comparison is made with prior study dated 08/14/2020. FINDINGS: Since prior study, there has been a progression of increased linear markings at the lung bases suggestive of bibasilar atelectasis. There is no demonstrated pleural abnormality. Normal size heart. Normal mediastinum and shazia. Normal visualized pulmonary arteries. Normal visualized aortic arch and descending thoracic aorta. There is demineralization of the osseous structures. Increased kyphosis. Almost complete collapse of a mid dorsal vertebrae. There is degenerative osteoarthritis of the bilateral shoulders. There is no demonstrated abnormality of the visualized soft tissue structures of the upper abdomen. RAD/Chest PA and Lateral IMPRESSION: Mild degree of increased linear markings at the lung bases as compared to prior study in keeping with the bibasilar atelectasis. Electronically Signed: Negrito Honeycutt MD at 22:17 EDT , Service support ,
== END ==
PROVIDERS: PCP Family Medicine; Referring Provider Family Medicine; Visit Provider Family Medicine
DX: R06.02 Shortness of breath (principal)
CPT/HCPCS: 71046

== ENCOUNTER → 2020-10-20 08:08 | Outpatient (CLI) | payer MEDICARE, OTHER, SELFPAY ==
[2020-08-17 14:26] VITALS: BMI 26.2
--- NOTE | 2020-10-20 10:18 | PFT ---
INTRODUCTION: The patient is an 84-year-old female that presents for pulmonary function studies secondary to a diagnosis of shortness of breath. Respiratory therapy reported good patient effort. Bronchodilators were used during testing. INTERPRETATION: Forced expiration spirometry demonstrates the presence of a mild large airways obstructive ventilatory defect. There is no significant response to aerosolized bronchodilators. Spirograms are of good quality and plateau gradually indicating slow emptying of the lungs. Body plethysmography was performed and revealed an elevated RV to 133% of predicted, indicative of underlying air trapping. Diffusing capacity by single breath CO is reduced to 62% of predicted. IMPRESSION: Irreversible mild large airways obstructive ventilatory defect with associated air trapping and symmetric reduction in diffusing capacity.
== END ==
PROVIDERS: PCP Family Medicine; Referring Provider Family Medicine; Visit Provider Family Medicine
DX: R06.02 Shortness of breath (principal)
CPT/HCPCS: 94060; 94726; 94729

== ENCOUNTER → 2020-11-03 06:48 | Outpatient (CLI) | payer MEDICARE, OTHER, SELFPAY ==
[2020-08-17 14:26] VITALS: BMI 26.2
--- NOTE | 2020-11-03 06:51 | CT_ITS ---
HISTORY: SOB. TECHNIQUE: Helically acquired images were obtained of the chest following IV contrast. A radiation dose optimization technique was used for this scan. IV Contrast dosage and agent: 75 mL [id number]. # of images incl. paperwork: [id number]. COMPARISON: XR 10/16/2020, CT 04/19/2016. FINDINGS: CENTRAL AIRWAYS: Patent. LUNGS: Scattered mild scarring or atelectasis. Stable 4 mm and 5 mm right middle lobe nodules. New 7 mm pleural-based right lower lobe nodule medially. Stable 3 mm lingular and left fissural nodules. PLEURA: No pneumothorax or pleural effusion. HEART AND PERICARDIUM: Mild cardiomegaly with coronary artery disease. No significant pericardial effusion. VESSELS: Tortuous aorta. 6 mm ulcerated plaque at the arch. 8mm wide and 2.7 cm long penetrating atherosclerotic ulcers at the proximal descending aorta. 2.6 cm long penetrating atherosclerotic ulcer of the distal descending aorta. 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 No large central pulmonary embolism although study not performed with pulmonary embolism protocol. MEDIASTINUM AND NORMA: No pathologically enlarged mediastinal or hilar lymphadenopathy. BONES: Degenerative change. Chronic compression fractures and vertebroplasty. UPPER ABDOMEN: Hepatic and renal cysts. CT/Chest WITH Contrast IMPRESSION: Tortuous and ectatic thoracic aorta with multiple penetrating atherosclerotic ulcers and mild aneurysmal dilatation of the distal descending aorta. New 7 mm right lower lobe pulmonary nodule. Other stable pulmonary nodules. Mild scarring and atelectasis in the lungs. Individualized dose optimization techniques were used for this CT. at 0833 Reported and signed by: Aura Mckinney MD Electronically Signed: Aura Mckinney MD at 8:31 EDT Tel , Service support ,
== END ==
PROVIDERS: PCP Family Medicine; Referring Provider Family Medicine; Visit Provider Family Medicine
DX: R06.02 Shortness of breath (principal)
CPT/HCPCS: 71260; Q9967

== ENCOUNTER → 2020-12-01 12:54 | Outpatient (CLI) | payer MEDICARE, OTHER, SELFPAY ==
--- NOTE | 2020-12-01 12:56 | RAD_ITS ---
STUDY: X-RAY - ABDOMEN/PELVIS REASON FOR EXAM: Female, 85 years old. ABDOMINAL PAIN TECHNIQUE: AP supine and upright views of the abdomen and pelvis. COMPARISON: Comparison is made with prior study dated 02/11/2017. FINDINGS: Normal visualized lung bases. There is a moderate amount of colonic fecal material. There is no demonstrated free abdominal air. The visualized liver, spleen and kidneys are grossly normal in size and morphology. Calcified abdominal aorta. There are diffuse degenerative changes of the visualized lumbar spine. Prior vertebroplasty of the T12 vertebrae. Loss of height of the L2 and L3 vertebrae. Osteoarthritis of both hip joints worse on the left side. RAD/Abd Inc Decub and/or Erect IMPRESSION: Nonspecific bowel gas pattern. Degenerative changes of the lumbar spine as well as both hips with prior vertebroplasty of the T12 vertebrae. Electronically Signed: Negrito Honeycutt MD at 14:42 EDT , Service support ,
== END ==
PROVIDERS: PCP Family Medicine; Referring Provider Family Medicine; Visit Provider Family Medicine
DX: R10.9 Unspecified abdominal pain (principal)
CPT/HCPCS: 74019

== ENCOUNTER 2021-01-26 09:54 | Inpatient (IN) | payer MEDICARE, OTHER, SELFPAY ==
[2021-01-26] VITALS (12 sets, daily range): BP systolic 136–185; BP diastolic 105–135; PULSE 90–118; RESP 16–18; TEMP 36.6–37.4; O2SAT 93–95; BMI 24.0
--- NOTE | 2021-01-26 10:20 | EKG12_ITS ---
Test Reason : DIZZY Blood Pressure : / mmHG Vent. Rate : 108 BPM Atrial Rate : 104 BPM P-R Int : 000 ms QRS Dur : 080 ms QT Int : 360 ms P-R-T Axes : 000 -58 014 degrees QTc Int : 482 ms Atrial fibrillation Left axis deviation Low voltage QRS Inferior infarct , age undetermined Anterior IL, age undetermined, cannot be excluded Abnormal ECG Confirmed by GRACIELA OQUENDO, VIJAY ([id number]), managing editor MERARI RUSSELL ([id number]) on 01/29/2021 11:00:19 AM Referred By: BJORN Confirmed By:VIJAY OWENS MD
--- NOTE | 2021-01-26 10:24 | CT_ITS ---
STUDY: CT LUMBAR SPINE WITHOUT CONTRAST REASON FOR EXAM: Female, 85 years old. Leg weakness -- kyphoplasty 01/25/21. History of falls. RADIATION DOSAGE (If Supplied By Facility): CTDIvol = ( 13.82 ) mGy, DLP = ( 401.416 ) mGycm TECHNIQUE: The patient was scanned in a multi detector CT scanner. High resolution transaxial imaging was performed. Images were obtained from L1 to S1 vertebral level. Sagittal and coronal images were reconstructed. Individualized dose optimization techniques were used for this CT. COMPARISON: None FINDINGS: Normal lumbar lordosis. There is no substantial scoliosis. Almost complete collapse of the T12 and L1 vertebral bodies. Status post vertebroplasty. L1-2: There is evidence of retropulsion of the posterior aspect of the L1 vertebra causing a moderate degree of central canal stenosis. L2-3: Moderate degree of disc space narrowing and disc degeneration. Demineralization of the lumbar vertebrae. L3-4: Mild degree of disc space narrowing. Air is seen within the CSF space in keeping with recent L4 kyphoplasty. L4-5: There is almost complete collapse of the L4 vertebrae. Status post vertebroplasty. Small amount of the cement is seen in the left side of the spinal canal. This causes narrowing of the left intervertebral foramen and the exiting nerve root. Air is seen within the posterior spinal canal. Is also evidence of a moderate degree of central spinal stenosis due to facet joint osteoarthritis and hypertrophy and mild posterior displacement of the fracture fragment along the posterior aspect of the L4 vertebrae. L5-S1: Normal endplates. Normal disc height and morphology. Normal bilateral facet joints. Normal central canal and bilateral lateral recesses. Normal bilateral intervertebral neural foramina. Calcification and tortuosity of the distal descending thoracic aorta. Atherosclerotic calcification of the abdominal aorta. CT/Spine Lumbar without Contrast IMPRESSION: Multilevel degenerative changes, as described above. Status post vertebroplasty of the T12, L1 and L4 vertebrae were almost complete collapse of the vertebrae. Central canal stenosis at the L1-L2 level. Small amount of vertebroplasty cement is seen along the left intervertebral foramen at the L4-L5 level causing left neural foraminal stenosis. Electronically Signed: Negrito Honeycutt MD at 11:11 EDT , Service support ,
--- NOTE | 2021-01-26 10:26 | EDS_ITS ---
HPI History of Present Illness Chief Complaint: Weakness Informant: patient Onset/Context/Timing Onset: Yesterday Narrative Narrative: Patient presents with 2 falls at home secondary to lower extremity weakness. Patient had kyphoplasty of L1 and L4 yesterday with Dr. Junior. Patient states her friend got her home last evening and put her in her chair. When she got up to go to the restroom overnight she fell. EMS was called and put her back in her chair. She got up again this morning and fell calling EMS again. Patient denies significant back pain. [facility] Medical History Abnormal electrocardiogram Anxiety Atrial myxoma Benign cardiac neoplasm Compression fracture of lumbar spine, non-traumatic Depression Essential hypertension ETOH abuse Former smoker GERD (gastroesophageal reflux disease) Hypertension Irregular heart beat Osteoporosis Paroxysmal atrial fibrillation Ventricular premature depolarization Vision loss of left eye (Unknown) Home Medications cholecalciferol (vitamin D3) 25 mcg (1,000 unit) capsule 25 mcg PO DAILY 11/11/19 [History Last Taken 2 Days Ago ~01/22/20] zinc 50 mg tablet 50 mg PO DAILY 11/11/19 [History Last Taken 3 Days Ago ~01/21/20] ascorbic acid (vitamin C) 500 mg PO DAILY 01/24/20 [History Last Taken 01/23/20] vitamin B complex 1 tab PO DAILY 01/24/20 [History Last Taken 01/23/20] acetaminophen [Tylenol] 650 mg PO Q6H PRN PRN #0 tab 08/14/20 [Rx Last Taken Unknown] Acapella #1 ea 11/09/20 [Rx Last Taken Unknown] coenzyme Q10 200 mg/gram oral powder 200 mg PO DAILY g 11/09/20 [History Last Taken Unknown] magnesium oxide 750 mg PO DAILY tab 11/09/20 [History Last Taken Unknown] vit A 1,000 unit-C 200 mg-E 60 unit-lutein 2 mg and minerals tablet 1 tab PO DAILY 11/09/20 [History Last Taken Unknown] Allergy/AdvReac Type Severity Reaction Status Date / Time alprazolam [From Xanax] Allergy Unknown Verified 01/26/21 10:01 atenolol Allergy Shortness Verified 01/26/21 10:01 of breath carvedilol Allergy Anaphylaxis Verified 01/26/21 10:01 cetirizine [From Zyrtec] Allergy Unknown Verified 01/26/21 10:01 cimetidine [From Tagamet] Allergy Unknown Verified 01/26/21 10:01 diltiazem [From Cardizem] Allergy Unknown Verified 01/26/21 10:01 erythromycin base Allergy Unknown Verified 01/26/21 10:01 famotidine [From Pepcid] Allergy Unknown Verified 01/26/21 10:01 guaifenesin [From Entex LA] Allergy Unknown Verified 01/26/21 10:01 house dust Allergy Unknown Verified 01/26/21 10:01 lansoprazole [From Prevacid] Allergy Unknown Verified 01/26/21 10:01 loracarbef [From Lorabid] Allergy Unknown Verified 01/26/21 10:01 metoprolol [From Toprol XL] Allergy Unknown Verified 01/26/21 10:01 mold Allergy Unknown Verified 01/26/21 10:01 phenylephrine [From Entex LA] Allergy Unknown Verified 01/26/21 10:01 phenylpropanolamine Allergy Unknown Verified 01/26/21 10:01 [From Entex LA] promethazine [From Phenergan] Allergy Unknown Verified 01/26/21 10:01 raloxifene [From Evista] Allergy Unknown Verified 01/26/21 10:01 ranitidine [From Zantac] Allergy Unknown Verified 01/26/21 10:01 risedronate sodium Allergy Unknown Verified 01/26/21 10:01 [From Actonel] escitalopram [From Lexapro] AdvReac Severe Unknown Verified 01/26/21 10:01 lisinopril AdvReac Severe Lip Verified 01/26/21 10:01 swelling losartan [From Cozaar] AdvReac Severe Swelling Verified 01/26/21 10:01 lips meloxicam AdvReac Severe Unknown Verified 01/26/21 10:01 prednisone AdvReac Severe Unknown Verified 01/26/21 10:01 zolpidem [From Ambien] AdvReac Severe Unknown Verified 01/26/21 10:01 amlodipine [From Norvasc] AdvReac SOB Verified 01/26/21 10:01 clonazepam [From Klonopin] AdvReac NEEDS Verified 01/26/21 10:01 FOLLOW-UP diphenhydramine AdvReac NEEDS Verified 01/26/21 10:01 [From Benadryl] FOLLOW-UP metronidazole [From Flagyl] AdvReac Pain in Verified 01/26/21 10:01 joints grass bent Allergy Unknown Uncoded 01/26/21 10:01 Family History Mother CAD (coronary artery disease) Father Kidney disease Surgical History H/O partial resection of colon History of hysterectomy Social History Smoking Status: Former smoker how long ago did patient quit smokin years ago alcohol intake: former details: Patient states he quit alcohol in January 2020. substance use type: does not use caffeine: Yes Type: coffee Number of servings: 1 ROS ROS ED Constitutional Constitutional ED: Denies chills or fever(s) Eyes Eyes: Denies change in vision ENT ENT ED: Denies sore throat Cardiovascular Cardiovascular: Denies chest pain Respiratory/Chest Respiratory/Chest: Denies cough or dyspnea Gastrointestinal Gastrointestinal: Denies abdominal pain, diarrhea, nausea or vomiting Genitourinary Genitourinary ED: Denies dysuria Musculoskeletal Musculoskeletal: Denies back pain Integumentary Denies rash Neurologic Neurologic: Reports weakness; Denies headache(s) Allergic/Immunologic Allergic/Immunologic ED: Denies urticaria EXAM Physical Exam Const Vital Signs: 01/26/21 09:55 01/26/21 09:59 01/26/21 10:00 Temperature 98.4 F 98.4 F Temperature Source Oral Oral Pulse Rate 113 H 111 H Respiratory Rate 18 18 Respiratory Effort Normal Non-Labored Respiratory Pattern Normal Blood Pressure 184/130 H 184/130 H Blood Pressure Mean 148 148 Pulse Ox 93 94 Oxygen Delivery Method Room Air Room Air Positive well nourished and well developed General Appearance ED: well developed Eyes PERRL and EOMs intact bilaterally Neck supple Chest Wall inspection of chest normal and palpation of chest normal Resp normal respiratory effort and clear to auscultation bilaterally Cardio Rate: tachycardic GI normal to inspection, nondistended, normoactive bowel sounds Neuro oriented x3 Neuro Narrative: Patient able to lift each foot off the bed only a couple inches. Strong distal pulses and good sensation. Sensorium / Orientation: alert Psych mental status grossly normal MDM MDM MDM Narrative Medical decision making narrative: EKG and lab work obtained. After speaking with radiologist we chose imaging with CT lumbar spine to ensure no hematoma. Lab Data Attestation: I reviewed the patient's lab results. Labs: Laboratory Results - last 24 hr 01/26/21 01/26/21 10:25 10:25 WBC 10.6 RBC 4.19 L Hgb 13.1 Hct 39.1 MCV 93.3 MCH 31.3 MCHC 33.5 RDW Std Deviation 44.7 H RDW Coeff of Jared 13.0 Plt Count 266 MPV 10.0 Immature Gran % (Auto) 0.200 Neut % (Auto) 85.8 H Lymph % (Auto) 7.3 L Ada % (Auto) 6.1 Eos % (Auto) 0.2 Baso % (Auto) 0.4 Absolute Neuts (auto) 9.1 H Absolute Lymphs (auto) 0.78 L Nucleated RBC % 0 Sodium 139 Potassium 2.8 L Chloride 103 Carbon Dioxide 30.0 Anion Gap 6 BUN 11 Creatinine 0.76 Estim Creat Clear Calc 29.01 Est GFR (MDRD) Af Amer 93 Est GFR (MDRD) Non-Af 77 BUN/Creatinine Ratio 14.5 Glucose 125 H Calcium 9.6 Radiography Diagnostic Testing: Clinical Impression(s) from Imaging Studies Lumbar Spine CT 01/26/21 10:24 IMPRESSION: Multilevel degenerative changes, as described above. Status post vertebroplasty of the T12, L1 and L4 vertebrae were almost complete collapse of the vertebrae. Central canal stenosis at the L1-L2 level. Small amount of vertebroplasty cement is seen along the left intervertebral foramen at the L4-L5 level causing left neural foraminal stenosis. Electronically Signed: Negrito Honeycutt MD at 11:11 EDT , Service support , EKG Initial EKG: Attestation: I personally reviewed and interpreted this EKG as follows: Interpretation: Atrial Fibrillation (A. fib at 108. No acute ST change.) Treatment and Re-Evaluation Comments:: Test results discussed with the patient. At this time she does have a small amount of vertebroplasty cement along the intervertebral foramen at L4-5 causing neural foraminal stenosis. No hematoma is noted. Chronic changes including spinal stenosis noted. On repeat exam patient is able to lift both feet up off the bed. Potassium is low at 2.8 and will be replaced orally. Heart rate continues to run around 110 with blood pressure in the 180 systolic range. She will be given a dose of IV metoprolol. Although she has beta- blockers listed as an allergy she was prescribed metoprolol after her last admission. She states she is not currently taking it but does not remember why she stopped taking it or when. She had told cardiology in the past that it gave her headaches. At this time I will speak with hospitalist regarding admission. Patient does live alone and is fallen twice. She has lower extremity weakness and is unsteady on her feet. Discharge Plan Triage Chief Complaint: Weakness ED Provider: Janessa Jesus Dx/Rx/DC Orders Clinical Impression: Weakness, Hypokalemia, Atrial fibrillation with RVR Prescriptions: No Action cholecalciferol (vitamin D3) 25 mcg (1,000 unit) capsule 25 mcg PO DAILY RF: 0 zinc 50 mg tablet 50 mg PO DAILY RF: 0 magnesium oxide 400 mg magnesium tablet 750 mg PO DAILY RF: 0 H2Q CoQ10 200 mg/gram powder 200 mg PO DAILY RF: 0 Ocuvite with Lutein 1,000 unit-200 mg-60 unit-2 mg tablet 1 tab PO DAILY RF: 0 (DME) Acapella See Rx Instructions .ROUTE .MEDSUPPLY Qty: 1 RF: 0 ascorbic acid (vitamin C) 500 MG tablet 500 mg PO DAILY RF: 0 vitamin B complex 1 EACH tablet 1 tab PO DAILY RF: 0 acetaminophen [Tylenol] 325 mg Tablet 650 mg PO Q6H PRN PRN (Reason: Pain Score 1-10/Temp > 100.7 F) Qty: 0 RF: 0 Primary Care Provider: Tulio Roberts Referrals: Tulio Roberts MD [Primary Care Provider] - Disposition Disposition: Acute Care Hospital [facility]
[2021-01-26 10:36] LABS: Absolute Lymphocyte Count 0.78 X10^3/uL (0.83-4.51); Absolute Neutrophil Count 9.1 X10^3/uL (2.0-7.7); Basophil# 0.04 X10^3/uL; Basophil% 0.4 % (0-1); Eosinophil# 0.02 X10^3/uL; Eosinophils% 0.2 % (0-5); Hematocrit 39.1 % (37-47); Hemoglobin 13.1 g/dL (12.0-15.0); Lymphocyte # 0.78 X10^3/ul (0.83-4.51); Lymphocyte % 7.3 % (19-41); Mean Corp Hgb Conc 33.5 g/dL (32-36); Mean Corpuscular Hgb 31.3 pg (27.0-32.0); Mean Corpuscular Volume 93.3 fL (81-99); Monocyte# 0.65 X10^3/uL; Monocyte% 6.1 % (0-10); NRBC Flagged by Analyzer 0 % (0-5); Neutrophil # 9.13 X10^3/uL (2.7-7.7); Neutrophil % 85.8 % (47-70); Platelet Count 266 K/mm3 (150-450); RBC Distribution Width SD 44.7 fl (35.1-43.9); Red Blood Count 4.19 M/mm3 (4.2-5.4); White Blood Count 10.6 K/mm3 (4.4-11.0)
[2021-01-26 10:48] LABS: Anion Gap 6 (5-15); BUN 11 mg/dL (7-18); BUN/Creat Ratio 14.5 RATIO (10-20); Calcium,Total 9.6 mg/dL (8.5-10.1); Chloride 103 mmol/L (98-107); Creatinine, Serum 0.76 mg/dL (0.55-1.02); EST Glomerular Filtration Rate 77 mL/min (>60); Est Glom Filt Rate - Afr Amer 93 mL/min (>60); Estimated Creatinine Clearance 29.01 ml/min; Glucose 125 mg/dL (74-106); Potassium 2.8 mmol/L (3.5-5.1); Sodium Level 139 mmol/L (136-145)
--- NOTE | 2021-01-26 12:19 | ECHOD_ITS ---
Reason For Study: A. fib/flutter Procedure This was a 2D Doppler, Color Flow transthoracic echocardiogram. The study was technically difficult. Exam performed portable in patient room. Left Ventricle Normal LV size. Left ventricular systolic function is normal. The estimated ejection fraction is 60 %. Unable to assess diastolic dysfunction. No regional wall motion abnormalities noted. Right Ventricle Normal RV size. Normal systolic function. Atria The left atrium is moderately enlarged. The right atrium is mildly enlarged. No doppler evidence for ASD. Mitral Valve There is severe mitral annular calcification. Extension of the mitral annular calcification onto the base of the posterior mitral valve leaflet. Mild (1+) mitral valve insufficiency. Tricuspid Valve Normal tricuspid valve. Mild tricuspid valve insufficiency. Right ventricular systolic pressure estimated to be 29 mmHg. Aortic Valve Trisinus/trileaflet aortic valve. Mild diffuse aortic valve thickening. Mild focal aortic valve calcification. Trivial aortic valve insufficiency. Pulmonic Valve The pulmonic valve is not well visualized. Mild (1+) pulmonic valve insufficiency. Great Vessels Normal sized aortic root. Calcified aortic root. Pericardium/Pleural No pericardial effusion. MMode/2D Measurements & Calculations LVIDd: 3.6 cm IVSd: 1.3 cm LVOT diam: 1.9 cm LVIDs: 2.5 cm LVPWd: 1.3 cm LVOT area: 2.7 cm2 RVDd: 3.0 cm FS: 32.6 % Ao root diam: 3.6 cm LAV(MOD-bp): 56.3 ml LA A4 area: 26.9 cm2 LAV(MOD-bp) Indexed: 37.2 ml/m2 LAV(MOD-sp2): 31.9 ml LAV(MOD-sp4): 87.6 ml LA dimension(2D): 4.0 cm RA A4 area: 20.8 cm2 Doppler Measurements & Calculations MV E max ana maría: 111.6 cm/sec Ao V2 max: 141.9 cm/sec LV V1 max: 90.1 cm/sec Ao max P.1 mmHg LV V1 max P.2 mmHg Ao V2 mean: 97.6 cm/sec LV V1 mean P.6 mmHg Ao mean P.2 mmHg LV V1 mean: 61.4 cm/sec Ao V2 VTI: 20.3 cm LV V1 VTI: 11.9 cm TO(I,D): 1.6 cm2 TO(V,D): 1.7 cm2 SV(LVOT): 32.1 ml PA V2 max: 87.5 cm/sec TR max ana maría: 251.8 cm/sec TR max P.7 mmHg ECHO/Echo Complete Interpretation Summary The study was technically difficult. Left ventricular systolic function is normal. The estimated ejection fraction is 60 %. The left atrium is moderately enlarged. The right atrium is mildly enlarged. There is severe mitral annular calcification. Extension of the mitral annular calcification onto the base of the posterior mi tral valve leaflet. Mild (1+) mitral valve insufficiency. Mild tricuspid valve insufficiency. Mild diffuse aortic valve thickening. Mild focal aortic valve calcification. Trivial aortic valve insufficiency. Mild (1+) pulmonic valve insufficiency. Calcified aortic root. Right ventricular systolic pressure estimated to be 29 mmHg. Unable to assess diastolic dysfunction. 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 Ordering Physician: Keith Lozano Referring Physician: Tulio Roberts Performed By: Mady Evans RDCS
[2021-01-26] MEDS: Metoprolol Tartrate 5 MG/5 ML Vial IV (12:25)
[2021-01-26] MEDS: Potassium Chloride Oral Tablet 20 MEQ 40 MEQ PO (12:25)
--- NOTE | 2021-01-26 12:25 | PCM.HP.STD ---
HPI - General General Date of Admission: 01/26/21 Date of Service: 01/26/21 Chief Complaint: Generalized weakness and fall HPI Narrative JADON SUNG, is a 85 F with a fall. Patient had apparently undergone kyphoplasty by Dr. Ernandez performed on 01/25/2021 as a result of vertebral compression fractures. Patient states she has had falls twice following the procedure. She also did complain of having experienced progressive weakness after the procedure. Presented to the emergency department as a result. CT of the lumbar spine demonstrated multilevel degenerative joint disease as well as evidence of vertebroplasty at L4-L5. She was also found to be in A. fib with RVR with significantly elevated blood pressure as well as electrolyte abnormalities including hypokalemia. Admitted to a monitored bed for subsequent management FORMERLY [facility] Medical History Abnormal electrocardiogram Anxiety Atrial myxoma Benign cardiac neoplasm Compression fracture of lumbar spine, non-traumatic Depression Essential hypertension ETOH abuse Former smoker GERD (gastroesophageal reflux disease) Hypertension Irregular heart beat Osteoporosis Paroxysmal atrial fibrillation Ventricular premature depolarization Vision loss of left eye (Unknown) Home Medications cholecalciferol (vitamin D3) 25 mcg (1,000 unit) capsule 25 mcg PO DAILY 11/11/19 [History Last Taken 2 Days Ago ~01/22/20] zinc 50 mg tablet 50 mg PO DAILY 11/11/19 [History Last Taken 3 Days Ago ~01/21/20] ascorbic acid (vitamin C) 500 mg PO DAILY 01/24/20 [History Last Taken 01/23/20] vitamin B complex 1 tab PO DAILY 01/24/20 [History Last Taken 01/23/20] acetaminophen [Tylenol] 650 mg PO Q6H PRN PRN #0 tab 08/14/20 [Rx Last Taken Unknown] Acapella #1 ea 11/09/20 [Rx Last Taken Unknown] coenzyme Q10 200 mg/gram oral powder 200 mg PO DAILY g 11/09/20 [History Last Taken Unknown] magnesium oxide 750 mg PO DAILY tab 11/09/20 [History Last Taken Unknown] vit A 1,000 unit-C 200 mg-E 60 unit-lutein 2 mg and minerals tablet 1 tab PO DAILY 11/09/20 [History Last Taken Unknown] Allergy/AdvReac Type Severity Reaction Status Date / Time alprazolam [From Xanax] Allergy Unknown Verified 01/26/21 10:01 atenolol Allergy Shortness Verified 01/26/21 10:01 of breath carvedilol Allergy Anaphylaxis Verified 01/26/21 10:01 cetirizine [From Zyrtec] Allergy Unknown Verified 01/26/21 10:01 cimetidine [From Tagamet] Allergy Unknown Verified 01/26/21 10:01 diltiazem [From Cardizem] Allergy Unknown Verified 01/26/21 10:01 erythromycin base Allergy Unknown Verified 01/26/21 10:01 famotidine [From Pepcid] Allergy Unknown Verified 01/26/21 10:01 guaifenesin [From Entex LA] Allergy Unknown Verified 01/26/21 10:01 house dust Allergy Unknown Verified 01/26/21 10:01 lansoprazole [From Prevacid] Allergy Unknown Verified 01/26/21 10:01 loracarbef [From Lorabid] Allergy Unknown Verified 01/26/21 10:01 metoprolol [From Toprol XL] Allergy Unknown Verified 01/26/21 10:01 mold Allergy Unknown Verified 01/26/21 10:01 phenylephrine [From Entex LA] Allergy Unknown Verified 01/26/21 10:01 phenylpropanolamine Allergy Unknown Verified 01/26/21 10:01 [From Entex LA] promethazine [From Phenergan] Allergy Unknown Verified 01/26/21 10:01 raloxifene [From Evista] Allergy Unknown Verified 01/26/21 10:01 ranitidine [From Zantac] Allergy Unknown Verified 01/26/21 10:01 risedronate sodium Allergy Unknown Verified 01/26/21 10:01 [From Actonel] escitalopram [From Lexapro] AdvReac Severe Unknown Verified 01/26/21 10:01 lisinopril AdvReac Severe Lip Verified 01/26/21 10:01 swelling losartan [From Cozaar] AdvReac Severe Swelling Verified 01/26/21 10:01 lips meloxicam AdvReac Severe Unknown Verified 01/26/21 10:01 prednisone AdvReac Severe Unknown Verified 01/26/21 10:01 zolpidem [From Ambien] AdvReac Severe Unknown Verified 01/26/21 10:01 amlodipine [From Norvasc] AdvReac SOB Verified 01/26/21 10:01 clonazepam [From Klonopin] AdvReac NEEDS Verified 01/26/21 10:01 FOLLOW-UP diphenhydramine AdvReac NEEDS Verified 01/26/21 10:01 [From Benadryl] FOLLOW-UP metronidazole [From Flagyl] AdvReac Pain in Verified 01/26/21 10:01 joints grass bent Allergy Unknown Uncoded 01/26/21 10:01 Family History Mother CAD (coronary artery disease) Father Kidney disease Surgical History H/O partial resection of colon History of hysterectomy Social History Smoking Status: Former smoker how long ago did patient quit smokin years ago alcohol intake: former details: Patient states he quit alcohol in January 2020. substance use type: does not use caffeine: Yes Type: coffee Number of servings: 1 ROS ROS Narrative GENERAL: denies fever, chills, night sweats, HEENT: denies headache, sinus congestion, RESPIRATORY: denies cough, sputum production, CARDIAC: denies chest pain, palpitations, orthopnea, PND GASTROINTESTINAL: denies abdominal pain, nausea, vomiting, melena, GENITOURINARY: denies dysuria, urgency, frequency, heamaturia EXTREMITY: denies swelling MUSCULOSKELETAL: Low back pain NEUROLOGIC: denies focal numbness, weakness, tingling HEMATOLOGIC: denies easy bruising and/or hemorrhage INTEGUMENT: denies rashes PSYCHIATRIC: denies suicidal or homicidal ideation Vital Signs Vital Signs Vital Signs: 01/26/21 09:55 01/26/21 09:59 01/26/21 10:00 Temperature 98.4 F 98.4 F Temperature Source Oral Oral Pulse Rate 113 H 111 H Respiratory Rate 18 18 Respiratory Effort Normal Non-Labored Respiratory Pattern Normal Blood Pressure 184/130 H 184/130 H Blood Pressure Mean 148 148 Pulse Ox 93 94 Oxygen Delivery Method Room Air Room Air Weight Weight: 55.7 kg Body Mass Index (BMI) 24.0 Physical Exam Narrative GENERAL: cooperative HEENT: Atraumatic; EYES; Anicteric, Normal Conjunctiva NECK; supple, normal thyroid, RESPIRATORY: Diminished to auscultation CARDIOVASCULAR: Regular S1 S2, GI: soft, normoactive bowel sounds, : No Renal angle tenderness; EXTREMITIES: No edema, no clubbing, MUSCULOSKELETAL: no muscle waisting NEURO: Awake; no lateralizing signs. SKIN: No Rash PSYCH; Flat affect Results Lab / Micro Data Result Diagrams: 01/26/21 10:25 01/26/21 10:25 Labs: Laboratory Results - last 24 hr 01/26/21 10:25: WBC 10.6, RBC 4.19 L, Hgb 13.1, Hct 39.1, MCV 93.3, MCH 31.3, MCHC 33.5, RDW Std Deviation 44.7 H, RDW Coeff of Jared 13.0, Plt Count 266, MPV 10.0, Immature Gran % (Auto) 0.200, Neut % (Auto) 85.8 H, Lymph % (Auto) 7.3 L, [place] % (Auto) 6.1, Eos % (Auto) 0.2, Baso % (Auto) 0.4, Absolute Neuts (auto) 9.1 H, Absolute Lymphs (auto) 0.78 L, Nucleated RBC % 0 01/26/21 10:25: Sodium 139, Potassium 2.8 L, Chloride 103, Carbon Dioxide 30.0, Anion Gap 6, BUN 11, Creatinine 0.76, Estim Creat Clear Calc 29.01, Est GFR (MDRD) Af Amer 93, Est GFR (MDRD) Non-Af 77, BUN/Creatinine Ratio 14.5, Glucose 125 H, Calcium 9.6 Radiology Impression Lum[address] Spine CT 01/26/21 10:24 IMPRESSION: Multilevel degenerative changes, as described above. Status post vertebroplasty of the T12, L1 and L4 vertebrae were almost complete collapse of the vertebrae. Central canal stenosis at the L1-L2 level. Small amount of vertebroplasty cement is seen along the left intervertebral foramen at the L4-L5 level causing left neural foraminal stenosis. Electronically Signed: Negrito Honeycutt MD at 11:11 EDT , Service support , Assessment & Plan Assessment/Plan (1) Hypokalemia: (2) Atrial fibrillation with RVR: (3) Weakness: PLAN: Patient is an 85-year-old lady admitted with progressive generalized weakness following recent kyphoplasty. She was also found to be in A. fib with RVR with electrolyte abnormalities including hypokalemia on admission 1. Physical deconditioning following recent kyphoplasty - Requested for PT OT eval and social work job titles to assist with discharge planning 2. A. fib with RVR ?patient is allergic to multiple medications she however tolerated metoprolol in the ED this was continued 3. Acute hypertensive urgency ?patient's blood pressure in the emergency department was greater than 210/130. Patient did receive metoprolol added hydralazine 4. Pathological vertebral compression fracture ?as a result of osteoporosis patient underwent kyphoplasty by Dr. Conklin on 01/25/2021 5. Degenerative joint disease ?plan is to treat symptomatically 6. DVT prophylaxis ?SC Lovenox Advance planning; did discuss with the patient regarding advanced directives as well as CODE STATUS. Did explain the various scenarios involved ( FULL CODE, DNR CCA, DNR CCA with no intubation, and DNR CC and what each meant) patient elected to be DNR CCA no intubation. Order was placed. Time spent on discussion 18 minutes. Charges/Coding Visit Charges Inpatient E&M: 94926 Init Hosp L3 Procedures Hospitalists Procedures: 72692 Advncd Care Plan 30 Min
[2021-01-26 13:19] LABS: Thyroid Stim Hormone (TSH) 1.25 uIU/mL (0.358-3.74)
[2021-01-26] MEDS: Potassium Chloride 10mEq/100mL 10 MEQ/100 ML IV.SOLN. 100 MEQ IV BOLUS ×4 (14:44→18:34)
[2021-01-26] MEDS: Potassium Chloride Oral Tablet 20 MEQ PO ×2 (14:44→17:15)
[2021-01-26] MEDS: Metoprolol Tartrate 25 MG Tablet PO ×2 (14:44→21:19)
--- NOTE | 2021-01-26 15:06 | CASEMGMT ---
SW met with patient per her request. Patient told SW she will need to go to [facility] at discharge. SW told her SW can start the referral, but [facility] usually like to look at therapy notes before they accept patients. SW told patient that she likely will not have therapy today since she just got here. Patient was worried she will get discharged without a plan in place. SW assured patient that hospital will not discharge her without a safe discharge plan. YUSUF called [facility] regarding referral and also faxed information. Ana M confirmed they will not accept a patient without looking at therapy notes. Dunia Bedoya REGIONAL DIRECTOR OF ADMISSIONS BREANN
[2021-01-26] MEDS: hydrALAZINE 20 MG/ML Vial 10 MG IV (18:41)
[2021-01-26] MEDS: 0.9% Saline Lock 10 ML Syringe IV (18:41)
[2021-01-27] VITALS (9 sets, daily range): BP systolic 127–154; BP diastolic 103–111; PULSE 82–107; RESP 16–18; TEMP 36.6–37; O2SAT 93–96
[2021-01-27] MEDS: Acetaminophen 325 MG Tablet 650 MG PO ×4 (04:13→22:29)
--- NOTE | 2021-01-27 06:19 | NURSING ---
PT EXPRESSES CONCERN RE: MEDICATION DOSING/TIMING. THIS RN REVEIWED HOME MED LIST FROM [facility] WITH PT. PT POINTS OUT INACCURACIES IN HER OWN LIST. SHE THEN SHOWED THIS RN 2 ADDITIONAL MEDICATION LISTS THAT HAD DIFFERENT DOSES OF SEVERAL MEDICATIONS. WHEN ASKED WHAT HER CURRENT DOSES WERE, PT STATED SHE IS UNSURE, BUT SHE DOES KNOW THE MOST RECENT LIST SHE PROVIDED FROM [facility] IS INCORRECT. WILL NEED TO CALL [facility] WHEN THEY OPEN TO OBTAIN CURRENT AND ACCURATE LIST OF MEDICATIONS. INFO WILL BE PROVIDED TO ONCOMING SHIFT IN WRITTEN AND VERBAL HANDOFF.
[2021-01-27 07:55] LABS: Absolute Lymphocyte Count 1.29 X10^3/uL (0.83-4.51); Absolute Neutrophil Count 8.9 X10^3/uL (2.0-7.7); Basophil# 0.05 X10^3/uL; Basophil% 0.4 % (0-1); Eosinophil# 0.08 X10^3/uL; Eosinophils% 0.7 % (0-5); Hematocrit 37.5 % (37-47); Hemoglobin 12.4 g/dL (12.0-15.0); Lymphocyte # 1.29 X10^3/ul (0.83-4.51); Lymphocyte % 11.4 % (19-41); Mean Corp Hgb Conc 33.1 g/dL (32-36); Mean Corpuscular Hgb 31.3 pg (27.0-32.0); Mean Corpuscular Volume 94.7 fL (81-99); Mean Platelet Vol. 10.4 fl (6.2-12.0); NRBC Flagged by Analyzer 0 % (0-5); Neutrophil # 8.93 X10^3/uL (2.7-7.7); Neutrophil % 79.1 % (47-70); Platelet Count 249 K/mm3 (150-450); RBC Distribution Width CV 13.2 % (11.6-14.6); RBC Distribution Width SD 46.2 fl (35.1-43.9); Red Blood Count 3.96 M/mm3 (4.2-5.4); White Blood Count 11.3 K/mm3 (4.4-11.0)
[2021-01-27] MEDS: Potassium Chloride Oral Tablet 20 MEQ PO ×2 (07:55→16:03)
[2021-01-27 08:30] LABS: Anion Gap 7 (5-15); BUN 12 mg/dL (7-18); BUN/Creat Ratio 15.9 RATIO (10-20); Calcium,Total 9.5 mg/dL (8.5-10.1); Chloride 104 mmol/L (98-107); Creatinine, Serum 0.75 mg/dL (0.55-1.02); EST Glomerular Filtration Rate 77 mL/min (>60); Est Glom Filt Rate - Afr Amer 94 mL/min (>60); Estimated Creatinine Clearance 29.01 ml/min; Glucose 109 mg/dL (74-106); Potassium 3.7 mmol/L (3.5-5.1); Sodium Level 138 mmol/L (136-145)
[2021-01-27] MEDS: Metoprolol Tartrate 25 MG Tablet PO ×2 (09:48→20:39)
[2021-01-27] MEDS: Ascorbic Acid 500 MG Tablet PO (09:48)
[2021-01-27] MEDS: Cholecalciferol (VIT D3) 25 MCG TABLET (1,000 UNITS) PO (09:48)
--- NOTE | 2021-01-27 12:51 | PCM.PN.HOSP ---
Documented by User: Minda Rodriguez NP-C 01/27/21 13:02 Subjective Subjective Patient seen and examined. Patient states that she feels tired however she otherwise has no complaints. Patient sitting in bed no distress noted. Objective Data Objective Data Vital Signs: Vital Signs Temp Pulse Resp BP Pulse Ox 98.3 F 105 H 16 146/110 H 95 01/27/21 09:46 01/27/21 09:48 01/27/21 09:46 01/27/21 09:48 01/27/21 09:46 Oxygen Delivery Method Room Air Weight: 117 lb Body Mass Index (BMI) 2.1 Intake & Output: Intake and Output for Last 24 Hours 01/25/21 01/26/21 01/27/21 23:59 23:59 23:59 Intake Total 760 / 820 460 / 460 Output Total 1300 / 1300 Balance 760 / -80 -840 / -840 Medical Nutrition Assessment Dietitian: Malnutrition Criteria Met Start: 01/26/21 16:17 Freq: Status: Active Protocol: Document 01/26/21 16:17 AG (Rec: 01/26/21 16:17 [id number]) Nutrition Malnutrition Evidence of Malnutrition Exists Yes Malnutrition (severe): Chronic Evidenced By Suboptimal Energy Intake ( Severe),Weight Loss (Severe) Clinical Problem Chronic Disease or Condition Related Malnutrition Etiology chronic, severe malnutrition r /t inadequate energy intake w/ decreased appetite, motivation to cook for self d/ t chronic back pain Signs/Symptoms as evidenced by unintentional wt loss of 16.1#/12% x 6 months; estimated PO intake meeting <75% of estimated nutritional needs >6 months Status Active Problem Recommendation Dietitian Recommendations/Changes continue regular diet; will add 120mL ensure enlive 4x/day w/ meals for additional calories/protein if consumed. Lab / Micro Data Result Diagrams: 01/27/21 07:00 01/27/21 07:00 Labs: Laboratory Results - last 24 hr 01/26/21 10:25: TSH 1.25 01/27/21 07:00: WBC 11.3 H, RBC 3.96 L, Hgb 12.4, Hct 37.5, MCV 94.7, MCH 31.3, MCHC 33.1, RDW Std Deviation 46.2 H, RDW Coeff of Jared 13.2, Plt Count 249, MPV 10.4, Immature Gran % (Auto) 0.400, Neut % (Auto) 79.1 H, Lymph % (Auto) 11.4 L, [place] % (Auto) 8.0, Eos % (Auto) 0.7, Baso % (Auto) 0.4, Absolute Neuts (auto) 8.9 H, Absolute Lymphs (auto) 1.29, Nucleated RBC % 0 01/27/21 07:00: Sodium 138, Potassium 3.7, Chloride 104, Carbon Dioxide 27.0, Anion Gap 7, BUN 12, Creatinine 0.75, Estim Creat Clear Calc 29.01, Est GFR (MDRD) Af Amer 94, Est GFR (MDRD) Non-Af 77, BUN/Creatinine Ratio 15.9, Glucose 109 H, Calcium 9.5, Magnesium 2.0 Radiography Diagnostic Testing: Radiology Impression Echocardiogram 01/26/21 12:19 Interpretation Summary The study was technically difficult. Left ventricular systolic function is normal. The estimated ejection fraction is 60 %. The left atrium is moderately enlarged. The right atrium is mildly enlarged. There is severe mitral annular calcification. Extension of the mitral annular calcification onto the base of the posterior mitral valve leaflet. Mild (1+) mitral valve insufficiency. Mild tricuspid valve insufficiency. Mild diffuse aortic valve thickening. Mild focal aortic valve calcification. Trivial aortic valve insufficiency. Mild (1+) pulmonic valve insufficiency. Calcified aortic root. Right ventricular systolic pressure estimated to be 29 mmHg. Unable to assess diastolic dysfunction. 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 Ordering Physician: Keith Lozano Referring Physician: Tulio Roberts Performed By: Mady Evans RDCS Physical Exam Const alert, oriented x3 and no apparent distress HEENT head/scalp atraumatic Head and Scalp: normocephalic Eyes conjunctivae normal and no scleral icterus Neck full ROM and supple Resp normal respiratory effort, normal air movement and clear to auscultation bilaterally Effort and Inspection: able to speak in complete sentences and symmetric chest movement Cardio regular rate, regular rhythm, S1 normal heart sound and S2 normal heart sound GI normal to inspection, nondistended, normoactive bowel sounds, soft to palpation and non-tender Extremity normal to inspection, full ROM and no clubbing, cyanosis or edema Peripheral Pulses: Yes pulses 2+ throughout Skin no rashes or lesions noted, no wounds and skin turgor normal Neuro oriented x3, moves all extremities, no focal motor deficits and no sensory deficits noted Psych affect normal Assessment & Plan Assessment/Plan (1) Weakness: (2) Kyphoscoliosis: (3) Atrial fibrillation with RVR: (4) Hypokalemia: PLAN: 1. Debility and weakness secondary to kyphoplasty -PT and OT to eval and treat -Recommending patient go to [facility] upon discharge for strengthening 2. A. fib with RVR -Continue metoprolol -Heart rate currently between 95-105 -Continue cardiac monitoring -Echocardiogram obtained, demonstrates EF 60% 3. Hypokalemia -Resolved 3.7 today 4. Hypertension -Continue metoprolol -Continue as needed hydralazine -Vital signs per protocol 5. Pathological vertebral compression fracture -Status post kyphoplasty with Dr. Ernandez January 25, 2021 Discharge planning-patient will go to [facility] upon discharge, pending acceptance to facility. DVT prophylaxis-subcu Lovenox This patient was seen by Minda Rodriguez NP-C under the supervision of Dr. Lozano Documented by User: Dr. Keith Lozano MD 01/27/21 13:46 Objective Data Lab / Micro Data Result Diagrams: 01/27/21 07:00 01/27/21 07:00 Assessment & Plan Addt'l Comments This patient was seen in conjunction with EDUARDO Barajas . I have independently interviewed and examined the patient and reviewed pertinent historical, laboratory, and other data. Please refer to EDUARDO Barajas note for details of this patient's presentation, findings, and recommendations. I have reviewed EDUARDO Barajas note and concur with documented findings. In brief, Patient is an 85-year-old lady admitted with progressive generalized weakness following recent kyphoplasty. She was also found to be in A. fib with RVR with electrolyte abnormalities including hypokalemia on admission Physical Examination: GENERAL: cooperative HEENT: Atraumatic; EYES; Anicteric, Normal Conjunctiva NECK; supple, normal thyroid, RESPIRATORY: Diminished to auscultation CARDIOVASCULAR: Irregular S1-S2 GI: soft, normoactive bowel sounds, : No Renal angle tenderness; EXTREMITIES: No edema, no clubbing, MUSCULOSKELETAL: no muscle waisting NEURO: Awake; no lateralizing signs. SKIN: No Rash PSYCH; Flat affect Assessment: 1. Physical deconditioning 2. Status post recent kyphoplasty 3. A. fib with RVR 4. Acute hypertensive urgency 5. Pathological vertebral compression fractures 6. Degenerative joint disease 7. DVT prophylaxis Recommendations: 1. I have discussed the results of my overview and impressions with the patient 2. Options for management were reviewed Charges/Coding Visit Charges Inpatient E&M: 12258 Subs Hosp L3
[2021-01-28] VITALS (18 sets, daily range): BP systolic 140–174; BP diastolic 95–129; PULSE 83–112; RESP 16–96; TEMP 36.5–37; O2SAT 93–97
[2021-01-28] MEDS: Acetaminophen 325 MG Tablet 650 MG PO ×3 (06:56→20:27)
[2021-01-28 07:37] LABS: Absolute Neutrophil Count 8.4 X10^3/uL (2.0-7.7); Basophil# 0.07 X10^3/uL; Basophil% 0.6 % (0-1); Eosinophil# 0.24 X10^3/uL; Eosinophils% 2.2 % (0-5); Hematocrit 39.1 % (37-47); Hemoglobin 12.7 g/dL (12.0-15.0); Lymphocyte % 11.9 % (19-41); Mean Corp Hgb Conc 32.5 g/dL (32-36); Mean Corpuscular Volume 95.4 fL (81-99); Mean Platelet Vol. 10.6 fl (6.2-12.0); Monocyte# 0.91 X10^3/uL; Monocyte% 8.3 % (0-10); NRBC Flagged by Analyzer 0 % (0-5); Neutrophil # 8.35 X10^3/uL (2.7-7.7); Neutrophil % 76.5 % (47-70); Platelet Count 256 K/mm3 (150-450); RBC Distribution Width CV 13.3 % (11.6-14.6); RBC Distribution Width SD 47.2 fl (35.1-43.9); White Blood Count 10.9 K/mm3 (4.4-11.0)
[2021-01-28] MEDS: Potassium Chloride Oral Tablet 20 MEQ PO ×2 (08:02→15:57)
[2021-01-28] MEDS: Senna/Docusate Sodium 1 Tablet 2 TABLET PO (08:06)
[2021-01-28 08:07] LABS: Anion Gap 7 (5-15); BUN 25 mg/dL (7-18); BUN/Creat Ratio 32.3 RATIO (10-20); Calcium,Total 9.5 mg/dL (8.5-10.1); Chloride 109 mmol/L (98-107); Creatinine, Serum 0.77 mg/dL (0.55-1.02); EST Glomerular Filtration Rate 75 mL/min (>60); Est Glom Filt Rate - Afr Amer 91 mL/min (>60); Estimated Creatinine Clearance 29.01 ml/min; Glucose 112 mg/dL (74-106); Potassium 4.1 mmol/L (3.5-5.1); Sodium Level 141 mmol/L (136-145)
[2021-01-28] MEDS: Cholecalciferol (VIT D3) 25 MCG TABLET (1,000 UNITS) PO (09:32)
[2021-01-28] MEDS: Ascorbic Acid 500 MG Tablet PO (09:32)
[2021-01-28] MEDS: Metoprolol Tartrate 25 MG Tablet PO ×2 (09:32→20:26)
--- NOTE | 2021-01-28 12:03 | PN.HOSP_ITS ---
Documented by User: Minda Rodriguez NP-C 01/28/21 12:07 Subjective Subjective Patient seen and examined. Patient states that she is still weak but is feeling slightly improved. Patient states that she has no complaints at this time. Objective Data Objective Data Vital Signs: Vital Signs Temp Pulse Resp BP Pulse Ox 98.6 F 83 18 140/95 H 95 01/28/21 09:30 01/28/21 09:32 01/28/21 09:30 01/28/21 09:32 01/28/21 09:30 Oxygen Delivery Method Room Air Weight: 119 lb 0.794 oz Body Mass Index (BMI) 2.1 Intake & Output: Intake and Output for Last 24 Hours 01/26/21 01/27/21 01/28/21 23:59 23:59 22:59 Intake Total 760 / 820 560 / 680 180 / 180 Output Total 1400 / 1525 225 / 225 Balance 760 / -80 -840 / -845 -45 / -45 Medical Nutrition Assessment Dietitian: Malnutrition Criteria Met Start: 01/26/21 16:17 Freq: Status: Active Protocol: Document 01/26/21 16:17 AG (Rec: 01/26/21 16:17 AG [id number]) Nutrition Malnutrition Evidence of Malnutrition Exists Yes Malnutrition (severe): Chronic Evidenced By Suboptimal Energy Intake ( Severe),Weight Loss (Severe) Clinical Problem Chronic Disease or Condition Related Malnutrition Etiology chronic, severe malnutrition r /t inadequate energy intake w/ decreased appetite, motivation to cook for self d/ t chronic back pain Signs/Symptoms as evidenced by unintentional wt loss of 16.1#/12% x 6 months; estimated PO intake meeting <75% of estimated nutritional needs >6 months Status Active Problem Recommendation Dietitian Recommendations/Changes continue regular diet; will add 120mL ensure enlive 4x/day w/ meals for additional calories/protein if consumed. Lab / Micro Data Result Diagrams: 01/28/21 05:45 01/28/21 05:45 Labs: Laboratory Results - last 24 hr 01/28/21 05:45: WBC 10.9, RBC 4.10 L, Hgb 12.7, Hct 39.1, MCV 95.4, MCH 31.0, MCHC 32.5, RDW Std Deviation 47.2 H, RDW Coeff of Jared 13.3, Plt Count 256, MPV 10.6, Immature Gran % (Auto) 0.500, Neut % (Auto) 76.5 H, Lymph % (Auto) 11.9 L, [place] % (Auto) 8.3, Eos % (Auto) 2.2, Baso % (Auto) 0.6, Absolute Neuts (auto) 8.4 H, Absolute Lymphs (auto) 1.30, Nucleated RBC % 0 01/28/21 05:45: Sodium 141, Potassium 4.1, Chloride 109 H, Carbon Dioxide 25.0, Anion Gap 7, BUN 25 H, Creatinine 0.77, Estim Creat Clear Calc 29.01, Est GFR (MDRD) Af Amer 91, Est GFR (MDRD) Non-Af 75, BUN/Creatinine Ratio 32.3 H, Glucose 112 H, Calcium 9.5 Physical Exam Const alert, oriented x3 and no apparent distress HEENT head/scalp atraumatic Eyes conjunctivae normal and no scleral icterus Neck full ROM and supple Resp normal respiratory effort, normal air movement and clear to auscultation bilaterally Effort and Inspection: able to speak in complete sentences and symmetric chest movement Cardio regular rate, regular rhythm, S1 normal heart sound and S2 normal heart sound GI normal to inspection, nondistended, normoactive bowel sounds, soft to palpation and non-tender Extremity normal to inspection, full ROM and no clubbing, cyanosis or edema Skin no rashes or lesions noted, no wounds and skin turgor normal Neuro oriented x3, moves all extremities, no focal motor deficits and no sensory deficits noted Psych affect normal Assessment & Plan Assessment/Plan (1) Weakness: (2) Kyphoscoliosis: (3) Atrial fibrillation with RVR: (4) Hypokalemia: PLAN: Patient is an 85-year-old female who came in with weakness, atrial fibrillation with RVR. Patient recently recently underwent kyphoplasty with Dr. Ernandez on January 25, 2021 and since has had difficulty with weakness. 1. Debility and weakness secondary to kyphoplasty -PT and OT following -Recommending patient go to [facility] upon discharge for strengthening 2. A. fib with RVR -Continue metoprolol -Heart rate stable in 80s -Continue cardiac monitoring -Echocardiogram obtained, demonstrates EF 60% 3. Hypokalemia -Resolved 4.1 today 4. Hypertension -Continue metoprolol -Continue as needed hydralazine -Vital signs per protocol 5. Pathological vertebral compression fracture -Status post kyphoplasty with Dr. Ernandez January 25, 2021 Discharge planning-patient will go to [facility] upon discharge, pending acceptance to facility. [facility] patient was seen by EDUARDO Barajas under the supervision of Dr. Lozano Documented by User: Dr. Keith Lozano MD 01/28/21 13:04 Objective Data Lab / Micro Data Result Diagrams: 01/28/21 05:45 01/28/21 05:45 Assessment & Plan Addt'l Comments This patient was seen in conjunction with EDUARDO Barajas . I have independently interviewed and examined the patient and reviewed pertinent historical, laboratory, and other data. Please refer to EDUARDO Barajas note for details of this patient's presentation, findings, and recommendations. I have reviewed EDUARDO Barajas note and concur with documented findings. In brief, Patient is an 85-year-old lady admitted with progressive generalized weakness following recent kyphoplasty. She was also found to be in A. fib with RVR with electrolyte abnormalities including hypokalemia on admission 01/28/2021; patient seen participating in physical therapy. Remains profoundly weak. Plan is for patient to be discharged to [facility] pending insurance approval Physical Examination: GENERAL: cooperative HEENT: Atraumatic; EYES; Anicteric, Normal Conjunctiva NECK; supple, normal thyroid, RESPIRATORY: Diminished to auscultation CARDIOVASCULAR: Irregular S1-S2 GI: soft, normoactive bowel sounds, : No Renal angle tenderness; EXTREMITIES: No edema, no clubbing, MUSCULOSKELETAL: no muscle waisting NEURO: Awake; no lateralizing signs. SKIN: No Rash PSYCH; Flat affect Assessment: 1. Physical deconditioning 2. Status post recent kyphoplasty 3. A. fib with RVR 4. Acute hypertensive urgency 5. Pathological vertebral compression fractures 6. Degenerative joint disease 7. DVT prophylaxis Recommendations: 1. I have discussed the results of my overview and impressions with the patient 2. Options for management were reviewed Charges/Coding Visit Charges Inpatient E&M: 41136 Subs Hosp L2
[2021-01-28 13:51] LABS: Bedside Glucose 125 mg/dL (70-110)
--- NOTE | 2021-01-28 13:57 | NURSING ---
This RN came in to check on pt following pt's visitor coming to the desk and telling her that she seemed more confused. This RN went in to assess pt. Pt having difficulty finding words. This RN notified charge entry specialist, Loulou Pena. Stroke alert called and Jamie Rodriguez NP notified.
--- NOTE | 2021-01-28 14:06 | CT_ITS ---
STUDY: CTA HEAD AND NECK WITH CONTRAST REASON FOR EXAM: Female, 85 years old. CVA RADIATION DOSAGE (If Supplied By Facility): CTDIvol = ( ) mGy, DLP = ( ) mGycm TECHNIQUE: CT angiography was performed with a multi-detector CT scanner. Data acquisition was obtained from the skull base through the vertex following intravenous administration of IV 100mL [id number]-[id number]. MIP images were reconstructed from the axial data set. Post-processing of the angiographic images was performed, with multiplanar reformation and 3D reconstruction. Individualized dose optimization techniques were used for this CT. COMPARISON: No relevant priors. FINDINGS: There is calcified plaque formation of the right cavernous carotid artery, without a cross-sectional luminal stenosis. There is calcified plaque formation of the left cavernous carotid artery, without a cross-sectional luminal stenosis. Normal right A1 segments of the anterior cerebral artery. Normal left A1 segments of the anterior cerebral artery. Normal intact anterior communicating artery (ACOM). Normal bilateral A2 segments of the anterior cerebral arteries. Normal right M1 and M2 segments of the middle cerebral arteries, with a normal M1 bifurcation. Normal left M1 and M2 segments of the middle cerebral arteries, with a normal M1 bifurcation. Normal right posterior communicating artery (PCOM). There is non-visualization of the left posterior communicating artery (PCOM). Normal basilar artery with a normal basilar bifurcation. The visualized bilateral superior cerebellar (SCA) arteries are normal. There is irregularity of the bilateral posterior cerebral arteries with mild/moderate luminal narrowing, suggesting atherosclerotic plaque formation, without an occlusion. AORTIC ARCH: There is atherosclerotic plaque of the visualized aortic arch. RIGHT CAROTID ARTERIES: Normal right common carotid artery (CCA). There is mild atherosclerotic plaque formation with minimal narrowing of the right carotid bulb. Normal origin of the right internal carotid (ICA) artery without a hemodynamically significant stenosis. There is atherosclerotic tortuous elongation of the cervical portion of the right internal carotid artery. LEFT CAROTID ARTERIES: Normal left common carotid artery (CCA). There is mild atherosclerotic plaque formation with minimal narrowing of the left carotid bulb. Normal origin of the left internal carotid (ICA) artery without a hemodynamically significant stenosis. There is atherosclerotic tortuous elongation of the cervical portion of the left internal carotid artery. VERTEBRAL ARTERIES: Normal bilateral vertebral arteries. CT/STROKE CTA Head AND Neck W/Con IMPRESSION: CTA head: No large vessel occlusion. Atherosclerosis with stenosis of the bilateral inspector precision CTA NECK: No occlusion or significant stenosis. Mild atherosclerotic plaque. N.B. : The above Results were Read Back by Caroline Miller MD to MD Keith, and understanding confirmed on 01/28/2021 14:50:19 (ET). Electronically Signed: Caroline Miller MD at 14:55 EST Tel , Service support ,
--- NOTE | 2021-01-28 14:06 | CT_ITS ---
STUDY: CT BRAIN WITHOUT CONTRAST REASON FOR EXAM: Female, 85 years old. CVA RADIATION DOSAGE (If Supplied By Facility): CTDIvol = ( ) mGy, DLP = ( ) mGycm TECHNIQUE: Transaxial CT imaging of the brain was performed without administration of intravenous contrast material. Individualized dose optimization techniques were used for this CT. COMPARISON: None. FINDINGS: There is cerebral atrophy with widening of the extra-axial spaces and ventricular dilatation. There are areas of decreased attenuation within the white matter tracts of the supratentorial brain, consistent with microvascular disease changes. There is no intracranial hemorrhage. There are no findings of an acute ischemic infarction. Normal soft tissue structures. Normal visualized paranasal sinuses. CT/STROKE Brain/Head without Cont IMPRESSION: CTA head: No large vessel occlusion. 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 Mild atherosclerotic plaque. N.B. : The above Results were Read Back by Caroline Miller MD to MD Keiht, and understanding confirmed on 01/28/2021 14:50:19 (ET). Electronically Signed: Caroline Miller MD at 14:55 EST Tel , Service support ,
--- NOTE | 2021-01-28 14:31 | PCM.HOSP.N ---
Hospitalist Note Stroke alert called for increased confusion and difficulty word finding. Patient immediately taken to CT, CT and CTA obtained. Stroke alert protocol initiated and [facility] consult initiated by Eliana RUIZ. I was present throughout evaluation and coordination with [facility] stroke team. Patient NIH 1, per Dr. Pérez with [facility] neurology TPA is not indicated at this time, states if CTA positive for clot to contact [facility] again for further follow-up. Recommends MRI, which is ordered. Dr. Lozano at initiation of such drug alert and updated on [facility] recommendations and CT results.
[2021-01-28] MEDS: Enoxaparin 40 MG/0.4 ML Syringe SC (14:43)
[2021-01-29] VITALS (14 sets, daily range): BP systolic 138–153; BP diastolic 96–115; PULSE 71–115; RESP 12–18; TEMP 36.3–36.9; O2SAT 93–97
[2021-01-29] MEDS: Acetaminophen 325 MG Tablet 650 MG PO ×3 (00:30→20:55)
[2021-01-29 06:09] LABS: Absolute Lymphocyte Count 1.56 X10^3/uL (0.83-4.51); Absolute Neutrophil Count 7.4 X10^3/uL (2.0-7.7); Basophil# 0.06 X10^3/uL; Basophil% 0.6 % (0-1); Hematocrit 36.5 % (37-47); Hemoglobin 12.1 g/dL (12.0-15.0); Lymphocyte # 1.56 X10^3/ul (0.83-4.51); Lymphocyte % 15.5 % (19-41); Mean Corp Hgb Conc 33.2 g/dL (32-36); Mean Corpuscular Hgb 31.7 pg (27.0-32.0); Mean Corpuscular Volume 95.5 fL (81-99); Mean Platelet Vol. 10.7 fl (6.2-12.0); Monocyte# 0.85 X10^3/uL; Monocyte% 8.5 % (0-10); NRBC Flagged by Analyzer 0 % (0-5); Neutrophil # 7.35 X10^3/uL (2.7-7.7); Neutrophil % 73.1 % (47-70); Platelet Count 251 K/mm3 (150-450); RBC Distribution Width CV 13.5 % (11.6-14.6); RBC Distribution Width SD 47.6 fl (35.1-43.9); Red Blood Count 3.82 M/mm3 (4.2-5.4); White Blood Count 10.1 K/mm3 (4.4-11.0)
[2021-01-29 06:32] LABS: Anion Gap 4 (5-15); BUN 20 mg/dL (7-18); BUN/Creat Ratio 31.2 RATIO (10-20); Calcium,Total 9.3 mg/dL (8.5-10.1); Chloride 110 mmol/L (98-107); Creatinine, Serum 0.64 mg/dL (0.55-1.02); EST Glomerular Filtration Rate 94 mL/min (>60); Est Glom Filt Rate - Afr Amer 113 mL/min (>60); Estimated Creatinine Clearance 29.01 ml/min; Glucose 105 mg/dL (74-106); Potassium 4.6 mmol/L (3.5-5.1); Sodium Level 140 mmol/L (136-145)
--- NOTE | 2021-01-29 09:53 | CASEMGMT ---
YUSUF faxed updated clinicals to [facility]. Await their response. YUSUF also received a call from patient's niece, Martha. She asked if patient will be leaving today. YUSUF told Martha that SW does not know as the physician has not been around yet. YUSUF also let her know Friday patient let SW know she wanted to go to [facility]. [facility] has not accepted yet as they wanted to look at her PT/OT. Dunia Bedoya COST CONTROL ANALYST BREANN
[2021-01-29] MEDS: Enoxaparin 30 MG/0.3 ML Syringe SC (10:53)
[2021-01-29] MEDS: Cholecalciferol (VIT D3) 25 MCG TABLET (1,000 UNITS) PO (10:53)
[2021-01-29] MEDS: Metoprolol Tartrate 50 MG Tablet PO ×2 (10:53→20:14)
[2021-01-29] MEDS: Ascorbic Acid 500 MG Tablet PO (10:53)
--- NOTE | 2021-01-29 11:21 | PN.HOSP_ITS ---
Documented by User: Minda Rodriguez NP-C 01/29/21 11:26 Subjective Subjective Patient seen and examined. Patient is more alert and awake than previous days. Patient states that she is feeling better and is looking forward to working with therapy today. Spoke with niece on the phone regarding plan of care and she is agreeable assess patient. Awaiting approval for patient to go to [facility]. Objective Data Objective Data Vital Signs: Vital Signs Temp Pulse Resp BP Pulse Ox 98 F 99 14 153/110 H 96 01/29/21 08:23 01/29/21 11:00 01/29/21 08:23 01/29/21 10:53 01/29/21 08:23 Oxygen Delivery Method Room Air Weight: 122 lb 2.177 oz Body Mass Index (BMI) 2.1 Intake & Output: Intake and Output for Last 24 Hours 01/28/21 01/28/21 01/29/21 00:59 23:59 23:59 Intake Total 490 / 490 Output Total 550 / 550 Balance -60 / -60 Medical Nutrition Assessment Dietitian: Malnutrition Criteria Met Start: 01/26/21 16:17 Freq: Status: Active Protocol: Document 01/26/21 16:17 AG (Rec: 01/26/21 16:17 AG [id number]) Nutrition Malnutrition Evidence of Malnutrition Exists Yes Malnutrition (severe): Chronic Evidenced By Suboptimal Energy Intake ( Severe),Weight Loss (Severe) Clinical Problem Chronic Disease or Condition Related Malnutrition Etiology chronic, severe malnutrition r /t inadequate energy intake w/ decreased appetite, motivation to cook for self d/ t chronic back pain Signs/Symptoms as evidenced by unintentional wt loss of 16.1#/12% x 6 months; estimated PO intake meeting <75% of estimated nutritional needs >6 months Status Active Problem Recommendation Dietitian Recommendations/Changes continue regular diet; will add 120mL ensure enlive 4x/day w/ meals for additional calories/protein if consumed. Lab / Micro Data Result Diagrams: 01/29/21 05:34 01/29/21 05:34 Labs: Laboratory Results - last 24 hr 01/28/21 13:44: POC Glucose 125 H 01/29/21 05:34: WBC 10.1, RBC 3.82 L, Hgb 12.1, Hct 36.5 L, MCV 95.5, MCH 31.7, MCHC 33.2, RDW Std Deviation 47.6 H, RDW Coeff of Jared 13.5, Plt Count 251, MPV 10.7, Immature Gran % (Auto) 0.300, Neut % (Auto) 73.1 H, Lymph % (Auto) 15.5 L, Bracken % (Auto) 8.5, Eos % (Auto) 2.0, Baso % (Auto) 0.6, Absolute Neuts (auto) 7.4, Absolute Lymphs (auto) 1.56, Nucleated RBC % 0 01/29/21 05:34: Sodium 140, Potassium 4.6, Chloride 110 H, Carbon Dioxide 26.0, Anion Gap 4 L, BUN 20 H, Creatinine 0.64, Estim Creat Clear Calc 29.01, Est GFR (MDRD) Af Amer 113, Est GFR (MDRD) Non-Af 94, BUN/Creatinine Ratio 31.2 H, Glucose 105, Calcium 9.3 Radiography Diagnostic Testing: Radiology Impression Brain CT 01/28/21 14:06 IMPRESSION: There is no intracranial hemorrhage. N.B. : The above Results were Read Back by Caroline Miller MD to SARA Parker, and understanding confirmed on 01/28/2021 14:26:13 (ET). Electronically Signed: Caroline Miller MD at 14:23 EST Tel , Service support , Head/Neck CTA 01/28/21 14:06 IMPRESSION: CTA head: No large vessel occlusion. Atherosclerosis with stenosis of the bilateral carpet cutter CTA NECK: No occlusion or significant stenosis. Mild atherosclerotic plaque. N.B. : The above Results were Read Back by Caroline Miller MD to MD Keith, and understanding confirmed on 01/28/2021 14:50:19 (ET). Electronically Signed: Caroline Miller MD at 14:55 EST Tel , Service support , Physical Exam Const alert, oriented x3 and no apparent distress HEENT head/scalp atraumatic Head and Scalp: normocephalic Eyes conjunctivae normal and no scleral icterus Neck full ROM and supple Resp normal respiratory effort Effort and Inspection: able to speak in complete sentences and symmetric chest movement Cardio regular rate, regular rhythm, S1 normal heart sound and S2 normal heart sound GI normal to inspection, nondistended, normoactive bowel sounds, soft to palpation and non-tender Extremity normal to inspection, full ROM and no clubbing, cyanosis or edema Skin no rashes or lesions noted, no wounds and skin turgor normal Neuro oriented x3, moves all extremities, no focal motor deficits and no sensory deficits noted Psych affect normal Assessment & Plan Assessment/Plan (1) Weakness: (2) Kyphoscoliosis: (3) Atrial fibrillation with RVR: (4) Hypokalemia: PLAN: Patient is an 85-year-old female who came in with weakness, atrial fibrillation with RVR. Patient recently recently underwent kyphoplasty with Dr. Ernandez on January 25, 2021 and since has had difficulty with weakness. 1. Debility and weakness secondary to kyphoplasty -PT and OT following -Recommending patient go to [facility] upon discharge for strengthening 2. A. fib with RVR -Metoprolol increased due to heart rate continuing to go into the 100s -Heart rate stable -Continue cardiac monitoring -Echocardiogram obtained, demonstrates EF 60% 3. Rule out stroke secondary to difficulty word finding -Patient was a stroke alert on 01/28/2021 due to increased confusion and dif ficulty word finding -CT and CTA negative for acute findings, per [facility] telestroke neurology patient w as originally ordered for an MRI today however patient has severe claustrophobia and is allergic to all medications for sedation so patient will have a repeat brain CT at 24 hours post onset of symptoms. -NIH every [address] obtained 4. Hypokalemia -Resolved 4.6 today 5. Hypertension -Continue metoprolol -Continue as needed hydralazine -Vital signs per protocol 6. Pathological vertebral compression fracture -Status post kyphoplasty with Dr. Ernandez January 25, 2021 Discharge planning-patient will go to [facility] upon discharge, facility accepted for transfer for tomorrow 01/30/2021 DVT prophylaxis-subcu Lovenox This patient was seen by EDUARDO Barajas under the supervision of Dr. Esquivel. Documented by User: Dr. Martha Esquivel DO 01/29/21 17:52 Subjective Subjective This patient was seen in conjunction with Derick Rodriguez NP. The following is representation my independent history and physical examination. Please see below for addendum the above. Patient reports that she is feeling fine today. She is insistent that she did not have a stroke and is not wanting to do the MRI. She is willing to do a CAT scan at 24 hours to rule out any issue. The plan is for discharge to [facility] tomorrow. Objective Data Lab / Micro Data Result Diagrams: 01/29/21 05:34 01/29/21 05:34 Physical Exam Const alert, oriented x3, no apparent distress and average body habitus Constitutional Narrative: Elderly white female sitting up in bed, appears comfor table, nontoxic Exam Limitations: no limitations HEENT head/scalp atraumatic, moist oral mucous membranes and oropharynx normal Head and Scalp: normocephalic Resp normal respiratory effort, no retractions, no use of accessory muscles and clear to auscultation bilaterally Auscultation: Negative for crackles, rales, rhonchi or wheezes Cardio regular rate, regular rhythm, S1 normal heart sound, S2 normal heart sound, no murmurs, no rub, no gallops, no clicks and no JVD GI normal to inspection, nondistended, normoactive bowel sounds, soft to palpation, non-tender and non-distended Extremity normal to inspection and no clubbing, cyanosis or edema Peripheral Pulses: Yes pulses 2+ throughout Skin no rashes or lesions noted, no wounds, skin turgor normal, no jaundice, no petechiae and no mottling Neuro oriented x3, CN's II-XII intact bilaterally, moves all extremities and no focal motor deficits Neuro Narrative: Generalized weakness noted Sensorium / Orientation: awake and alert Speech: speech normal Psych affect normal Assessment & Plan Assessment/Plan (1) Weakness: (2) Hypokalemia: PLAN: Assessment: Debility and weakness secondary to kyphoplasty Atrial fibrillation with RVR Word finding difficulties Hypokalemia-resolved Hypertension Vertebral compression fractures status post kyphoplasty 01/25/2021 Vitamin D deficiency Plan: Increase metoprolol to 50 mg twice daily Not anticoagulated secondary to multiple falls Patient unable to tolerate MRI therefore repeat CT was done at 24 hours and negative for any changes Hypokalemia has resolved and would recommend not continuing triamterene hydrochlorothiazide at discharge -May need to start other antihypertensives but will monitor with metoprolol increase Stop scheduled potassium Continue PT OT Plan for discharge to [facility] tomorrow Charges/Coding Visit Charges Inpatient E&M: 91357 Subs Hosp L2
--- NOTE | 2021-01-29 12:11 | CASEMGMT ---
YUSUF received a call from Ana M at [facility] and they can accept patient. They are not able to take her today, but tomorrow would be fine. YUSUF notified ZAFAR Her, physician, and patient. YUSUF also called patient's niece/POA Martha and let her know [facility] can accept patient, but she will not go until tomorrow. She thanked YUSUF for the update. YUSUF will notify Martha tomorrow when patient will be leaving. Plan: [facility] under skilled level of care. Dunia Bedoya NET TECHNICAL ARCHITECTDelroy CRAIN
--- NOTE | 2021-01-29 14:00 | CT_ITS ---
STUDY: CT BRAIN WITHOUT CONTRAST REASON FOR EXAM: Female, 85 years old. Stroke follow up RADIATION DOSAGE (If Supplied By Facility): CTDIvol = ( 44.99 ) mGy, DLP = ( 796.11 ) mGycm TECHNIQUE: Transaxial CT imaging of the brain was performed without administration of intravenous contrast material. Individualized dose optimization techniques were used for this CT. COMPARISON: Comparison is made with prior examination dated 01/28/2021. FINDINGS: Normal soft tissue structures. Normal calvarium. There is mild cerebral atrophy with widening of the extra-axial spaces and ventricular dilatation. There are areas of decreased attenuation within the white matter tracts of the supratentorial brain, consistent with microvascular disease changes. Normal basal ganglia and thalami. Normal brainstem. There is mild cerebellar atrophy. There is no intracranial hemorrhage. There are no findings of an acute ischemic infarction. Atherosclerotic calcification of the cavernous portions of the internal carotid arteries bilaterally. Normal visualized paranasal sinuses. CT/Brain/Head without Contrast IMPRESSION: Chronic involutional changes of the brain. Electronically Signed: Negrito Honeycutt MD at 14:59 EST , Service support ,
--- NOTE | 2021-01-29 15:15 | NURSING ---
This RN reviewed SN charting
[2021-01-30] VITALS (7 sets, daily range): BP systolic 151–161; BP diastolic 96–103; PULSE 80–88; RESP 14–18; TEMP 36.3–36.6; O2SAT 94
[2021-01-30 07:12] LABS: Absolute Lymphocyte Count 1.35 X10^3/uL (0.83-4.51); Absolute Neutrophil Count 7.1 X10^3/uL (2.0-7.7); Basophil# 0.04 X10^3/uL; Basophil% 0.4 % (0-1); Eosinophil# 0.17 X10^3/uL; Eosinophils% 1.8 % (0-5); Hematocrit 37.2 % (37-47); Hemoglobin 11.9 g/dL (12.0-15.0); Lymphocyte # 1.35 X10^3/ul (0.83-4.51); Lymphocyte % 14.2 % (19-41); Mean Corpuscular Hgb 31.2 pg (27.0-32.0); Mean Corpuscular Volume 97.4 fL (81-99); Mean Platelet Vol. 10.3 fl (6.2-12.0); Monocyte# 0.81 X10^3/uL; Monocyte% 8.5 % (0-10); NRBC Flagged by Analyzer 0 % (0-5); Neutrophil # 7.07 X10^3/uL (2.7-7.7); Neutrophil % 74.7 % (47-70); Platelet Count 256 K/mm3 (150-450); RBC Distribution Width CV 13.2 % (11.6-14.6); RBC Distribution Width SD 47.8 fl (35.1-43.9); Red Blood Count 3.82 M/mm3 (4.2-5.4); White Blood Count 9.5 K/mm3 (4.4-11.0)
[2021-01-30 07:41] LABS: Anion Gap 6 (5-15); BUN 19 mg/dL (7-18); BUN/Creat Ratio 26.7 RATIO (10-20); Calcium,Total 9.3 mg/dL (8.5-10.1); Chloride 109 mmol/L (98-107); Creatinine, Serum 0.71 mg/dL (0.55-1.02); EST Glomerular Filtration Rate 83 mL/min (>60); Est Glom Filt Rate - Afr Amer 100 mL/min (>60); Estimated Creatinine Clearance 29.01 ml/min; Glucose 104 mg/dL (74-106); Potassium 4.2 mmol/L (3.5-5.1); Sodium Level 141 mmol/L (136-145)
[2021-01-30] MEDS: Enoxaparin 30 MG/0.3 ML Syringe SC (08:43)
[2021-01-30] MEDS: Metoprolol Tartrate 50 MG Tablet PO (08:43)
[2021-01-30] MEDS: Cholecalciferol (VIT D3) 25 MCG TABLET (1,000 UNITS) PO (08:43)
[2021-01-30] MEDS: Ascorbic Acid 500 MG Tablet PO (08:43)
--- NOTE | 2021-01-30 09:26 | PCM.TXEXTCAR ---
Documented by User: EDUARDO Barajas 01/30/21 09:40 Diet 01/26/21 12:20 Diet: Regular - General Food consistency:: Regular Liquid Consistency:: Regular/Thin Type of Dietary Supplement:: Magic Cup Dessert Diet Comments: Magic Cup BID w/ lunch and dinner Routine Orders/Code Status Enema Type: Fleetz Enema Frequency: Daily PRN Suppository Type: Dulcolax 10mg Suppository Frequency: Daily PRN O2 Frequency: PRN Wound(s) mid back: Wound Type: Puncture Suggestions for Active Care Change Position every (hours): 2 Hours to sit in a chair: 3 Times a day to sit in chair: 2 Therapies Physical Therapy: Eval and Treat Occupational Therapy: Eval and Treat Problem/Diagnosis (1) Weakness: Status: Acute (2) Hypokalemia: Status: Acute Allergies/Procedures Done in Hospital Allergies alprazolam [From Xanax] Allergy (Verified 01/26/21 10:01) Unknown atenolol Allergy (Verified 01/26/21 10:01) Shortness of breath carvedilol Allergy (Verified 01/26/21 10:01) Anaphylaxis cetirizine [From Zyrtec] Allergy (Verified 01/26/21 10:01) Unknown cimetidine [From Tagamet] Allergy (Verified 01/26/21 10:01) Unknown diltiazem [From Cardizem] Allergy (Verified 01/26/21 10:01) Unknown erythromycin base Allergy (Verified 01/26/21 10:01) Unknown famotidine [From Pepcid] Allergy (Verified 01/26/21 10:01) Unknown grass pollen Allergy (Verified 01/29/21 07:01) NEEDS FOLLOW-UP grass bent guaifenesin [From Entex LA] Allergy (Verified 01/26/21 10:01) Unknown house dust Allergy (Verified 01/26/21 10:01) Unknown lansoprazole [From Prevacid] Allergy (Verified 01/26/21 10:01) Unknown loracarbef [From Lorabid] Allergy (Verified 01/26/21 10:01) Unknown metoprolol [From Toprol XL] Allergy (Verified 01/26/21 10:01) Unknown mold Allergy (Verified 01/26/21 10:01) Unknown phenylephrine [From Entex LA] Allergy (Verified 01/26/21 10:01) Unknown phenylpropanolamine [From Entex LA] Allergy (Verified 01/26/21 10:01) Unknown promethazine [From Phenergan] Allergy (Verified 01/26/21 10:01) Unknown raloxifene [From Evista] Allergy (Verified 01/26/21 10:01) Unknown ranitidine [From Zantac] Allergy (Verified 01/26/21 10:01) Unknown risedronate sodium [From Actonel] Allergy (Verified 01/26/21 10:01) Unknown escitalopram [From Lexapro] Adverse Reaction (Severe, Verified 01/26/21 10:) Unknown lisinopril Adverse Reaction (Severe, Verified 01/26/21 10:) Lip swelling losartan [From Cozaar] Adverse Reaction (Severe, Verified 01/26/21 10:) Swelling lips meloxicam Adverse Reaction (Severe, Verified 01/26/21 10:) Unknown prednisone Adverse Reaction (Severe, Verified 01/26/21 10:) Unknown zolpidem [From Ambien] Adverse Reaction (Severe, Verified 01/26/21 10:01) Unknown amlodipine [From Norvasc] Adverse Reaction (Verified 01/26/21 10:01) SOB clonazepam [From Klonopin] Adverse Reaction (Verified 01/26/21 10:) NEEDS FOLLOW-UP reaction like hangover diphenhydramine [From Benadryl] Adverse Reaction (Verified 01/26/21 10:01) NEEDS FOLLOW-UP agitation metronidazole [From Flagyl] Adverse Reaction (Verified 01/26/21 10:) Pain in joints Type of Care/Length of Stay Estimated LOS: Convalescent Care Less Than 30 days Type of Care Needed: Skilled Rehab Potential: Good Prognosis: Good Additional Orders/Day of Discharge Day of Discharge: 01/30/21 Dietary and Speech Recommendations Dietitian Recommendations/Changes: Will continue regular diet and try Magic BID w/ lunch and dinner for tolerance. Will d/c ensure compact 4x/day w/ medpass due to patient refusal. Plans for [place] under skilled level of care tomorrow. Follow Up Care Please follow up with your Primary Care Physician in: upon discharge from [place] Discharge Plan Admission Admit Date/Time: 01/26/21 12:19 Primary Reason for Your Visit: Weakness, Debility, AFib Attending Provider: Martha Esquivel Primary Care Provider: Tulio Roberts Discharge Orders/Prescriptions Prescriptions: New metoprolol tartrate 50 mg Tablet 50 mg PO BID Qty: 0 RF: 0 hydralazine 25 mg tablet 25 mg PO TID Qty: 90 RF: 0 Continued cholecalciferol (vitamin D3) 25 mcg (1,000 unit) capsule 25 mcg PO DAILY RF: 0 zinc 50 mg tablet 50 mg PO DAILY RF: 0 magnesium oxide 400 mg magnesium tablet 750 mg PO DAILY RF: 0 H2Q CoQ10 200 mg/gram powder 200 mg PO DAILY RF: 0 Ocuvite with Lutein 1,000 unit-200 mg-60 unit-2 mg tablet 1 tab PO DAILY RF: 0 ascorbic acid (vitamin C) 500 MG tablet 500 mg PO DAILY RF: 0 vitamin B complex 1 EACH tablet 1 tab PO DAILY RF: 0 acetaminophen [Tylenol] 325 mg Tablet 650 mg PO Q6H PRN PRN (Reason: Pain Score 1-10/Temp > 100.7 F) Qty: 0 RF: 0 Discontinued triamterene-hydrochlorothiazid [Maxzide] 75-50 mg Tablet 1 tab PO DAILY RF: 0 No Action (DME) Acapella See Rx Instructions .ROUTE .MEDSUPPLY Qty: 1 RF: 0 Referrals / Follow Up: Tulio Roberts MD [Primary Care Provider] - Disposition Disposition (needs filled in before D/C Order can be placed): [facility] Documented by User: Dr. Martha Esquivel DO 01/30/21 10:25 Allergies/Procedures Done in Hospital Allergies alprazolam [From Xanax] Allergy (Verified 01/26/21 10:01) Unknown atenolol Allergy (Verified 01/26/21 10:01) Shortness of breath carvedilol Allergy (Verified 01/26/21 10:01) Anaphylaxis cetirizine [From Zyrtec] Allergy (Verified 01/26/21 10:01) Unknown cimetidine [From Tagamet] Allergy (Verified 01/26/21 10:01) Unknown diltiazem [From Cardizem] Allergy (Verified 01/26/21 10:01) Unknown erythromycin base Allergy (Verified 01/26/21 10:01) Unknown famotidine [From Pepcid] Allergy (Verified 01/26/21 10:01) Unknown grass pollen Allergy (Verified 01/29/21 07:01) NEEDS FOLLOW-UP grass bent guaifenesin [From Entex LA] Allergy (Verified 01/26/21 10:01) Unknown house dust Allergy (Verified 01/26/21 10:01) Unknown lansoprazole [From Prevacid] Allergy (Verified 01/26/21 10:01) Unknown loracarbef [From Lorabid] Allergy (Verified 01/26/21 10:01) Unknown metoprolol [From Toprol XL] Allergy (Verified 01/26/21 10:01) Unknown mold Allergy (Verified 01/26/21 10:01) Unknown phenylephrine [From Entex LA] Allergy (Verified 01/26/21 10:01) Unknown phenylpropanolamine [From Entex LA] Allergy (Verified 01/26/21 10:01) Unknown promethazine [From Phenergan] Allergy (Verified 01/26/21 10:01) Unknown raloxifene [From Evista] Allergy (Verified 01/26/21 10:01) Unknown ranitidine [From Zantac] Allergy (Verified 01/26/21 10:01) Unknown risedronate sodium [From Actonel] Allergy (Verified 01/26/21 10:01) Unknown escitalopram [From Lexapro] Adverse Reaction (Severe, Verified 01/26/21 10:01) Unknown lisinopril Adverse Reaction (Severe, Verified 01/26/21 10:01) Lip swelling losartan [From Cozaar] Adverse Reaction (Severe, Verified 01/26/21 10:01) Swelling lips meloxicam Adverse Reaction (Severe, Verified 01/26/21 10:01) Unknown prednisone Adverse Reaction (Severe, Verified 01/26/21 10:01) Unknown zolpidem [From Ambien] Adverse Reaction (Severe, Verified 01/26/21 10:01) Unknown amlodipine [From Norvasc] Adverse Reaction (Verified 01/26/21 10:01) SOB clonazepam [From Klonopin] Adverse Reaction (Verified 01/26/21 10:01) NEEDS FOLLOW-UP reaction like hangover diphenhydramine [From Benadryl] Adverse Reaction (Verified 01/26/21 10:01) NEEDS FOLLOW-UP agitation metronidazole [From Flagyl] Adverse Reaction (Verified 01/26/21 10:01) Pain in joints Discharge Plan Admission Admit Date/Time: 01/26/21 12:19 Primary Reason for Your Visit: Weakness, Debility, AFib Attending Provider: Martha Esquivel Primary Care Provider: Tulio Roberts Discharge Orders/Prescriptions Prescriptions: New metoprolol tartrate 50 mg Tablet 50 mg PO BID Qty: 0 RF: 0 hydralazine 25 mg tablet 25 mg PO TID Qty: 90 RF: 0 Continued cholecalciferol (vitamin D3) 25 mcg (1,000 unit) capsule 25 mcg PO DAILY RF: 0 zinc 50 mg tablet 50 mg PO DAILY RF: 0 magnesium oxide 400 mg magnesium tablet 750 mg PO DAILY RF: 0 H2Q CoQ10 200 mg/gram powder 200 mg PO DAILY RF: 0 Ocuvite with Lutein 1,000 unit-200 mg-60 unit-2 mg tablet 1 tab PO DAILY RF: 0 ascorbic acid (vitamin C) 500 MG tablet 500 mg PO DAILY RF: 0 vitamin B complex 1 EACH tablet 1 tab PO DAILY RF: 0 acetaminophen [Tylenol] 325 mg Tablet 650 mg PO Q6H PRN PRN (Reason: Pain Score 1-10/Temp > 100.7 F) Qty: 0 RF: 0 Discontinued triamterene-hydrochlorothiazid [Maxzide] 75-50 mg Tablet 1 tab PO DAILY RF: 0 No Action (DME) Acapella See Rx Instructions .ROUTE .MEDSUPPLY Qty: 1 RF: 0 Referrals / Follow Up: Tulio Roberts MD [Primary Care Provider] - Disposition Disposition (needs filled in before D/C Order can be placed): Senior Care Facility
--- NOTE | 2021-01-30 09:40 | PCM.DC.SUM ---
Documented by User: EDUARDO Barajas 01/30/21 09:50 Providers Date of Admission: 01/26/21 Primary Care Physician: Dr. Tulio Roberts MD Reason For Visit: AFIB, HYPOKALEMIA, FAILURE TO THRIVE Diagnosis Discharge Diagnosis (1) Weakness: Status: Acute Code(s): R53.1 - Weakness (2) Hypokalemia: Status: Acute Code(s): E87.6 - Hypokalemia Medications at Discharge Home Medications cholecalciferol (vitamin D3) 25 mcg (1,000 unit) capsule 25 mcg PO DAILY 11/11/19 zinc 50 mg tablet 50 mg PO DAILY 11/11/19 ascorbic acid (vitamin C) 500 mg PO DAILY 01/24/20 vitamin B complex 1 tab PO DAILY 01/24/20 acetaminophen [Tylenol] 650 mg PO Q6H PRN PRN #0 tab 08/14/20 Acapella #1 ea 11/09/20 coenzyme Q10 200 mg/gram oral powder 200 mg PO DAILY g 11/09/20 magnesium oxide 750 mg PO DAILY tab 11/09/20 vit A 1,000 unit-C 200 mg-E 60 unit-lutein 2 mg and minerals tablet 1 tab PO DAILY 11/09/20 hydralazine 25 mg PO TID #90 tab 01/30/21 metoprolol tartrate 50 mg PO BID #0 tab 01/30/21 Hospital Course Operations None Procedures 2-D Echocardiogram and EKG Summary of Care Provided Minutes Spent on Discharge: 35 Hospital Course: Patient is an 85-year-old female who initially presented with weakness following a kyphoplasty on 01/25/[address] Ernandez. Patient was also noted to have A. fib with RVR upon presentation, echocardiogram demonstrates EF 60%. Patient was initiated on metoprolol which was increased on 01/29/21 to 50 mg twice daily, patient has tolerated well. Patient was also noted to have continued hypertension and was initiated on hydralazine 25 mg 3 times daily. Patient will be discharged to [facility] with PT and OT orders. Physical Exam Const alert, oriented x3, no apparent distress and average body habitus Constitutional Narrative: Elderly white female sitting up in bed, appears comfortable, nontoxic Exam Limitations: no limitations HEENT head/scalp atraumatic, moist oral mucous membranes and oropharynx normal Eyes conjunctivae normal and no scleral icterus Neck full ROM and supple Resp normal respiratory effort, normal air movement, no retractions, no use of accessory muscles and clear to auscultation bilaterally Effort and Inspection: able to speak in complete sentences and symmetric chest movement Auscultation: Negative for crackles, rales, rhonchi or wheezes Cardio regular rate, regular rhythm, S1 normal heart sound, S2 normal heart sound, no murmurs, no rub, no gallops, no clicks and no JVD GI normal to inspection, nondistended, normoactive bowel sounds, soft to palpation, non-tender and non-distended Extremity normal to inspection, full ROM and no clubbing, cyanosis or edema Skin no rashes or lesions noted, no wounds, skin turgor normal, no jaundice, no petechiae and no mottling Neuro oriented x3, CN's II-XII intact bilaterally, moves all extremities, no focal motor deficits and no sensory deficits noted Neuro Narrative: Generalized weakness noted Sensorium / Orientation: awake and alert Speech: speech normal Psych affect normal Medical Records Data Medical Nutrition Assessment Dietitian: Malnutrition Criteria Met Start: 01/26/21 16:17 Freq: Status: Active Protocol: Document 01/29/21 14:56 RMA (Rec: 01/29/21 14:56 RMA [id number]) Nutrition Malnutrition Evidence of Malnutrition Exists Yes Malnutrition (severe): Chronic Evidenced By Suboptimal Energy Intake ( Severe),Weight Loss (Severe) Clinical Problem Chronic Disease or Condition Related Malnutrition Etiology chronic, severe malnutrition r /t inadequate energy intake w/ decreased appetite, motivation to cook for self d/ t chronic back pain Signs/Symptoms as evidenced by unintentional wt loss of 16.1#/12% x 6 months; estimated PO intake meeting <75% of estimated nutritional needs >6 months Status Active Problem Recommendation Dietitian Recommendations/Changes Will continue regular diet and try Magic BID w/ lunch and dinner for tolerance. Will d/c ensure compact 4x/day w/ medpass due to patient refusal. Plans for [place] under skilled level of care tomorrow . Weight / BMI Weight Weight: 118 lb 6.212 oz Body Mass Index (BMI) 2.1 ABG / Lab / Microbiology Data Result Diagrams: 01/30/21 06:10 01/30/21 06:10 Laboratory: Laboratory Results - last 24 hr 01/30/21 06:10: WBC 9.5, RBC 3.82 L, Hgb 11.9 L, Hct 37.2, MCV 97.4, MCH 31.2, MCHC 32.0, RDW Std Deviation 47.8 H, RDW Coeff of Jared 13.2, Plt Count 256, MPV 10.3, Immature Gran % (Auto) 0.400, Neut % (Auto) 74.7 H, Lymph % (Auto) 14.2 L, Marshall % (Auto) 8.5, Eos % (Auto) 1.8, Baso % (Auto) 0.4, Absolute Neuts (auto) 7.1, Absolute Lymphs (auto) 1.35, Nucleated RBC % 0 01/30/21 06:10: Sodium 141, Potassium 4.2, Chloride 109 H, Carbon Dioxide 26.0, Anion Gap 6, BUN 19 H, Creatinine 0.71, Estim Creat Clear Calc 29.01, Est GFR (MDRD) Af Amer 100, Est GFR (MDRD) Non-Af 83, BUN/Creatinine Ratio 26.7 H, Glucose 104, Calcium 9.3 Radiography Diagnostic Testing: Radiology Impression Brain CT 01/29/21 14:00 IMPRESSION: Chronic involutional changes of the brain. Electronically Signed: Negrito Honeycutt MD at 14:59 EST , Service support , D/C Instructions Discharge Diet: Low fat / Low cholesterol Discharge Activity: Use Walker Call your doctor if your incision/area has: Swelling at the incision site Call your doctor if you observe: Dizziness, Fainting spells, Chest pain and Increased palpitations (irregular heartbeat) Meaningful Use Info Meaningful Use Diagnoses (Choose all that apply): None applicable Discharge Plan Admission Admit Date/Time: 01/26/21 12:19 Primary Reason for Your Visit: Weakness, Debility, AFib Attending Provider: Martha Esquivel Primary Care Provider: Tulio Roberts Discharge Orders/Prescriptions Prescriptions: New metoprolol tartrate 50 mg Tablet 50 mg PO BID Qty: 0 RF: 0 hydralazine 25 mg tablet 25 mg PO TID Qty: 90 RF: 0 Continued cholecalciferol (vitamin D3) 25 mcg (1,000 unit) capsule 25 mcg PO DAILY RF: 0 zinc 50 mg tablet 50 mg PO DAILY RF: 0 magnesium oxide 400 mg magnesium tablet 750 mg PO DAILY RF: 0 H2Q CoQ10 200 mg/gram powder 200 mg PO DAILY RF: 0 Ocuvite with Lutein 1,000 unit-200 mg-60 unit-2 mg tablet 1 tab PO DAILY RF: 0 ascorbic acid (vitamin C) 500 MG tablet 500 mg PO DAILY RF: 0 vitamin B complex 1 EACH tablet 1 tab PO DAILY RF: 0 acetaminophen [Tylenol] 325 mg Tablet 650 mg PO Q6H PRN PRN (Reason: Pain Score 1-10/Temp > 100.7 F) Qty: 0 RF: 0 Discontinued triamterene-hydrochlorothiazid [Maxzide] 75-50 mg Tablet 1 tab PO DAILY RF: 0 No Action (DME) Acapella See Rx Instructions .ROUTE .MEDSUPPLY Qty: 1 RF: 0 Referrals / Follow Up: Tulio Roberts MD [Primary Care Provider] - Disposition Disposition (needs filled in before D/C Order can be placed): Group Home Facility Documented by User: Dr. Martha Esquivel DO 01/30/21 17:01 Providers Date of Admission: 01/26/21 Reason For Visit: AFIB, HYPOKALEMIA, FAILURE TO THRIVE Medications at Discharge Home Medications cholecalciferol (vitamin D3) 25 mcg (1,000 unit) capsule 25 mcg PO DAILY 11/11/19 zinc 50 mg tablet 50 mg PO DAILY 11/11/19 ascorbic acid (vitamin C) 500 mg PO DAILY 01/24/20 vitamin B complex 1 tab PO DAILY 01/24/20 acetaminophen [Tylenol] 650 mg PO Q6H PRN PRN #0 tab 08/14/20 Acapella #1 ea 11/09/20 coenzyme Q10 200 mg/gram oral powder 200 mg PO DAILY g 11/09/20 magnesium oxide 750 mg PO DAILY tab 11/09/20 vit A 1,000 unit-C 200 mg-E 60 unit-lutein 2 mg and minerals tablet 1 tab PO DAILY 11/09/20 hydralazine 25 mg PO TID #90 tab 01/30/21 metoprolol tartrate 50 mg PO BID #0 tab 01/30/21 Hospital Course Operations None Procedures 2-D Echocardiogram Summary of Care Provided Minutes Spent on Discharge: 39 Hospital Course: Mrs. Eli is an 85-year-old white female who presented to the emergency department on 01/26/2021 with a chief complaint of generalized weakness and status post fall. The patient had apparently undergone a kyphoplasty done by Dr. Mark Snell on 01/25/2021 for vertebral compression fractures. The patient reported on admission that she had fallen twice since the procedure was performed. She also complained of having some progressive weakness after the procedure as well. She presented to the emergency department for this and a CT of her lumbar spine was performed that showed multilevel degenerative disc disease as well as evidence of a vertebroplasty at L4-L5. On admission she was also found to be in atrial fibrillation with RVR and had elevated blood pressure as well as electrolyte abnormalities including hypokalemia. She was admitted to PCU for further care. She was not anticoagulated for her A. fib which was a chronic issue for her because of her falling. Since her rate was uncontrolled she was initiated on metoprolol which she tolerated well throughout her hospitalization. She does have multiple medication allergies and metoprolol XL is one of them although during this course she was placed on metoprolol succinate 50 mg twice daily to control her heart rate and did well with this at least during her hospitalization. She does indicate she has follow-up with Dr. Hernandez soon and will let him know if she does not tolerate the metoprolol at this point. With her A. fib an echocardiogram was performed on 01/26/2021 and showed an EF of 60% with biatrial enlargement and severe mitral annular calcification with mild mitral valve insufficiency and a right ventricular systolic pressure of 29 mmHg. A mobile echodensity was found in the right atrium which was compared to previous echocardiogram and appeared to be stable and consistent with a myxoma. Overall the appearance of the right atrium is unchanged. She was seen by therapy services and recommended for continued skilled therapy at discharge. On 01/28/2021 she had an episode of acute increased confusion and word finding difficulties and therefore stroke team was obtained. Her initial work-up was negative and she was evaluated by the [facility] stroke neurologist. Her NIH was 1 and TPA was not given. An MRI was ordered but the patient declined as she does not tolerate enclosed spaces and she has multiple medication allergies which prohibited use to give her anything for relaxation to enable increased tolerance. A repeat CT scan was done at 24 hours and was negative. Her blood pressure remained elevated and her allergies were reviewed and hydralazine which she was given IV during her hospitalization and tolerated it well was initiated at low-dose. She had no further neurological issues during her course of stay and was able to be discharged to [facility] on 01/30/2021 in stable condition. Discharge diagnoses: Debility and weakness Thoracic compression fractures status post kyphoplasty A. fib with RVR-rate now controlled Hypokalemia-resolved Hypertension Vitamin D deficiency Severe malnutrition Atrial myxoma Physical Exam Const alert, oriented x3, no apparent distress and average body habitus Constitutional Narrative: Elderly white female sitting up in the chair at the bedside, reading the paper, appears comfortable, nontoxic Exam Limitations: no limitations HEENT normocephalic, head/scalp atraumatic, moist oral mucous membranes and oropharynx normal Eyes PERRL, EOMs intact bilaterally, conjunctivae normal and no scleral icterus Neck full ROM, supple, no JVD and thyroid normal General: trachea midline Resp normal respiratory effort, normal air movement, no retractions, no use of accessory muscles and clear to auscultation bilaterally Effort and Inspection: able to speak in complete sentences and symmetric chest movement Auscultation: Negative for crackles, rales, rhonchi or wheezes Cardio regular rate, S1 normal heart sound, S2 normal heart sound, no murmurs, no rub, no gallops, no clicks, no JVD and peripheral pulses 2+ throughout Cardio Narrative: Irregular rhythm GI normal to inspection, nondistended, normoactive bowel sounds, soft to palpation, non-tender and non-distended Palpation: no hepatosplenomegaly Extremity normal to inspection, full ROM and no clubbing, cyanosis or edema General Extremity: no tenderness to palpation of joints or extremities Skin no rashes or lesions noted, no wounds, skin turgor normal, no jaundice, no petechiae and no mottling General Skin Exam: no breakdown Lesions: no lesions Rashes: no rashes Neuro oriented x3, CN's II-XII intact bilaterally, moves all extremities, no focal motor deficits and no sensory deficits noted Neuro Narrative: Generalized weakness noted Sensorium / Orientation: awake and alert Speech: speech normal Psych affect normal ABG / Lab / Microbiology Data Result Diagrams: 01/30/21 06:10 01/30/21 06:10 Discharge Plan Admission Admit Date/Time: 01/26/21 12:19 Primary Reason for Your Visit: Weakness, Debility, AFib Attending Provider: Martha Esquivel Primary Care Provider: Tulio Roberts Discharge Orders/Prescriptions Prescriptions: New metoprolol tartrate 50 mg Tablet 50 mg PO BID Qty: 0 RF: 0 hydralazine 25 mg tablet 25 mg PO TID Qty: 90 RF: 0 Continued cholecalciferol (vitamin D3) 25 mcg (1,000 unit) capsule 25 mcg PO DAILY RF: 0 zinc 50 mg tablet 50 mg PO DAILY RF: 0 magnesium oxide 400 mg magnesium tablet 750 mg PO DAILY RF: 0 H2Q CoQ10 200 mg/gram powder 200 mg PO DAILY RF: 0 Ocuvite with Lutein 1,000 unit-200 mg-60 unit-2 mg tablet 1 tab PO DAILY RF: 0 ascorbic acid (vitamin C) 500 MG tablet 500 mg PO DAILY RF: 0 vitamin B complex 1 EACH tablet 1 tab PO DAILY RF: 0 acetaminophen [Tylenol] 325 mg Tablet 650 mg PO Q6H PRN PRN (Reason: Pain Score 1-10/Temp > 100.7 F) Qty: 0 RF: 0 Discontinued triamterene-hydrochlorothiazid [Maxzide] 75-50 mg Tablet 1 tab PO DAILY RF: 0 No Action (DME) Acapella See Rx Instructions .ROUTE .MEDSUPPLY Qty: 1 RF: 0 Referrals / Follow Up: Tulio Roberts MD [Primary Care Provider] - Disposition Disposition (needs filled in before D/C Order can be placed): Group Home Facility Charges/Coding Visit Charges Inpatient E&M: 57417 SNF Disch >30 Min
[2021-01-30] MEDS: hydrALAZINE 25 MG Tablet PO (10:41)
--- NOTE | 2021-01-30 10:53 | CASEMGMT ---
Social Work Patient is ready for discharge to [facility]. YUSUF faxed orders and negative COVID to [facility]. Convalescent was completed on [facility]. YUSUF also arranged for patient to get picked up at 1130 via wc van by [facility]. YUSUF called Ana M at [facility] and left her a voice mail letting her know patient will bet picked up at 1130. YUSUF notified RN, patient, edge banding off bearer, and patient's niece Martha. Plan: d/c to [facility] under skilled level of care on a convalescent stay. [facility] transported via wc van. Dunia Bedoya INTERNAL CONTROLS CONSULTANT [employer]WER PIPE PRESS OPERATOR
--- NOTE | 2021-01-30 10:59 | PHA.DC.MR ---
Pharmacy Service has performed discharge medication reconciliation for this patient. The patient's discharge medication list was reviewed for discrepancies and discrepancies were resolved. Home Medications cholecalciferol (vitamin D3) 25 mcg (1,000 unit) capsule 25 mcg PO DAILY 11/11/19 zinc 50 mg tablet 50 mg PO DAILY 11/11/19 ascorbic acid (vitamin C) 500 mg PO DAILY 01/24/20 vitamin B complex 1 tab PO DAILY 01/24/20 acetaminophen [Tylenol] 650 mg PO Q6H PRN PRN #0 tab 08/14/20 Acapella #1 ea 11/09/20 coenzyme Q10 200 mg/gram oral powder 200 mg PO DAILY g 11/09/20 magnesium oxide 750 mg PO DAILY tab 11/09/20 vit A 1,000 unit-C 200 mg-E 60 unit-lutein 2 mg and minerals tablet 1 tab PO DAILY 11/09/20 hydralazine 25 mg PO TID #90 tab 01/30/21 metoprolol tartrate 50 mg PO BID #0 tab 01/30/21
--- NOTE | 2021-01-30 11:00 | NURSING ---
Report called to nurse Patterson for pt to be d/c to [place].
== END 2021-01-30 11:42 | disposition skilled nursing facility (03) | DRG 308 ==
LOC: ED 12:30 → PCU 12:36
PROVIDERS: Nurse Practitioner Family; Admitting Provider Internal Medicine; Emergency Provider Emergency Medicine; PCP Family Medicine; Visit Provider Internal Medicine
DX: I48.0 Paroxysmal atrial fibrillation (principal); E43 Unspecified severe protein-calorie malnutrition; R53.1 Weakness; M48.061 Spinal stenosis, lumbar region without neurogenic claudication; E87.6 Hypokalemia; I16.0 Hypertensive urgency; M80.08XD Age-related osteoporosis with current pathological fracture, vertebra(e), subsequent encounter for fracture with routine healing; R41.0 Disorientation, unspecified; I11.9 Hypertensive heart disease without heart failure; M41.9 Scoliosis, unspecified; K21.9 Gastro-esophageal reflux disease without esophagitis; Z68.24 Body mass index [BMI] 24.0-24.9, adult; Z79.899 Other long term (current) drug therapy; Z91.81 History of falling; Z87.891 Personal history of nicotine dependence; Z98.890 Other specified postprocedural states
CPT/HCPCS: 36415; 70450; 70496; 70498; 72131; 80048; 82962; 83735; 84443; 85025; 87426; 92610; 93005; 93306; 97110; 97161; 97166; 97530; 97535; 97802; 99251; 99285; J7040; Q9967; A4216; G0463

== ENCOUNTER → 2021-09-27 | Outpatient (CLI) | payer MEDICARE, OTHER, SELFPAY ==
[2021-09-27 15:54] LABS: BUN 17 mg/dL (7-18); BUN/Creat Ratio 20.6 RATIO (10-20); Calcium,Total 9.6 mg/dL (8.5-10.1); Cholesterol 238 mg/dL (200); Creatinine, Serum 0.82 mg/dL (0.55-1.02); EST Glomerular Filtration Rate 70 mL/min (>60); Est Glom Filt Rate - Afr Amer 84 mL/min (>60); Glucose 96 mg/dL (74-106); Sodium Level 137 mmol/L (136-145); Triglycerides 88 mg/dL
[2021-09-27 15:55] LABS: Anion Gap 5 (5-15); Chloride 105 mmol/L (98-107); High Density Lipoprotein 71 mg/dL; Potassium 3.7 mmol/L (3.5-5.1); Very Low Density Lipoprotein 18 mg/dL (5-40)
== END | disposition home or self-care (01) ==
LOC: MFPLAB 14:01
PROVIDERS: PCP Family Medicine; Visit Provider Family Medicine
DX: I10 Essential (primary) hypertension (principal)
CPT/HCPCS: 36415; 80048; 80061

== ENCOUNTER → 2021-10-10 | Outpatient (CLI) | payer MEDICARE, OTHER, SELFPAY ==
--- NOTE | 2021-10-11 05:25 | PFTCOMP_ITS ---
COMPLETE PULMONARY FUNCTION TEST INTERPRETATION Brief HPI: Patient is an 85-year-old female, currently under the care of myself, who presents to [facility] for complete pulmonary function tests secondary to diagnosis of bronchiectasis. Respiratory therapist reports good effort and reproducible results. Interpretation: Forced expiration spirometry shows a moderately severe large airways obstructive ventilatory defect with an FEV1 of 51% predicted. There is no significant bronchodilator response by strict ATS criteria. Spirograms are of good quality and plateau slowly, indicating slowly emptying areas of the lungs. The respiratory flow volume loop shows decreased expiratory flow rates at all lung volumes consistent with airway obstruction. Lung volumes by body plethysmography show a normal total lung capacity at 4.52 L, 96% predicted. FRC and RV are elevated out of proportion. Lung volume measurements are consistent with air-trapping. Diffusion capacity by carbon monoxide is decreased at 48% predicted. The airway resistance is normal. Compared to previous pulmonary function tests from 10/20/2020, there is been significant worsening in air trapping. Impression: Irreversible moderately severe large airways obstructive ventilatory defect with a symmetric reduction in diffusing capacity, resulting in air trapping.
== END | disposition home or self-care (01) ==
LOC: PSN 13:05
PROVIDERS: PCP Family Medicine; Referring Provider Internal Medicine Critical Care Medicine; Visit Provider Internal Medicine Critical Care Medicine
DX: J47.9 Bronchiectasis, uncomplicated (principal)
CPT/HCPCS: 94060; 94726; 94729

== ENCOUNTER → 2022-04-17 | Outpatient (CLI) | payer MEDICARE, OTHER, SELFPAY ==
[2022-04-17 15:11] LABS: Absolute Lymphocyte Count 1.23 X10^3/uL (0.83-4.51); Absolute Neutrophil Count 5.3 X10^3/uL (2.0-7.7); Basophil# 0.05 X10^3/uL; Basophil% 0.7 % (0-1); Eosinophil# 0.12 X10^3/uL; Eosinophils% 1.6 % (0-5); Hematocrit 41.4 % (37-47); Lymphocyte # 1.23 X10^3/ul (0.83-4.51); Lymphocyte % 16.7 % (19-41); Mean Corp Hgb Conc 31.4 g/dL (32-36); Mean Corpuscular Hgb 30.4 pg (27.0-32.0); Mean Corpuscular Volume 96.7 fL (81-99); Mean Platelet Vol. 10.1 fl (6.2-12.0); Monocyte# 0.66 X10^3/uL; NRBC Flagged by Analyzer 0 % (0-5); Neutrophil # 5.27 X10^3/uL (2.7-7.7); Neutrophil % 71.7 % (47-70); Platelet Count 263 K/mm3 (150-450); RBC Distribution Width SD 46.1 fl (35.1-43.9); Red Blood Count 4.28 M/mm3 (4.2-5.4); White Blood Count 7.4 K/mm3 (4.4-11.0)
[2022-04-17 16:07] LABS: ALB/GLOB Ratio 1.1 RATIO (0.9-2.4); AST(SGOT) 12 U/L (15-37); Alanine Aminotransfer ALT/SGPT 12 U/L (13-56); Albumin, Serum 3.4 g/dL (3.2-5.0); Alkaline Phosphatase 88 U/L (45-117); Anion Gap 8 (5-15); BUN 10 mg/dL (7-18); BUN/Creat Ratio 15.2 RATIO (10-20); Calcium,Total 8.9 mg/dL (8.5-10.1); Chloride 105 mmol/L (98-107); Creatinine, Serum 0.66 mg/dL (0.55-1.02); EST Glomerular Filtration Rate 91 mL/min (>60); Est Glom Filt Rate - Afr Amer 110 mL/min (>60); Ferritin 56 ng/mL (8-252); Globulin 3.1 g/dL (2.2-4.2); Glucose 95 mg/dL (74-106); Potassium 3.8 mmol/L (3.5-5.1); Protein, Total 6.5 g/dL (6.4-8.2); Sodium Level 142 mmol/L (136-145); Thyroid Stim Hormone (TSH) 2.04 uIU/mL (0.358-3.74)
[2022-04-17 16:36] LABS: Vitamin B12 292 pg/mL (211-911)
== END | disposition home or self-care (01) ==
LOC: MFPLAB 11:53
PROVIDERS: PCP Family Medicine; Referring Provider Family Medicine; Visit Provider Family Medicine
DX: R53.83 Other fatigue (principal)
CPT/HCPCS: 36415; 80053; 82306; 82607; 82728; 84443; 85025

== ENCOUNTER 2022-05-03 17:33 | Emergency (ER) | payer MEDICARE, OTHER, SELFPAY ==
[2022-05-03 17:34] VITALS: TEMP 36.8; BMI 22.8
[2022-05-03 17:36] VITALS: BP 151/105; PULSE 96; RESP 14; O2SAT 97
--- NOTE | 2022-05-03 17:54 | EDS_ITS ---
HPI History of Present Illness Chief Complaint: Shortness of Breath Narrative Narrative: 86-year-old female past medical history of COPD, chronic back pain, presents with multiple somatic complaints that she began experiencing approximately 1 to 2 hours ago. She states that at around 1:00 in the afternoon she took a Monegasque chocolate that had THC in it. She was taking it for her back pain. At around 4 5 PM she began having feelings of euphoria, and that things were not real. Sh e may have felt slightly lightheaded but denies any nausea or vomiting. This is the first time she had ever taken anything of this nature that was [id number]. She took it at the suggestion of a friend to help with her chronic back pain. She denies any fevers or chills. No dysuria or hematuria but states that she felt strange and thinks that this affected my whole system. [facility] Medical History Abnormal electrocardiogram Anxiety Atrial myxoma Benign cardiac neoplasm Compression fracture of lumbar spine, non-traumatic Depression Essential hypertension ETOH abuse Former smoker GERD (gastroesophageal reflux disease) Hypertension Irregular heart beat Osteoporosis Paroxysmal atrial fibrillation Ventricular premature depolarization Vision loss of left eye (Unknown) Home Medications cholecalciferol (vitamin D3) 25 mcg (1,000 unit) capsule 25 mcg PO DAILY vitamin 11/11/19 [History Last Taken 2 Days Ago ~01/22/20] zinc 50 mg tablet 50 mg PO DAILY supplement 11/11/19 [History Last Taken 3 Days Ago ~01/21/20] ascorbic acid (vitamin C) 500 mg tablet 500 mg PO DAILY supplement 01/24/20 [History Last Taken 01/23/20] vitamin B complex 1 tab PO DAILY supplement 01/24/20 [History Last Taken 01/23/20] acetaminophen 325 mg tablet (Tylenol) 650 mg PO Q6H PRN PRN Pain Score 1-10/Temp > 100.7 F #0 tabs 08/14/20 [Rx Last Taken Unknown] Acapella #1 ea 11/09/20 [Rx Last Taken Unknown] magnesium oxide 750 mg PO DAILY supplement 11/09/20 [History Last Taken Unknown] vit A 300 mcg-C 200 mg-E 27 mg-lutein 2 mg and minerals tablet (Ocuvite with Lutein) 1 tab PO DAILY supplement 11/09/20 [History Last Taken Unknown] coenzyme Q10 200 mg capsule (Co Q-10) 200 mg PO DAILY 05/22/21 [History Last Taken Unknown] metoprolol tartrate 25 mg tablet 25 mg PO BID #180 tabs 05/22/21 [Rx Last Taken Unknown] naproxen sodium 220 mg tablet (Aleve) 220 mg PO BID PRN 05/22/21 [History Last Taken Unknown] potassium chloride 20 mEq tablet,extended release(part/cryst) 20 meq PO DAILY 05/22/21 [History Last Taken Unknown] triamterene 37.5 mg-hydrochlorothiazide 25 mg tablet 1 tab PO DAILY 05/22/21 [History Last Taken Unknown] hydralazine 25 mg tablet 25 mg PO BID 10/31/21 [History Last Taken Unknown] Allergy/AdvReac Type Severity Reaction Status Date / Time alprazolam [From Xanax] Allergy Unknown Verified 05/03/22 17:36 atenolol Allergy Shortness Verified 05/03/22 17:36 of breath carvedilol Allergy Anaphylaxis Verified 05/03/22 17:36 cetirizine [From Zyrtec] Allergy Unknown Verified 05/03/22 17:36 cimetidine [From Tagamet] Allergy Unknown Verified 05/03/22 17:36 diltiazem [From Cardizem] Allergy Unknown Verified 05/03/22 17:36 erythromycin base Allergy Unknown Verified 05/03/22 17:36 famotidine [From Pepcid] Allergy Unknown Verified 05/03/22 17:36 grass pollen Allergy NEEDS Verified 05/03/22 17:36 FOLLOW-UP guaifenesin [From Entex LA] Allergy Unknown Verified 05/03/22 17:36 house dust Allergy Unknown Verified 05/03/22 17:36 lansoprazole [From Prevacid] Allergy Unknown Verified 05/03/22 17:36 loracarbef [From Lorabid] Allergy Unknown Verified 05/03/22 17:36 metoprolol [From Toprol XL] Allergy Unknown Verified 05/03/22 17:36 mold Allergy Unknown Verified 05/03/22 17:36 phenylephrine [From Entex LA] Allergy Unknown Verified 05/03/22 17:36 phenylpropanolamine Allergy Unknown Verified 05/03/22 17:36 [From Entex LA] promethazine [From Phenergan] Allergy Unknown Verified 05/03/22 17:36 raloxifene [From Evista] Allergy Unknown Verified 05/03/22 17:36 ranitidine [From Zantac] Allergy Unknown Verified 05/03/22 17:36 risedronate sodium Allergy Unknown Verified 05/03/22 17:36 [From Actonel] escitalopram [From Lexapro] AdvReac Severe Unknown Verified 05/03/22 17:36 lisinopril AdvReac Severe Lip Verified 05/03/22 17:36 swelling losartan [From Cozaar] AdvReac Severe Swelling Verified 05/03/22 17:36 lips meloxicam AdvReac Severe Unknown Verified 05/03/22 17:36 prednisone AdvReac Severe Unknown Verified 05/03/22 17:36 zolpidem [From Ambien] AdvReac Severe Unknown Verified 05/03/22 17:36 amlodipine [From Norvasc] AdvReac SOB Verified 05/03/22 17:36 clonazepam [From Klonopin] AdvReac NEEDS Verified 05/03/22 17:36 FOLLOW-UP diphenhydramine AdvReac NEEDS Verified 05/03/22 17:36 [From Benadryl] FOLLOW-UP metronidazole [From Flagyl] AdvReac Pain in Verified 05/03/22 17:36 joints Family History Mother CAD (coronary artery disease) Father Kidney disease Surgical History H/O partial resection of colon History of hysterectomy Social History Smoking Status: Former smoker how long ago did patient quit smokin years ago alcohol intake: former details: Patient states he quit alcohol in January 2020. substance use type: does not use caffeine: Yes Type: coffee Number of servings: 1 ROS ROS ED ROS Narrative Constitutional: No fever, no chills. HEENT: No sore throat. No neck pain. No loss of vision. No rhinorrhea. Cardiovascular: No chest pain. No palpitations. No pedal edema. Respiratory: No cough, transient shortness of breath. Abdominal: No abdominal pain. No nausea. No vomiting. Genitourinary: No dysuria. No hematuria. Musculoskeletal: No myalgias. No arthralgias. Neurologic: No headaches. No dizziness. No lightheadedness. Skin: No rash. No change in color. Psychiatric: No depression. No anxiety. Feelings of euphoria, and questionable hallucinations. EXAM Physical Exam Narrative Exam Narrative: Afebrile. Vital signs noted. HEENT: Normocephalic. Atraumatic. PERRL, EOMI. Neck soft and supple. No point tenderness or step off. Cardiovascular: Regular rate and rhythm. No murmurs, rubs, or gallops appreciated. Respiratory: No tachypnea. Lungs clear to auscultation bilaterally. Gastrointestinal: Abdomen soft, nontender, with normoactive bowel sounds. No rebound or guarding. Neurological: Awake. Alert. Nonfocal, nonlateralizing. Skin: No rash. Normal color. No pallor. Musculoskeletal: No pedal edema. Full range of motion extremities. Const Vital Signs: 05/03/22 17:34 05/03/22 17:36 05/03/22 17:42 Temperature 98.2 F Temperature Source Temporal Pulse Rate 96 Respiratory Rate 14 Respiratory Effort Short of Breath Respiratory Depth Normal Respiratory Pattern Normal Blood Pressure 151/105 H Blood Pressure Mean 120 Pulse Ox 97 Oxygen Delivery Method Room Air Room Air MDM MDM MDM Narrative Medical decision making narrative: I looked at this substance which she took, which was a Monegasque chocolate that did contain THC. I do feel that part of her symptomatology is secondary to intoxication with THC I reviewed her laboratory work. CBC shows normal white count of 8.5, hemoglobin 13.2 and normal, normal platelet count of 261. Electrolyte panel/BMP was obtained and reviewed which shows potassium of 3.4 which was replaced orally. Glucose appropriately elevated at 150 with a normal anion gap of 6. She has a normal BUN of 16 and a normal creatinine of 0.7. Urinalysis is negative for infection with 0-5 WBCs and she has 5 ketones. She was bolused normal saline 500 mL intravenously. I do feel that all of this is most likely side effect from her taking the Monegasque chocolate that had THC contained within. Of note, patient declined the potassium because she states she has it at home and that she is already on potassium supplementation. I feel she be discharged safely home with follow-up. She was told to avoid use of this substance in the future. Return instructions were reviewed. Disposition is discharged home in stable condition. Lab Data Attestation: I reviewed the patient's lab results. Labs: Laboratory Results - last 24 hr 05/03/22 05/03/22 05/03/22 18:00 18:03 18:03 WBC 8.5 RBC 4.28 Hgb 13.2 Hct 40.9 MCV 95.6 MCH 30.8 MCHC 32.3 RDW Std Deviation 45.2 H RDW Coeff of Jared 13.0 Plt Count 261 MPV 9.9 Immature Gran % (Auto) 0.400 Neut % (Auto) 74.6 H Lymph % (Auto) 14.8 L Dubois % (Auto) 8.1 Eos % (Auto) 1.4 Baso % (Auto) 0.7 Absolute Neuts (auto) 6.4 Absolute Lymphs (auto) 1.26 Nucleated RBC % 0 Sodium 141 Potassium 3.4 L Chloride 106 Carbon Dioxide 29.0 Anion Gap 6 BUN 16 Creatinine 0.76 Estim Creat Clear Calc 31.35 Est GFR (MDRD) Af Amer 92 Est GFR (MDRD) Non-Af 76 BUN/Creatinine Ratio 21.0 H Glucose 150 H Calcium 9.3 Urine Color Yellow Urine Clarity Clear Urine pH 5.0 Ur Specific Waldron 1.025 Urine Protein 30 H Urine Glucose (UA) Normal Urine Ketones 5 H Urine Occult Blood Negative Urine Nitrite Negative Urine Bilirubin Negative Urine Urobilinogen 1 H Ur Leukocyte Esterase 500 H Urine RBC 0 SEEN Urine WBC 0-5 SEEN Ur Squamous Epith Cells 0-5 SEEN Urine Bacteria 0 SEEN Urine Mucus 0 SEEN Discharge Plan Triage Chief Complaint: Shortness of Breath ED Provider: Keith Cheek Dx/Rx/DC Orders Clinical Impression: Adverse effect of synthetic cannabinoids, initial encounter, Hypokalemia, Euphoria, Chronic back pain Instructions: ED Drug Reaction, Other, ED Hypokalemia Prescriptions: No Action cholecalciferol (vitamin D3) 25 mcg (1,000 unit) capsule 25 mcg PO DAILY zinc 50 mg tablet 50 mg PO DAILY magnesium oxide 400 mg magnesium tablet 750 mg PO DAILY triamterene-hydrochlorothiazid 37.5-25 mg tablet 1 tab PO DAILY naproxen sodium [Aleve] 220 mg tablet 220 mg PO BID PRN potassium chloride 20 mEq tablet,ER particles/crystals 20 meq PO DAILY coenzyme Q10 [Co Q-10] 200 mg capsule 200 mg PO DAILY metoprolol tartrate 25 mg tablet 25 mg PO BID Qty: 180 3RF hydralazine 25 mg tablet 25 mg PO BID Ocuvite with Lutein 1,000 unit-200 mg-60 unit-2 mg tablet 1 tab PO DAILY Rx Instructions: administer after a meal (DME) Acapella See Rx Instructions .ROUTE .MEDSUPPLY Qty: 1 0RF Rx Instructions: As directed ascorbic acid (vitamin C) 500 MG tablet 500 mg PO DAILY vitamin B complex 1 EACH tablet 1 tab PO DAILY acetaminophen [Tylenol] 325 mg Tablet 650 mg PO Q6H PRN PRN (Reason: Pain Score 1-10/Temp > 100.7 F) Qty: 0 0RF Primary Care Provider: Jasmina Gallagher Referrals: Jasmina Gallagher, [Primary Care Provider] - 1-2 Days if not improving Disposition Disposition: Home, Self Care
[2022-05-03 18:18] LABS: Bacteria 0 SEEN /hpf (None Seen); Mucous, Urine 0 SEEN /hpf (<or=2+); Red Blood Cells-Urine 0 SEEN /hpf (0-5)
[2022-05-03 18:21] LABS: Absolute Lymphocyte Count 1.26 X10^3/uL (0.83-4.51); Absolute Neutrophil Count 6.4 X10^3/uL (2.0-7.7); Basophil# 0.06 X10^3/uL; Basophil% 0.7 % (0-1); Eosinophil# 0.12 X10^3/uL; Eosinophils% 1.4 % (0-5); Hematocrit 40.9 % (37-47); Hemoglobin 13.2 g/dL (12.0-15.0); Lymphocyte # 1.26 X10^3/ul (0.83-4.51); Lymphocyte % 14.8 % (19-41); Mean Corp Hgb Conc 32.3 g/dL (32-36); Mean Corpuscular Hgb 30.8 pg (27.0-32.0); Mean Corpuscular Volume 95.6 fL (81-99); Mean Platelet Vol. 9.9 fl (6.2-12.0); Monocyte# 0.69 X10^3/uL; Monocyte% 8.1 % (0-10); NRBC Flagged by Analyzer 0 % (0-5); Neutrophil # 6.37 X10^3/uL (2.7-7.7); Neutrophil % 74.6 % (47-70); Platelet Count 261 K/mm3 (150-450); RBC Distribution Width SD 45.2 fl (35.1-43.9); Red Blood Count 4.28 M/mm3 (4.2-5.4); White Blood Count 8.5 K/mm3 (4.4-11.0)
[2022-05-03 18:24] LABS: Color, Urine Yellow (Yellow); Glucose, Dipstick Normal (Normal); Ketone-Dipstick 5 mg/dl (Negative); Leukocyte Esterase-Dipstick 500 /ul (Negative); Nitrite-Dipstick Negative (Negative); Occult Blood-Urine Negative /ul (Negative); Protein-Dipstick 30 mg/dl (Negative); Specific Gravity, Urine 1.025 (1.002-1.030); Urine Bilirubin Dipstick Negative (Negative); Urine Clarity Clear (Clear); Urine Urobilinogen 1 mg/dl (Normal)
[2022-05-03 18:34] LABS: Squamous Epithelial Cells - UA 0-5 SEEN /hpf (5-10); White Blood Cells 0-5 SEEN /hpf (0-5)
[2022-05-03 18:38] LABS: Anion Gap 6 (5-15); BUN 16 mg/dL (7-18); Calcium,Total 9.3 mg/dL (8.5-10.1); Chloride 106 mmol/L (98-107); Creatinine, Serum 0.76 mg/dL (0.55-1.02); EST Glomerular Filtration Rate 76 mL/min (>60); Est Glom Filt Rate - Afr Amer 92 mL/min (>60); Estimated Creatinine Clearance 31.35 ml/min; Glucose 150 mg/dL (74-106); Potassium 3.4 mmol/L (3.5-5.1); Sodium Level 141 mmol/L (136-145)
[2022-05-03 18:57] VITALS: BP 163/118; PULSE 84; RESP 20; O2SAT 94
== END 2022-05-03 19:09 | disposition home or self-care (01) ==
PROVIDERS: Emergency Provider Emergency Medicine; PCP Family Medicine; Visit Provider Emergency Medicine
DX: E87.6 Hypokalemia (principal); J44.9 Chronic obstructive pulmonary disease, unspecified; T40.725A Adverse effect of synthetic cannabinoids, initial encounter; G89.29 Other chronic pain; I10 Essential (primary) hypertension; Z87.891 Personal history of nicotine dependence; M54.9 Dorsalgia, unspecified; R06.02 Shortness of breath
CPT/HCPCS: 80048; 81001; 85025; 96360; 99284; J7040; A4216

== ENCOUNTER → 2022-07-15 | Outpatient (CLI) | payer MEDICARE, OTHER, SELFPAY ==
[2022-07-15 15:11] LABS: Absolute Lymphocyte Count 1.29 X10^3/uL (0.83-4.51); Absolute Neutrophil Count 5.8 X10^3/uL (2.0-7.7); Basophil# 0.06 X10^3/uL; Basophil% 0.8 % (0-1); Eosinophil# 0.07 X10^3/uL; Eosinophils% 0.9 % (0-5); Hemoglobin 13.4 g/dL (12.0-15.0); Lymphocyte # 1.29 X10^3/ul (0.83-4.51); Lymphocyte % 16.6 % (19-41); Mean Corp Hgb Conc 32.7 g/dL (32-36); Mean Corpuscular Hgb 30.8 pg (27.0-32.0); Mean Corpuscular Volume 94.3 fL (81-99); Mean Platelet Vol. 9.9 fl (6.2-12.0); Monocyte# 0.55 X10^3/uL; Monocyte% 7.1 % (0-10); NRBC Flagged by Analyzer 0 % (0-5); Neutrophil # 5.81 X10^3/uL (2.7-7.7); Neutrophil % 74.5 % (47-70); Platelet Count 311 K/mm3 (150-450); RBC Distribution Width CV 13.2 % (11.6-14.6); RBC Distribution Width SD 45.9 fl (35.1-43.9); Red Blood Count 4.35 M/mm3 (4.2-5.4); White Blood Count 7.8 K/mm3 (4.4-11.0)
[2022-07-15 15:25] LABS: Vitamin B12 625 pg/mL (211-911); Vitamin D,25 Hydroxy 49.3 ng/mL
[2022-07-15 15:27] LABS: ALB/GLOB Ratio 0.9 RATIO (0.9-2.4); AST(SGOT) 17 U/L (15-37); Alanine Aminotransfer ALT/SGPT 17 U/L (13-56); Albumin, Serum 3.3 g/dL (3.2-5.0); Alkaline Phosphatase 75 U/L (45-117); Anion Gap 5 (5-15); BUN 23 mg/dL (7-18); BUN/Creat Ratio 25.6 RATIO (10-20); CRP 3.48 mg/L (0.0-3.0); Calcium,Total 9.6 mg/dL (8.5-10.1); Chloride 102 mmol/L (98-107); EST Glomerular Filtration Rate 63 mL/min (>60); Est Glom Filt Rate - Afr Amer 76 mL/min (>60); Globulin 3.8 g/dL (2.2-4.2); Glucose 191 mg/dL (74-106); Potassium 3.5 mmol/L (3.5-5.1); Protein, Total 7.1 g/dL (6.4-8.2); Sodium Level 136 mmol/L (136-145); Uric Acid 5.2 mg/dL (2.6-6.0)
[2022-07-15 15:46] LABS: Erythrocyte Sedimentation Rate 23 mm/hr (0-30)
== END | disposition home or self-care (01) ==
PROVIDERS: PCP Family Medicine; Referring Provider Podiatrist; Visit Provider Podiatrist
DX: M79.674 Pain in right toe(s) (principal); E55.9 Vitamin D deficiency, unspecified; E53.8 Deficiency of other specified B group vitamins
CPT/HCPCS: 36415; 80053; 82306; 82607; 84550; 85025; 85652; 86140

== ENCOUNTER → 2022-07-22 | Outpatient (CLI) | payer MEDICARE, OTHER, SELFPAY ==
--- NOTE | 2022-07-22 14:58 | ART_ITS ---
Reason For Study: PVD Procedure A bilateral lower extremity continuous wave Doppler with analog waveform analysis,segmental pressures,and ankle brachial indexes without exercise. Unable to walk patient on treadmill due to patient arriving in wheelchair. Left Segmental Pressures Left brachial= 161mmHg. Left posterior tibial artery = 160mmHg. Left dorsalis pedis artery = 172mmHg. Left digit = 145 mmHg. The left dorsalis pedis waveforms are triphasic. The left posterior tibial artery waveforms are triphasic. Right Segmental Pressures Right brachial= 156mmHg. Right posterior tibial artery = 177mmHg. Right dorsalis pedis artery = 163mmHg. Right digit = 120 mmHg. The right dorsalis pedis waveforms are triphasic. The right posterior tibial artery waveforms are triphasic. Indices The right ankle brachial index by the dorsalis pedis is 1.01. The right ankle brachial index by the posterior tibial artery is 1.10. The right digital-brachial index is 0.75. The left ankle brachial index by the dorsalis pedis is 1.07. The left ankle brachial index by the posterior tibial artery is 0.99. The left digital-brachial index is 0.90. VL/Lower Ext Art Exam w/o Exercis Interpretation Summary Right lower extremity posterior tibialis and dorsalis pedis ankle-brachial froilan roque are 1.1 and 1.01 which is normal with normal triphasic Doppler waveforms. Right digital brachial index borderline abnormal at 0.75 suggestive of possible distal small vessel disease. Normal left lower extremity posterior tibialis and dorsalis pedis ankle-brachia l indices of 0.99 and 1.07 respectively with normal triphasic Doppler waveforms. Normal left digital brachial index of 0.9 although the waveform is notably depr essed. Possible distal small vessel disease. Ordering Physician: Min Schaefer Referring Physician: Jasmina Gallagher Performed By: Ludmila Bee RVT
== END | disposition home or self-care (01) ==
LOC: CVS 14:56
PROVIDERS: PCP Family Medicine; Referring Provider Podiatrist; Visit Provider Podiatrist
DX: I73.9 Peripheral vascular disease, unspecified (principal)
CPT/HCPCS: 93923

== ENCOUNTER → 2023-01-10 | Outpatient (CLI) | payer MEDICARE, OTHER, SELFPAY ==
--- NOTE | 2023-01-10 10:48 | RAD_ITS ---
STUDY: X-RAY - UNILATERAL RIBS ( RIGHT ) REASON FOR EXAM: Female, 87 years old. Rib injury. Right rib pain. TECHNIQUE: 3 view(s) of the ribs. COMPARISON: None. FINDINGS: Osteopenia. Irregularity of the lateral aspect of the sixth and seventh ribs which may represent acute injury. The visualized lung is clear and expanded. RAD/Ribs Unil 2V No CXR IMPRESSION: Osteopenia with irregularity of the right sixth and seventh ribs which may represent acute injury. No pneumothorax. Electronically Signed: Clinton Bauman MD at 14:40 EDT ,
== END | disposition home or self-care (01) ==
LOC: MTRAD 10:46
PROVIDERS: PCP Family Medicine; Referring Provider Family Medicine; Visit Provider Family Medicine
DX: S29.9XXA Unspecified injury of thorax, initial encounter (principal); X58.XXXA Exposure to other specified factors, initial encounter
CPT/HCPCS: 71100

== ENCOUNTER → 2023-01-14 | Outpatient (CLI) | payer MEDICARE, OTHER, SELFPAY ==
--- NOTE | 2023-01-14 14:53 | RAD_ITS ---
STUDY: X-RAY - RIGHT SHOULDER REASON FOR EXAM: Female, 87 years old. Pain following injury. TECHNIQUE: 4 view(s) of the shoulder. COMPARISON: Comparison is made with prior study of May 03, 2019. FINDINGS: There is moderate degenerative arthrosis of the glenohumeral articulation. Normal acromioclavicular joint. Normal acromion. There is demineralization of the humerus and visualized osseous structures. Prior vertebroplasty of lower dorsal vertebrae. The soft tissue structures are unremarkable. Normal visualized pulmonary apex. RAD/Shoulder min 2 Views IMPRESSION: Degenerative changes. No acute abnormality is seen. Electronically Signed: Negrito Honeycutt MD at 15:23 EDT ,
== END | disposition home or self-care (01) ==
LOC: MTRAD 14:53
PROVIDERS: PCP Family Medicine; Referring Provider Physician Assistant; Visit Provider Physician Assistant
DX: S49.91XA Unspecified injury of right shoulder and upper arm, initial encounter (principal); X58.XXXA Exposure to other specified factors, initial encounter
CPT/HCPCS: 73030

== ENCOUNTER 2023-02-05 23:49 | Emergency (ER) | payer MEDICARE, OTHER, SELFPAY ==
[2023-02-05 23:52] VITALS: BP 174/107; PULSE 82; RESP 14; TEMP 36.4; O2SAT 99; BMI 24.3
--- NOTE | 2023-02-06 00:10 | CT_ITS ---
EXAM: CT ABDOMEN AND PELVIS WITHOUT INTRAVENOUS CONTRAST CLINICAL INDICATION: RLQ pain TECHNIQUE: Helically acquired images were obtained of the abdomen and pelvis without intravenous contrast. This CT exam was performed using one or more of the following dose reduction techniques: automated exposure control, adjustment of the mA and/or kV according to patient size, and/or use of iterative reconstruction technique. RADIATION DOSE: CTDIvol = 6.78 mGy, DLP = 276.73 mGy-cm COMPARISON: 08/12/2020. FINDINGS: LOWER THORAX: Coronary artery calcifications. Lung bases are clear. No cardiomegaly. No significant pericardial effusion. ABDOMEN: LIVER: Small hepatic cyst. GALLBLADDER AND BILE DUCTS: Unremarkable. No calcified gallstones. No gallbladder distention or wall edema. No intra- or extrahepatic biliary ductal dilation. PANCREAS: Unremarkable. No focal cystic mass. SPLEEN: Unremarkable. Normal size without focal cystic or solid mass. ADRENALS: Unremarkable. No nodules. KIDNEYS AND URETERS: Mild right hydroureteronephrosis with perinephric stranding due to a 2 mm stone in the right ureteral orifice of the bladder or immediately adjacent to it. Simple left renal cysts. No follow-up of these simple cysts is necessary. Normal renal size and position. STOMACH AND BOWEL: Unremarkable. No stomach or bowel distention. No focal inflammatory change. PELVIS: APPENDIX: The appendix is not identified with certainty but there are no signs of appendicitis. BLADDER: Unremarkable. REPRODUCTIVE: Hysterectomy. ABDOMEN and PELVIS: INTRAPERITONEAL SPACE: Unremarkable. No ascites or other fluid collection. No free air. BONES/JOINTS: Multiple old compression fractures involving T12, L1, and L4 all of which have undergone vertebroplasty. No suspicious lytic or blastic abnormality. SOFT TISSUES: Unremarkable. No discrete abdominal or pelvic wall hernia. VASCULATURE: See above. LYMPH NODES: Unremarkable. No enlarged lymph nodes. CT/Abdomen/Pelvis without Cont IMPRESSION: 1. Mild right hydroureteronephrosis with perinephric stranding due to a 2 mm stone in the right ureteral orifice of the bladder or immediately adjacent to it. 2. Small hepatic cyst. No follow-up imaging necessary. 3. Coronary artery disease. 4. The appendix is not identified with certainty but there are no signs of appendicitis. 5. Hysterectomy. 6. Multiple old compression fractures involving T12, L1, and L4 all of which have undergone vertebroplasty. Electronically Signed: Vick Chavez MD at 1:14 EST ,
--- NOTE | 2023-02-06 00:12 | EX.ED.DYSGE1 ---
HPI History of Present Illness Chief Complaint: Abd Pain Informant: patient Onset/Context/Timing Onset: Yesterday Context: Gradual Onset Timing: Waxes and wanes Current Severity: Moderate Maximum Severity: Moderate Narrative Narrative: Patient present secondary to right lower quadrant abdominal pain. She states she developed right lower quadrant pain last evening but it seemed to get better after taking Tylenol. She felt better during the day today but pain recurred tonight and did not improve with Tylenol. She has had a partial colon resection secondary to a blockage. She states she had a good bowel movement today and does not feel as if she is obstructed. She denies urinary symptoms but states she does have some intermittent incontinence. No history of kidney stones. 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) Home Medications cholecalciferol (vitamin D3) 25 mcg (1,000 unit) capsule 25 mcg PO DAILY vitamin 11/11/19 [History Last Taken 2 Days Ago ~01/22/20] zinc 50 mg tablet 50 mg PO DAILY supplement 11/11/19 [History Last Taken 3 Days Ago ~01/21/20] vitamin B complex 1 tab PO DAILY supplement 01/24/20 [History Last Taken 01/23/20] acetaminophen 325 mg tablet (Tylenol) 650 mg (2 x 325 mg) PO Q6H PRN PRN Pain Score 1-10/Temp > 100.7 F #0 tabs 08/14/20 [Rx Last Taken Unknown] Acapella #1 ea 11/09/20 [Rx Last Taken Unknown] magnesium oxide 750 mg PO DAILY supplement 11/09/20 [History Last Taken Unknown] vit A 300 mcg-C 200 mg-E 27 mg-lutein 2 mg and minerals tablet (Ocuvite with Lutein) 1 tab PO DAILY supplement 11/09/20 [History Last Taken Unknown] coenzyme Q10 200 mg capsule (Co Q-10) 200 mg PO DAILY 05/22/21 [History Last Taken Unknown] metoprolol tartrate 25 mg tablet 25 mg PO BID #180 tabs 05/22/21 [Rx Last Taken Unknown] potassium chloride 20 mEq tablet,extended release(part/cryst) 20 meq PO DAILY 05/22/21 [History Last Taken Unknown] triamterene 37.5 mg-hydrochlorothiazide 25 mg tablet 1 tab PO DAILY 05/22/21 [History Last Taken Unknown] hydralazine 25 mg tablet 25 mg PO BID 10/31/21 [History Last Taken Unknown] hydrocodone-acetaminophen 5-325mg 5mg-325mg 1 tab PO Q6H PRN PRN Pain 3 days #10 TABLETS 02/06/23 [Rx Last Taken Unknown] ibuprofen 400 mg tablet 400 mg PO Q8H PRN pain #10 tabs 02/06/23 [Rx Last Taken Unknown] ondansetron 4 mg disintegrating tablet 4 mg PO Q8H PRN PRN Nausea #10 tabs 02/06/23 [Rx Last Taken Unknown] Allergy/AdvReac Type Severity Reaction Status Date / Time alprazolam [From Xanax] Allergy Unknown Verified 02/05/23 23:50 atenolol Allergy Shortness Verified 02/05/23 23:50 of breath carvedilol Allergy Anaphylaxis Verified 02/05/23 23:50 cetirizine [From Zyrtec] Allergy Unknown Verified 02/05/23 23:50 cimetidine [From Tagamet] Allergy Unknown Verified 02/05/23 23:50 diltiazem [From Cardizem] Allergy Unknown Verified 02/05/23 23:50 erythromycin base Allergy Unknown Verified 02/05/23 23:50 famotidine [From Pepcid] Allergy Unknown Verified 02/05/23 23:50 grass pollen Allergy NEEDS Verified 02/05/23 23:50 FOLLOW-UP guaifenesin [From Entex LA] Allergy Unknown Verified 02/05/23 23:50 house dust Allergy Unknown Verified 02/05/23 23:50 lansoprazole [From Prevacid] Allergy Unknown Verified 02/05/23 23:50 loracarbef [From Lorabid] Allergy Unknown Verified 02/05/23 23:50 metoprolol [From Toprol XL] Allergy Unknown Verified 02/05/23 23:50 mold Allergy Unknown Verified 02/05/23 23:50 phenylephrine [From Entex LA] Allergy Unknown Verified 02/05/23 23:50 phenylpropanolamine Allergy Unknown Verified 02/05/23 23:50 [From Entex LA] promethazine [From Phenergan] Allergy Unknown Verified 02/05/23 23:50 raloxifene [From Evista] Allergy Unknown Verified 02/05/23 23:50 ranitidine [From Zantac] Allergy Unknown Verified 02/05/23 23:50 risedronate sodium Allergy Unknown Verified 02/05/23 23:50 [From Actonel] escitalopram [From Lexapro] AdvReac Severe Unknown Verified 02/05/23 23:50 lisinopril AdvReac Severe Lip Verified 02/05/23 23:50 swelling losartan [From Cozaar] AdvReac Severe Swelling Verified 02/05/23 23:50 lips meloxicam AdvReac Severe Unknown Verified 02/05/23 23:50 prednisone AdvReac Severe Unknown Verified 02/05/23 23:50 zolpidem [From Ambien] AdvReac Severe Unknown Verified 02/05/23 23:50 amlodipine [From Norvasc] AdvReac SOB Verified 02/05/23 23:50 clonazepam [From Klonopin] AdvReac NEEDS Verified 02/05/23 23:50 FOLLOW-UP diphenhydramine AdvReac NEEDS Verified 02/05/23 23:50 [From Benadryl] FOLLOW-UP metronidazole [From Flagyl] AdvReac Pain in Verified 02/05/23 23:50 joints Family History Mother CAD (coronary artery disease) Father Kidney disease Surgical History H/O partial resection of colon History of hysterectomy Social History Smoking Status: Former smoker how long ago did patient quit smokin years ago alcohol intake: former details: Patient states he quit alcohol in January 2020. substance use type: does not use caffeine: Yes Type: coffee Number of servings: 1 ROS ROS ED Constitutional Constitutional ED: Denies chills or fever(s) Eyes Eyes: Denies discharge from eye(s) ENT ENT ED: Denies discharge from eye(s), rhinorrhea or sore throat Cardiovascular Cardiovascular: Denies chest pain Respiratory/Chest Respiratory/Chest: Denies cough or dyspnea Gastrointestinal Gastrointestinal: Reports abdominal pain; Denies diarrhea, nausea or vomiting Genitourinary Genitourinary ED: Denies dysuria Musculoskeletal Musculoskeletal: Reports back pain; Denies extremity pain Integumentary Denies Abrasions or rash Neurologic Neurologic: Denies headache(s) or weakness Psychiatric Psychiatric: Denies anxiety or depression Allergic/Immunologic Allergic/Immunologic ED: Denies lip swelling or urticaria EXAM Physical Exam Const Vital Signs: 02/05/23 23:52 02/06/23 01:14 Temperature 97.6 F L Temperature Source Oral Pulse Rate 82 85 Respiratory Rate 14 15 Blood Pressure 174/107 H 173/117 H Blood Pressure Mean 129 135 Pulse Ox 99 93 Oxygen Delivery Method Room Air Positive well nourished and well developed General Appearance ED: well developed HEENT Reports moist mucous membranes Eyes EOMs intact bilaterally Chest Wall inspection of chest normal and palpation of chest normal Resp normal respiratory effort and clear to auscultation bilaterally Cardio regular rate and regular rhythm GI GI Narrative: Abdomen soft with focal tenderness in the right lower quadrant. No guarding or rebound. Hypoactive bowel sounds. Extremity normal to inspection Neuro oriented x3 and no sensory deficits noted Neuro Narrative: No focal neurologic deficit. Psych mental status grossly normal Skin no rashes or lesions noted MDM MDM MDM Narrative Medical decision making narrative: IV line established. Patient given fentanyl and Zofran for pain and nausea. Labwork obtained to evaluate for leukocytosis, anemia, and electrolyte derangement. Urinalysis obtained to evaluate for infection/hematuria. CT flank obtained to evaluate for possible kidney stone, appendicitis, other etiology of her pain. History & Record Review Discussion w/independent historian: Patient Lab Data Attestation: I reviewed the patient's lab results. Labs: Laboratory Results - last 24 hr 02/06/23 02/06/23 00:35 01:28 WBC 10.7 RBC 4.38 Hgb 14.5 Hct 42.6 MCV 97.3 MCH 33.1 H MCHC 34.0 RDW Std Deviation 47.4 H RDW Coeff of Jared 13.2 Plt Count 251 MPV 9.7 Immature Gran % (Auto) 0.400 Neut % (Auto) 82.8 H Lymph % (Auto) 7.7 L [place] % (Auto) 8.2 Eos % (Auto) 0.4 Baso % (Auto) 0.5 Absolute Neuts (auto) 8.8 H Absolute Lymphs (auto) 0.82 L Nucleated RBC % 0 Sodium 137 Potassium 3.6 Chloride 103 Carbon Dioxide 25.0 Anion Gap 9 BUN 13 Creatinine 0.79 Estim Creat Clear Calc 30.76 Est GFR (MDRD) Af Amer 88 Est GFR (MDRD) Non-Af 73 BUN/Creatinine Ratio 16.4 Glucose 154 H Calcium 9.5 Total Bilirubin 0.50 Direct Bilirubin 0.20 AST 15 ALT 14 Alkaline Phosphatase 100 Total Protein 6.8 Albumin 3.2 Globulin 3.6 Urine Color Yellow Urine Clarity Clear Urine pH 8.0 Ur Specific [place] 1.010 Urine Protein 30 H Urine Glucose (UA) 100 H Urine Ketones 15 H Urine Occult Blood 250 H Urine Nitrite Negative Urine Bilirubin Negative Urine Urobilinogen Normal Ur Leukocyte Esterase 25 H Urine RBC 50-100 SEEN Urine WBC 0 SEEN Ur Squamous Epith Cells 0 SEEN Urine Bacteria 0 SEEN Urine Mucus 0 SEEN Radiography Diagnostic Testing: Clinical Impression(s) from Imaging Studies Abdomen/Pelvis CT 02/06/23 00:10 IMPRESSION: 1. Mild right hydroureteronephrosis with perinephric stranding due to a 2 mm stone in the right ureteral orifice of the bladder or immediately adjacent to it. 2. Small hepatic cyst. No follow-up imaging necessary. 3. Coronary artery disease. 4. The appendix is not identified with certainty but there are no signs of appendicitis. 5. Hysterectomy. 6. Multiple old compression fractures involving T12, L1, and L4 all of which have undergone vertebroplasty. Electronically Signed: Vick Chavez MD at 1:14 EST , Treatment and Re-Evaluation :: CBC was normal white count at 10.7 with a hemoglobin of 14.5. Chemistry studies unremarkable with normal renal function. Glucose is 154. LFTs are normal. Urinalysis reveals 50-100 red cells with no evidence of infection. CT flank reveals mild right hydroureteronephrosis with perinephric stranding due to a 2 mm stone in the right ureteral orifice of the bladder. Cristino evaluation patient still slightly uncomfortable. She is given p.o. ibuprofen. Test results are discussed with her. She does believe that she has had Vicodin in the past will be given a short course of [place] along with Zofran and ibuprofen. She had been seen by Dr. Francois previously and will be referred to Dr. Muhammad for follow-up as needed. Discharge Plan Triage Chief Complaint: Abd Pain ED Provider: Janessa Jesus Dx/Rx/DC Orders Clinical Impression: Ureterolithiasis Instructions: ED Kidney Stone w/ Colic Prescriptions: New hydrocodone-acetaminophen 5-325 mg tablet 1 tab PO Q6H PRN PRN (Reason: Pain) 3 Days Qty: 10 0RF ondansetron 4 mg tablet,disintegrating 4 mg PO Q8H PRN PRN (Reason: Nausea) Qty: 10 0RF ibuprofen 400 mg tablet 400 mg PO Q8H PRN (Reason: pain) Qty: 10 0RF No Action cholecalciferol (vitamin D3) 25 mcg (1,000 unit) capsule 25 mcg PO DAILY zinc 50 mg tablet 50 mg PO DAILY magnesium oxide 400 mg magnesium tablet 750 mg PO DAILY triamterene-hydrochlorothiazid 37.5-25 mg tablet 1 tab PO DAILY potassium chloride 20 mEq tablet,ER particles/crystals 20 meq PO DAILY coenzyme Q10 [Co Q-10] 200 mg capsule 200 mg PO DAILY metoprolol tartrate 25 mg tablet 25 mg PO BID Qty: 180 3RF hydralazine 25 mg tablet 25 mg PO BID Ocuvite with Lutein 1,000 unit-200 mg-60 unit-2 mg tablet 1 tab PO DAILY Rx Instructions: administer after a meal (DME) Acapella See Rx Instructions .ROUTE .MEDSUPPLY Qty: 1 0RF Rx Instructions: As directed vitamin B complex 1 EACH tablet 1 tab PO DAILY acetaminophen [Tylenol] 325 mg Tablet 650 mg PO Q6H PRN PRN (Reason: Pain Score 1-10/Temp > 100.7 F) Qty: 0 0RF Primary Care Provider: Jasmina Gallagher Referrals: Los Muhammad MD [Med Staff - Active Staff] - As Needed Jasmina Gallagher DO [Primary Care Provider] - Disposition Disposition: Home, Self Care
[2023-02-06] MEDS: Ondansetron 4 MG/2 ML Vial IV (00:34)
[2023-02-06] MEDS: 0.9% Normal Saline (1000mL) 1,000 ML 150 ML IV (00:34)
[2023-02-06] MEDS: fentaNYL 100 MCG/2 ML Ampul 25 MCG IV (00:34)
[2023-02-06 00:51] LABS: Absolute Lymphocyte Count 0.82 X10^3/uL (0.83-4.51); Absolute Neutrophil Count 8.8 X10^3/uL (2.0-7.7); Basophil# 0.05 X10^3/uL; Basophil% 0.5 % (0-1); Eosinophil# 0.04 X10^3/uL; Eosinophils% 0.4 % (0-5); Hematocrit 42.6 % (37-47); Hemoglobin 14.5 g/dL (12.0-15.0); Lymphocyte # 0.82 X10^3/ul (0.83-4.51); Lymphocyte % 7.7 % (19-41); Mean Corpuscular Hgb 33.1 pg (27.0-32.0); Mean Corpuscular Volume 97.3 fL (81-99); Mean Platelet Vol. 9.7 fl (6.2-12.0); Monocyte# 0.88 X10^3/uL; Monocyte% 8.2 % (0-10); NRBC Flagged by Analyzer 0 % (0-5); Neutrophil # 8.84 X10^3/uL (2.7-7.7); Neutrophil % 82.8 % (47-70); Platelet Count 251 K/mm3 (150-450); RBC Distribution Width CV 13.2 % (11.6-14.6); RBC Distribution Width SD 47.4 fl (35.1-43.9); Red Blood Count 4.38 M/mm3 (4.2-5.4); White Blood Count 10.7 K/mm3 (4.4-11.0)
[2023-02-06 01:09] LABS: AST(SGOT) 15 U/L (15-37); Alanine Aminotransfer ALT/SGPT 14 U/L (13-56); Albumin, Serum 3.2 g/dL (3.2-5.0); Alkaline Phosphatase 100 U/L (45-117); Anion Gap 9 (5-15); BUN 13 mg/dL (7-18); BUN/Creat Ratio 16.4 RATIO (10-20); Calcium,Total 9.5 mg/dL (8.5-10.1); Chloride 103 mmol/L (98-107); Creatinine, Serum 0.79 mg/dL (0.55-1.02); EST Glomerular Filtration Rate 73 mL/min (>60); Est Glom Filt Rate - Afr Amer 88 mL/min (>60); Estimated Creatinine Clearance 30.76 ml/min; Globulin 3.6 g/dL (2.2-4.2); Glucose 154 mg/dL (74-106); Potassium 3.6 mmol/L (3.5-5.1); Protein, Total 6.8 g/dL (6.4-8.2); Sodium Level 137 mmol/L (136-145)
[2023-02-06 01:14] VITALS: BP 173/117; PULSE 85; RESP 15; O2SAT 93
[2023-02-06 01:36] LABS: Bacteria 0 SEEN /hpf (None Seen); Mucous, Urine 0 SEEN /hpf (<or=2+); Squamous Epithelial Cells - UA 0 SEEN /hpf (5-10); White Blood Cells 0 SEEN /hpf (0-5)
[2023-02-06 01:40] LABS: Color, Urine Yellow (Yellow); Glucose, Dipstick 100 mg/dl (Normal); Ketone-Dipstick 15 mg/dl (Negative); Leukocyte Esterase-Dipstick 25 /ul (Negative); Nitrite-Dipstick Negative (Negative); Occult Blood-Urine 250 /ul (Negative); Protein-Dipstick 30 mg/dl (Negative); Urine Bilirubin Dipstick Negative (Negative); Urine Clarity Clear (Clear); Urine Urobilinogen Normal (Normal)
[2023-02-06 01:53] LABS: Red Blood Cells-Urine 50-100 SEEN /hpf (0-5)
[2023-02-06] MEDS: Ibuprofen 200 MG Tablet 400 MG PO (02:10)
[2023-02-06] MEDS: Oxymetazoline 0.05% 1 SPRAY SPRAY.BTL 2 SPRAY NASAL (02:11)
[2023-02-06 03:00] VITALS: BP 163/87; PULSE 81; RESP 16; O2SAT 99
== END 2023-02-06 07:48 | disposition home or self-care (01) ==
PROVIDERS: Emergency Provider Emergency Medicine; PCP Family Medicine; Visit Provider Emergency Medicine
DX: N13.2 Hydronephrosis with renal and ureteral calculous obstruction (principal); I10 Essential (primary) hypertension; Z79.899 Other long term (current) drug therapy; Z87.891 Personal history of nicotine dependence
CPT/HCPCS: 74176; 80048; 80076; 81001; 85025; 96361; 96374; 96375; 99285; J7030; A4216; J2405

== ENCOUNTER → 2023-04-09 | Outpatient (CLI) | payer MEDICARE, OTHER, SELFPAY ==
--- OUTSIDE RECORDS SUMMARY | 2023-04-09 14:43 | XMS RPT_ITS | CCD ---
Author Name Unknown Address [address] [place] [address] Organization [facility] Providers Care Gluing Pressman Name Role Phone Jerry Claudio MD Unavailable [phone] Allergies Allergy Classification Reported Allergen(s) Allergy Type Date of Onset Reaction(s) Facility (1 source) ALPRAZolam Drug Allergy 2 [facility] Work Phone: [phone] (1 source) amLODIPine Drug Allergy 7 SOB [facility] Work Phone: [phone] (1 source) cetirizine Drug Allergy 2 [facility] Work Phone: [phone] (2 sources) dilTIAZem Drug Allergy 2 edema and confusion [facility] Work Phone: [phone] (1 source) erythromycin Drug Allergy 2 [facility] Work Phone: [phone] (1 source) escitalopram Drug Allergy 7 [facility] Work Phone: [phone] (1 source) famotidine Drug Allergy 2 [facility] Work Phone: (1 source) lisinopril Drug Allergy 7 lip swelling [facility] Work Phone: (1 source) loracarbef Drug Allergy 2 [facility] Work Phone: (1 source) losartan Drug Allergy 7 Swelling of lips [facility] Work Phone: [phone] (1 source) meloxicam Drug Allergy 7 [facility] Work Phone: (2 sources) metoprolol Drug Allergy 2 SOB [facility] Work Phone: [phone] (1 source) predniSONE Drug Allergy 2 [facility] Work Phone: [phone] (1 source) promethazine Drug Allergy 2 [facility] Work Phone: (1 source) pseudoephedrine Drug Allergy 2 [facility] Work Phone: [phone] (1 source) raloxifene Drug Allergy 2 [facility] Work Phone: [phone] (1 source) zolpidem Drug Allergy 2 [facility] Work Phone: [phone] (1 source) ACTONIL drug allergy 2 [facility] Work Phone: Medications Completed/Discontinued Medications Medication Drug Class(es) Dates Sig (Normalized) Sig (Original) amLODIPine 5 mg oral tablet (2 sources) Dihydropyridine Calcium Channel Nia Start: 04-05-2016 End: 05-23-2016 take 1 tablet by mouth once daily AMLODIPINE BESYLATE 5 MG TABS One tablet by mouth daily AMLODIPINE BESYLATE [id number] Selam Bliss PA-C amoxicillin 875 mg / clavulanate 125 mg oral tablet (2 sources) Penicillin-class Antibacterial End: 07-29-2012 AMOXICILLIN-POT CLAVULANATE 875-125 MG TABS AMOXICILLIN-POT CLAVULANATE [id number] Mj Savage ascorbic acid (3 sources) Start: 04-05-2016 End: 12-14-2016 VITAMIN C TABS 1000mg daily ASCORBIC ACID TABS [id number] Ariadna Mendoza RN Problems Active Problems Problem Classification Problem Date Documented Da te Episodic/Chronic Cardiac dysrhythmias (1 source) Ventricular premature depolarization; Translations: [Ventricular premature depolarization] Onset: 04-05-2016 04-05-2016 Chronic Essential hypertension (1 source) Hypertensive disorder; Translations: [Essential (primary) hypertension] Onset: 07-23-2012 07-23-2012 Chronic Past or Other Problems Problem Classification Problem Date Documented Date Episodic/Chronic Cardiac dysrhythmias (1 source) Palpitations; Translations: [Palpitations] Onset: 07-23-2012 07-23-2012 Episodic Intestinal obstruction without hernia (1 source) Obstruction of colon; Translations: [Other intestinal obstruction unspecified as to partial versus complete obstruction] Onset: 02-19-2017 02-19-2017 Episodic Other and unspecified benign neoplasm (2 sources) Atrial myxoma ; Translations: [Benign neoplasm of heart] Onset: 04-24-2016 05-23-2016 Episodic Skin and subcutaneous tissue infections (1 source) Carbuncle of buttock; Translations: [Carbuncle of buttock] 08-15-2011 Episodic Unclassified (1 source) Electrocardiogram abnormal; Translations: [Abnormal electrocardiogram [ECG] [EKG]] Onset: 04-05-2016 04-05-2016 Episodic Results Test Name Value Interpretation Reference Range Facil ity Vital Signs Date Time Vital Sign Value Performing Clinician Facility 02-19-2017 09:41-0500 BMI (Body Mass Index) 21.97 kg/m2 Jerry Claudio MD [facility] Work Phone: 02-19-2017 09:41-0500 Body Temperature 97.8 [degF] Jerry Claudio MD [facility] Work Phone: 02-19-2017 09:41-0500 BP Diastolic 96 mm[Hg] Jerry Claudio MD [facility] Work Phone: 02-19-2017 09:41-0500 BP Systolic 147 mm[Hg] Jerry Claudio MD [facility] Work Phone: 02-19-2017 09:41-0500 Height 163.83 cm Jerry Claudio MD [facility] Work Phone: 02-19-2017 09:41-0500 Pulse (Heart Rate) 90 /min Jerry Claudio MD [facility] Work Phone: 02-19-2017 09:41-0500 Respiratory Rate 20 /min Jerry Claudio MD [facility] Work Phone: 02-19-2017 09:41-0500 Weight 58.97 kg Jerry Claudio MD [facility] Work Phone: 04-05-2016 10:17-0500 BP Diastolic 100 mm[Hg] Jerry Claudio MD [facility] Work Phone: 04-05-2016 10:17-0500 BP Systolic 170 mm[Hg] Jerry Claudio MD [facility] Work Phone: 04-05-2016 10:17-0500 BSA (Body Surface Area) 1.68 m2 Jerry Claudio MD [facility] Work Phone: Procedures Date Procedure Procedure Detail Performing Clinician Start: 06-13-2016 End: 06-13-2016 KACEY Hernandez MD Start: 06-13-2016 End: 06-13-2016 Follow Up Appt 6 months Beatriz Campbell Start: 05-23-2016 End: 06-04-2016 *BMP Selam Bliss PA-C Work Phone: Start: 05-23-2016 End: 05-23-2016 KACEY Blsis PA-C Work Phone: Start: 05-23-2016 End: 05-23-2016 Follow Up Appt 3 months Selam vergara PA-C Work Phone: Start: 04-05-2016 End: 04-24-2016 24 hour holter monitor Rahul Hernandez MD Start: 04-05-2016 End: 04-05-2016 Ecg routine ecg w/least 12 lds w/i&r Rahul Hernandez MD Start: 04-05-2016 End: 04-19-2016 Echocardiography Rahul Hernandez MD Start: 04-05-2016 End: 04-05-2016 Follow Up Appt 6 weeks Rahul Hernandez MD Start: 04-05-2016 End: 04-05-2016 MMM Rahul Hernandez MD Start: 07-29-2012 End: 07-29-2012 Ecg routine ecg w/least 12 lds w/i&r Rahul Hernandez MD Start: 07-29-2012 End: 08-03-2012 Echocardiography Rahul Hernandez MD Start: 07-29-2012 End: 07-29-2012 Follow Up Appt Other Rahul Hernandez MD Plan of Treatment Date Care Activity Detail Author Start: 06-16-2017 End: 06-16-2017 Appointment Appointment [facility] Work Phone: Start: 03-11-2017 End: 03-11-2017 Appointment Appointment [facility] Work Phone: Start: 02-19-2017 End: 02-19-2017 Appointment Appointment [facility] Work Phone: Start: 12-17-2016 End: 12-17-2016 Follow Up Appt 6 months Follow Up Appt 6 months [facility] Work Phone: Start: 12-17-2016 End: 12-17-2016 JHR JHR [facility] Work Phone: Start: 06-13-2016 End: 06-13-2016 USER EXPERIENCE LEAD USER EXPERIENCE LEAD [facility] Work Phone: Start: 06-13-2016 End: 06-13-2016 Follow Up Appt 6 months Follow Up Appt 6 months [facility] Work Phone: Start: 05-23-2016 End: 06-04-2016 *BMP *BMP [facility] Work Phone: Start: 05-23-2016 End: 05-23-2016 USER EXPERIENCE LEAD USER EXPERIENCE LEAD [facility] Work Phone: Start: 05-23-2016 End: 05-23-2016 Follow Up Appt 3 months Follow Up Appt 3 months [facility] Work Phone: Start: 05-23-2016 End: 05-23-2016 Transesophageal echocardiogram (MAR) Transesophageal echocardiogram (MAR) [email or web address] Work Phone: Start: 04-05-2016 End: 04-05-2016 24 hour holter monitor 24 hour holter monitor [email or web address] Work Phone: Start: 04-05-2016 End: 04-05-2016 Ecg routine ecg w/least 12 lds w/i&r EKG (In office) [email or web address] Work Phone: Start: 04-05-2016 End: 04-05-2016 Echocardiography Echocardiogram (complete) [email or web address] Work Phone: Start: 04-05-2016 End: 04-05-2016 Follow Up Appt 6 weeks Follow Up Appt 6 weeks [email or web address] Work Phone: Start: 04-05-2016 End: 04-05-2016 MMM MMM [email or web address] Work Phone: Start: 07-29-2012 End: 07-29-2012 Ecg routine ecg w/least 12 lds w/i&r EKG (In office) [email or web address] Work Phone: Start: 07-29-2012 End: 07-29-2012 Echocardiography Echocardiogram (complete) [email or web address] Work Phone: Start: 07-29-2012 End: 07-29-2012 Follow Up Appt Other Follow Up Appt Other [email or web address] Work Phone: Additional Source Comments FOR RECORDS PERTAINING TO PATIENTS WHO ARE OR HAVE BEEN ENROLLED IN A CHEMICAL DEPENDENCY/SUBSTANCEABUSE PROGRAM, SOME INFORMATION MAY BE OMITTED. This clinical summary was aggregated from multiple sources. Caution should be exercised in using it in the provision of clinical care. This summary normalizes information from multiple sources, and as a consequence, information in this document may materially change the coding, format and clinical context of patient data. In addition, data may be omitted in some cases. CLINICAL DECISIONS SHOULD BE BASED ON THE PRIMARY CLINICAL RECORDS. [employer] [facility]. provides no warranty or guarantee of the accuracy or completeness of information in this document.
[2023-04-09 18:14] LABS: Vitamin B12 349 pg/mL (211-911); Vitamin D,25 Hydroxy 45.1 ng/mL
[2023-04-09 18:29] LABS: ALB/GLOB Ratio 0.9 RATIO (0.9-2.4); AST(SGOT) 19 U/L (15-37); Alanine Aminotransfer ALT/SGPT 13 U/L (13-56); Albumin, Serum 3.2 g/dL (3.2-5.0); Alkaline Phosphatase 94 U/L (45-117); Anion Gap 8 (5-15); BUN 15 mg/dL (7-18); BUN/Creat Ratio 19.8 RATIO (10-20); Calcium,Total 9.1 mg/dL (8.5-10.1); Chloride 104 mmol/L (98-107); Cholesterol 184 mg/dL (200); Creatinine, Serum 0.76 mg/dL (0.55-1.02); EST Glomerular Filtration Rate 77 mL/min (>60); Est Glom Filt Rate - Afr Amer 93 mL/min (>60); Globulin 3.6 g/dL (2.2-4.2); Glucose 84 mg/dL (74-106); High Density Lipoprotein 80 mg/dL; Potassium 3.5 mmol/L (3.5-5.1); Protein, Total 6.8 g/dL (6.4-8.2); Sodium Level 138 mmol/L (136-145); Triglycerides 78 mg/dL; Very Low Density Lipoprotein 16 mg/dL (5-40)
== END | disposition home or self-care (01) ==
LOC: MFPLAB 14:17
PROVIDERS: PCP Family Medicine; Visit Provider Family Medicine
DX: I10 Essential (primary) hypertension (principal); E55.9 Vitamin D deficiency, unspecified; E53.8 Deficiency of other specified B group vitamins
CPT/HCPCS: 36415; 80053; 80061; 82306; 82607; 86141

== ENCOUNTER → 2023-04-16 | Outpatient (CLI) | payer MEDICARE, OTHER, SELFPAY ==
--- NOTE | 2023-04-16 15:03 | RAD_ITS ---
INDICATION: SOB COUGH EXAMINATION/TECHNIQUE: X-RAY - XR Chest 2 Views COMPARISON: Prior study dated: 10/16/2020. FINDINGS: LINES/DEVICES: None. LUNGS: Patchy right lower lung infiltrate new since previous exam concerning for pneumonia. Mild scarring in the left lung. No evidence of pleural effusions. MEDIASTINUM AND CARDIOVASCULAR STRUCTURES: Stable cardiomediastinal silhouette. Tortuosity of the thoracic aorta. BONES AND SOFT TISSUES: Unchanged. RAD/Chest PA and Lateral IMPRESSION: Mild patchy infiltrate in right lower lung concerning for early pneumonia. Electronically Signed: Keyon Smith MD at 15:33 EST ,
--- NOTE | 2023-04-16 15:05 | RAD_ITS ---
INDICATION: FALL, PAIN EXAMINATION/TECHNIQUE: X-RAY - RIGHT XR Elbow Min 3 Views COMPARISON: Prior study dated: 06/15/2015. FINDINGS: SOFT TISSUES: Soft tissue swelling. Displacement of the anterior fat pad. No radiopaque foreign body. BONES/JOINTS: Questionable hairline nondisplaced fracture of the olecranon process. The remainder of the osseous structures appear intact. Normal alignment. Preservation of the joint space. No sclerotic or destructive changes observed. RAD/Elbow min 3 Views IMPRESSION: Joint effusion. Questionable hairline nondisplaced fracture of the olecranon process. Electronically Signed: Keyon Smith MD at 15:35 EST ,
--- OUTSIDE RECORDS SUMMARY | 2023-04-16 16:21 | XMS RPT_ITS | CCD ---
Author Name Unknown Address [address] [place] [address] Organization [facility] Care Team Providers Care Clarity Specialists Name Role Phone Jerry Claudio MD Unavailable Allergies Allergy Classification Reported Allergen(s) Allergy Type Date of Onset Reaction(s) Facility (1 source) ALPRAZolam Drug Allergy 2 [facility] Work Phone: [phone] (1 source) amLODIPine Drug Allergy 7 SOB [facility] Work Phone: [phone] (1 source) cetirizine Drug Allergy 2 [facility] Work Phone: [phone] (2 sources) dilTIAZem Drug Allergy 2 edema and confusion [facility] Work Phone: [phone] (1 source) erythromycin Drug Allergy 2 [facility] Work Phone: [phone] (1 source) escitalopram Drug Allergy 7 [facility] Work Phone: [phone] (1 source) famotidine Drug Allergy 2 [facility] Work Phone: (1 source) lisinopril Drug Allergy 7 lip swelling [facility] Work Phone: (1 source) loracarbef Drug Allergy 2 [facility] [place] Work Phone: (1 source) losartan Drug Allergy 7 Swelling of lips [facility] Work Phone: [phone] (1 source) meloxicam Drug Allergy 7 [facility] Work Phone: (2 sources) metoprolol Drug Allergy 2 SOB [facility] Work Phone: [phone] (1 source) predniSONE Drug Allergy 2 [facility] Work Phone: [phone] (1 source) promethazine Drug Allergy 2 [facility] [place] Work Phone: (1 source) pseudoephedrine Drug Allergy 2 [facility] [place] Work Phone: [phone] (1 source) raloxifene Drug Allergy 2 [facility] [place] Work Phone: [phone] (1 source) zolpidem Drug Allergy 2 [facility] [place] Work Phone: [phone] (1 source) ACTONIL drug allergy 2 [facility] [place] Work Phone: Medications Completed/Discontinued Medications Medication Drug Class(es) Dates Sig (Normalized) Sig (Original) amLODIPine 5 mg oral tablet (2 sources) Dihydropyridine Calcium Channel Nia Start: 04-05-2016 End: 05-23-2016 take 1 tablet by mouth once daily AMLODIPINE BESYLATE 5 MG TABS One tablet by mouth daily AMLODIPINE BESYLATE [id number] Selam Bliss PA-C amoxicillin 875 mg / clavulanate 125 mg oral tablet (2 sources) Penicillin-class Antibacterial End: 07-29-2012 AMOXICILLIN-POT CLAVULANATE 875-125 MG TABS AMOXICILLIN-POT CLAVULANATE [id number] Mj Savage ascorbic acid (3 sources) Start: 04-05-2016 End: 12-14-2016 VITAMIN C TABS 1000mg daily ASCORBIC ACID TABS [id number] Ariadna Mendoza RN Problems Active Problems Problem [...] Mass Index) 21.97 kg/m2 Jerry Claudio MD [facility] Work Phone: 02-19-2017 09:41-0500 Body Temperature 97.8 [degF] Jerry Claudio MD [facility] Work Phone: 02-19-2017 09:41-0500 BP Diastolic 96 mm[Hg] Jerry Claudio MD [facility] Work Phone: 02-19-2017 09:41-0500 BP Systolic 147 mm[Hg] Jerry Claudio MD [facility] Work Phone: 02-19-2017 09:41-0500 Height 163.83 cm Jerry Claudio MD [facility] Work Phone: 02-19-2017 09:41-0500 Pulse (Heart Rate) 90 /min Jerry Claudio MD [facility] Work Phone: 02-19-2017 09:41-0500 Respiratory Rate 20 /min Jerry Claudio MD [facility] Work Phone: 02-19-2017 09:41-0500 Weight 58.97 kg Jerry Claudio MD [facility] Work Phone: 04-05-2016 10:17-0500 BP Diastolic 100 mm[Hg] Jerry Claudio MD [facility] Work Phone: 04-05-2016 10:17-0500 BP Systolic 170 mm[Hg] Jerry Claudio MD [facility] Work Phone: 04-05-2016 10:17-0500 BSA (Body Surface Area) 1.68 m2 Jerry Claudio MD [facility] [place] Work Phone: Procedures Date Procedure Procedure Detail Performing Clinician Start: 06-13-2016 End: 06-13-2016 KACEY Hernandez MD Start: 06-13-2016 End: 06-13-2016 Follow Up Appt 6 months Beatriz Campbell Start: 05-23-2016 End: 06-04-2016 *BMP Selam Bliss PA-C Work Phone: Start: 05-23-2016 End: 05-23-2016 KACEY Bliss PA-C Work Phone: Start: 05-23-2016 End: [...] Author Start: 06-16-2017 End: 06-16-2017 Appointment Appointment [facility] [place] Work Phone: Start: 03-11-2017 End: 03-11-2017 Appointment Appointment [facility] [place] Work Phone: Start: 02-19-2017 End: 02-19-2017 Appointment Appointment [facility] [place] Work Phone: Start: 12-17-2016 End: 12-17-2016 Follow Up Appt 6 months Follow Up Appt 6 months [facility] [place] Work Phone: Start: 12-17-2016 End: 12-17-2016 JHR JHR [facility] [place] Work Phone: Start: 06-13-2016 End: 06-13-2016 DINING ROOM COORDINATOR DINING ROOM COORDINATOR [facility] [place] Work Phone: Start: 06-13-2016 End: 06-13-2016 Follow Up Appt 6 months Follow Up Appt 6 months [facility] [place] Work Phone: Start: 05-23-2016 End: 06-04-2016 *BMP *BMP [facility] [place] Work Phone: Start: 05-23-2016 End: 05-23-2016 DINING ROOM COORDINATOR DINING ROOM COORDINATOR [facility] [place] Work Phone: Start: 05-23-2016 End: 05-23-2016 Follow Up Appt 3 months Follow Up Appt 3 months [facility] [place] Work Phone: Start: 05-23-2016 End: 05-23-2016 Transesophageal echocardiogram (MAR) Transesophageal echocardiogram (MAR) [facility] Work Phone: Start: 04-05-2016 End: 04-05-2016 24 hour holter monitor 24 hour holter monitor [facility] Work Phone: Start: 04-05-2016 End: 04-05-2016 Ecg routine ecg w/least 12 lds w/i&r EKG (In office) [facility] Work Phone: Start: 04-05-2016 End: 04-05-2016 Echocardiography Echocardiogram (complete) [facility] Work Phone: Start: 04-05-2016 End: 04-05-2016 Follow Up Appt 6 weeks Follow Up Appt 6 weeks [facility] Work Phone: Start: 04-05-2016 End: 04-05-2016 MMM MMM [facility] Work Phone: Start: 07-29-2012 End: 07-29-2012 Ecg routine ecg w/least 12 lds w/i&r EKG (In office) [facility] Work Phone: Start: 07-29-2012 End: 07-29-2012 Echocardiography Echocardiogram (complete) [facility] Work Phone: Start: 07-29-2012 End: 07-29-2012 Follow Up Appt Other Follow Up Appt Other [facility] Work Phone: Additional Source Comments FOR RECORDS [...] BE BASED ON THE PRIMARY CLINICAL RECORDS. [employer] [facility]. provides no warranty or guarantee of the accuracy or completeness of information in this document.
== END | disposition home or self-care (01) ==
PROVIDERS: PCP Family Medicine; Referring Provider Nurse Practitioner Family; Visit Provider Nurse Practitioner Family
DX: M25.521 Pain in right elbow (principal); R05.9 Cough, unspecified; W19.XXXA Unspecified fall, initial encounter
CPT/HCPCS: 71046; 73080

== ENCOUNTER 2023-04-17 12:37 | Inpatient (IN) | payer MEDICARE, OTHER, SELFPAY ==
[2023-04-17] VITALS (12 sets, daily range): BP systolic 115–154; BP diastolic 73–107; PULSE 89–142; RESP 15–23; TEMP 36–37.3; O2SAT 90–97; BMI 22.8; BMI 22.6
--- NOTE | 2023-04-17 12:51 | RAD_ITS ---
STUDY: X-RAY CHEST REASON FOR EXAM: Female, 87 years old. Cough, dyspnea TECHNIQUE: Single AP portable view of the chest. COMPARISON: Comparison is made with prior study dated October 15, 2023. FINDINGS: EKG electrodes are seen. Residual patchy right lower lobe infiltrate. Slightly improved. Stable scarring at the left lung base. There is no demonstrated pleural abnormality. There is mild cardiac enlargement. Normal mediastinum and shazia. Normal visualized pulmonary arteries. There is atherosclerotic calcification of the aortic arch with tortuosity. Prior vertebroplasty of lower dorsal vertebrae. Normal visualized ribs, clavicles, and shoulders. There is no demonstrated abnormality of the visualized soft tissue structures of the upper abdomen. RAD/Chest 1 View (Portable) IMPRESSION: Residual patchy right lower lobe infiltrate although there has been mild improvement as compared to prior study. Electronically Signed: Negrito Honeycutt MD at 14:31 EST ,
--- NOTE | 2023-04-17 12:53 | ED.VIS.DYS ---
HPI History of Present Illness Chief Complaint: Shortness of Breath Detail of Chief Complaint: Shortness of breath Informant: patient Narrative Narrative: Patient presents to the emergency department complaint of shortness of breath that started about a week ago. Patient was seen by nurse practitioner and her family physician's office yesterday and had a chest x-ray and was diagnosed with pneumonia. Patient apparently was started on amoxicillin at her request because patient did not want to go on any other type of antibiotic. Today her family member from out of town called and advised her to get evaluated in the emergency department. She denies any chest pain. Cough mostly nonproductive. She had low-grade fevers. She is unsure about sick contacts. She lives alone. [facility] Medical History (Updated 04/17/23 @ 15:58 by Mabel Vela) Abnormal electrocardiogram Anxiety Atrial fibrillation Atrial myxoma Benign cardiac neoplasm Compression fracture of lumbar spine, non-traumatic Contusion of right shoulder Depression Essential hypertension ETOH abuse Former smoker Former smoker GERD (gastroesophageal reflux disease) Hypertension Irregular heart beat Kidney stones Nose abrasion Osteoporosis Paroxysmal atrial fibrillation Right shoulder strain Ventricular premature depolarization Vision loss of left eye (Unknown) Home Medications cholecalciferol (vitamin D3) 25 mcg (1,000 unit) capsule 25 mcg PO DAILY vitamin 11/11/19 [History Last Taken 2 Days Ago ~01/22/20] vitamin B complex 1 tab PO DAILY supplement 01/24/20 [History Last Taken 01/23/20] acetaminophen 325 mg tablet (Tylenol) 650 mg (2 x 325 mg) PO Q6H PRN PRN Pain Score 1-10/Temp > 100.7 F #0 tabs 08/14/20 [Rx Last Taken Unknown] Acapella #1 ea 11/09/20 [Rx Last Taken Unknown] magnesium oxide 500 mg PO DAILY supplement 11/09/20 [History Last Taken Unknown] vit A 300 mcg-C 200 mg-E 27 mg-lutein 2 mg and minerals tablet (Ocuvite with Lutein) 1 tab PO DAILY supplement 11/09/20 [History Last Taken Unknown] coenzyme Q10 200 mg capsule (Co Q-10) 200 mg PO DAILY 05/22/21 [History Last Taken Unknown] metoprolol tartrate 25 mg tablet 25 mg PO BID #180 tabs 05/22/21 [Rx Last Taken Unknown] potassium chloride 20 mEq tablet,extended release(part/cryst) 20 meq PO DAILY 05/22/21 [History Last Taken Unknown] triamterene 37.5 mg-hydrochlorothiazide 25 mg tablet 1 tab PO DAILY 05/22/21 [History Last Taken Unknown] hydralazine 25 mg tablet 25 mg PO BID 10/31/21 [History Last Taken Unknown] amoxicillin 875 mg tablet 875 mg PO BID infection 04/17/23 [History Last Taken Unknown] Allergy/AdvReac Type Severity Reaction Status Date / Time triamcinolone Allergy Mild Other Verified 04/17/23 12:40 alprazolam [From Xanax] Allergy Unknown Verified 04/17/23 12:40 atenolol Allergy Shortness Verified 04/17/23 12:40 of breath carvedilol Allergy Anaphylaxis Verified 04/17/23 12:40 cetirizine [From Zyrtec] Allergy Unknown Verified 04/17/23 12:40 cimetidine [From Tagamet] Allergy Unknown Verified 04/17/23 12:40 diltiazem [From Cardizem] Allergy Unknown Verified 04/17/23 12:40 erythromycin base Allergy Unknown Verified 04/17/23 12:40 famotidine [From Pepcid] Allergy Unknown Verified 04/17/23 12:40 grass pollen Allergy NEEDS Verified 04/17/23 12:40 FOLLOW-UP guaifenesin [From Entex LA] Allergy Unknown Verified 04/17/23 12:40 house dust Allergy Unknown Verified 04/17/23 12:40 lansoprazole [From Prevacid] Allergy Unknown Verified 04/17/23 12:40 loracarbef [From Lorabid] Allergy Unknown Verified 04/17/23 12:40 metoprolol [From Toprol XL] Allergy Unknown Verified 04/17/23 12:40 mold Allergy Unknown Verified 04/17/23 12:40 phenylephrine [From Entex LA] Allergy Unknown Verified 04/17/23 12:40 phenylpropanolamine Allergy Unknown Verified 04/17/23 12:40 [From Entex LA] promethazine [From Phenergan] Allergy Unknown Verified 04/17/23 12:40 raloxifene [From Evista] Allergy Unknown Verified 04/17/23 12:40 ranitidine [From Zantac] Allergy Unknown Verified 04/17/23 12:40 risedronate sodium Allergy Unknown Verified 04/17/23 12:40 [From Actonel] escitalopram [From Lexapro] AdvReac Severe Unknown Verified 04/17/23 12:40 lisinopril AdvReac Severe Lip Verified 04/17/23 12:40 swelling losartan [From Cozaar] AdvReac Severe Swelling Verified 04/17/23 12:40 lips meloxicam AdvReac Severe Unknown Verified 04/17/23 12:40 prednisone AdvReac Severe Unknown Verified 04/17/23 12:40 zolpidem [From Ambien] AdvReac Severe Unknown Verified 04/17/23 12:40 amlodipine [From Norvasc] AdvReac SOB Verified 04/17/23 12:40 clonazepam [From Klonopin] AdvReac NEEDS Verified 04/17/23 12:40 FOLLOW-UP diphenhydramine AdvReac NEEDS Verified 04/17/23 12:40 [From Benadryl] FOLLOW-UP metronidazole [From Flagyl] AdvReac Pain in Verified 04/17/23 12:40 joints Family History (Reviewed 03/14/23 @ 13:25 by Marie Webb ETHERNET NETWORK ARCHITECT, ETHERNET NETWORK ARCHITECT-C) Mother CAD (coronary artery disease) Father Kidney disease Surgical History H/O partial resection of colon History of hysterectomy Social History (Reviewed 03/14/23 @ 13:25 by Marie Webb ETHERNET NETWORK ARCHITECT, ETHERNET NETWORK ARCHITECT-C) Smoking Status: Former smoker how long ago did patient quit smokin years ago alcohol intake: former details: Patient states he quit alcohol in January 2020. substance use type: does not use caffeine: Yes Type: coffee Number of servings: 1 ROS ROS ED Review of Systems ROS Unobtainable: other Constitutional Constitutional ED: Reports lethargy; Denies chills, fever(s), sweats or weight loss Eyes Eyes: Denies blurry vision, change in vision or diplopia ENT ENT ED: Denies rhinorrhea or sore throat Cardiovascular Cardiovascular: Denies chest pain, orthopnea or racing heartbeat Respiratory/Chest Respiratory/Chest: Reports cough, dyspnea and dyspnea on exertion; Denies orthopnea or sputum Gastrointestinal Gastrointestinal: Denies abdominal pain, diarrhea, nausea or vomiting Genitourinary Genitourinary ED: Denies dysuria, hematuria or urinary frequency Musculoskeletal Musculoskeletal: Denies arthralgias, back pain, myalgias or neck pain Integumentary Denies abscess, Abrasions or rash Neurologic Neurologic: Denies headache(s) or weakness Psychiatric Psychiatric: Denies anxiety, depression or suicidal thoughts Endocrine Endocrinology: Denies polydipsia, polyphagia or polyuria Hematologic/Lymphatic Hematologic/Lymphatic: Denies easy bleeding, easy bruising or lymphadenopathy Allergic/Immunologic Allergic/Immunologic ED: Denies mouth swelling, tongue swelling or urticaria EXAM Physical Exam Const Vital Signs: 04/17/23 12:40 04/17/23 12:43 04/17/23 12:45 Temperature 99.2 F H Temperature Source Oral Pulse Rate 117 H Respiratory Rate 23 H Respiratory Effort Non-Labored Short of Breath Respiratory Depth Shallow Respiratory Pattern Blood Pressure 139/107 H Blood Pressure Mean 117 Pulse Ox 90 92 Oxygen Delivery Method Room Air Room Air Room Air 04/17/23 13:17 04/17/23 13:23 04/17/23 13:51 Temperature 98.7 F Temperature Source Oral Pulse Rate 107 H 118 H Respiratory Rate 20 H 19 H Respiratory Effort Respiratory Depth Respiratory Pattern Tachypnea Blood Pressure 154/97 H Blood Pressure Mean 116 Pulse Ox 92 93 Oxygen Delivery Method Room Air Positive well nourished and well developed General Appearance ED: well developed and NAD HEENT Reports TM's clear and moist mucous membranes normocephalic and atraumatic; Negative for trauma or tenderness Tympanic Membrane ED: Yes TM's clear Eyes PERRL and EOMs intact bilaterally General Eye ED: Negative for pale conjunctiva or scleral icterus Neck no lymphadenopathy, supple and no JVD General: Negative for tenderness Chest Wall inspection of chest normal and palpation of chest normal Chest: Negative for tenderness Resp normal respiratory effort and clear to auscultation bilaterally Resp Narrative: Few rales in the left base. Mild tachypnea. No accessory muscle use or retractions. No conversational dyspnea. Effort and Inspection: Negative for respiratory distress or pain with movement Auscultation: rhonchi and wheezes; Negative for diminished lung sounds Cardio regular rate, regular rhythm, S1 normal heart sound, S2 normal heart sound and no murmurs Peripheral Pulses: pulses 2+ throughout GI normal to inspection, nondistended, normoactive bowel sounds, soft to palpation, non-tender, non-distended and no masses Back/Spine no CVA tenderness and no thoracic nor lumbar tenderness Extremity normal to inspection General Extremety ED: Negative for edema General Extremity: Negative for edema Neuro oriented x3, CN's II-XII intact bilaterally, no sensory deficits noted and gait normal Sensorium / Orientation: awake, alert, oriented to person, oriented to place and oriented to time Motor Exam: strength 5/5 throughout and strength abnormal Psych mental status grossly normal Skin no rashes or lesions noted and no wounds MDM MDM MDM Narrative Medical decision making narrative: Patient presents with dyspnea and recent diagnosis of pneumonia yesterday on amoxicillin. She presents tachycardic with O2 sat of 90% on room air. IV line established on arrival. EKG obtained arrival showed atrial fibrillation with a rate of [address] changes. When compared with prior EKG the A-fib is chronic. CBC with differential obtained showed a white count of 18.6 with hemoglobin 13.4 platelets of 232. Chemistries unremarkable. Lactate was normal at 1.5. 1 view chest x-ray obtained interpreted by myself as right lower lobe infiltrate. Patient was started on Levaquin IV. Blood cultures have been ordered. Case discussed with hospitalist who will evaluate patient for admission COVID and flu and RSV testing still pending. Lab Data Attestation: I reviewed the patient's lab results. Labs: Laboratory Results - last 24 hr 04/17/23 13:00 WBC 18.6 H RBC 3.96 L Hgb 13.4 Hct 40.0 MCV 101.0 H MCH 33.8 H MCHC 33.5 RDW Std Deviation 48.3 H RDW Coeff of Jared 13.1 Plt Count 232 MPV 10.4 Immature Gran % (Auto) 0.600 Neut % (Auto) 82.0 H Lymph % (Auto) 4.9 L [place] % (Auto) 10.8 H Eos % (Auto) 0.9 Baso % (Auto) 0.8 Absolute Neuts (auto) 15.2 H Absolute Lymphs (auto) 0.92 Nucleated RBC % 0 Differential Comment SCANNED Diff Path Review May foll Toxic Granulation 1+ Sodium 135 L Potassium 3.5 Chloride 100 Carbon Dioxide 28.0 Anion Gap 7 BUN 20 H Creatinine 0.81 Est GFR (MDRD) Af Amer 86 Est GFR (MDRD) Non-Af 71 BUN/Creatinine Ratio 24.6 H Glucose 150 H Lactic Acid 1.6 Calcium 9.5 Radiography Diagnostic Testing: Clinical Impression(s) from Imaging Studies Chest X-Ray 04/17/23 12:51 IMPRESSION: Residual patchy right lower lobe infiltrate although there has been mild improvement as compared to prior study. Electronically Signed: Negrito Honeycutt MD at 14:31 EST , 1 view chest x-ray obtained interpreted by myself as right lower lobe infiltrate. Official report from radiology pending EKG Initial EKG: Attestation: I personally reviewed and interpreted this EKG as follows: Comments: Atrial fibrillation with rate of [address] changes Prior EKG tracings: available for review Prior: Unchanged Discharge Plan Dx/Rx/DC Orders Clinical Impression: Pneumonia, Atrial fibrillation with rapid ventricular response, Acute dyspnea, Leukocytosis Disposition Disposition: Acute Care Hospital [facility] Discharge Date/Time: 04/17/23 15:50
[2023-04-17 13:13] LABS: Absolute Lymphocyte Count 0.92 X10^3/uL (0.83-4.51); Absolute Neutrophil Count 15.2 X10^3/uL (2.0-7.7); Basophil# 0.15 X10^3/uL; Basophil% 0.8 % (0-1); Eosinophil# 0.17 X10^3/uL; Eosinophils% 0.9 % (0-5); Hemoglobin 13.4 g/dL (12.0-15.0); Lymphocyte # 0.92 X10^3/ul (0.83-4.51); Lymphocyte % 4.9 % (19-41); Mean Corp Hgb Conc 33.5 g/dL (32-36); Mean Corpuscular Hgb 33.8 pg (27.0-32.0); Mean Platelet Vol. 10.4 fl (6.2-12.0); Monocyte# 2.01 X10^3/uL; Monocyte% 10.8 % (0-10); NRBC Flagged by Analyzer 0 % (0-5); Neutrophil # 15.22 X10^3/uL (2.7-7.7); POSITIVE DIFFERENTIAL YES; Platelet Count 232 K/mm3 (150-450); RBC Distribution Width CV 13.1 % (11.6-14.6); RBC Distribution Width SD 48.3 fl (35.1-43.9); Red Blood Count 3.96 M/mm3 (4.2-5.4); White Blood Count 18.6 K/mm3 (4.4-11.0)
[2023-04-17 13:14] LABS: Differential Indicated SCAN CRITERIA MET
[2023-04-17] MEDS: Ipratropium/Albuterol Sulfate 3 ML AMPUL.NEB INHALATION (13:18)
[2023-04-17] MEDS: 0.9% Normal Saline (1000mL) 1,000 ML 150 ML IV (13:18)
[2023-04-17 13:28] LABS: Anion Gap 7 (5-15); BUN 20 mg/dL (7-18); BUN/Creat Ratio 24.6 RATIO (10-20); Calcium,Total 9.5 mg/dL (8.5-10.1); Chloride 100 mmol/L (98-107); Creatinine, Serum 0.81 mg/dL (0.55-1.02); EST Glomerular Filtration Rate 71 mL/min (>60); Est Glom Filt Rate - Afr Amer 86 mL/min (>60); Glucose 150 mg/dL (74-106); Potassium 3.5 mmol/L (3.5-5.1); Sodium Level 135 mmol/L (136-145)
[2023-04-17 13:39] LABS: Lactic Acid 1.6 mmol/L (0.4-1.9)
[2023-04-17 13:45] LABS: Differential Comment SCANNED; Toxic Granulation 1+
--- NOTE | 2023-04-17 14:14 | PCM.HP.STD ---
HPI - General General Date of Admission: 04/17/23 Date of Service: 04/17/23 Chief Complaint: Worsening shortness of breath with cough HPI Narrative JADON SUNG, is a 87 F who presented to [facility] ED on 04/17/2023 with worsening shortness of breath and cough. Patient seen at bedside in the ED, friend present. Patient was laying comfortably in bed, conversing normally, no acute distress. Patient was breathing comfortably on room air, no increased work of breathing noted. Patient is elderly and somewhat frail appearing, but she is very sharp mentally. She does live at home by her self. Her friend Sera was in the room with her. Sera notes that the patient's niece Martha lives in [place] and is patient's primary point of contact. Sera is the patient's primary contact in [facility] who is able to help with things at the patient's house as needed. Patient states that she developed some shortness of breath and worsening cough over the past few days. She saw her PCP yesterday who started patient on amoxicillin at her request (was the only antibiotic patient wanted because she has had success with in the past) and had a chest x-ray done that showed an early developing pneumonia. Patient states that she felt worse this morning with subjective fevers and worsening weakness, so she decided to come to the ED for further evaluation. Patient also notes that she walks with a 4-point walker at baseline and has a fair degree of debility, and she fell at home on Friday and hit her elbow. Elbow x-ray in the ED showed a elbow joint effusion and questionable hairline nondisplaced fracture of the olecranon process. Patient and Sera states that they were hoping the patient will be admitted with the plan to go to a senior living facility for short time on discharge. Patient has gone to [facility] in the past and had a good experience, and her sister had a good experience at the [facility] as well so she would prefer 1 of these 2 facilities if possible. Patient otherwise denies any chest pain, abdominal pain or discomfort, lightheadedness or dizziness. No other acute concerns this time. [facility] Medical History (Updated 04/17/23 @ 15:58 by Mabel Vela) Abnormal electrocardiogram Anxiety Atrial fibrillation Atrial myxoma Benign cardiac neoplasm Compression fracture of lumbar spine, non-traumatic Contusion of right shoulder Depression Essential hypertension ETOH abuse Former smoker Former smoker GERD (gastroesophageal reflux disease) Hypertension Irregular heart beat Kidney stones Nose abrasion Osteoporosis Paroxysmal atrial fibrillation Right shoulder strain Ventricular premature depolarization Vision loss of left eye (Unknown) Home Medications cholecalciferol (vitamin D3) 25 mcg (1,000 unit) capsule 25 mcg PO DAILY vitamin 11/11/19 [History Last Taken 2 Days Ago ~01/22/20] vitamin B complex 1 tab PO DAILY supplement 01/24/20 [History Last Taken 01/23/20] acetaminophen 325 mg tablet (Tylenol) 650 mg (2 x 325 mg) PO Q6H PRN PRN Pain Score 1-10/Temp > 100.7 F #0 tabs 08/14/20 [Rx Last Taken Unknown] Acapella #1 ea 11/09/20 [Rx Last Taken Unknown] magnesium oxide 500 mg PO DAILY supplement 11/09/20 [History Last Taken Unknown] vit A 300 mcg-C 200 mg-E 27 mg-lutein 2 mg and minerals tablet (Ocuvite with Lutein) 1 tab PO DAILY supplement 11/09/20 [History Last Taken Unknown] coenzyme Q10 200 mg capsule (Co Q-10) 200 mg PO DAILY 05/22/21 [History Last Taken Unknown] metoprolol tartrate 25 mg tablet 25 mg PO BID #180 tabs 05/22/21 [Rx Last Taken Unknown] potassium chloride 20 mEq tablet,extended release(part/cryst) 20 meq PO DAILY 05/22/21 [History Last Taken Unknown] triamterene 37.5 mg-hydrochlorothiazide 25 mg tablet 1 tab PO DAILY 05/22/21 [History Last Taken Unknown] hydralazine 25 mg tablet 25 mg PO BID 10/31/21 [History Last Taken Unknown] amoxicillin 875 mg tablet 875 mg PO BID infection 04/17/23 [History Last Taken Unknown] Allergy/AdvReac Type Severity Reaction Status Date / Time triamcinolone Allergy Mild Other Verified 04/17/23 12:40 alprazolam [From Xanax] Allergy Unknown Verified 04/17/23 12:40 atenolol Allergy Shortness Verified 04/17/23 12:40 of breath carvedilol Allergy Anaphylaxis Verified 04/17/23 12:40 cetirizine [From Zyrtec] Allergy Unknown Verified 04/17/23 12:40 cimetidine [From Tagamet] Allergy Unknown Verified 04/17/23 12:40 diltiazem [From Cardizem] Allergy Unknown Verified 04/17/23 12:40 erythromycin base Allergy Unknown Verified 04/17/23 12:40 famotidine [From Pepcid] Allergy Unknown Verified 04/17/23 12:40 grass pollen Allergy NEEDS Verified 04/17/23 12:40 FOLLOW-UP guaifenesin [From Entex LA] Allergy Unknown Verified 04/17/23 12:40 house dust Allergy Unknown Verified 04/17/23 12:40 lansoprazole [From Prevacid] Allergy Unknown Verified 04/17/23 12:40 loracarbef [From Lorabid] Allergy Unknown Verified 04/17/23 12:40 metoprolol [From Toprol XL] Allergy Unknown Verified 04/17/23 12:40 mold Allergy Unknown Verified 04/17/23 12:40 phenylephrine [From Entex LA] Allergy Unknown Verified 04/17/23 12:40 phenylpropanolamine Allergy Unknown Verified 04/17/23 12:40 [From Entex LA] promethazine [From Phenergan] Allergy Unknown Verified 04/17/23 12:40 raloxifene [From Evista] Allergy Unknown Verified 04/17/23 12:40 ranitidine [From Zantac] Allergy Unknown Verified 04/17/23 12:40 risedronate sodium Allergy Unknown Verified 04/17/23 12:40 [From Actonel] escitalopram [From Lexapro] AdvReac Severe Unknown Verified 04/17/23 12:40 lisinopril AdvReac Severe Lip Verified 04/17/23 12:40 swelling losartan [From Cozaar] AdvReac Severe Swelling Verified 04/17/23 12:40 lips meloxicam AdvReac Severe Unknown Verified 04/17/23 12:40 prednisone AdvReac Severe Unknown Verified 04/17/23 12:40 zolpidem [From Ambien] AdvReac Severe Unknown Verified 04/17/23 12:40 amlodipine [From Norvasc] AdvReac SOB Verified 04/17/23 12:40 clonazepam [From Klonopin] AdvReac NEEDS Verified 04/17/23 12:40 FOLLOW-UP diphenhydramine AdvReac NEEDS Verified 04/17/23 12:40 [From Benadryl] FOLLOW-UP metronidazole [From Flagyl] AdvReac Pain in Verified 04/17/23 12:40 joints Family History Mother CAD (coronary artery disease) Father Kidney disease Surgical History H/O partial resection of colon History of hysterectomy Social History Smoking Status: Former smoker how long ago did patient quit smokin years ago alcohol intake: former details: Patient states he quit alcohol in January 2020. substance use type: does not use caffeine: Yes Type: coffee Number of servings: 1 ROS Constitutional Constitutional: Reports fatigue, fever(s) and weakness; Denies chills or malaise Eyes Eyes: Denies change in vision ENT HEENT: Denies nasal congestion, nasal discharge, sinus pressure or sore throat Cardiovascular Cardiovascular: Denies chest pain, edema, lightheadedness, palpitations or rapid heart rate Respiratory/Chest Respiratory/Chest: Reports cough, productive cough, shortness of breath at rest and shortness of breath with exertion; Denies hemoptysis or wheezing Gastrointestinal Gastrointestinal: Denies abdominal pain, constipation, diarrhea, nausea or vomiting Genitourinary Genitourinary: Denies dysuria Musculoskeletal Musculoskeletal: Denies arthralgias or back pain Neurologic Neurologic: Denies dizziness, focal weakness, headache(s), numbness or paresthesias Vital Signs Vital Signs Vital Signs: 04/17/23 12:40 04/17/23 12:43 04/17/23 12:45 Temperature 99.2 F H Temperature Source Oral Pulse Rate 117 H Respiratory Rate 23 H Respiratory Effort Non-Labored Short of Breath Respiratory Depth Shallow Respiratory Pattern Blood Pressure 139/107 H Blood Pressure Mean 117 Pulse Ox 90 92 Oxygen Delivery Method Room Air Room Air Room Air 04/17/23 13:17 04/17/23 13:23 04/17/23 13:51 Temperature 98.7 F Temperature Source Oral Pulse Rate 107 H 118 H Respiratory Rate 20 H 19 H Respiratory Effort Respiratory Depth Respiratory Pattern Tachypnea Blood Pressure 154/97 H Blood Pressure Mean 116 Pulse Ox 92 93 Oxygen Delivery Method Room Air Physical Exam Const alert, oriented x3 and no apparent distress Constitutional Narrative: Pleasant elderly female, thin appearing, very sharp mentally for her age, laying comfortably in bed, conversing normally, no acute distress. General Appearance: cooperative and comfortable HEENT normocephalic, head/scalp atraumatic, hearing grossly normal bilaterally and nasal mucous membranes and turbinates normal HEENT Narrative: Dry mucous membranes. Eyes PERRL, EOMs intact bilaterally and conjunctivae normal Neck full ROM, no lymphadenopathy and supple Lymph Lymphatic: no lymphadenopathy noted Chest inspection of chest normal Resp normal respiratory effort and no use of accessory muscles Resp Narrative: Mildly decreased breath sounds and right lung base. No wheezing or crackles noted. Satting well on room air, no increased work of breathing noted. Cardio no murmurs and peripheral pulses 2+ throughout Cardio Narrative: A-fib with RVR. GI normal to inspection, nondistended, normoactive bowel sounds, soft to palpation, non-tender and non-distended Back/Spine normal ROM Extremity normal to inspection and full ROM Extremity Narrative: +1-2 bilateral LE swelling. Skin no rashes or lesions noted Neuro moves all extremities and no focal motor deficits Speech: speech normal Psych mental status grossly normal Results Lab / Micro Data 04/17/23 13:00 04/17/23 13:00 Labs: Laboratory Results - last 24 hr 04/17/23 13:00: WBC 18.6 H, RBC 3.96 L, Hgb 13.4, Hct 40.0, MCV 101.0 H, MCH 33.8 H, MCHC 33.5, RDW Std Deviation 48.3 H, RDW Coeff of Jared 13.1, Plt Count 232, MPV 10.4, Immature Gran % (Auto) 0.600, Neut % (Auto) 82.0 H, Lymph % (Auto) 4.9 L, [place] % (Auto) 10.8 H, Eos % (Auto) 0.9, Baso % (Auto) 0.8, Absolute Neuts (auto) 15.2 H, Absolute Lymphs (auto) 0.92, Nucleated RBC % 0, Differential Comment SCANNED, Diff Path Review May foll, Toxic Granulation 1+, Sodium 135 L, Potassium 3.5, Chloride 100, Carbon Dioxide 28.0, Anion Gap 7, BUN 20 H, Creatinine 0.81, Est GFR (MDRD) Af Amer 86, Est GFR (MDRD) Non-Af 71, BUN/Creatinine Ratio 24.6 H, Glucose 150 H, Lactic Acid 1.6, Calcium 9.5 Assessment & Plan Assessment/Plan (1) Atrial fibrillation with rapid ventricular response: (2) Pneumonia: (3) Weakness: PLAN: Plan Patient is an 87-year-old female who presented to [facility] ED on 04/17/2023 with worsening shortness of breath with cough. 1. Right lower lobe community-acquired pneumonia with unknown organism, history of chronic bronchiectasis Chest x-ray on admit showed mild patchy infiltrate in right lower lobe concerning for early pneumonia. WBC count 18, low-grade fever to 99.2 F, A-fib with RVR noted in ED. COVID, RSV and flu negative. Notably follows with pulmonology for chronic bronchiectasis, last office visit on 03/14/2023. Not in acute exacerbation at that time, no need for antibiotics or steroids, recommendation was for follow-up with Dr. Huynh in 3 months. ? Admit under observation status to PCU. Continue IV Levaquin. Sputum culture, urine antigens, full respiratory PCR panel, blood cultures ordered. Stable on room air. Can consider pulmonology consult as needed. 2. Acute on chronic debility ? Lives at home by herself, uses 4-point walker at baseline. Has a friend in the area to help her at home as needed. PT/OT/case management consulted. Patient and friend would prefer that she go to SNF on discharge if possible. 3. Left elbow joint effusion with concern for fracture after fall ? Left elbow x-ray on admit showed joint effusion, questionable hairline nondisplaced fracture of olecranon process. Secondary to fall at home on Friday 04/14. Orthopedic surgery consulted. 4. A-fib with RVR, history of multifocal atrial tachycardia and frequent PACs and PVCs A-fib with RVR with rate around 120 noted on EKG on admit. Follows with outpatient cardiology, last office visit on 02/05/2023. Noted the patient has history of paroxysmal A-fib with RVR as well as MAT and frequent PACs PVCs. Has a [id number] score of 4 but is not currently on anticoagulation due to history of falls. ? Continue home Lopressor. Monitor cardiac telemetry. Chronic medical conditions: ? Hypertension: Continue home Lopressor and hydralazine. Holding home triamterene?hydrochlorothiazide for now, restart as able. ? 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 Outpatient management per cardiology. DVT prophylaxis: Lovenox CODE STATUS: DNR CCA, DO NOT INTUBATE Expected disposition: SNF, 1 to 2 days Total clinical time spent by myself addressing the patient's medical issues, reviewing all the data, and collaborating with patient's care team: 55 minutes. Charges/Coding Visit Charges Inpatient E&M: 23499 Init Hosp L2
[2023-04-17] MEDS: levoFLOXacin IV 750 MG/150 ML BAG 100 MG IV (14:49)
--- NOTE | 2023-04-17 15:21 | ECHOD_ITS ---
Reason For Study: ATRIAL FIB/FLUTTER Procedure This was a 2D Doppler, Color Flow transthoracic echocardiogram. The study was technically difficult. Due to arrhythmia. Exam performed portable in patient room. Left Ventricle Normal LV size. The estimated ejection fraction is 70 %. Unable to assess diastolic dysfunction. No regional wall motion abnormalities noted. Right Ventricle Normal RV size. Normal systolic function. Atria The left atrium is moderately enlarged. The right atrium is mildly enlarged. No doppler evidence for ASD. Mitral Valve There is moderate to severe mitral annular calcification. There is no mitral valve stenosis. No mitral valve insufficiency. Tricuspid Valve There is no tricuspid stenosis. Trivial tricuspid valve insufficiency. Pulmonary artery systolic pressure is 55 mmHg. Aortic Valve Trisinus/trileaflet aortic valve. Mild aortic stenosis. No aortic valve insufficiency. Pulmonic Valve There is no pulmonic valvular stenosis. No pulmonic valve insufficiency. Great Vessels Normal aortic root. Pericardium/Pleural No pericardial effusion. MMode/2D Measurements & Calculations LVIDd: 4.4 cm IVSd: 1.1 cm Ao root diam: 3.4 cm LVIDs: 3.4 cm LVPWd: 1.1 cm RVDd: 3.0 cm FS: 22.6 % LAV(MOD-bp): 69.7 ml LVAd ap4: 13.0 cm2 LVAd ap2: 11.6 cm2 LAV(MOD-bp) Indexed: 44.5 ml/m2 LVLd ap4: 5.8 cm LVLd ap2: 5.4 cm LAV(MOD-sp2): 58.0 ml EDV(MOD-sp4): 25.8 ml EDV(MOD-sp2): 20.9 ml LAV(MOD-sp4): 74.8 ml EDV(sp4-el): 24.6 ml EDV(sp2-el): 21.1 ml LVAs ap4: 7.1 cm2 LVAs ap2: 5.6 cm2 LVLs ap4: 5.2 cm LVLs ap2: 4.9 cm ESV(MOD-sp4): 8.9 ml ESV(MOD-sp2): 6.0 ml ESV(sp4-el): 8.3 ml ESV(sp2-el): 5.4 ml EF(MOD-sp4): 65.6 % EF(MOD-sp2): 71.1 % EF(sp4-el): 66.4 % SV(MOD-sp4): 16.9 ml SV(MOD-sp2): 14.8 ml SV(sp4-el): 16.4 ml LA dimension(2D): 5.0 cm LA A4 area: 25.9 cm2 RA A4 area: 16.5 cm2 TAPSE: 1.7 cm Doppler Measurements & Calculations MV E max bakari: 122.1 cm/sec Lat Peak E' Bakari: 8.1 cm/sec MV V2 max: 149.4 cm/sec E/E' lat: 15.0 MV max P.9 mmHg MV V2 mean: 89.2 cm/sec MV mean P.7 mmHg MV V2 VTI: 20.1 cm Ao V2 max: 210.1 cm/sec LV V1 max: 113.0 cm/sec PA V2 max: 96.3 cm/sec Ao max P.7 mmHg LV V1 max P.1 mmHg PA V2 mean: 65.4 cm/sec Ao V2 mean: 133.4 cm/sec LV V1 mean P.0 mmHg Ao mean P.5 mmHg LV V1 mean: 81.5 cm/sec Ao V2 VTI: 27.7 cm LV V1 VTI: 15.5 cm AV (velocity ratio): 0.56 TR max bakari: 335.1 cm/sec TR max P.9 mmHg ECHO/Echo Complete Interpretation Summary The estimated ejection fraction is 70 %. Unable to assess diastolic dysfunction. The left atrium is moderately enlarged. The right atrium is mildly enlarged. Mild aortic stenosis. Ordering Physician: Yemi Curtis Referring Physician: Jasmina Gallagher Performed By: Leeanne López RDCS, RVT
[2023-04-17] MEDS: Metoprolol Tartrate 25 MG Tablet PO (18:32)
[2023-04-17] MEDS: guaiFENesin 10 ML UDC (200MG/10ML) PO (20:38)
[2023-04-17] MEDS: hydrALAZINE 25 MG Tablet PO (20:39)
[2023-04-18] VITALS (8 sets, daily range): BP systolic 99–140; BP diastolic 79–88; PULSE 95–116; RESP 16–20; TEMP 36.2–37.1; O2SAT 92–95
[2023-04-18 05:13] LABS: Mucous, Urine 0 SEEN /hpf (<or=2+)
[2023-04-18 05:16] LABS: Color, Urine Yellow (Yellow); Glucose, Dipstick Normal (Normal); Ketone-Dipstick 15 mg/dl (Negative); Leukocyte Esterase-Dipstick 100 /ul (Negative); Nitrite-Dipstick Negative (Negative); Occult Blood-Urine 10 /ul (Negative); Protein-Dipstick 30 mg/dl (Negative); Urine Clarity Clear (Clear); Urine Urobilinogen 1 mg/dl (Normal)
[2023-04-18 05:47] LABS: Bacteria 1+ /hpf (None Seen); Hyaline Cast 0-5 SEEN /lpf (0-5); Red Blood Cells-Urine 0-5 SEEN /hpf (0-5); Squamous Epithelial Cells - UA 0-5 SEEN /hpf (5-10); Urine Bilirubin Dipstick 1 mg/dL (Negative); White Blood Cells 5-10 SEEN /hpf (0-5)
[2023-04-18 06:29] LABS: Hematocrit 35.5 % (37-47); Hemoglobin 11.5 g/dL (12.0-15.0); Mean Corp Hgb Conc 32.4 g/dL (32-36); Mean Corpuscular Hgb 33.2 pg (27.0-32.0); Mean Corpuscular Volume 102.6 fL (81-99); Mean Platelet Vol. 10.1 fl (6.2-12.0); Platelet Count 205 K/mm3 (150-450); RBC Distribution Width CV 12.8 % (11.6-14.6); RBC Distribution Width SD 47.9 fl (35.1-43.9); Red Blood Count 3.46 M/mm3 (4.2-5.4); White Blood Count 14.5 K/mm3 (4.4-11.0)
[2023-04-18 06:49] LABS: Anion Gap 6 (5-15); BUN 16 mg/dL (7-18); BUN/Creat Ratio 24.5 RATIO (10-20); Chloride 104 mmol/L (98-107); Creatinine, Serum 0.65 mg/dL (0.55-1.02); EST Glomerular Filtration Rate 91 mL/min (>60); Est Glom Filt Rate - Afr Amer 110 mL/min (>60); Estimated Creatinine Clearance 38.44 ml/min; Glucose 128 mg/dL (74-106); Potassium 3.2 mmol/L (3.5-5.1); Sodium Level 136 mmol/L (136-145)
--- NOTE | 2023-04-18 07:31 | PN.HOSP_ITS ---
Reason for Visit Reason for Visit: Diagnoses Unspecified atrial fibrillation (04/17/23) Pneumonia, unspecified organism (04/17/23) Weakness (04/17/23) Objective Data Objective Data Vital Signs: Vital Signs Temp Pulse Resp BP Pulse Ox O2 Del Method 97.2 F L 95 18 111/85 H 93 Room Air 04/18/23 03:00 04/18/23 03:00 04/18/23 03:00 04/18/23 03:00 04/18/23 03:00 04/18/23 03:00 Oxygen Delivery Method Room Air Weight: 124 lb 1.924 oz Body Mass Index (BMI) 22.6 Intake & Output: Intake and Output for Last 24 Hours 04/16/23 04/17/23 04/18/23 23:59 23:59 23:59 Intake Total 1510 / 1750 240 / 240 Output Total 400 / 400 Balance 1510 / 1650 -160 / -160 Lab / Micro Data 04/18/23 05:45 04/18/23 05:45 Labs: Laboratory Results - last 24 hr 04/17/23 13:00: WBC 18.6 H, RBC 3.96 L, Hgb 13.4, Hct 40.0, MCV 101.0 H, MCH 33.8 H, MCHC 33.5, RDW Std Deviation 48.3 H, RDW Coeff of Jared 13.1, Plt Count 232, MPV 10.4, Immature Gran % (Auto) 0.600, Neut % (Auto) 82.0 H, Lymph % (Auto) 4.9 L, [place] % (Auto) 10.8 H, Eos % (Auto) 0.9, Baso % (Auto) 0.8, Absolute Neuts (auto) 15.2 H, Absolute Lymphs (auto) 0.92, Nucleated RBC % 0, Differential Comment SCANNED, Diff Path Review May foll, Toxic Granulation 1+, Sodium 135 L, Potassium 3.5, Chloride 100, Carbon Dioxide 28.0, Anion Gap 7, BUN 20 H, Creatinine 0.81, Est GFR (MDRD) Af Amer 86, Est GFR (MDRD) Non-Af 71, BUN/Creatinine Ratio 24.6 H, Glucose 150 H, Lactic Acid 1.6, Calcium 9.5 04/18/23 04:00: Urine Color Yellow, Urine Clarity Clear, Urine pH 5.0, Ur Specific [place] 1.020, Urine Protein 30 H, Urine Glucose (UA) Normal, Urine Ketones 15 H, Urine Occult Blood 10 H, Urine Nitrite Negative, Urine Bilirubin 1 H, Urine Urobilinogen 1 H, Ur Leukocyte Esterase 100 H, Urine RBC 0-5 SEEN, Urine WBC 5-10 SEEN, Ur Squamous Epith Cells 0-5 SEEN, Urine Bacteria 1+, Hyaline Casts 0-5 SEEN, Urine Mucus 0 SEEN 04/18/23 05:45: WBC 14.5 H, RBC 3.46 L, Hgb 11.5 L, Hct 35.5 L, MCV 102.6 H, MCH 33.2 H, MCHC 32.4, RDW Std Deviation 47.9 H, RDW Coeff of Jared 12.8, Plt Count 205, MPV 10.1, Sodium 136, Potassium 3.2 L, Chloride 104, Carbon Dioxide 26.0, Anion Gap 6, BUN 16, Creatinine 0.65, Estim Creat Clear Calc 38.44, Est GFR (MDRD) Af Amer 110, Est GFR (MDRD) Non-Af 91, BUN/Creatinine Ratio 24.5 H, Glucose 128 H, Calcium 9.0 Micro: Microbiology 04/18/23 04:00 Urine, Clean Catch Legionella Antigen - Final 04/18/23 04:00 Urine, Clean Catch Streptococcus pneumoniae Antigen (M - Final 04/17/23 Unknown Mucosa - Nose Respiratory Panel (PCR) - Final 04/17/23 13:40 Mucosa - Nasopharyngeal SARS-CoV-2, Influenza & RSV (PCR) - Final Radiography Diagnostic Testing: Radiology Impression Chest X-Ray 04/17/23 12:51 IMPRESSION: Residual patchy right lower lobe infiltrate although there has been mild improvement as compared to prior study. Electronically Signed: Negrito Honeycutt MD at 14:31 EST , Physical Exam Narrative Seen and examined. Patient admitted with shortness of breath for 1 week along with dry cough and low-grade fever. No chest pain pressure or tightness. Physical exam General: Alert, Oriented x3, Cooperative HEENT: Atraumatic, PERRLA, EOMI, Normocephalic Oral: No Gingival or Mucosal Lesions/ Ulcerations Neck: Supple, No JVD, Negative Carotid Bruits Chest wall/Lungs: Air entry diminished in Right lung base. Right lung base crepitation. Cardiovascular: A-fib, irregular rhythm, Normal S1, Normal S2. Systolic murmur. Abdomen: Bowel Sounds Present, Soft, Non Tender, Non-Distended : No dysuria. No renal angle tenderness. No suprapubic tenderness. Extremities: No edema, Capillary Refill Less than 3 Seconds Skin: No rashes, No breakdown Musculoskeletal: No Tenderness to Palpation of Joints or Extremities Neurological: Cranial nerves II-XII grossly intact, DTR 2+/4. No acute focal neurological deficit. Psych/Mental Status: Normal Affect, Appropriate. Assessment & Plan Assessment/Plan (1) Atrial fibrillation with rapid ventricular response: (2) Pneumonia: (3) Weakness: PLAN: Plan Patient is an 87-year-old female who presented to [facility] ED on 04/17/2023 with worsening shortness of breath with cough. Patient admitted in PCU 1. Right lower lobe community-acquired pneumonia with unknown organism, history of chronic bronchiectasis Chest x-ray on admit showed mild patchy infiltrate in right lower lobe concerning for early pneumonia. WBC count 18, low-grade fever to 99.2 F, Notably follows with pulmonology for chronic bronchiectasis, last office visit on 03/14/2023. Not in acute exacerbation at that time, no need for antibiotics or steroids, recommendation was for follow-up with Dr. Huynh in 3 months. 04/18: Patient is still short of breath has leukocytosis. Continue IV Levaquin. Urinary antigens are negative. SARS-CoV-2, RSV and flu are negative. Respiratory panel negative. 2. Acute on chronic debility ? Lives at home by herself, uses 4-point walker at baseline. Has a friend in the area to help her at home as needed. PT/OT/case management consulted. Patient and friend would prefer that she go to SNF on discharge if possible. 3. Left elbow joint effusion with concern for fracture after fall ? Left elbow x-ray on admit showed joint effusion, questionable hairline nondisplaced fracture of olecranon process. Secondary to fall at home on Friday 04/14. Orthopedic surgery consulted. 04/18: Patient was evaluated by the orthopedic surgeon Dr. Leonard Calvo. Advised nonweightbearing in right upper extremity using a sling for comfort. Range of motion exercises avoiding extremes of flexion. Patient has hairline fracture without any displacement over the last 5 weeks. Does not have significant s welling around the fracture area. 4. A-fib with RVR, history of multifocal atrial tachycardia and frequent PACs and PVCs A-fib with RVR with rate around 120 noted on EKG on admit. [facility] last office visit on 02/05/2023. Noted the patient has history of paroxysmal A-fib with RVR as well as MAT and frequent PACs PVCs. Has a [id number] score of 4 but is not currently on anticoagulation due to history of falls. ? Continue home Lopressor. Monitor cardiac telemetry. 04/18: Patient is still in A-fib. Heart rate 108/min. Chronic medical conditions: ? Hypertension: Continue home Lopressor and hydralazine. Holding home triamterene?hydrochlorothiazide for now, restart as able. ? 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 Outpatient management per cardiology. DVT prophylaxis: Lovenox CODE STATUS: DNR CCA, DO NOT INTUBATE Charges/Coding Visit Charges Inpatient E&M: 55207 Subs Hosp L2
[2023-04-18] MEDS: Magnesium Chloride 64 MG Delay Rel.Tablet 128 MG PO (09:55)
[2023-04-18] MEDS: hydrALAZINE 25 MG Tablet PO ×2 (09:55→19:44)
[2023-04-18] MEDS: Metoprolol Tartrate 25 MG Tablet PO ×2 (09:56→19:44)
[2023-04-18] MEDS: Enoxaparin 40 MG/0.4 ML Syringe SC (09:56)
[2023-04-18] MEDS: Potassium Chloride Oral Tablet 20 MEQ 40 MEQ PO (10:04)
--- NOTE | 2023-04-18 10:09 | CASEMGMT ---
SW reviewed chart and noted patient is interested in going to [facility] vs [facility]. SW met with patient. Introduced self and role at [facility]. Patient confirmed she would like to go to one of those two facilities and she declined a list of other SNF's. Patient also triggered SDOH for transportation. Patient said her friend Sera helps with transport, she also utilizes [facility], and [facility]. Patient said she can't just use a cab, because she needs assistance. Plan: SNF pending therapy notes and accepting facility. [facility]
--- NOTE | 2023-04-18 10:46 | CON.PCM.OR_ITS ---
HPI Consult Data Date of Consult: 04/18/23 HPI Narrative HPI Narrative: JADON SUNG, is a 87 F who presents with right elbow pain and bruising. She was admitted for pneumonia last night and I was consulted for the right elbow pain. I saw her in the PCU this morning. She says that she had a fall on Friday night 5 days ago after which she started having bruising around the right elbow and pain. She feels that it hurts more when she tries to bend her elbow to the complete limit. She has still been able to use a walker with both hands. She denies any significant swelling throughout the last few days. She denies any tingling numbness distally. She denies any other injuries. She says that she is off balance and that is why she uses a walker. [facility] Medical History (Updated 04/18/23 @ 10:[address] Leonard Lawrence MD) Abnormal electrocardiogram Anxiety Atrial fibrillation Atrial myxoma Benign cardiac neoplasm Compression fracture of lumbar spine, non-traumatic Contusion of right shoulder Depression Essential hypertension ETOH abuse Former smoker Former smoker GERD (gastroesophageal reflux disease) Hypertension Irregular heart beat Kidney stones Nose abrasion Osteoporosis Paroxysmal atrial fibrillation Right shoulder strain Ventricular premature depolarization Vision loss of left eye (Unknown) Home Medications cholecalciferol (vitamin D3) 25 mcg (1,000 unit) capsule 25 mcg PO DAILY vitamin 11/11/19 [History Last Taken 2 Days Ago ~01/22/20] vitamin B complex 1 tab PO DAILY supplement 01/24/20 [History Last Taken 01/23/20] acetaminophen 325 mg tablet (Tylenol) 650 mg (2 x 325 mg) PO Q6H PRN PRN Pain Score 1-10/Temp > 100.7 F #0 tabs 08/14/20 [Rx Last Taken Unknown] Acapella #1 ea 11/09/20 [Rx Last Taken Unknown] magnesium oxide 500 mg PO DAILY supplement 11/09/20 [History Last Taken Unknown] vit A 300 mcg-C 200 mg-E 27 mg-lutein 2 mg and minerals tablet (Ocuvite with Lutein) 1 tab PO DAILY supplement 11/09/20 [History Last Taken Unknown] coenzyme Q10 200 mg capsule (Co Q-10) 200 mg PO DAILY 05/22/21 [History Last Taken Unknown] metoprolol tartrate 25 mg tablet 25 mg PO BID #180 tabs 05/22/21 [Rx Last Taken Unknown] potassium chloride 20 mEq tablet,extended release(part/cryst) 20 meq PO DAILY 05/22/21 [History Last Taken Unknown] triamterene 37.5 mg-hydrochlorothiazide 25 mg tablet 1 tab PO DAILY 05/22/21 [History Last Taken Unknown] hydralazine 25 mg tablet 25 mg PO BID 10/31/21 [History Last Taken Unknown] amoxicillin 875 mg tablet 875 mg PO BID infection 04/17/23 [History Last Taken Unknown] Allergy/AdvReac Type Severity Reaction Status Date / Time triamcinolone Allergy Mild Other Verified 04/17/23 12:40 alprazolam [From Xanax] Allergy Unknown Verified 04/17/23 12:40 atenolol Allergy Shortness Verified 04/17/23 12:40 of breath carvedilol Allergy Anaphylaxis Verified 04/17/23 12:40 cetirizine [From Zyrtec] Allergy Unknown Verified 04/17/23 12:40 cimetidine [From Tagamet] Allergy Unknown Verified 04/17/23 12:40 diltiazem [From Cardizem] Allergy Unknown Verified 04/17/23 12:40 erythromycin base Allergy Unknown Verified 04/17/23 12:40 famotidine [From Pepcid] Allergy Unknown Verified 04/17/23 12:40 grass pollen Allergy NEEDS Verified 04/17/23 12:40 FOLLOW-UP guaifenesin [From Entex LA] Allergy Unknown Verified 04/17/23 12:40 house dust Allergy Unknown Verified 04/17/23 12:40 lansoprazole [From Prevacid] Allergy Unknown Verified 04/17/23 12:40 loracarbef [From Lorabid] Allergy Unknown Verified 04/17/23 12:40 metoprolol [From Toprol XL] Allergy Unknown Verified 04/17/23 12:40 mold Allergy Unknown Verified 04/17/23 12:40 phenylephrine [From Entex LA] Allergy Unknown Verified 04/17/23 12:40 phenylpropanolamine Allergy Unknown Verified 04/17/23 12:40 [From Entex LA] promethazine [From Phenergan] Allergy Unknown Verified 04/17/23 12:40 raloxifene [From Evista] Allergy Unknown Verified 04/17/23 12:40 ranitidine [From Zantac] Allergy Unknown Verified 04/17/23 12:40 risedronate sodium Allergy Unknown Verified 04/17/23 12:40 [From Actonel] escitalopram [From Lexapro] AdvReac Severe Unknown Verified 04/17/23 12:40 lisinopril AdvReac Severe Lip Verified 04/17/23 12:40 swelling losartan [From Cozaar] AdvReac Severe Swelling Verified 04/17/23 12:40 lips meloxicam AdvReac Severe Unknown Verified 04/17/23 12:40 prednisone AdvReac Severe Unknown Verified 04/17/23 12:40 zolpidem [From Ambien] AdvReac Severe Unknown Verified 04/17/23 12:40 amlodipine [From Norvasc] AdvReac SOB Verified 04/17/23 12:40 clonazepam [From Klonopin] AdvReac NEEDS Verified 04/17/23 12:40 FOLLOW-UP diphenhydramine AdvReac NEEDS Verified 04/17/23 12:40 [From Benadryl] FOLLOW-UP metronidazole [From Flagyl] AdvReac Pain in Verified 04/17/23 12:40 joints Family History (Reviewed 03/14/23 @ 13:25 by Marie Webb METALLURGICAL ENGINEERING TECHNICIAN, METALLURGICAL ENGINEERING TECHNICIAN-C) Mother CAD (coronary artery disease) Father Kidney disease Surgical History H/O partial resection of colon History of hysterectomy Social History (Reviewed 03/14/23 @ 13:25 by Marie Webb METALLURGICAL ENGINEERING TECHNICIAN, METALLURGICAL ENGINEERING TECHNICIAN-C) Smoking Status: Former smoker how long ago did patient quit smokin years ago alcohol intake: former details: Patient states he quit alcohol in January 2020. substance use type: does not use caffeine: Yes Type: coffee Number of servings: 1 Vital Signs Vital Signs Vital Signs: 04/17/23 12:40 04/17/23 12:43 04/17/23 12:45 Temperature 99.2 F H Temperature Source Oral Pulse Rate 117 H Pulse Strength Respiratory Rate 23 H Respiratory Effort Non-Labored Short of Breath Respiratory Depth Shallow Respiratory Pattern Blood Pressure 139/107 H Blood Pressure Mean 117 Blood Pressure Source Blood Pressure Position Blood Pressure Location Pulse Ox 90 92 Oxygen Delivery Method Room Air Room Air Room Air 04/17/23 13:17 04/17/23 13:23 04/17/23 13:51 Temperature 98.7 F Temperature Source Oral Pulse Rate 107 H 118 H Pulse Strength Respiratory Rate 20 H 19 H Respiratory Effort Respiratory Depth Respiratory Pattern Tachypnea Blood Pressure 154/97 H Blood Pressure Mean 116 Blood Pressure Source Blood Pressure Position Blood Pressure Location Pulse Ox 92 93 Oxygen Delivery Method Room Air 04/17/23 14:41 04/17/23 16:14 04/17/23 17:47 Temperature 98.6 F 98.9 F Temperature Source Oral Oral Pulse Rate 109 H 89 Pulse Strength Respiratory Rate 15 20 H Respiratory Effort Short of Breath Respiratory Depth Shallow Respiratory Pattern Normal Blood Pressure 145/104 H 133/95 H Blood Pressure Mean 117 107 Blood Pressure Source Monitor Blood Pressure Position Semi-Fowlers Blood Pressure Location Left Arm Pulse Ox 93 92 Oxygen Delivery Method Room Air Room Air 04/17/23 18:32 04/17/23 20:39 04/17/23 21:45 Temperature Temperature Source Pulse Rate 142 H 104 H Pulse Strength Normal (2+) Respiratory Rate Respiratory Effort Respiratory Depth Respiratory Pattern Blood Pressure 120/73 Blood Pressure Mean Blood Pressure Source Blood Pressure Position Blood Pressure Location Pulse Ox Oxygen Delivery Method 04/17/23 21:45 04/17/23 21:47 04/17/23 22:33 Temperature 96.8 F L Temperature Source Temporal Pulse Rate 104 H Pulse Strength Respiratory Rate 16 Respiratory Effort Respiratory Depth Respiratory Pattern Blood Pressure 115/88 H Blood Pressure Mean 97 Blood Pressure Source Monitor Blood Pressure Position Semi-Fowlers Blood Pressure Location Right Arm Pulse Ox 94 97 Oxygen Delivery Method Room Air Room Air Room Air 04/18/23 03:00 04/18/23 09:51 04/18/23 09:55 Temperature 97.2 F L 98.6 F Temperature Source Temporal Oral Pulse Rate 95 116 H 116 H Pulse Strength Respiratory Rate 18 20 H Respiratory Effort Respiratory Depth Respiratory Pattern Blood Pressure 111/85 H 140/87 H 140/87 H Blood Pressure Mean 93 104 Blood Pressure Source Monitor Monitor Blood Pressure Position Semi-Fowlers Semi-Fowlers Blood Pressure Location Right Arm Left Arm Pulse Ox 93 92 Oxygen Delivery Method Room Air Room Air 04/18/23 09:56 04/18/23 10:00 04/18/23 10:00 Temperature Temperature Source Pulse Rate 116 H Pulse Strength Normal (2+) Respiratory Rate Respiratory Effort Short of Breath Respiratory Depth Shallow Respiratory Pattern Normal Blood Pressure 140/87 H Blood Pressure Mean Blood Pressure Source Blood Pressure Position Blood Pressure Location Pulse Ox Oxygen Delivery Method Room Air Weight Weight: 124 lb 1.924 oz Body Mass Index (BMI) 22.6 Physical Exam Narrative Examination of the right elbow shows circumferential ecchymosis. There is slight tenderness in the olecranon region. No significant swelling. Elbow range of motion is painful only at extremes. Forearm rotation is painless. Distal neurovascular exam is intact. Lab / Micro Data 04/18/23 05:45 04/18/23 05:45 Labs: Laboratory Results - last 24 hr 04/17/23 13:00: WBC 18.6 H, RBC 3.96 L, Hgb 13.4, Hct 40.0, MCV 101.0 H, MCH 33.8 H, MCHC 33.5, RDW Std Deviation 48.3 H, RDW Coeff of Jared 13.1, Plt Count 232, MPV 10.4, Immature Gran % (Auto) 0.600, Neut % (Auto) 82.0 H, Lymph % (Auto) 4.9 L, [place] % (Auto) 10.8 H, Eos % (Auto) 0.9, Baso % (Auto) 0.8, Absolute Neuts (auto) 15.2 H, Absolute Lymphs (auto) 0.92, Nucleated RBC % 0, Differential Comment SCANNED, Diff Path Review May foll, Toxic Granulation 1+, Sodium 135 L, Potassium 3.5, Chloride 100, Carbon Dioxide 28.0, Anion Gap 7, BUN 20 H, Creatinine 0.81, Est GFR (MDRD) Af Amer 86, Est GFR (MDRD) Non-Af 71, BUN/Creatinine Ratio 24.6 H, Glucose 150 H, Lactic Acid 1.6, Calcium 9.5 04/18/23 04:00: Urine Color Yellow, Urine Clarity Clear, Urine pH 5.0, Ur Specific [place] 1.020, Urine Protein 30 H, Urine Glucose (UA) Normal, Urine Ketones 15 H, Urine Occult Blood 10 H, Urine Nitrite Negative, Urine Bilirubin 1 H, Urine Urobilinogen 1 H, Ur Leukocyte Esterase 100 H, Urine RBC 0-5 SEEN, Urine WBC 5-10 SEEN, Ur Squamous Epith Cells 0-5 SEEN, Urine Bacteria 1+, Hyal ine Casts 0-5 SEEN, Urine Mucus 0 SEEN 04/18/23 05:45: WBC 14.5 H, RBC 3.46 L, Hgb 11.5 L, Hct 35.5 L, MCV 102.6 H, MCH 33.2 H, MCHC 32.4, RDW Std Deviation 47.9 H, RDW Coeff of Jared 12.8, Plt Count 205, MPV 10.1, Sodium 136, Potassium 3.2 L, Chloride 104, Carbon Dioxide 26.0, Anion Gap 6, BUN 16, Creatinine 0.65, Estim Creat Clear Calc 38.44, Est GFR (MDRD) Af Amer 110, Est GFR (MDRD) Non-Af 91, BUN/Creatinine Ratio 24.5 H, Glucose 128 H, Calcium 9.0 Micro: Microbiology 04/18/23 04:00 Urine, Clean Catch Legionella Antigen - Final 04/18/23 04:00 Urine, Clean Catch Streptococcus pneumoniae Antigen (M - Final 04/17/23 Unknown Mucosa - Nose Respiratory Panel (PCR) - Final 04/17/23 13:40 Mucosa - Nasopharyngeal SARS-CoV-2, Influenza & RSV (PCR) - Final Imagaing Radiology Impression Chest X-Ray 04/17/23 12:51 IMPRESSION: Residual patchy right lower lobe infiltrate although there has been mild improvement as compared to prior study. Electronically Signed: Negrito Honeycutt MD at 14:31 EST , Assessment & Plan Assessment/Plan (1) Closed fracture of right olecranon process: QUALIFIERS: Encounter type: initial encounter Qualified Code(s): S52.021A - Displaced fracture of olecranon process without intraarticular extension of right ulna, initial encounter for closed fracture PLAN: Plan I reviewed the x-rays done yesterday in the ER of her right elbow. These show a suspicious hairline fracture of the right olecranon. Mild effusion of the elbow joint noticed. I explained to her the x-ray findings of a suspicious hairline fracture. I explained to her that she does not have any significant swelling but she does have significant pain at extremes of flexion. She has been using a walker over the last 5 days despite this fracture and has not had any displacement. At this time she does not have significant swelling around the fracture area. I would like her to use a sling for comfort. She may remove the sling for gentle range of motion exercises. She should avoid extremes of range of motion of the elbow. She should avoid lifting and pushing with the right upper extremity. It would be preferable if she is nonweightbearing in the right upper extremity. I advised her to follow-up with me in the clinic in 2 weeks for repeat x-rays. Patient was in agreement. Advise?sling for comfort. Charges/Coding Visit Charges Inpatient E&M: 06060 Init Hosp L2 Procedures Musculoskeletal [id number]: Other Procedure See Report (61332 close treatment of olecranon fracture without manipulation)
--- NOTE | 2023-04-18 11:37 | CASEMGMT ---
YUSUF received a phone call from Yadira, patient's niece who lives in [place]. Yadira wanted to let YUSUF know that patient is interested in going to [place] or [place]. YUSUF let Yadira know patient did notify YUSUF of this information. YUSUF explained how the process works per Yadira's request. Await PT/OT and referrals will be made. Plan: d/c to SNF pending accepting facility and patient being medically ready. Dunia CRAIN
[2023-04-18 12:34] LABS: Pathologist Review Reviewed
--- NOTE | 2023-04-18 16:35 | CASEMGMT ---
Discharge Planning Referral sent to [facility] and [facility] via [facility]. Celina Lopes, Discharge Planning Asst.
[2023-04-19] VITALS (13 sets, daily range): BP systolic 100–144; BP diastolic 73–99; PULSE 95–114; RESP 18–20; TEMP 36.1–36.9; O2SAT 93–94
[2023-04-19] MEDS: Ipratropium/Albuterol Sulfate 3 ML AMPUL.NEB INHALATION (09:32)
[2023-04-19] MEDS: levoFLOXacin IV 750 MG/150 ML BAG 100 MG IV (10:00)
[2023-04-19] MEDS: hydrALAZINE 25 MG Tablet PO ×2 (10:03→20:25)
[2023-04-19] MEDS: Magnesium Chloride 64 MG Delay Rel.Tablet 128 MG PO (10:04)
[2023-04-19] MEDS: Enoxaparin 40 MG/0.4 ML Syringe SC (10:04)
[2023-04-19] MEDS: Metoprolol Tartrate 25 MG Tablet PO ×2 (10:04→15:05)
[2023-04-19] MEDS: guaiFENesin/D-Methorphan TAB.SR.12H 2 TABLET PO ×2 (10:53→20:25)
[2023-04-19] MEDS: 0.9% Normal Saline (250mL Bag) 250 ML 15 ML IV (10:54)
[2023-04-19] MEDS: 0.9% Saline Lock 10 ML Syringe IV ×3 (12:12→21:48)
--- NOTE | 2023-04-19 12:13 | CASEMGMT ---
Social Work Pt requested to speak with SW. SW introduced self and role to patient. Pt requests information regarding [facility] and has questions regarding their care options. SW does not know the answer to most questions and provided the number for [facility] for patient to call. Pt reports she may have her niece call. SW informed patient that [facility] is agree[facility] to take patient but there has not been a response from [facility] as of today but likely due to the weekend. Pt reports [facility] and told her they have a bed and would likely take her. Pt reports she has been to [facility] before and is leaning toward going there. Pt is concerned about getting back and forth to her doctor's appts. and if they will transport her at the SNF. SW is unsure about individual practices for transportation to appts. by SNFs. Pt's 3-day stay is on Friday and will not able to discharge to SNF until then. SW provided support and informed patient SW would follow up on Friday regarding decision. Haley Santamaria INTERNET RETAILER, CREDIT REPORT CHECKER
--- NOTE | 2023-04-19 13:21 | PCM.PN.HOSP ---
Reason for Visit Reason for Visit: Diagnoses Unspecified atrial fibrillation (04/18/23) Pneumonia, unspecified organism (04/18/23) Weakness (04/18/23) Displaced fracture of olecranon process without intraarticular extension of right ulna, initial encounter for closed fracture (04/18/23) Objective Data Objective Data Vital Signs: Vital Signs Temp Pulse Resp BP Pulse Ox O2 Del Method 98.5 F 114 H 18 120/88 H 94 Room Air 04/19/23 09:59 04/19/23 10:04 04/19/23 09:59 04/19/23 09:59 04/19/23 09:59 04/19/23 10:00 Oxygen Delivery Method Room Air Weight: 124 lb 1.924 oz Body Mass Index (BMI) 22.6 Intake & Output: Intake and Output for Last 24 Hours 04/17/23 04/18/23 04/19/23 23:59 23:59 23:59 Intake Total 1510 / 1750 1140 / 1380 600.75 / 600.75 Output Total 400 / 400 Balance 1510 / 1650 740 / 980 600.75 / 600.75 Lab / Micro Data 04/18/23 05:45 04/18/23 05:45 Micro: Microbiology 04/18/23 04:00 Urine, Clean Catch Legionella Antigen - Final 04/18/23 04:00 Urine, Clean Catch Streptococcus pneumoniae Antigen (M - Final 04/17/23 Unknown Mucosa - Nose Respiratory Panel (PCR) - Final 04/17/23 13:40 Mucosa - Nasopharyngeal SARS-CoV-2, Influenza & RSV (PCR) - Final Physical Exam Narrative Seen and examined. Patient is still weak, dry cough not able to bring up phlegm. No fever but tachycardia Physical exam General: Alert, Oriented x3, Cooperative HEENT: Atraumatic, PERRLA, EOMI, Normocephalic Oral: No Gingival or Mucosal Lesions/ Ulcerations Neck: Supple, No JVD, Negative Carotid Bruits Chest wall/Lungs: Air entry diminished in Right lung base. Right lung base crepitation and wheezing. Cardiovascular: A-fib, irregular rhythm, Normal S1, Normal S2. Systolic murmur. Abdomen: Bowel Sounds Present, Soft, Non Tender, Non-Distended : No dysuria. No renal angle tenderness. No suprapubic tenderness. Extremities: No edema, Capillary Refill Less than 3 Seconds Skin: No rashes, No breakdown Musculoskeletal: No Tenderness to Palpation of Joints or Extremities Neurological: Cranial nerves II-XII grossly intact, DTR 2+/4. No acute focal neurological deficit. Psych/Mental Status: Normal Affect, Appropriate. Assessment & Plan Assessment/Plan (1) Atrial fibrillation with rapid ventricular response: (2) Pneumonia: (3) Weakness: PLAN: Plan Patient is an 87-year-old female who presented to [facility] ED on 04/17/2023 with worsening shortness of breath with cough. Patient admitted in PCU 1. Right lower lobe community-acquired pneumonia with unknown organism, history of chronic bronchiectasis Chest x-ray on admit showed mild patchy infiltrate in right lower lobe concerning for early pneumonia. WBC count 18, low-grade fever to 99.2 F, Notably follows with pulmonology for chronic bronchiectasis, last office visit on 03/14/2023. Not in acute exacerbation at that time, no need for antibiotics or steroids, recommendation was for follow-up with Dr. Huynh in 3 months. 04/18: Patient is still short of breath has leukocytosis. Continue IV Levaquin. Urinary antigens are negative. SARS-CoV-2, RSV and flu are negative. Respiratory panel negative. 04/19: Patient encouraged for aggressive bronchopulmonary hygiene with PEP. Continue medications. Patient is wheezing, started on IV Solu-Medrol. 2. Acute on chronic debility ? Lives at home by herself, uses 4-point walker at baseline. Has a friend in the area to help her at home as needed. PT/OT/case management consulted. Patient and friend would prefer that she go to SNF on discharge if possible. 3. Right (corrected) elbow joint effusion with concern for fracture after fall ? Right elbow x-ray on admit showed joint effusion, questionable hairline nondisplaced fracture of olecranon process. Secondary to fall at home on Friday 04/14. Orthopedic surgery consulted. 04/18: Patient was evaluated by the orthopedic surgeon Dr. Leonard Calvo. Advised nonweightbearing in right upper extremity using a sling for comfort. Range of motion exercises avoiding extremes of flexion. Patient has hairline fracture without any displacement over the last 5 weeks. Does not have significant swelling around the fracture area. On sling and swath except during the exercise as mentioned above 4. A-fib with RVR, history of multifocal atrial tachycardia and frequent PACs and PVCs A-fib with RVR with rate around 120 noted on EKG on admit. Follows with outpatient cardiology, last office visit on 02/05/2023. Noted the patient has history of paroxysmal A-fib with RVR as well as MAT and frequent PACs PVCs. Has a [id number] score of 4 but is not currently on anticoagulation due to history of falls. ? Continue home Lopressor. Monitor cardiac telemetry. 04/18: Patient is still in A-fib. Heart rate 108/min. 04/19: Patient is still tachycardic therefore metoprolol dose increased to 50 mg twice daily. Chronic medical conditions: ? Hypertension: Continue home Lopressor and hydralazine. Holding home triamterene?hydrochlorothiazide for now, restart as able. ? 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 Outpatient management per cardiology. DVT prophylaxis: Lovenox CODE STATUS: DNR CCA, DO NOT INTUBATE Clinical Impression(s) from Imaging Studies Chest X-Ray 04/17/23 12:51 IMPRESSION: Residual patchy right lower lobe infiltrate although there has been mild improvement as compared to prior study. Echocardiogram 04/17/23 15:21 Interpretation Summary The estimated ejection fraction is 70 %. Unable to assess diastolic dysfunction. The left atrium is moderately enlarged. The right atrium is mildly enlarged. Mild aortic stenosis. Charges/Coding Visit Charges Inpatient E&M: 37376 Subs Hosp L2
[2023-04-19] MEDS: Metoprolol Tartrate 50 MG Tablet PO (20:24)
[2023-04-20] VITALS (11 sets, daily range): BP systolic 114–136; BP diastolic 78–98; PULSE 84–98; RESP 16–20; TEMP 36–36.7; O2SAT 93–98
[2023-04-20 05:51] LABS: Absolute Lymphocyte Count 0.62 X10^3/uL (0.83-4.51); Basophil# 0.02 X10^3/uL; Basophil% 0.2 % (0-1); Hematocrit 36.5 % (37-47); Hemoglobin 11.8 g/dL (12.0-15.0); Lymphocyte # 0.62 X10^3/ul (0.83-4.51); Mean Corp Hgb Conc 32.3 g/dL (32-36); Mean Corpuscular Hgb 33.1 pg (27.0-32.0); Mean Corpuscular Volume 102.2 fL (81-99); Monocyte# 0.18 X10^3/uL; NRBC Flagged by Analyzer 0 % (0-5); Neutrophil % 90.1 % (47-70); Platelet Count 245 K/mm3 (150-450); RBC Distribution Width CV 12.7 % (11.6-14.6); Red Blood Count 3.57 M/mm3 (4.2-5.4); White Blood Count 8.9 K/mm3 (4.4-11.0)
[2023-04-20 06:06] LABS: Anion Gap 3 (5-15); BUN 23 mg/dL (7-18); BUN/Creat Ratio 33.5 RATIO (10-20); Calcium,Total 9.2 mg/dL (8.5-10.1); Chloride 105 mmol/L (98-107); Creatinine, Serum 0.69 mg/dL (0.55-1.02); EST Glomerular Filtration Rate 86 mL/min (>60); Est Glom Filt Rate - Afr Amer 104 mL/min (>60); Estimated Creatinine Clearance 38.44 ml/min; Glucose 190 mg/dL (74-106); Potassium 4.3 mmol/L (3.5-5.1); Sodium Level 134 mmol/L (136-145)
[2023-04-20] MEDS: Enoxaparin 40 MG/0.4 ML Syringe SC (10:32)
[2023-04-20] MEDS: hydrALAZINE 25 MG Tablet PO ×2 (10:32→20:34)
[2023-04-20] MEDS: Magnesium Chloride 64 MG Delay Rel.Tablet 128 MG PO (10:33)
[2023-04-20] MEDS: guaiFENesin/D-Methorphan TAB.SR.12H 2 TABLET PO ×2 (10:33→20:36)
[2023-04-20] MEDS: Metoprolol Tartrate 50 MG Tablet PO ×2 (10:33→20:35)
--- NOTE | 2023-04-20 12:32 | PN.HOSP_ITS ---
Reason for Visit Reason for Visit: Diagnoses Unspecified atrial fibrillation (04/18/23) Pneumonia, unspecified organism (04/18/23) Weakness (04/18/23) Displaced fracture of olecranon process without intraarticular extension of right ulna, initial encounter for closed fracture (04/18/23) Objective Data Objective Data Vital Signs: Vital Signs Temp Pulse Resp BP Pulse Ox O2 Del Method 97.8 F 91 16 122/87 H 97 Room Air 04/20/23 10:04/20/23 10:33 04/20/23 10:04/20/23 10:33 04/20/23 10:04/20/23 10:28 Oxygen Delivery Method Room Air Weight: 124 lb 1.924 oz Body Mass Index (BMI) 22.6 Intake & Output: Intake and Output for Last 24 Hours 04/18/23 04/19/23 04/20/23 23:59 23:59 23:59 Intake Total 1140 / 1380 1400.75 / 1400.75 240 / 240 Output Total 400 / 400 Balance 740 / 980 1400.75 / 1400.75 240 / 240 Lab / Micro Data 04/20/23 05:00 04/20/23 05:00 Labs: Laboratory Results - last 24 hr 04/20/23 05:00: WBC 8.9, RBC 3.57 L, Hgb 11.8 L, Hct 36.5 L, MCV 102.2 H, MCH 33.1 H, MCHC 32.3, RDW Std Deviation 48.0 H, RDW Coeff of Jared 12.7, Plt Count 245, MPV 10.0, Immature Gran % (Auto) 0.700, Neut % (Auto) 90.1 H, Lymph % (Auto) 7.0 L, [place] % (Auto) 2.0, Eos % (Auto) 0.0, Baso % (Auto) 0.2, Absolute Neuts (auto) 8.0 H, Absolute Lymphs (auto) 0.62 L, Nucleated RBC % 0, Sodium 134 L, Potassium 4.3, Chloride 105, Carbon Dioxide 26.0, Anion Gap 3 L, BUN 23 H, Creatinine 0.69, Estim Creat Clear Calc 38.44, Est GFR (MDRD) Af Amer 104, Est GFR (MDRD) Non-Af 86, BUN/Creatinine Ratio 33.5 H, Glucose 190 H, Calcium 9.2 Micro: Microbiology 04/17/23 13:38 Blood Culture (Wb) #2 - Left Wrist Blood Culture - Preliminary No growth in 48 hours. 04/17/23 13:00 Blood Culture (Wb) - Right Hand Blood Culture - Preliminary No growth in 48 hours. 04/18/23 04:00 Urine, Clean Catch Legionella Antigen - Final 04/18/23 04:00 Urine, Clean Catch Streptococcus pneumoniae Antigen (M - Final 04/17/23 Unknown Mucosa - Nose Respiratory Panel (PCR) - Final 04/17/23 13:40 Mucosa - Nasopharyngeal SARS-CoV-2, Influenza & RSV (PCR) - Final Physical Exam Narrative Seen and examined. Patient is stated he is she is able to bring up some phlegm but he still feels weak. Mild wheezing in the morning. No fever but tachycardia Physical exam General: Alert, Oriented x3, Cooperative HEENT: Atraumatic, PERRLA, EOMI, Normocephalic Oral: No Gingival or Mucosal Lesions/ Ulcerations Neck: Supple, No JVD, Negative Carotid Bruits Chest wall/Lungs: Air entry diminished in Right lung base. Right lung base rhonchi and wheezing. Cardiovascular: A-fib, irregular rhythm, Normal S1, Normal S2. Systolic murmur. Abdomen: Bowel Sounds Present, Soft, Non Tender, Non-Distended : No dysuria. No renal angle tenderness. No suprapubic tenderness. Extremities: No edema, Capillary Refill Less than 3 Seconds Skin: No rashes, No breakdown Musculoskeletal: No Tenderness to Palpation of Joints or Extremities Neurological: Cranial nerves II-XII grossly intact, DTR 2+/4. No acute focal neurological deficit. Psych/Mental Status: Normal Affect, Appropriate. Assessment & Plan Assessment/Plan (1) Atrial fibrillation with rapid ventricular response: (2) Pneumonia: (3) Weakness: PLAN: Plan Patient is an 87-year-old female who presented to [facility] ED on 04/17/2023 with worsening shortness of breath with cough. Patient admitted in PCU 1. Right lower lobe community-acquired pneumonia with unknown organism, history of chronic bronchiectasis Chest x-ray on admit showed mild patchy infiltrate in right lower lobe concerning for early pneumonia. WBC count 18, low-grade fever to 99.2 F, Notably follows with pulmonology for chronic bronchiectasis, last office visit on 03/14/2023. Not in acute exacerbation at that time, no need for antibiotics or steroids, recommendation was for follow-up with Dr. Huynh in 3 months. 04/18: Patient is still short of breath has leukocytosis. Continue IV Levaquin. Urinary antigens are negative. SARS-CoV-2, RSV and flu are negative. Res piratory panel negative. 04/19: Patient encouraged for aggressive bronchopulmonary hygiene with PEP. Continue medications. Patient is wheezing, started on IV Solu-Medrol. 04/20: 1 dose of DuoNeb and Solu-Medrol ordered. Continue antibiotics. Plan for discharge to SNF. 2. Acute on chronic debility ? Lives at home by herself, uses 4-point walker at baseline. Has a friend in the area to help her at home as needed. PT/OT/case management consulted. Patient and friend would prefer that she go to SNF on discharge if possible. 3. Right (corrected) elbow joint effusion with concern for fracture after fall ? Right elbow x-ray on admit showed joint effusion, questionable hairline nondisplaced fracture of olecranon process. Secondary to fall at home on Friday 04/14. Orthopedic surgery consulted. 04/18: Patient was evaluated by the orthopedic surgeon Dr. Leonard Calvo. Advised nonweightbearing in right upper extremity using a sling for comfort. Range of motion exercises avoiding extremes of flexion. Patient has hairline fracture without any displacement over the last 5 weeks. Does not have significant swelling around the fracture area. On sling and swath except during the exercise as mentioned above 4. A-fib with RVR, history of multifocal atrial tachycardia and frequent PACs a nd PVCs A-fib with RVR with rate around 120 noted on EKG on admit. Follows with outpatient cardiology, last office visit on 02/05/2023. Noted the patient has history of paroxysmal A-fib with RVR as well as MAT and frequent PACs PVCs. Has a [id number] score of 4 but is not currently on anticoagulation due to history of falls. ? Continue home Lopressor. Monitor cardiac telemetry. 04/18: Patient is still in A-fib. Heart rate 108/min. 04/19: Patient is still tachycardic therefore metoprolol dose increased to 50 mg twice daily. Chronic medical conditions: ? Hypertension: Continue home Lopressor and hydralazine. Holding home triamterene?hydrochlorothiazide for now, restart as able. ? 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 Outpatient management per cardiology. DVT prophylaxis: Lovenox CODE STATUS: DNR CCA, DO NOT INTUBATE Clinical Impression(s) from Imaging Studies Chest X-Ray 04/17/23 12:51 IMPRESSION: Residual patchy right lower lobe infiltrate although there has been mild improvement as compared to prior study. Echocardiogram 04/17/23 15:21 Interpretation Summary The estimated ejection fraction is 70 %. Unable to assess diastolic dysfunction. The left atrium is moderately enlarged. The right atrium is mildly enlarged. Mild aortic stenosis. Charges/Coding Visit Charges Inpatient E&M: 96459 Subs Hosp L2
[2023-04-20] MEDS: Ipratropium/Albuterol Sulfate 3 ML AMPUL.NEB INHALATION (12:48)
[2023-04-21] VITALS (9 sets, daily range): BP systolic 106–145; BP diastolic 73–102; PULSE 74–109; RESP 12–19; TEMP 36.7–36.9; O2SAT 93–97
[2023-04-21] MEDS: Metoprolol Tartrate 50 MG Tablet PO (08:16)
[2023-04-21] MEDS: hydrALAZINE 25 MG Tablet PO (08:17)
--- NOTE | 2023-04-21 09:43 | CASEMGMT ---
Patient was accepted by both [facility] and [facility]. SW spoke with patient letting her know this information. Patient said she prefers [facility]. SW asked Celina to notify [facility]. Plan: d/c to [facility] under skilled level of care. Dunia CRAIN
--- NOTE | 2023-04-21 09:51 | PCM.PN.HOSP ---
Subjective Subjective Feels well. Breathing much better. Objective Data Objective Data Vital Signs: Vital Signs Temp Pulse Resp BP Pulse Ox O2 Del Method 36.8 C 93 14 145/102 H 95 Room Air 04/21/23 09:34 04/21/23 09:34 04/21/23 09:34 04/21/23 09:34 04/21/23 09:34 04/21/23 09:34 Oxygen Delivery Method Room Air Weight: 56.3 kg Body Mass Index (BMI) 22.6 Intake & Output: Intake and Output for Last 24 Hours 04/19/23 04/20/23 04/21/23 23:59 23:59 23:59 Intake Total 1400.75 / 1400.75 480 / 480 Balance 1400.75 / 1400.75 480 / 480 Lab / Micro Data 04/20/23 05:00 04/20/23 05:00 Micro: Microbiology 04/17/23 13:38 Blood Culture (Wb) #2 - Left Wrist Blood Culture - Preliminary No growth in 48 hours. 04/17/23 13:00 Blood Culture (Wb) - Right Hand Blood Culture - Preliminary No growth in 48 hours. 04/18/23 04:00 Urine, Clean Catch Legionella Antigen - Final 04/18/23 04:00 Urine, Clean Catch Streptococcus pneumoniae Antigen (M - Final 04/17/23 Unknown Mucosa - Nose Respiratory Panel (PCR) - Final 04/17/23 13:40 Mucosa - Nasopharyngeal SARS-CoV-2, Influenza & RSV (PCR) - Final Physical Exam Const alert and no apparent distress HEENT head/scalp atraumatic and moist oral mucous membranes Resp normal respiratory effort, no retractions and no use of accessory muscles Cardio regular rate, regular rhythm, S1 normal heart sound and S2 normal heart sound GI normal to inspection, nondistended, normoactive bowel sounds, soft to palpation, non-tender and non-distended Assessment & Plan Assessment/Plan (1) Atrial fibrillation with rapid ventricular response: (2) Pneumonia: (3) Weakness: PLAN: Plan Right lower lobe community-acquired pneumonia with unknown organism, history of chronic bronchiectasis Chest x-ray on admit showed mild patchy infiltrate in right lower lobe concerning for early pneumonia. IV Levaquin. Change to PO for 7-day course of abx. Urinary antigens are negative. SARS-CoV-2, RSV and flu are negative. Respiratory panel negative. PEP Acute on chronic debility Lives at home by herself, uses 4-point walker at baseline. Has a friend in the area to help her at home as needed. PT/OT/case management consulted. Patient and friend would prefer that she go to SNF on discharge if possible. Right (corrected) elbow joint effusion with concern for fracture after fall Right elbow x-ray on admit showed joint effusion, questionable hairline nondisplaced fracture of olecranon process. Secondary to fall at home on Friday 04/14. Orthopedic surgery consulted. Patient was evaluated by the orthopedic surgeon Dr. Leonard Calvo. Advised nonweightbearing in right upper extremity using a sling for comfort. Range of motion exercises avoiding extremes of flexion. Patient has hairline fracture without any displacement over the last 5 weeks. Does not have significant swelling around the fracture area. On sling and swath except during the exercise as mentioned above A-fib with RVR, history of multifocal atrial tachycardia and frequent PACs and PVCs A-fib with RVR with rate around 120 noted on EKG on admit. Follows with outpatient cardiology, last office visit on 02/05/2023. Noted the patient has history of paroxysmal A-fib with RVR as well as MAT and frequent PACs PVCs. Has a HLT1FO8-PMJp score of 4 but is not currently on anticoagulation due to history of falls. Metoprolol dose increased to 50mg BID. Chronic medical conditions: Hypertension: Continue home Lopressor and hydralazine. Holding home triamterene?hydrochlorothiazide for now, restart as able. 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 Outpatient management per cardiology. DVT prophylaxis: Lovenox CODE STATUS: DNR CCA, DO NOT INTUBATE DC to [facility].
[2023-04-21] MEDS: guaiFENesin/D-Methorphan TAB.SR.12H 2 TABLET PO (10:15)
[2023-04-21] MEDS: levoFLOXacin IV 750 MG/150 ML BAG 100 MG IV (10:15)
[2023-04-21] MEDS: Enoxaparin 40 MG/0.4 ML Syringe SC (10:15)
[2023-04-21] MEDS: Magnesium Chloride 64 MG Delay Rel.Tablet 128 MG PO (10:16)
--- NOTE | 2023-04-21 13:09 | TREXTCAR_ITS ---
Diet Diet Order/Speech Therapy: 04/17/23 15:41 Diet: Regular - General Food consistency:: Regular Liquid Consistency:: Regular/Thin Type of Dietary Supplement:: Ensure Plus High Protein Diet Comments: 4 oz chocolate w/ lunch and dinner Routine Orders/Code Status Code Status: DNRCC-A (no intubation. ) Therapies Weight Bearing: Non weight bearing Extremity Affected:: Right Upper (sling to RUE until evaluated by orthopaedics as outpt. ) Physical Therapy: Eval and Treat Occupational Therapy: Eval and Treat Problem/Diagnosis (1) Atrial fibrillation with rapid ventricular response: Status: Acute Code(s): I48.91 - Unspecified atrial fibrillation (2) Pneumonia: Status: Acute Code(s): J18.9 - Pneumonia, unspecified organism (3) Weakness: Status: Acute Code(s): R53.1 - Weakness Plan Right lower lobe community-acquired pneumonia with unknown organism, history of chronic bronchiectasis * Chest x-ray on admit showed mild patchy infiltrate in right lower lobe concerning for early pneumonia. * IV Levaquin. Change to PO for 7-day course of abx. * Urinary antigens are negative. SARS-CoV-2, RSV and flu are negative. Respiratory panel negative. * PEP Acute on chronic debility * Lives at home by herself, uses 4-point walker at baseline. Has a friend in the area to help her at home as needed. PT/OT/case management consulted. Patient and friend would prefer that she go to SNF on discharge if possible. Right (corrected) elbow joint effusion with concern for fracture after fall * Right elbow x-ray on admit showed joint effusion, questionable hairline nondisplaced fracture of olecranon process. Secondary to fall at home on Friday 04/14. Orthopedic surgery consulted. * Patient was evaluated by the orthopedic surgeon Dr. Leonard Calvo. Advised nonweightbearing in right upper extremity using a sling for comfort. Range of motion exercises avoiding extremes of flexion. Patient has hairline fracture without any displacement over the last 5 weeks. Does not have significant swelling around the fracture area. On sling and swath except during the exercise as mentioned above A-fib with RVR, history of multifocal atrial tachycardia and frequent PACs and PVCs * A-fib with RVR with rate around 120 noted on EKG on admit. Follows with outpatient cardiology, last office visit on 02/05/2023. Noted the patient has history of paroxysmal A-fib with RVR as well as MAT and frequent PACs PVCs. Has a [id number]-IFGq score of 4 but is not currently on anticoagulation due to history of falls. * Metoprolol dose increased to 50mg BID. Chronic medical conditions: * Hypertension: Continue home Lopressor and hydralazine. Holding home triamterene?hydrochlorothiazide for now, restart as able. 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 Outpatient management per cardiology. DVT prophylaxis: Lovenox CODE STATUS: DNR CCA, DO NOT INTUBATE DC to [facility]. Allergies/Procedures Done in Hospital Allergies triamcinolone Allergy (Mild, Verified 04/17/23 12:40) Other causes area to swell that it was applied to alprazolam [From Xanax] Allergy (Verified 04/17/23 12:40) Unknown atenolol Allergy (Verified 04/17/23 12:40) Shortness of breath carvedilol Allergy (Verified 04/17/23 12:40) Anaphylaxis cetirizine [From Zyrtec] Allergy (Verified 04/17/23 12:40) Unknown cimetidine [From Tagamet] Allergy (Verified 04/17/23 12:40) Unknown diltiazem [From Cardizem] Allergy (Verified 04/17/23 12:40) Unknown erythromycin base Allergy (Verified 04/17/23 12:40) Unknown famotidine [From Pepcid] Allergy (Verified 04/17/23 12:40) Unknown grass pollen Allergy (Verified 04/17/23 12:40) NEEDS FOLLOW-UP grass bent guaifenesin [From Entex LA] Allergy (Verified 04/17/23 12:40) Unknown house dust Allergy (Verified 04/17/23 12:40) Unknown lansoprazole [From Prevacid] Allergy (Verified 04/17/23 12:40) Unknown loracarbef [From Lorabid] Allergy (Verified 04/17/23 12:40) Unknown metoprolol [From Toprol XL] Allergy (Verified 04/17/23 12:40) Unknown mold Allergy (Verified 04/17/23 12:40) Unknown phenylephrine [From Entex LA] Allergy (Verified 04/17/23 12:40) Unknown phenylpropanolamine [From Entex LA] Allergy (Verified 04/17/23 12:40) Unknown promethazine [From Phenergan] Allergy (Verified 04/17/23 12:40) Unknown raloxifene [From Evista] Allergy (Verified 04/17/23 12:40) Unknown ranitidine [From Zantac] Allergy (Verified 04/17/23 12:40) Unknown risedronate sodium [From Actonel] Allergy (Verified 04/17/23 12:40) Unknown escitalopram [From Lexapro] Adverse Reaction (Severe, Verified 04/17/23 12:40) Unknown lisinopril Adverse Reaction (Severe, Verified 04/17/23 12:40) Lip swelling losartan [From Cozaar] Adverse Reaction (Severe, Verified 04/17/23 12:40) Swelling lips meloxicam Adverse Reaction (Severe, Verified 04/17/23 12:40) Unknown prednisone Adverse Reaction (Severe, Verified 04/17/23 12:40) Unknown zolpidem [From Ambien] Adverse Reaction (Severe, Verified 04/17/23 12:40) Unknown amlodipine [From Norvasc] Adverse Reaction (Verified 04/17/23 12:40) SOB clonazepam [From Klonopin] Adverse Reaction (Verified 04/17/23 12:40) NEEDS FOLLOW-UP reaction like hangover diphenhydramine [From Benadryl] Adverse Reaction (Verified 04/17/23 12:40) NEEDS FOLLOW-UP agitation metronidazole [From Flagyl] Adverse Reaction (Verified 04/17/23 12:40) Pain in joints Procedures: None Type of Care/Length of Stay Estimated LOS: Convalescent Care Less Than 30 days Type of Care Needed: Skilled Rehab Potential: Good Prognosis: Good Additional Orders/Day of Discharge Day of Discharge: 04/21/23 Dietary and Speech Recommendations Dietitian Recommendations/Changes: continue liberal regular diet will provide 4 oz ensure plus high protein w/ lunch and dinner per res request. Discharge Plan Admission Admit Date/Time: 04/18/23 12:20 Primary Reason for Your Visit: Pneumonia Attending Provider: Jose Carlos Odonnell Primary Care Provider: Jasmina Gallagher Consulting Providers: Haroon Fox; Yemi Curtis; Tunde Barreto Discharge Orders/Prescriptions Prescriptions: New metoprolol tartrate 50 mg Tablet 50 mg PO BID Qty: 0 0RF Ensure Compact Liquid 118 ml PO TIDCM Qty: 0 0RF guaifenesin [Mucinex] 600 mg tablet extended release 12hr 600 mg PO BID Qty: 10 0RF levofloxacin 500 mg tablet 500 mg PO DAILY Qty: 4 0RF Continued cholecalciferol (vitamin D3) 25 mcg (1,000 unit) capsule 25 mcg PO DAILY magnesium oxide 400 mg magnesium tablet 500 mg PO DAILY coenzyme Q10 [Co Q-10] 200 mg capsule 200 mg PO DAILY hydralazine 25 mg tablet 25 mg PO BID Ocuvite with Lutein 1,000 unit-200 mg-60 unit-2 mg tablet 1 tab PO DAILY Rx Instructions: administer after a meal (DME) Acapella See Rx Instructions .ROUTE .MEDSUPPLY Qty: 1 0RF Rx Instructions: As directed vitamin B complex 1 EACH tablet 1 tab PO DAILY acetaminophen [Tylenol] 325 mg Tablet 650 mg PO Q6H PRN PRN (Reason: Pain Score 1-10/Temp > 100.7 F) Qty: 0 0RF Discontinued triamterene-hydrochlorothiazid 37.5-25 mg tablet 1 tab PO DAILY potassium chloride 20 mEq tablet,ER particles/crystals 20 meq PO DAILY metoprolol tartrate 25 mg tablet 25 mg PO BID Qty: 180 3RF amoxicillin 875 mg tablet 875 mg PO BID Patient Comments: TAKE 1 TABLET BY MOUTH TWICE DAILY Referrals / Follow Up: Leonard Lawrence MD [Med Staff - Active Staff] - Within 2 Weeks Jasmina Gallagher DO [Primary Care Provider] - Within 2 Weeks [facility] [Provider Group] - 08/12/23 1:00 pm [facility] [Provider Group] - 06/09/23 1:15 pm Disposition Disposition (needs filled in before D/C Order can be placed): [facility]
--- NOTE | 2023-04-21 13:18 | DS.PCM_ITS ---
Providers Date of Admission: 04/18/23 Primary Care Physician: Jasmina Gallagher, Consultations 04/17/23 15:41 Consult: Orthopedics Routine Consulting Provider: Haroon Fox Reason for Consult: Concern for left elbow fracture with joint effusion EMERGENT Consult: No MD Notified: Yes Date Notified: 04/17/23 Time Notified: 15:22 Method of Notification: Verbal Comments:: Dr Lawrence oncology admin Reason For Visit: COMMUNITY ACQUIRED PNEUMONIA Diagnosis Discharge Diagnosis (1) Atrial fibrillation with rapid ventricular response: Status: Acute Code(s): I48.91 - Unspecified atrial fibrillation (2) Pneumonia: Status: Acute Code(s): J18.9 - Pneumonia, unspecified organism (3) Weakness: Status: Acute Code(s): R53.1 - Weakness Plan Right lower lobe community-acquired pneumonia with unknown organism, history of chronic bronchiectasis * Chest x-ray on admit showed mild patchy infiltrate in right lower lobe concer margaret for early pneumonia. * IV Levaquin. Change to PO for 7-day course of abx. * Urinary antigens are negative. SARS-CoV-2, RSV and flu are negative. Respiratory panel negative. * PEP Acute on chronic debility * Lives at home by herself, uses 4-point walker at baseline. Has a friend in the area to help her at home as needed. PT/OT/case management consulted. Patient and friend would prefer that she go to SNF on discharge if possible. Right (corrected) elbow joint effusion with concern for fracture after fall * Right elbow x-ray on admit showed joint effusion, questionable hairline nondisplaced fracture of olecranon process. Secondary to fall at home on Friday 04/14. Orthopedic surgery consulted. * Patient was evaluated by the orthopedic surgeon Dr. Leonard Calvo. Advised nonweightbearing in right upper extremity using a sling for comfort. Range of motion exercises avoiding extremes of flexion. Patient has hairline fracture without any displacement over the last 5 weeks. Does not have significant swelling around the fracture area. On sling and swath except during the exercise as mentioned above A-fib with RVR, history of multifocal atrial tachycardia and frequent PACs and P VCs * A-fib with RVR with rate around 120 noted on EKG on admit. Follows with outpatient cardiology, last office visit on 02/05/2023. Noted the patient has history of paroxysmal A-fib with RVR as well as MAT and frequent PACs PVCs. Has a [id number] score of 4 but is not currently on anticoagulation due to history of falls. * Metoprolol dose increased to 50mg BID. Chronic medical conditions: * Hypertension: Continue home Lopressor and hydralazine. Holding home triamterene?hydrochlorothiazide for now, restart as able. 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 Outpatient management per cardiology. DVT prophylaxis: Lovenox CODE STATUS: DNR [facility], DO NOT INTUBATE DC to [facility]. Medications at Discharge Home Medications cholecalciferol (vitamin D3) 25 mcg (1,000 unit) capsule 25 mcg PO DAILY vitamin 11/11/19 vitamin B complex 1 tab PO DAILY supplement 01/24/20 acetaminophen 325 mg tablet (Tylenol) 650 mg (2 x 325 mg) PO Q6H PRN PRN Pain Score 1-10/Temp > 100.7 F #0 tabs 08/14/20 Acapella #1 ea 11/09/20 magnesium oxide 500 mg PO DAILY supplement 11/09/20 vit A 300 mcg-C 200 mg-E 27 mg-lutein 2 mg and minerals tablet (Ocuvite with Lutein) 1 tab PO DAILY supplement 11/09/20 coenzyme Q10 200 mg capsule (Co Q-10) 200 mg PO DAILY 05/22/21 hydralazine 25 mg tablet 25 mg PO BID 10/31/21 food supplemt, lactose-reduced (Ensure Compact oral liquid) 118 ml PO TIDCM #0 mL 04/21/23 guaifenesin 600 mg tablet, extended release 12 hr (Mucinex) 600 mg PO BID #10 tabs 04/21/23 levofloxacin 500 mg tablet 500 mg PO DAILY #4 tabs 04/21/23 metoprolol tartrate 50 mg tablet 50 mg PO BID #0 tabs 04/21/23 Hospital Course Operations None Summary of Care Provided Minutes Spent on Discharge: 35 Weight / BMI Weight Weight: 56.3 kg Body Mass Index (BMI) 22.6 ABG / Lab / Microbiology Data 04/20/23 05:00 04/20/23 05:00 Microbiology: Microbiology 04/17/23 13:38 Blood Culture (Wb) #2 - Left Wrist Blood Culture - Preliminary No growth in 48 hours. 04/17/23 13:00 Blood Culture (Wb) - Right Hand Blood Culture - Preliminary No growth in 48 hours. 04/18/23 04:00 Urine, Clean Catch Legionella Antigen - Final 04/18/23 04:00 Urine, Clean Catch Streptococcus pneumoniae Antigen (M - Final 04/17/23 Unknown Mucosa - Nose Respiratory Panel (PCR) - Final 04/17/23 13:40 Mucosa - Nasopharyngeal SARS-CoV-2, Influenza & RSV (PCR) - Final Meaningful Use Info Meaningful Use Diagnoses (Choose all that apply): None applicable Discharge Plan Admission Admit Date/Time: 04/18/23 12:20 Primary Reason for Your Visit: Pneumonia Attending Provider: Jose Carlos Odonnell Primary Care Provider: Jasmina Gallagher Consulting Providers: Haroon Fox; Yemi Curtis; Tunde Barreto Discharge Orders/Prescriptions Prescriptions: New metoprolol tartrate 50 mg Tablet 50 mg PO BID Qty: 0 0RF Ensure Compact Liquid 118 ml PO TIDCM Qty: 0 0RF guaifenesin [Mucinex] 600 mg tablet extended release 12hr 600 mg PO BID Qty: 10 0RF levofloxacin 500 mg tablet 500 mg PO DAILY Qty: 4 0RF Continued cholecalciferol (vitamin D3) 25 mcg (1,000 unit) capsule 25 mcg PO DAILY magnesium oxide 400 mg magnesium tablet 500 mg PO DAILY coenzyme Q10 [Co Q-10] 200 mg capsule 200 mg PO DAILY hydralazine 25 mg tablet 25 mg PO BID Ocuvite with Lutein 1,000 unit-200 mg-60 unit-2 mg tablet 1 tab PO DAILY Rx Instructions: administer after a meal (DME) Acapella See Rx Instructions .ROUTE .MEDSUPPLY Qty: 1 0RF Rx Instructions: As directed vitamin B complex 1 EACH tablet 1 tab PO DAILY acetaminophen [Tylenol] 325 mg Tablet 650 mg PO Q6H PRN PRN (Reason: Pain Score 1-10/Temp > 100.7 F) Qty: 0 0RF Discontinued triamterene-hydrochlorothiazid 37.5-25 mg tablet 1 tab PO DAILY potassium chloride 20 mEq tablet,ER particles/crystals 20 meq PO DAILY metoprolol tartrate 25 mg tablet 25 mg PO BID Qty: 180 3RF amoxicillin 875 mg tablet 875 mg PO BID Patient Comments: TAKE 1 TABLET BY MOUTH TWICE DAILY Referrals / Follow Up: [facility] [Provider Group] - 08/12/23 1:00 pm [facility] [Provider Group] - 06/09/23 1:15 pm Leonard Lawrence MD [Med Staff - Active Staff] - Within 2 Weeks Jasmina Gallagher DO [Primary Care Provider] - Within 2 Weeks Disposition Disposition (needs filled in before D/C Order can be placed): [facility] Charges/Coding Visit Charges Inpatient E&M: 34172 Disch Hosp >30min
--- NOTE | 2023-04-21 13:49 | PHA.DC.MR.R ---
Pharmacy [place] Med Reconciliation Pharmacy Service has performed discharge medication reconciliation for this patient. The patient's discharge medication list was reviewed for discrepancies and discrepancies were resolved. Medications at Discharge Home Medications cholecalciferol (vitamin D3) 25 mcg (1,000 unit) capsule 25 mcg PO DAILY vitamin 11/11/19 vitamin B complex 1 tab PO DAILY supplement 01/24/20 acetaminophen 325 mg tablet (Tylenol) 650 mg (2 x 325 mg) PO Q6H PRN PRN Pain Score 1-10/Temp > 100.7 F #0 tabs 08/14/20 Acapella #1 ea 11/09/20 magnesium oxide 500 mg PO DAILY supplement 11/09/20 vit A 300 mcg-C 200 mg-E 27 mg-lutein 2 mg and minerals tablet (Ocuvite with Lutein) 1 tab PO DAILY supplement 11/09/20 coenzyme Q10 200 mg capsule (Co Q-10) 200 mg PO DAILY 05/22/21 hydralazine 25 mg tablet 25 mg PO BID 10/31/21 food supplemt, lactose-reduced (Ensure Compact oral liquid) 118 ml PO TIDCM #0 mL 04/21/23 guaifenesin 600 mg tablet, extended release 12 hr (Mucinex) 600 mg PO BID #10 tabs 04/21/23 levofloxacin 500 mg tablet 500 mg PO DAILY #4 tabs 04/21/23 metoprolol tartrate 50 mg tablet 50 mg PO BID #0 tabs 04/21/23
--- NOTE | 2023-04-21 13:53 | CASEMGMT ---
Patient is ready for discharge to [facility]. YUSUF completed a 7000 in [email or web address] system. YUSUF notified patient she will be going to [facility] today. Await d/c orders. Plan: d/c to [facility] under skilled level of care on a convalescent stay. Physicians will transport patient via wheelchair. Dunia Bedoya FINGERNAIL FORMER BREANN
[2023-04-21] MEDS: Ipratropium/Albuterol Sulfate 3 ML AMPUL.NEB INHALATION (15:17)
--- NOTE | 2023-04-21 15:29 | NURSING ---
Patient to be p/u at 6pm by transportation to [place]. Report called to Gi in TCU at .
--- NOTE | 2023-04-21 15:35 | CASEMGMT ---
Discharge Planning Discharge orders, signed med list covid results, and transport time sent to [facility] via [facility]. Physicians will transport patient by wheelchair at 6p. Nursing, SW, patient, and her niece updated. Celina Lopes, Discharge Planning Asst.
== END 2023-04-21 20:00 | disposition skilled nursing facility (03) | DRG 194 ==
LOC: ED 14:31 → PCU 14:36
PROVIDERS: Internal Medicine; Admitting Provider Hospitalist; Emergency Provider Emergency Medicine; PCP Family Medicine; Referring Provider Emergency Medicine
DX: J18.9 Pneumonia, unspecified organism (principal); J47.0 Bronchiectasis with acute lower respiratory infection; I48.20 Chronic atrial fibrillation, unspecified; I10 Essential (primary) hypertension; S52.021A Displaced fracture of olecranon process without intraarticular extension of right ulna, initial encounter for closed fracture; W19.XXXA Unspecified fall, initial encounter; K21.9 Gastro-esophageal reflux disease without esophagitis; D15.1 Benign neoplasm of heart; I49.3 Ventricular premature depolarization; Z11.52 Encounter for screening for COVID-19; R53.1 Weakness; Z66 Do not resuscitate; Z79.899 Other long term (current) drug therapy; Z87.891 Personal history of nicotine dependence
CPT/HCPCS: 36415; 71045; 71046; 73080; 80048; 81001; 83605; 85025; 85027; 87040; 87449; 87631; 87633; 87811; 93005; 93306; 94640; 94668; 97110; 97116; 97162; 97166; 97530; 97535; 97802; 99285; J7030; J7050; A4216

== ENCOUNTER → 2023-06-23 | Outpatient (CLI) | payer MEDICARE, OTHER, SELFPAY ==
--- NOTE | 2023-06-23 15:49 | RAD_ITS ---
STUDY: X-RAY CHEST REASON FOR EXAM: Female, 87 years old. follow up pneumonia TECHNIQUE: PA and lateral COMPARISON: April 17 2023 FINDINGS: There is persistent reticulonodular interstitial thickening in the right lower lobe. There is no demonstrated pleural abnormality. Heart is enlarged. Normal mediastinum and shazia. Normal visualized pulmonary arteries. Tortuous calcified aortic arch and descending thoracic aorta. Dorsal spine and shoulders demonstrate degenerative change. Normal visualized ribs, and clavicles. There is no demonstrated abnormality of the visualized soft tissue structures of the upper abdomen. There is improved aeration of the right lower lobe since prior exam RAD/Chest PA and Lateral IMPRESSION: Residual interstitial thickening in the right lower lobe with improved aeration since previous exam Electronically Signed: Moshe Cotton MD at 18:58 EDT ,
== END | disposition home or self-care (01) ==
PROVIDERS: PCP Family Medicine; Referring Provider Internal Medicine Critical Care Medicine; Visit Provider Internal Medicine Critical Care Medicine
DX: J47.9 Bronchiectasis, uncomplicated (principal)
CPT/HCPCS: 71046

== ENCOUNTER → 2023-11-05 | Outpatient (CLI) | payer MEDICARE, OTHER, SELFPAY ==
[2023-11-05 17:45] LABS: ALB/GLOB Ratio 0.9 RATIO (0.9-2.4); AST(SGOT) 11 U/L (15-37); Alanine Aminotransfer ALT/SGPT 11 U/L (13-56); Albumin, Serum 3.3 g/dL (3.2-5.0); Alkaline Phosphatase 85 U/L (45-117); Anion Gap 7 (5-15); BUN 17 mg/dL (7-18); BUN/Creat Ratio 20.7 RATIO (10-20); Calcium,Total 9.2 mg/dL (8.5-10.1); Chloride 105 mmol/L (98-107); Cholesterol 176 mg/dL (200); Creatinine, Serum 0.82 mg/dL (0.55-1.02); EST Glomerular Filtration Rate 70 mL/min (>60); Est Glom Filt Rate - Afr Amer 84 mL/min (>60); Globulin 3.7 g/dL (2.2-4.2); Glucose 112 mg/dL (74-106); High Density Lipoprotein 83 mg/dL; Potassium 3.7 mmol/L (3.5-5.1); Sodium Level 140 mmol/L (136-145); Triglycerides 63 mg/dL; Very Low Density Lipoprotein 13 mg/dL (5-40)
== END | disposition home or self-care (01) ==
LOC: MFPLAB 16:21
PROVIDERS: PCP Family Medicine; Visit Provider Family Medicine
DX: I48.91 Unspecified atrial fibrillation (principal)
CPT/HCPCS: 36415; 80053; 80061

== ENCOUNTER → 2023-12-18 | Outpatient (CLI) | payer MEDICARE, OTHER, SELFPAY ==
--- NOTE | 2023-12-18 12:41 | RAD_ITS ---
EXAM: XR LUMBOSACRAL SPINE, 4 OR 5 VIEWS CLINICAL INDICATION: LOW BACK PAIN TECHNIQUE: Frontal, lateral and bilateral oblique views of the lumbar spine. COMPARISON: 07/25/2020 FINDINGS: VERTEBRAE: There are old compression deformities of T12, L1 and L4. There is orthopedic cement seen within the compression deformities. No spondylolisthesis. Preservation of the normal lumbar lordosis. No significant facet arthropathy. DISC SPACES: There is disc space narrowing at L2-3. GASTROINTESTINAL TRACT: Unremarkable as visualized. Included bowel gas pattern is non-obstructive. RAD/L/S Spine Min 4 Views IMPRESSION: Chronic compression deformities with orthopedic cement. There are no acute osseous abnormalities. Electronically Signed: Papo Newman MD at 23:50 EDT ,
== END | disposition home or self-care (01) ==
LOC: MTRAD 12:38
PROVIDERS: PCP Family Medicine; Referring Provider Family Medicine; Visit Provider Family Medicine
DX: M54.50 Low back pain, unspecified (principal)
CPT/HCPCS: 72110

== ENCOUNTER 2023-12-25 11:18 | Inpatient (IN) | payer MEDICARE, OTHER, SELFPAY ==
[2023-12-25] VITALS (8 sets, daily range): BP systolic 109–180; BP diastolic 87–121; PULSE 74–98; RESP 14–16; TEMP 36.5–36.6; O2SAT 92–96; BMI 26.4; BMI 24.0
--- NOTE | 2023-12-25 11:32 | CT_ITS ---
STUDY: CT LUMBAR SPINE WITHOUT CONTRAST REASON FOR EXAM: Female, 88 years old. Chronic back pain. RADIATION DOSAGE (If Supplied By Facility): CTDIvol = ( 13.91 ) mGy, DLP = ( 404.14 ) mGycm TECHNIQUE: The patient was scanned in a multi detector CT scanner. High resolution transaxial imaging was performed. Images were obtained from L1 to S1 level. Sagittal and coronal images were reconstructed. Individualized dose optimization techniques were used for this CT. COMPARISON: Comparison is made with prior study dated January 26, 2021. FINDINGS: Normal lumbar lordosis. There is no substantial scoliosis. Almost complete collapse of the T12, L1 and L3 vertebrae. Prior vertebroplasty at those levels. L1-2: Almost complete collapse of the L1 vertebrae. No significant spinal stenosis seen. L2-3: Anterior spondylosis. Mild degree of diffuse posterior disc bulge causing mild degree of bilateral neural foraminal stenosis. L3-4: Almost complete collapse of the L4 vertebrae. Prior vertebroplasty. Diffuse posterior disc bulge with hypertrophy of the ligamenta flava causing central and bilateral neural foraminal stenosis. L4-5: The most complete collapse of the L4 vertebrae. L5-S1: No acute adenopathy is seen. 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 CT/Spine Lumbar without Contrast IMPRESSION: Multilevel degenerative changes, as described above. Status post vertebroplasty of the T12, L1 and L4 vertebrae with almost complete collapse of the vertebrae. Once again, a small amount of the tuber plasty cement is seen along the left into the foramen of the L4-L5 level. Electronically Signed: Negrito Honeycutt MD at 12:59 EDT ,
--- NOTE | 2023-12-25 11:33 | EDS_ITS ---
<Statement entered by Yemi Curtis DO - 12/27/23 16:00> I have personally performed a face to face assessment of the patient and have reviewed the REYNA Note. HPI History of Present Illness Chief Complaint: Back Narrative Narrative: 88-year-old female with history of hypertension COPD chronic back pain A-fib not on any anticoagulation presenting to the emergency department for exacerbation of lower back pain, weakness to her right leg. Patient states that she does see Dr. Shafer, and she received x-rays on 17 December, they showed chronic deformities, spinal cement, however no acute findings. Patient denies any falls. Pay states she is having difficulty getting up and walking and using the restroom etc. Patient does live alone. Denies any fever or chills, [place] any difficulty urinating, denies any saddle paresthesias. PFSH PFS Medical History Pneumonia Kidney stones Former smoker Atrial fibrillation Nose abrasion Contusion of right shoulder Right shoulder strain Paroxysmal atrial fibrillation Compression fracture of lumbar spine, non-traumatic Vision loss of left eye (Unknown) Anxiety Depression Osteoporosis GERD (gastroesophageal reflux disease) Former smoker Irregular heart beat Hypertension ETOH abuse Essential hypertension Ventricular premature depolarization Abnormal electrocardiogram Benign cardiac neoplasm Atrial myxoma Home Medications ?Medication ?Instructions ?Recorded ?Last Taken ?Type cholecalciferol (vitamin D3) 25 25 mcg PO DAILY vitamin 11/11/19 2 Days Ago History mcg (1,000 unit) capsule ~01/22/20 vitamin B complex 1 tab PO DAILY supplement 01/24/20 01/23/20 History magnesium oxide 500 mg PO DAILY supplement 11/09/20 12/24/23 History vit A 300 mcg-C 200 mg-E 27 1 tab PO DAILY supplement 11/09/20 Unknown History mg-lutein 2 mg and minerals tablet (Ocuvite with Lutein) coenzyme Q10 200 mg capsule (Co 200 mg PO DAILY 05/22/21 Unknown History Q-10) hydralazine 25 mg tablet 25 mg PO BID 10/31/21 12/24/23 History albuterol sulfate 2.5 mg/3 mL 2.5 mg (3 mL) inhalation Q4H PRN 06/09/23 Unknown Rx (0.083 %) solution for nebulization shortness of breath or wheezing #180 mL metoprolol tartrate 25 mg tablet 25 mg PO BID 06/09/23 12/24/23 History ascorbic acid (vitamin C) 1,000 mg 1 g PO DAILY 09/17/23 Unknown History tablet food supplemt, lactose-reduced 118 ml PO DAILY 09/17/23 12/24/23 History (Ensure Compact oral liquid) triamterene 37.5 1 tab PO QDAY 09/17/23 12/24/23 History mg-hydrochlorothiazide 25 mg tablet zinc gluconate 30 mg tablet 30 mg PO DAILY 09/17/23 Unknown History acetaminophen 325 mg tablet 650 mg PO Q6H PRN Pain Score 12/25/23 12/25/23 History (Tylenol) 1-10/Temp > 100.7 F hydrocodone-acetaminophen 5-325mg 1 tab PO TID 12/25/23 12/24/23 History 5mg-325mg Allergy/AdvReac Type Severity Reaction Status Date / Time triamcinolone Allergy Mild Other Verified 09/17/23 13:15 alprazolam (From Xanax) Allergy Unknown Verified 09/17/23 13:15 atenolol Allergy Shortness Verified 09/17/23 13:15 of breath carvedilol Allergy Anaphylaxis Verified 09/17/23 13:15 cetirizine (From Zyrtec) Allergy Unknown Verified 09/17/23 13:15 cimetidine (From Tagamet) Allergy Unknown Verified 09/17/23 13:15 diltiazem (From Cardizem) Allergy Unknown Verified 09/17/23 13:15 erythromycin base Allergy Unknown Verified 09/17/23 13:15 famotidine (From Pepcid) Allergy Unknown Verified 09/17/23 13:15 grass pollen Allergy NEEDS Verified 09/17/23 13:15 FOLLOW-UP guaifenesin (From Entex LA) Allergy Unknown Verified 09/17/23 13:15 house dust Allergy Unknown Verified 09/17/23 13:15 lansoprazole (From Prevacid) Allergy Unknown Verified 09/17/23 13:15 loracarbef (From Lorabid) Allergy Unknown Verified 09/17/23 13:15 metoprolol (From Toprol XL) Allergy Unknown Verified 09/17/23 13:15 mold Allergy Unknown Verified 09/17/23 13:15 phenylephrine (From Entex LA) Allergy Unknown Verified 09/17/23 13:15 phenylpropanolamine (From Allergy Unknown Verified 09/17/23 13:15 Entex LA) promethazine (From Phenergan) Allergy Unknown Verified 09/17/23 13:15 raloxifene (From Evista) Allergy Unknown Verified 09/17/23 13:15 ranitidine (From Zantac) Allergy Unknown Verified 09/17/23 13:15 risedronate sodium (From Allergy Unknown Verified 09/17/23 13:15 Actonel) escitalopram (From Lexapro) AdvReac Severe Unknown Verified 09/17/23 13:15 lisinopril AdvReac Severe Lip Verified 09/17/23 13:15 swelling losartan (From Cozaar) AdvReac Severe Swelling Verified 09/17/23 13:15 lips meloxicam AdvReac Severe Unknown Verified 09/17/23 13:15 prednisone AdvReac Severe Unknown Verified 09/17/23 13:15 zolpidem (From Ambien) AdvReac Severe Unknown Verified 09/17/23 13:15 amlodipine (From Norvasc) AdvReac SOB Verified 09/17/23 13:15 clonazepam (From Klonopin) AdvReac NEEDS Verified 09/17/23 13:15 FOLLOW-UP diphenhydramine (From AdvReac NEEDS Verified 09/17/23 13:15 Benadryl) FOLLOW-UP metronidazole (From Flagyl) AdvReac Pain in Verified 09/17/23 13:15 joints Family History Mother CAD (coronary artery disease) Father Kidney disease Surgical History History of hysterectomy H/O partial resection of colon Social History Smoking Status: Former smoker how long ago did patient quit smokin years ago alcohol intake: former details: Patient states he quit alcohol in January 2020. substance use type: does not use caffeine: Yes Type: coffee Number of servings: 1 ROS ROS ED ROS Narrative Constitutional: Negative for fever, chills, weight loss, weakness Eyes: Negative for vision loss, vision change, double vision ENT: Negative for any sore throat, ear pain, congestion Cardiovascular: Negative for any chest pain, tightness, palpitations Respiratory: Negative for any cough, sputum production, hemoptysis, dyspnea, dyspnea on exertion, orthopnea Gastrointestinal: Negative for any abdominal pain, nausea, vomiting, diarrhea, constipation, blood in stool, blood in vomit : Negative for any urinary frequency, dysuria, retention, blood in urine Muscle skeletal: Negative for any neck pain. Positive for lower back pain, positive for weakness of the right leg Neurological: Negative for any headache, syncope, dizziness Skin: Negative for any rashes, itching, abrasions, lacerations Psychiatric: Negative for any depression, anxiety, stress, suicidal ideation, homicidal ideation Hematologic: Negative for any excessive bruising, easy bleeding EXAM Physical Exam Narrative Exam Narrative: Vital signs reviewed. HEET: Head normocephalic atraumatic, TMs clear bilaterally. Posterior pharynx is clear, moist mucous membranes. Nares clear bilaterally. Neck: Supple with no lymphadenopathy or tenderness. No signs of meningismus. Cardiac: Regular rate and rhythm no murmurs gallops or rubs, equal peripheral pulses bilaterally. Respiratory: Lungs clear to auscultation bilaterally. No chest tenderness. Abdomen: Soft, nontender, nondistended. No abdominal bruit or pulsatile masses. No hepatosplenomegaly Extremities: No peripheral edema, no signs of gross trauma or deformity. Active full range of motion of all extremities. Patient has equal dorsiflex, plantarflexion. Patient has no neurological focal deficit. Patient is able to raise her right leg off of the bed, however this does cause pain to her lower back. Neuro: Cranial nerves II through XII intact, no focal neurological deficits. Skin: Clean dry and intact with no rash, purpura, petechiae, vesicles or pustules. Backs/flank: No CVA tenderness, no midline spinal tenderness, no deformity. Most of the pain is more to the right lower lumbar spine Psych: Normal mood and affect. No SI, HI or acute psychosis. Const Vital Signs: 12/25/23 11:20 12/25/23 14:21 Temperature 97.8 F 97.7 F L Temperature Source Oral Pulse Rate 91 74 Respiratory Rate 16 16 Blood Pressure 180/116 H 169/121 H Blood Pressure Mean 137 137 Pulse Ox 96 92 Oxygen Delivery Method Room Air [facility] Lab Data Labs: Laboratory Results - last 24 hr 12/25/23 12/25/23 11:40 11:50 WBC 7.0 RBC 4.48 Hgb 14.8 Hct 43.6 MCV 97.3 MCH 33.0 H MCHC 33.9 RDW Std Deviation 44.3 H RDW Coeff of Jared 12.2 Plt Count 229 MPV 9.7 Immature Gran % (Auto) 0.300 Neut % (Auto) 79.8 H Lymph % (Auto) 11.6 L [place] % (Auto) 6.7 Eos % (Auto) 0.7 Baso % (Auto) 0.9 Absolute Neuts (auto) 5.6 Absolute Lymphs (auto) 0.81 L Nucleated RBC % 0 Sodium 139 Potassium 3.4 L Chloride 104 Carbon Dioxide 28.0 Anion Gap 7 BUN 12 Creatinine 0.73 Estim Creat Clear Calc 39.06 Est GFR (MDRD) Af Amer 97 Est GFR (MDRD) Non-Af 80 BUN/Creatinine Ratio 16.5 Glucose 112 H Calcium 9.8 Urine Color Yellow Urine Clarity Sl. Cloudy Urine pH 6.5 Ur Specific [place] 1.015 Urine Protein Negative Urine Glucose (UA) Normal Urine Ketones 5 H Urine Occult Blood Negative Urine Nitrite Negative Urine Bilirubin Negative Urine Urobilinogen Normal Ur Leukocyte Esterase Negative Urine RBC 0 SEEN Urine WBC 0-5 SEEN Ur Squamous Epith Cells 0 SEEN Urine Bacteria 0 SEEN Urine Mucus 0 SEEN Radiography Diagnostic Testing: Clinical Impression(s) from Imaging Studies Lumbar Spine CT 12/25/23 11:32 IMPRESSION: Multilevel degenerative changes, as described above. Status post vertebroplasty of the T12, L1 and L4 vertebrae with almost complete collapse of the vertebrae. Once again, a small amount of the tuber plasty cement is seen along the left into the foramen of the L4-L5 level. Electronically Signed: Negrito Honeycutt MD at 12:59 EDT , Lumbar Spine MRI 12/26/23 09:55 IMPRESSION: Severe chronic compression fractures at T12, L1 and L4 with milder compression deformity of L5. Prior kyphoplasty changes at T12, L1 and L4. Abnormal marrow signal of the L5 vertebral body, edema versus malignancy. Severe degenerative disc changes with multilevel stenoses as above. Most severe changes at L4-5. Electronically Signed: Sky Tyler MD at 17:03 EDT , Treatment and Re-Evaluation :: Differential diagnosis includes however is not limited to: Acute on chronic back pain, failure to thrive, inability to ambulate, cauda equina, spinal abscess, worsening compression fractures Patient appears generally well, vital signs are stable, patient is nontoxic- appearing. Presenting to the emergency department with worsening pain to the lower back as well as weakness of the right leg. I spoke with the patient regarding admission versus discharge. Patient at this time cannot care for self., Patient received basic laboratory values, urinalysis, CT scan of the lower lumbar spine. I will provide the patient with IV morphine, IV Zofran. Patient will be ambulated with a walker to see if she can ambulate. All radiologic examinations were read, reviewed by the emergency department attending. From these reads, a plan of care will be put in place. Patient is CBC was unremarkable, patient's chemistries were unremarkable patient's urinalysis was negative for any infection. Patient CT scan of the abdomen pelvis shows multilevel degenerative changes, status post vertebroplasty of the T12-L1 and L4 vertebrae with almost complete collapse of the vertebrae. Once again a small amount of the tuber plasty cement is not seen along the left into the foramen of the L4-L5 level. Patient will need to ambulate to see if she can go home and follow-up outpatient. If she is unable to ambulate or feels unsafe she will need to be admitted to the hospital. Patient was able to get up out of the bed however per the nurse, she was unable to take walks with her walker. At this time, secondary to the patient not being able to ambulate, the patient will need to be admitted to hospital. I will reach out to the hospitalist. Discharge Plan Dx/Rx/DC Orders Clinical Impression: Intractable back pain, Inability to walk Disposition Disposition: [facility]
[2023-12-25] MEDS: Morphine 2 MG/ML Syringe IV (11:42)
[2023-12-25] MEDS: Ondansetron 4 MG/2 ML Vial IV (11:42)
[2023-12-25 11:47] LABS: Absolute Lymphocyte Count 0.81 X10^3/uL (0.83-4.51); Absolute Neutrophil Count 5.6 X10^3/uL (2.0-7.7); Basophil# 0.06 X10^3/uL; Basophil% 0.9 % (0-1); Eosinophil# 0.05 X10^3/uL; Eosinophils% 0.7 % (0-5); Hematocrit 43.6 % (37-47); Hemoglobin 14.8 g/dL (12.0-15.0); Lymphocyte # 0.81 X10^3/ul (0.83-4.51); Lymphocyte % 11.6 % (19-41); Mean Corp Hgb Conc 33.9 g/dL (32-36); Mean Corpuscular Volume 97.3 fL (81-99); Mean Platelet Vol. 9.7 fl (6.2-12.0); Monocyte# 0.47 X10^3/uL; Monocyte% 6.7 % (0-10); NRBC Flagged by Analyzer 0 % (0-5); Neutrophil # 5.56 X10^3/uL (2.7-7.7); Neutrophil % 79.8 % (47-70); Platelet Count 229 K/mm3 (150-450); RBC Distribution Width CV 12.2 % (11.6-14.6); RBC Distribution Width SD 44.3 fl (35.1-43.9); Red Blood Count 4.48 M/mm3 (4.2-5.4)
[2023-12-25 11:59] LABS: Bacteria 0 SEEN /hpf (None Seen); Mucous, Urine 0 SEEN /hpf (<or=2+); Red Blood Cells-Urine 0 SEEN /hpf (0-5); Squamous Epithelial Cells - UA 0 SEEN /hpf (5-10)
[2023-12-25 12:00] LABS: Anion Gap 7 (5-15); BUN 12 mg/dL (7-18); BUN/Creat Ratio 16.5 RATIO (10-20); Calcium,Total 9.8 mg/dL (8.5-10.1); Chloride 104 mmol/L (98-107); Creatinine, Serum 0.73 mg/dL (0.55-1.02); EST Glomerular Filtration Rate 80 mL/min (>60); Est Glom Filt Rate - Afr Amer 97 mL/min (>60); Estimated Creatinine Clearance 39.06 ml/min; Glucose 112 mg/dL (74-106); Potassium 3.4 mmol/L (3.5-5.1); Sodium Level 139 mmol/L (136-145)
[2023-12-25 12:10] LABS: Color, Urine Yellow (Yellow); Glucose, Dipstick Normal (Normal); Ketone-Dipstick 5 mg/dl (Negative); Leukocyte Esterase-Dipstick Negative /ul (Negative); Nitrite-Dipstick Negative (Negative); Occult Blood-Urine Negative /ul (Negative); Protein-Dipstick Negative (Negative); Specific Gravity, Urine 1.015 (1.002-1.030); Urine Bilirubin Dipstick Negative (Negative); Urine Clarity Sl. Cloudy (Clear); Urine Urobilinogen Normal (Normal); Urine pH 6.5 (5.0 - 8.0)
[2023-12-25 12:19] LABS: White Blood Cells 0-5 SEEN /hpf (0-5)
--- NOTE | 2023-12-25 14:34 | PCM.HP.STD ---
[facility] - General General Date of Admission: 12/25/23 Date of Service: 12/25/23 Chief Complaint: Acute on chronic low back pain with debility HPI Narrative JADON SUNG, is a 88 F who presented to [facility] ED on 12/25/2023 with worsening low back pain with debility. Patient lives at home by herself. She typically has fairly good functional status at baseline, is able to ambulate with the assistance of a walker. Patient has history of significant compression deformities in her low back at T12, L1 and L4. She saw Dr. Ernandez for this about two years ago and had vertebroplasties done at T12, L1 and L4 at that time. She states that she did not have much pain relief with the vertebroplasties and was upset that she went through this procedure. Her pain has remained tolerable over the past few years. However, about 1 week ago she noticed significant worsening of her low back pain. No falls or trauma noted. Also had some right leg weakness associated with the pain. Saw her PCP Dr. Lorenzo and had lumbar spine x-ray done on 12/17 that showed chronic compression fomites with orthopedic cement but no new abnormalities. However, she continued to have significant low back pain and difficulty with doing things for herself at home, so she came into the ED for further evaluation. CT lumbar spine in the ED showed almost complete collapse of the vertebrae at T12, L1 and L4. Diffuse posterior disc bulge causing central and bilateral neuroforaminal stenosis was noted at L3-4. Had mild disc bulge with stenosis at L2-3. Given her significant pain and difficulty caring for self at home, hospitalist was contacted for admission. I saw the patient at bedside in the ED. Patient was sitting up in bed and in no acute distress. She was remaining fairly still during the encounter and stated that with remaining still she had minimal pain but with movement she had fairly significant pain. She stated the pain was localized to the low back, did not have any radiculopathy. Denied any saddle anesthesia or any recent bowel or bladder incontinence. Patient is very sharp mentally for her age. She was prescribed a short course of [employer] for the pain by her PCP and initially had some pain improvement with this but has not had as much relief of pain over the past few days. She was given a dose of IV morphine in the ED with only mild relief of pain. She does note that lidocaine patches have worked for her pain in the past. She otherwise denies any fevers or chills. Denies any other acute pain or discomfort. No other acute concerns at this time. [facility] Medical History Pneumonia Kidney stones Former smoker Atrial fibrillation Nose abrasion Contusion of right shoulder Right shoulder strain Paroxysmal atrial fibrillation Compression fracture of lumbar spine, non-traumatic Vision loss of left eye (Unknown) Anxiety Depression Osteoporosis GERD (gastroesophageal reflux disease) Former smoker Irregular heart beat Hypertension ETOH abuse Essential hypertension Ventricular premature depolarization Abnormal electrocardiogram Benign cardiac neoplasm Atrial myxoma Home Medications ?Medication ?Instructions ?Recorded ?Last Taken ?Type cholecalciferol (vitamin D3) 25 25 mcg PO DAILY vitamin 11/11/19 2 Days Ago History mcg (1,000 unit) capsule ~01/22/20 vitamin B complex 1 tab PO DAILY supplement 01/24/20 01/23/20 History magnesium oxide 500 mg PO DAILY supplement 11/09/20 12/24/23 History vit A 300 mcg-C 200 mg-E 27 1 tab PO DAILY supplement 11/09/20 Unknown History mg-lutein 2 mg and minerals tablet (Ocuvite with Lutein) coenzyme Q10 200 mg capsule (Co 200 mg PO DAILY 05/22/21 Unknown History Q-10) hydralazine 25 mg tablet 25 mg PO BID 10/31/21 12/24/23 History albuterol sulfate 2.5 mg/3 mL 2.5 mg (3 mL) inhalation Q4H PRN 06/09/23 Unknown Rx (0.083 %) solution for nebulization shortness of breath or wheezing #180 mL metoprolol tartrate 25 mg tablet 25 mg PO BID 06/09/23 12/24/23 History ascorbic acid (vitamin C) 1,000 mg 1 g PO DAILY 09/17/23 Unknown History tablet food supplemt, lactose-reduced 118 ml PO DAILY 09/17/23 12/24/23 History (Ensure Compact oral liquid) triamterene 37.5 1 tab PO QDAY 09/17/23 12/24/23 History mg-hydrochlorothiazide 25 mg tablet zinc gluconate 30 mg tablet 30 mg PO DAILY 09/17/23 Unknown History acetaminophen 325 mg tablet 650 mg PO Q6H PRN Pain Score 12/25/23 12/25/23 History (Tylenol) 1-10/Temp > 100.7 F hydrocodone-acetaminophen 5-325mg 1 tab PO TID 12/25/23 12/24/23 History 5mg-325mg Allergy/AdvReac Type Severity Reaction Status Date / Time triamcinolone Allergy Mild Other Verified 09/17/23 13:15 alprazolam (From Xanax) Allergy Unknown Verified 09/17/23 13:15 atenolol Allergy Shortness Verified 09/17/23 13:15 of breath carvedilol Allergy Anaphylaxis Verified 09/17/23 13:15 cetirizine (From Zyrtec) Allergy Unknown Verified 09/17/23 13:15 cimetidine (From Tagamet) Allergy Unknown Verified 09/17/23 13:15 diltiazem (From Cardizem) Allergy Unknown Verified 09/17/23 13:15 erythromycin base Allergy Unknown Verified 09/17/23 13:15 famotidine (From Pepcid) Allergy Unknown Verified 09/17/23 13:15 grass pollen Allergy NEEDS Verified 09/17/23 13:15 FOLLOW-UP guaifenesin (From Entex LA) Allergy Unknown Verified 09/17/23 13:15 house dust Allergy Unknown Verified 09/17/23 13:15 lansoprazole (From Prevacid) Allergy Unknown Verified 09/17/23 13:15 loracarbef (From Lorabid) Allergy Unknown Verified 09/17/23 13:15 metoprolol (From Toprol XL) Allergy Unknown Verified 09/17/23 13:15 mold Allergy Unknown Verified 09/17/23 13:15 phenylephrine (From Entex LA) Allergy Unknown Verified 09/17/23 13:15 phenylpropanolamine (From Allergy Unknown Verified 09/17/23 13:15 Entex LA) promethazine (From Phenergan) Allergy Unknown Verified 09/17/23 13:15 raloxifene (From Evista) Allergy Unknown Verified 09/17/23 13:15 ranitidine (From Zantac) Allergy Unknown Verified 09/17/23 13:15 risedronate sodium (From Allergy Unknown Verified 09/17/23 13:15 Actonel) escitalopram (From Lexapro) AdvReac Severe Unknown Verified 09/17/23 13:15 lisinopril AdvReac Severe Lip Verified 09/17/23 13:15 swelling losartan (From Cozaar) AdvReac Severe Swelling Verified 09/17/23 13:15 lips meloxicam AdvReac Severe Unknown Verified 09/17/23 13:15 prednisone AdvReac Severe Unknown Verified 09/17/23 13:15 zolpidem (From Ambien) AdvReac Severe Unknown Verified 09/17/23 13:15 amlodipine (From Norvasc) AdvReac SOB Verified 09/17/23 13:15 clonazepam (From Klonopin) AdvReac NEEDS Verified 09/17/23 13:15 FOLLOW-UP diphenhydramine (From AdvReac NEEDS Verified 09/17/23 13:15 Benadryl) FOLLOW-UP metronidazole (From Flagyl) AdvReac Pain in Verified 09/17/23 13:15 joints Family History Mother CAD (coronary artery disease) Father Kidney disease Surgical History History of hysterectomy H/O partial resection of colon Social History Smoking Status: Former smoker how long ago did patient quit smokin years ago alcohol intake: former details: Patient states he quit alcohol in January 2020. substance use type: does not use caffeine: Yes Type: coffee Number of servings: 1 ROS Constitutional Constitutional: Reports weakness; Denies chills, fatigue or fever(s) Cardiovascular Cardiovascular: Denies chest pain Respiratory/Chest Respiratory/Chest: Denies shortness of breath at rest Gastrointestinal Gastrointestinal: Denies abdominal pain Genitourinary Genitourinary: Denies dysuria Musculoskeletal Musculoskeletal: Reports back pain; Denies joint stiffness, joint swelling or myalgias Neurologic Neurologic: Denies disequilibrium, dizziness, focal weakness, numbness, paresthesias or tingling Vital Signs Vital Signs Vital Signs: 12/25/23 11:20 12/25/23 14:21 Temperature 97.8 F 97.7 F L Temperature Source Oral Pulse Rate 91 74 Respiratory Rate 16 16 Blood Pressure 180/116 H 169/121 H Blood Pressure Mean 137 137 Pulse Ox 96 92 Oxygen Delivery Method Room Air Weight Weight: 61.5 kg Body Mass Index (BMI) 26.4 Physical Exam Const alert, oriented x3, no apparent distress and average body habitus Constitutional Narrative: Elderly female, mentally sharp for her age, sitting up in bed, remaining still has movement causes her significant low back discomfort, otherwise conversing normally and in no acute distress. General Appearance: cooperative HEENT normocephalic, head/scalp atraumatic, hearing grossly normal bilaterally, nasal mucous membranes and turbinates normal and moist oral mucous membranes Eyes PERRL, EOMs intact bilaterally and conjunctivae normal Neck full ROM Chest inspection of chest normal Resp normal respiratory effort, normal air movement, no use of accessory muscles and clear to auscultation bilaterally Cardio regular rate, regular rhythm, no murmurs and peripheral pulses 2+ throughout GI normal to inspection, nondistended, normoactive bowel sounds, soft to palpation, non-tender and non-distended Back/Spine Back/Spine Narrative: Mild tenderness to palpation in mid low back diffusely and paramuscular areas. No significant point tenderness to palpation. Range of motion limited due to pain. Extremity normal to inspection and no pedal edema Skin no rashes or lesions noted Neuro moves all extremities and no focal motor deficits Speech: speech normal Psych mental status grossly normal Psych Narrative: Flat affect. Results Lab / Micro Data 12/25/23 11:40 12/25/23 11:40 Labs: Laboratory Results - last 24 hr 12/25/23 11:40: WBC 7.0, RBC 4.48, Hgb 14.8, Hct 43.6, MCV 97.3, MCH 33.0 H, MCHC 33.9, RDW Std Deviation 44.3 H, RDW Coeff of Jared 12.2, Plt Count 229, MPV 9.7, Immature Gran % (Auto) 0.300, Neut % (Auto) 79.8 H, Lymph % (Auto) 11.6 L, [place] % (Auto) 6.7, Eos % (Auto) 0.7, Baso % (Auto) 0.9, Absolute Neuts (auto) 5.6, Absolute Lymphs (auto) 0.81 L, Nucleated RBC % 0, Sodium 139, Potassium 3.4 L, Chloride 104, Carbon Dioxide 28.0, Anion Gap 7, BUN 12, Creatinine 0.73, Estim Creat Clear Calc 39.06, Est GFR (MDRD) Af Amer 97, Est GFR (MDRD) Non-Af 80, BUN/Creatinine Ratio 16.5, Glucose 112 H, Calcium 9.8 12/25/23 11:50: Urine Color Yellow, Urine Clarity Sl. Cloudy, Urine pH 6.5, Ur Specific [place] 1.015, Urine Protein Negative, Urine Glucose (UA) Normal, Urine Ketones 5 H, Urine Occult Blood Negative, Urine Nitrite Negative, Urine Bilirubin Negative, Urine Urobilinogen Normal, Ur Leukocyte Esterase Negative, Urine RBC 0 SEEN, Urine WBC 0-5 SEEN, Ur Squamous Epith Cells 0 SEEN, Urine Bacteria 0 SEEN, Urine Mucus 0 SEEN Imaging Radiology Impression Lumbar Spine CT 12/25/23 11:32 IMPRESSION: Multilevel degenerative changes, as described above. Status post vertebroplasty of the T12, L1 and L4 vertebrae with almost complete collapse of the vertebrae. Once again, a small amount of the tuber plasty cement is seen along the left into the foramen of the L4-L5 level. Electronically Signed: Negrito Honeycutt MD at 12:59 EDT , Assessment & Plan Assessment/Plan (1) Intractable back pain: (2) Inability to walk: (3) Weakness: PLAN: Plan Patient is an 88-year-old female who presented [facility] ED on 12/25/2023 with worsening low back pain with debility. 1. Acute on chronic low back pain with debility ? Admit under observation status to [facility]. Orthopedic surgery and pain management consulted. PT/OT/case management consulted. CT lumbar spine in ED showed almost complete collapse of T12, L1, L3 and L4 vertebrae and L3-4 diffuse disc bulge causing central and bilateral neuroforaminal stenosis. Suspect her acute on chronic pain could be due to this. Appreciate orthopedic surgery and pain management recommendations. Will start scheduled Tylenol, lidocaine patch, oxycodone as needed and IV Dilaudid as needed for pain control. Patient has required SNF placement before and would be open to SNF placement on discharge if needed. 2. Hypertension ? Home regimen of hydralazine 25 mg twice daily, Lopressor 25 mg twice daily and triamterene?hydrochlorothiazide 37.5-25 mg daily. Hypertensive in the ED to the 160s over 110s. Suspect in part due to pain. Improved with a dose of IV hydralazine. IV hydralazine 10 mg every 4 hours as needed ordered on admit and can resume home regimen noted above. 3. Chronic bronchiectasis ? Follows with outpatient pulmonology, last office visit on 09/08. Stable on room air on admit with no respiratory symptoms. Continue home inhalers. 4. Paroxysmal A-fib, multifocal atrial tachycardia, atrial myxoma ? Follows with outpatient cardiology, last office visit on 09/16. Last echo in 03/2023 showed EF 70%, moderately enlarged LA, mildly enlarged RA, mild aortic stenosis, no other significant abnormalities. Patient hemodynamically stable and in normal sinus rhythm on admit. Not on anticoagulation due to history of falls. Continue home Lopressor. 5. Former tobacco abuse ? Encouraged continued cessation. DVT prophylaxis: Lovenox CODE STATUS: DNR CCA, DNI Expect disposition: TBD Total clinical time spent by myself addressing the patient's medical issues, reviewing all the data, and collaborating with patient's care team: 55 minutes. Charges/Coding Visit Charges Inpatient E&M: 52479 Init Hosp L2
[2023-12-25 15:27] LABS: Magnesium 1.9 mg/dL (1.6-2.6)
[2023-12-25] MEDS: hydrALAZINE 20 MG/ML Vial 10 MG IV (15:34)
[2023-12-25] MEDS: Lidocaine 5% Patch 1 PATCH TOPICAL (17:44)
[2023-12-25] MEDS: Acetaminophen 500 MG Tablet 1000 MG PO (17:44)
[2023-12-25] MEDS: Triamterene 37.5MG/Hctz 25MG Capsule 1 CAP PO (17:55)
[2023-12-25] MEDS: Cholecalciferol (VIT D3) 25 MCG TABLET (1,000 UNITS) PO (17:55)
[2023-12-25] MEDS: Metoprolol Tartrate 25 MG Tablet PO (17:56)
[2023-12-25] MEDS: hydrALAZINE 25 MG Tablet PO (17:56)
[2023-12-25] MEDS: Ascorbic Acid 500 MG Tablet 1000 MG PO (17:57)
[2023-12-25] MEDS: Magnesium Chloride 64 MG Delay Rel.Tablet 128 MG PO (18:00)
[2023-12-26] VITALS (11 sets, daily range): BP systolic 122–143; BP diastolic 66–98; PULSE 86–96; RESP 14–16; TEMP 36.8–37.3; O2SAT 92–100
[2023-12-26] MEDS: Acetaminophen 500 MG Tablet 1000 MG PO ×3 (06:32→20:57)
[2023-12-26 06:35] LABS: Hematocrit 37.9 % (37-47); Hemoglobin 12.4 g/dL (12.0-15.0); Mean Corp Hgb Conc 32.7 g/dL (32-36); Mean Corpuscular Volume 100.8 fL (81-99); Mean Platelet Vol. 10.2 fl (6.2-12.0); Platelet Count 244 K/mm3 (150-450); RBC Distribution Width CV 12.5 % (11.6-14.6); RBC Distribution Width SD 46.5 fl (35.1-43.9); Red Blood Count 3.76 M/mm3 (4.2-5.4); White Blood Count 6.7 K/mm3 (4.4-11.0)
[2023-12-26 07:00] LABS: Anion Gap 5 (5-15); BUN 12 mg/dL (7-18); BUN/Creat Ratio 14.9 RATIO (10-20); Calcium,Total 9.2 mg/dL (8.5-10.1); Chloride 107 mmol/L (98-107); EST Glomerular Filtration Rate 71 mL/min (>60); Est Glom Filt Rate - Afr Amer 86 mL/min (>60); Estimated Creatinine Clearance 37.34 ml/min; Glucose 97 mg/dL (74-106); Potassium 3.3 mmol/L (3.5-5.1); Sodium Level 141 mmol/L (136-145)
--- NOTE | 2023-12-26 07:11 | PN.HOSP_ITS ---
Reason for Visit Reason for Visit: Diagnoses Dorsalgia, unspecified (12/25/23) Difficulty in walking, not elsewhere classified (12/25/23) Weakness (12/25/23) Subjective Subjective Patient is an 88-year-old female who presented [facility] ED on 12/25/2023 with worsening low back pain with debility. Objective Data Objective Data Vital Signs: Vital Signs Temp Pulse Resp BP Pulse Ox O2 Del Method 98.3 F 86 16 143/95 H 95 Room Air 12/26/23 02:40 12/26/23 02:40 12/26/23 02:40 12/26/23 02:40 12/26/23 02:40 12/26/23 02:40 Oxygen Delivery Method Room Air Weight: 55.792 kg Body Mass Index (BMI) 24.0 Intake & Output: Intake and Output for Last 24 Hours 12/24/23 12/25/23 12/26/23 23:59 23:59 23:59 Intake Total 200 / 200 200 / 200 Balance 200 / 200 200 / 200 Lab / Micro Data 12/26/23 05:52 12/26/23 05:52 Labs: Laboratory Results - last 24 hr 12/25/23 11:40: WBC 7.0, RBC 4.48, Hgb 14.8, Hct 43.6, MCV 97.3, MCH 33.0 H, MCHC 33.9, RDW Std Deviation 44.3 H, RDW Coeff of Jared 12.2, Plt Count 229, MPV 9.7, Immature Gran % (Auto) 0.300, Neut % (Auto) 79.8 H, Lymph % (Auto) 11.6 L, [place] % (Auto) 6.7, Eos % (Auto) 0.7, Baso % (Auto) 0.9, Absolute Neuts (auto) 5.6, Absolute Lymphs (auto) 0.81 L, Nucleated RBC % 0, Sodium 139, Potassium 3.4 L, Chloride 104, Carbon Dioxide 28.0, Anion Gap 7, BUN 12, Creatinine 0.73, Estim Creat Clear Calc 39.06, Est GFR (MDRD) Af Amer 97, Est GFR (MDRD) Non-Af 80, BUN/Creatinine Ratio 16.5, Glucose 112 H, Calcium 9.8, Phosphorus 3.0, Magnesium 1.9 12/25/23 11:50: Urine Color Yellow, Urine Clarity Sl. Cloudy, Urine pH 6.5, Ur Specific [place] 1.015, Urine Protein Negative, Urine Glucose (UA) Normal, Urine Ketones 5 H, Urine Occult Blood Negative, Urine Nitrite Negative, Urine Bilirubin Negative, Urine Urobilinogen Normal, Ur Leukocyte Esterase Negative, Urine RBC 0 SEEN, Urine WBC 0-5 SEEN, Ur Squamous Epith Cells 0 SEEN, Urine Bacteria 0 SEEN, Urine Mucus 0 SEEN 12/26/23 05:52: WBC 6.7, RBC 3.76 L, Hgb 12.4, Hct 37.9, MCV 100.8 H, MCH 33.0 H , MCHC 32.7, RDW Std Deviation 46.5 H, RDW Coeff of Jared 12.5, Plt Count 244, MPV 10.2, Sodium 141, Potassium 3.3 L, Chloride 107, Carbon Dioxide 29.0, Anion Gap 5, BUN 12, Creatinine 0.80, Estim Creat Clear Calc 37.34, Est GFR (MDRD) Af Amer 86, Est GFR (MDRD) Non-Af 71, BUN/Creatinine Ratio 14.9, Glucose 97, Calcium 9.2 Radiography Diagnostic Testing: Radiology Impression Lumbar Spine CT 12/25/23 11:32 IMPRESSION: Multilevel degenerative changes, as described above. Status post vertebroplasty of the T12, L1 and L4 vertebrae with almost complete collapse of the vertebrae. Once again, a small amount of the tuber plasty cement is seen along the left into the foramen of the L4-L5 level. Electronically Signed: Negrito Honeycutt MD at 12:59 EDT , Physical Exam Narrative GENERAL: cooperative HEENT: Atraumatic; normocephalic EYES; Anicteric, Normal Conjunctiva NECK; supple, normal thyroid, RESPIRATORY: Diminished to auscultation CARDIOVASCULAR: Regular S1 S2, GI: soft, normoactive bowel sounds, : No Renal angle tenderness; EXTREMITIES: No edema, no clubbing, MUSCULOSKELETAL: no muscle wasting NEURO: Awake; no lateralizing signs. SKIN: No Rash PSYCH; Flat affect Assessment & Plan Assessment/Plan (1) Intractable back pain: (2) Inability to walk: (3) Weakness: PLAN: Plan Patient is an 88-year-old female who presented [facility] ED on 12/25/2023 with worsening low back pain with debility. 1. Acute on chronic low back pain with significant debility ? CT of the lumbar spine obtained in the emergency department demonstrated complete collapse of T12, L1, L3 and L4 vertebrae and L3-4 diffuse disc bulge causing central and bilateral neuroforaminal stenosis. Admitted to regular nursing floor for pain management with consultation placed to orthopedic surgery as well as pain management physical deconditioning. Also requested for PT OT eval and social services specialist to assist with discharge planning 2. Hypertension ? Blood pressure controlled, home medications continued with dose adjustment as needed 3. Chronic bronchiectasis ? Follows with outpatient pulmonology, last office visit on 09/08. Stable on room air on admit with no respiratory symptoms. Continue home inhalers. 4. Paroxysmal A-fib, multifocal atrial tachycardia, atrial myxoma ? Follows with outpatient cardiology, last office visit on 09/16. Last echo in 03/2023 showed EF 70%, moderately enlarged LA, mildly enlarged RA, mild aortic stenosis, no other significant abnormalities. Patient hemodynamically stable and in normal sinus rhythm on admit. Not on anticoagulation due to history of falls. Continue home Lopressor. 5. Former tobacco abuse ? Encouraged continued cessation. 6. DVT prophylaxis ? On enoxaparin Time spent in the patient's overall evaluation,decision-making process, review of diagnostic data, adjustment of management, discussion with other providers, nursing nursing and ancillary staff involved in patient's care documentation, 40 Minutes Charges/Coding Visit Charges Inpatient E&M: 75496 Subs Hosp L2
--- NOTE | 2023-12-26 09:55 | MRI_ITS ---
INDICATION: back pain, h/o kyphoplasty several levels EXAMINATION: MRI - MR Spine Lumbar W/O Contrast TECHNIQUE: Multiplanar and multisequence MR images of the lumbar spine. IV Contrast Dosage and Agent: None. COMPARISON: CT lumbar spine 12/25/2023 FINDINGS: VERTEBRAE: Severe chronic compression fractures of T12, L1, L4 with loss of height and deformity of L5. Prior kyphoplasty changes at T12, L1 and L4. Small retropulsed fragment at T12 with mild central stenosis. Retropulsed fragment from the L1 vertebral body produces mild central stenosis. Abnormal marrow edema signal involving the entire L5 vertebral body. VERTEBRAL ALIGNMENT: No spondylolisthesis. There is preservation of the normal lumbar lordosis. CORD: Normal position and signal intensity of the conus medullaris. L1/L2: Circumferential annular bulge and bilateral facet joint hypertrophy with bilateral foraminal encroachment, no significant central stenosis. L2/L3: Loss of disc height. No significant central stenosis. Mild bilateral foraminal encroachment by circumferential annular bulge. L3/L4: Circumferential annular bulge and bilateral facet joint hypertrophy without significant central stenosis. Mild bilateral foraminal encroachment. L4/L5: Circumferential annular bulge with bilateral facet joint hypertrophy. Moderate central and bilateral foraminal stenosis. L5/S1: Normal disc height and morphology. Normal spinal canal, lateral recesses and neuroforamina. MRI/Spine Lumbar (Routine) IMPRESSION: Severe chronic compression fractures at T12, L1 and L4 with milder compression deformity of L5. Prior kyphoplasty changes at T12, L1 and L4. Abnormal marrow signal of the L5 vertebral body, edema versus malignancy. Severe degenerative disc changes with multilevel stenoses as above. Most severe changes at L4-5. Electronically Signed: Sky Tyler MD at 17:03 EDT ,
[2023-12-26] MEDS: hydrALAZINE 25 MG Tablet PO ×2 (10:34→20:57)
[2023-12-26] MEDS: Enoxaparin 40 MG/0.4 ML Syringe SC (10:35)
[2023-12-26] MEDS: Metoprolol Tartrate 25 MG Tablet PO ×2 (10:35→20:57)
[2023-12-26] MEDS: Lidocaine 5% Patch 1 PATCH TOPICAL (10:35)
[2023-12-26] MEDS: Cholecalciferol (VIT D3) 25 MCG TABLET (1,000 UNITS) PO (10:41)
--- NOTE | 2023-12-26 12:42 | CHAPLAIN ---
Type of Pastoral Visit _x__ Initial Visit ___ Follow-up Visit ___ On-call Visit ___ General Patient Visit ___ Spiritual Assessment ___ Family Conference ___ Bereavement ___ Rapid Response ___ Code Blue ___ Other (describe below) Pastoral Care Referral From _x__ Patient ___ Family ___ Nurse ___ Physician ___ [employer] ___ Lead Electrical Engineer ___ Other (describe below) Sacrament/Intervention _x__ Active listening ___ Anointing ___ Quaker ___ Bereavement ___ Communion ___ Araceli exploration ___ _x__ Life review _x__ Prayer ___ Reconciliation ___ Sacrament of Sick _x__ Supportive presence ___ Wedding ___ Other (describe below) Pastoral Comments patient describes her situation and health need; pt does not have much support by family except for a home health aide that comes occasionally through the week; pt does wish that her auto 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
[2023-12-26] MEDS: 0.9% Saline Lock 10 ML Syringe IV (14:19)
[2023-12-26] MEDS: LORazepam 2 MG/ML Syringe 0.5 MG IV (14:19)
[2023-12-26] MEDS: Triamterene 37.5MG/Hctz 25MG Capsule 1 CAP PO (14:23)
--- NOTE | 2023-12-26 14:47 | CASEMGMT ---
SARA FLORES into pt room, pt sitting up in bed in no distress with nurse at bedside. Pt states she lives alone. The only family she has is a niece that lives in [place]. Pt states she lives in a single story condo with 1 step to enter with a grab bar. Pt is I in ADLs typically and has her groceries delivered. Pt has a cleaning person every couple of weeks. Pt can do her own laundry. 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 Pt has a portable concentrator and oxygen from [employer]. She has a pox, walker, vibrating vest, nebulizer and shower bench. Pt has had HHC in the past but does not know which agency. Pt has been to [facility]. Pt states she is unsure if she will be able to go home after this hospital stay. States if she cannot she would want to go to [facility] for skilled then transition to the [place]. Discussed that currently pt is in an observation status. Pain mgmt and Dr. Lawrence to consult. SARA FLORES to follow up tomorrow after consults and formulate a plan with pt. came in and pt be taken down to MRI currently. Pt is agreeable to this plan and denies any questions.
--- NOTE | 2023-12-26 16:20 | CASEMGMT ---
Met with patient to complete THAO form. THAO form explained to patient who voiced understanding and signed form. Original form placed in pt?s chart and copy provided to patient. Celina Lopes, Discharge Planning Asst
--- NOTE | 2023-12-26 16:52 | CONS.ORTHO ---
HPI Consult Data Date of Consult: 12/26/23 HPI Narrative HPI Narrative: JADON SUNG, is a 88 F who presents low back pain and right lower extremity weakness. I was consulted for CT findings of previous kyphoplasty's at multiple levels. I saw the patient in 303. Patient has had multiple osteoporotic compression fractures through the thoracic and lumbar spine and underwent T12, L1, L4 cement augmentation about 3 years ago. She mentions that her mid back cement augmentation procedures improved her pain significantly however the lower back cement augmentation procedure because of severe pain although she did not have any radicular pain or weakness in the lower extremities at that point. She did well until about a week ago when she started having new onset lower back pain which we points out in the lower lumbar region. She also mentions that her right leg is not able to maintain her weight and she cannot walk. She has not been able to walk for a week now. She did stand and pivot to a chair with PT while here in the hospital. She denies any pain radiating into the lower extremity or any numbness. She has significant balance issues. FORMERLY [facility] Medical History (Updated 12/26/23 @ 16:[address] Leonard Lawrence MD) Pneumonia Kidney stones Former smoker Atrial fibrillation Nose abrasion Contusion of right shoulder Right shoulder strain Paroxysmal atrial fibrillation Compression fracture of lumbar spine, non-traumatic Vision loss of left eye (Unknown) Anxiety Depression Osteoporosis GERD (gastroesophageal reflux disease) Former smoker Irregular heart beat Hypertension ETOH abuse Essential hypertension Ventricular premature depolarization Abnormal electrocardiogram Benign cardiac neoplasm Atrial myxoma Home Medications ?Medication ?Instructions ?Recorded ?Last Taken ?Type cholecalciferol (vitamin D3) 25 25 mcg PO DAILY vitamin 11/11/19 2 Days Ago History mcg (1,000 unit) capsule ~01/22/20 vitamin B complex 1 tab PO DAILY supplement 01/24/20 01/23/20 History magnesium oxide 500 mg PO DAILY supplement 11/09/20 12/24/23 History vit A 300 mcg-C 200 mg-E 27 1 tab PO DAILY supplement 11/09/20 Unknown History mg-lutein 2 mg and minerals tablet (Ocuvite with Lutein) coenzyme Q10 200 mg capsule (Co 200 mg PO DAILY 05/22/21 Unknown History Q-10) hydralazine 25 mg tablet 25 mg PO BID 10/31/21 12/24/23 History albuterol sulfate 2.5 mg/3 mL 2.5 mg (3 mL) inhalation Q4H PRN 06/09/23 Unknown Rx (0.083 %) solution for nebulization shortness of breath or wheezing #180 mL metoprolol tartrate 25 mg tablet 25 mg PO BID 06/09/23 12/24/23 History ascorbic acid (vitamin C) 1,000 mg 1 g PO DAILY 09/17/23 Unknown History tablet food supplemt, lactose-reduced 118 ml PO DAILY 09/17/23 12/24/23 History (Ensure Compact oral liquid) triamterene 37.5 1 tab PO QDAY 09/17/23 12/24/23 History mg-hydrochlorothiazide 25 mg tablet zinc gluconate 30 mg tablet 30 mg PO DAILY 09/17/23 Unknown History acetaminophen 325 mg tablet 650 mg PO Q6H PRN Pain Score 12/25/23 12/25/23 History (Tylenol) 1-10/Temp > 100.7 F hydrocodone-acetaminophen 5-325mg 1 tab PO TID 12/25/23 12/24/23 History 5mg-325mg Allergy/AdvReac Type Severity Reaction Status Date / Time triamcinolone Allergy Mild Other Verified 09/17/23 13:15 alprazolam (From Xanax) Allergy Unknown Verified 09/17/23 13:15 atenolol Allergy Shortness Verified 09/17/23 13:15 of breath carvedilol Allergy Anaphylaxis Verified 09/17/23 13:15 cetirizine (From Zyrtec) Allergy Unknown Verified 09/17/23 13:15 cimetidine (From Tagamet) Allergy Unknown Verified 09/17/23 13:15 diltiazem (From Cardizem) Allergy Unknown Verified 09/17/23 13:15 erythromycin base Allergy Unknown Verified 09/17/23 13:15 famotidine (From Pepcid) Allergy Unknown Verified 09/17/23 13:15 grass pollen Allergy NEEDS Verified 09/17/23 13:15 FOLLOW-UP guaifenesin (From Entex [place]) Allergy Unknown Verified 09/17/23 13:15 house dust Allergy Unknown Verified 09/17/23 13:15 lansoprazole (From Prevacid) Allergy Unknown Verified 09/17/23 13:15 loracarbef (From Lorabid) Allergy Unknown Verified 09/17/23 13:15 metoprolol (From Toprol XL) Allergy Unknown Verified 09/17/23 13:15 mold Allergy Unknown Verified 09/17/23 13:15 phenylephrine (From Entex LA) Allergy Unknown Verified 09/17/23 13:15 phenylpropanolamine (From Allergy Unknown Verified 09/17/23 13:15 Entex LA) promethazine (From Phenergan) Allergy Unknown Verified 09/17/23 13:15 raloxifene (From Evista) Allergy Unknown Verified 09/17/23 13:15 ranitidine (From Zantac) Allergy Unknown Verified 09/17/23 13:15 risedronate sodium (From Allergy Unknown Verified 09/17/23 13:15 Actonel) escitalopram (From Lexapro) AdvReac Severe Unknown Verified 09/17/23 13:15 lisinopril AdvReac Severe Lip Verified 09/17/23 13:15 swelling losartan (From Cozaar) AdvReac Severe Swelling Verified 09/17/23 13:15 lips meloxicam AdvReac Severe Unknown Verified 09/17/23 13:15 prednisone AdvReac Severe Unknown Verified 09/17/23 13:15 zolpidem (From Ambien) AdvReac Severe Unknown Verified 09/17/23 13:15 amlodipine (From Norvasc) AdvReac SOB Verified 09/17/23 13:15 clonazepam (From Klonopin) AdvReac NEEDS Verified 09/17/23 13:15 FOLLOW-UP diphenhydramine (From AdvReac NEEDS Verified 09/17/23 13:15 Benadryl) FOLLOW-UP metronidazole (From Flagyl) AdvReac Pain in Verified 09/17/23 13:15 joints Family History Mother CAD (coronary artery disease) Father Kidney disease Surgical History History of hysterectomy H/O partial resection of colon Social History Smoking Status: Former smoker how long ago did patient quit smokin years ago alcohol intake: former details: Patient states he quit alcohol in January 2020. substance use type: does not use caffeine: Yes Type: coffee Number of servings: 1 Vital Signs Vital Signs Vital Signs: 12/25/23 17:17 12/25/23 17:26 12/25/23 17:56 Temperature 97.7 F L Temperature Source Oral Pulse Rate 98 98 Pulse Strength Respiratory Rate 14 Respiratory Effort Normal Non-Labored Respiratory Depth Normal Respiratory Pattern Normal Blood Pressure 171/107 H Blood Pressure Mean 128 Blood Pressure Source Monitor Blood Pressure Position Semi-Fowlers Blood Pressure Location Right Arm Pulse Ox 94 Oxygen Delivery Method Room Air Room Air 12/25/23 17:56 12/25/23 19:44 12/25/23 19:44 Temperature Temperature Source Pulse Rate 98 Pulse Strength Respiratory Rate Respiratory Effort Normal Respiratory Depth Normal Respiratory Pattern Normal Blood Pressure Blood Pressure Mean Blood Pressure Source Blood Pressure Position Blood Pressure Location Pulse Ox Oxygen Delivery Method Room Air Room Air 12/25/23 21:49 12/25/23 21:51 12/25/23 22:00 Temperature 98 F Temperature Source Oral Pulse Rate 85 85 Pulse Strength Respiratory Rate 16 Respiratory Effort Normal Non-Labored Respiratory Depth Normal Respiratory Pattern Normal Blood Pressure 109/89 H 109/89 H Blood Pressure Mean 95 Blood Pressure Source Monitor Blood Pressure Position Semi-Fowlers Blood Pressure Location Right Arm Pulse Ox 93 Oxygen Delivery Method Room Air 12/25/23 22:00 12/26/23 02:40 12/26/23 07:32 Temperature 98.3 F Temperature Source Oral Pulse Rate 86 Pulse Strength Normal (2+) Respiratory Rate 16 Respiratory Effort Respiratory Depth Respiratory Pattern Blood Pressure 143/95 H Blood Pressure Mean 111 Blood Pressure Source Monitor Blood Pressure Position Semi-Fowlers Blood Pressure Location Right Arm Pulse Ox 95 Oxygen Delivery Method Room Air Room Air 12/26/23 08:40 12/26/23 08:40 12/26/23 10:34 Temperature 99.1 F Temperature Source Oral Pulse Rate 91 91 Pulse Strength Respiratory Rate 16 Respiratory Effort Normal Respiratory Depth Normal Respiratory Pattern Normal Blood Pressure 138/98 H 138/98 H Blood Pressure Mean 111 Blood Pressure Source Manual Blood Pressure Position Sitting Blood Pressure Location Right Arm Pulse Ox 95 Oxygen Delivery Method Room Air Room Air 12/26/23 10:35 12/26/23 11:23 12/26/23 14:36 Temperature 98.4 F Temperature Source Oral Pulse Rate 91 89 Pulse Strength Normal (2+) Respiratory Rate 16 Respiratory Effort Respiratory Depth Respiratory Pattern Blood Pressure 138/98 H 132/86 H Blood Pressure Mean 101 Blood Pressure Source Monitor Blood Pressure Position Semi-Fowlers Blood Pressure Location Right Arm Pulse Ox 100 Oxygen Delivery Method Room Air 12/26/23 15:00 12/26/23 15:15 12/26/23 15:30 Temperature Temperature Source Pulse Rate 94 96 95 Pulse Strength Respiratory Rate 14 14 14 Respiratory Effort Respiratory Depth Respiratory Pattern Blood Pressure 122/66 H Blood Pressure Mean 84 Blood Pressure Source Monitor Blood Pressure Position Supine Blood Pressure Location Left Arm Pulse Ox 94 92 92 Oxygen Delivery Method Room Air Room Air Room Air Weight Weight: 123 lb Body Mass Index (BMI) 24.0 Physical Exam Narrative There is in the back shows lidocaine patch over the lower lumbar region. There is mild midline tenderness in the lower lumbar region. Neurologic motion of lower extremity shows 5 x 5 power normal shows normal sensations in all dermatomes. Lab / Micro Data 12/26/23 05:52 12/26/23 05:52 Labs: Laboratory Results - last 24 hr 12/26/23 05:52: WBC 6.7, RBC 3.76 L, Hgb 12.4, Hct 37.9, MCV 100.8 H, MCH 33.0 H, MCHC 32.7, RDW Std Deviation 46.5 H, RDW Coeff of Jared 12.5, Plt Count 244, MPV 10.2, Sodium 141, Potassium 3.3 L, Chloride 107, Carbon Dioxide 29.0, Anion Gap 5, BUN 12, Creatinine 0.80, Estim Creat Clear Calc 37.34, Est GFR (MDRD) Af Amer 86, Est GFR (MDRD) Non-Af 71, BUN/Creatinine Ratio 14.9, Glucose 97, Calcium 9.2 Assessment & Plan Assessment/Plan (1) Compression fracture of L5 vertebra: QUALIFIERS: Encounter type: initial encounter Qualified Code(s): S32.050A - Wedge compression fracture of fifth lumbar vertebra, initial encounter for closed fracture (2) Inability to walk: (3) Osteoporosis: QUALIFIERS: Osteoporosis type: age-related Presence of current pathological fracture: with current pathological fracture Encounter type: initial encounter Qualified Code(s): M80.00XA - Age-related osteoporosis with current pathological fracture, unspecified site, initial encounter for fracture PLAN: Plan I evaluated the CT lumbar spine done overnight which shows cement augmentation in T12, L1, L4. There is cement extravasation especially at L4 with left lateral recess showing some cement in the canal. Patient's symptoms are more in the right lower extremity. I requested an MRI. MRI done earlier today has not been read yet, but based on my read appears to be an new L5 compression fracture now. There is mild height loss at L5. No obvious neural compression noticed on the right side to explain the weakness. Explained to her the imaging findings and treatment options. The new L5 compression fracture can be treated with rest, analgesics and physical therapy. However if the pain from the fracture is causing her severe debilitating difficulties with ambulation, she may consider cement augmentation at L5 in the form of kyphoplasty to help with the pain. This may be performed during her current admission prior to her discharge to rehab center. Patient was agreeable in considering this. She will talk to her niece over the phone tonight. I will follow the radiology read of the MRI and talk to her again on Friday morning to schedule kyphoplasty likely Friday afternoon. She will need to be n.p.o. after midnight on Friday night. Patient was in agreement. Charges/Coding Visit Charges Inpatient E&M: 33471 Init Hosp L3
[2023-12-27] VITALS (9 sets, daily range): BP systolic 123–175; BP diastolic 88–114; PULSE 57–89; RESP 15–16; TEMP 36.6–37.1; O2SAT 92–95
[2023-12-27] MEDS: Acetaminophen 500 MG Tablet 1000 MG PO ×3 (05:08→21:47)
--- NOTE | 2023-12-27 07:19 | PCM.PN.HOSP ---
Reason for Visit Reason for Visit: Diagnoses Dorsalgia, unspecified (12/26/23) Age-related osteoporosis with current pathological fracture, unspecified site, initial encounter for fracture (12/26/23) Difficulty in walking, not elsewhere classified (12/26/23) Weakness (12/26/23) Wedge compression fracture of fifth lumbar vertebra, initial encounter for closed fracture (12/26/23) Subjective Subjective Patient seen reports no significant change in overall condition. MRI results reviewed as below Objective Data Objective Data Vital Signs: Vital Signs Temp Pulse Resp BP Pulse Ox O2 Del Method 97.9 F 82 16 149/95 H 92 Room Air 12/27/23 05:04 12/27/23 06:25 12/27/23 05:04 12/27/23 06:25 12/27/23 05:04 12/27/23 05:04 Oxygen Delivery Method Room Air Weight: 55.792 kg Body Mass Index (BMI) 24.0 Intake & Output: Intake and Output for Last 24 Hours 12/25/23 12/26/23 12/27/23 23:59 23:59 23:59 Intake Total 200 / 200 440 / 640 400 / 400 Balance 200 / 200 440 / 640 400 / 400 Lab / Micro Data 12/27/23 08:30 12/26/23 05:52 Radiography Diagnostic Testing: Radiology Impression Lumbar Spine MRI 12/26/23 09:55 IMPRESSION: Severe chronic compression fractures at T12, L1 and L4 with milder compression deformity of L5. Prior kyphoplasty changes at T12, L1 and L4. Abnormal marrow signal of the L5 vertebral body, edema versus malignancy. Severe degenerative disc changes with multilevel stenoses as above. Most severe changes at L4-5. Electronically Signed: Sky Tyler MD at 17:03 EDT Reading Location ID and State: [facility] / [place] Tel , Service support , Physical Exam Narrative GENERAL: cooperative HEENT: Atraumatic; normocephalic EYES; Anicteric, Normal Conjunctiva NECK; supple, normal thyroid, RESPIRATORY: Diminished to auscultation CARDIOVASCULAR: Regular S1 S2, GI: soft, normoactive bowel sounds, : No Renal angle tenderness; EXTREMITIES: No edema, no clubbing, MUSCULOSKELETAL: no muscle wasting NEURO: Awake; no lateralizing signs. SKIN: No Rash PSYCH; Flat affect Assessment & Plan Assessment/Plan (1) Intractable back pain: (2) Inability to walk: (3) Weakness: PLAN: Plan Patient is an 88-year-old female who presented [facility] ED on 12/25/2023 with worsening low back pain with debility. 1. Acute on chronic low back pain with significant debility ? CT of the lumbar spine obtained in the emergency department demonstrated complete collapse of T12, L1, L3 and L4 vertebrae and L3-4 diffuse disc bulge causing central and bilateral neuroforaminal stenosis. Admitted to regular nursing floor for pain management with consultation placed to orthopedic surgery as well as pain management physical deconditioning. Also requested for PT OT eval and social science research assistant to assist with discharge planning ? 12/27/2019 MRI obtained the day prior did show Severe chronic compression fractures at T12, L1 and L4 with milder compression deformity of L5. Prior kyphoplasty changes at T12, L1 and L4. Abnormal marrow signal of the L5 vertebral body, edema versus malignancy. Severe degenerative disc changes with multilevel stenoses as above. Most severe changes at L4-5. Patient was seen and evaluated by Dr. Leonard Lawrence with orthopedic surgery patient offered treatment options including conservative versus kyphoplasty 2. Hypertension ? Blood pressure controlled, home medications continued with dose adjustment as needed 3. Chronic bronchiectasis ? Follows with outpatient pulmonology, last office visit on 09/08. Stable on room air on admit with no respiratory symptoms. Continue home inhalers. 4. Paroxysmal A-fib, multifocal atrial tachycardia, atrial myxoma ? Follows with outpatient cardiology, last office visit on 09/16. Last echo in 03/2023 showed EF 70%, moderately enlarged LA, mildly enlarged RA, mild aortic stenosis, no other significant abnormalities. Patient hemodynamically stable and in normal sinus rhythm on admit. Not on anticoagulation due to history of falls. Continue home Lopressor. 5. Former tobacco abuse ? Encouraged continued cessation. 6. DVT prophylaxis ? On enoxaparin Time spent in the patient's overall evaluation,decision-making process, review of diagnostic data, adjustment of management, discussion with other providers, nursing nursing and ancillary staff involved in patient's care documentation, 38 minutes Charges/Coding Visit Charges Inpatient E&M: 82192 Subs Hosp L2
[2023-12-27 08:58] LABS: Absolute Lymphocyte Count 1.01 X10^3/uL (0.83-4.51); Basophil# 0.05 X10^3/uL; Basophil% 0.7 % (0-1); Eosinophil# 0.12 X10^3/uL; Eosinophils% 1.7 % (0-5); Hematocrit 39.9 % (37-47); Hemoglobin 13.2 g/dL (12.0-15.0); Lymphocyte # 1.01 X10^3/ul (0.83-4.51); Lymphocyte % 14.7 % (19-41); Mean Corp Hgb Conc 33.1 g/dL (32-36); Mean Corpuscular Hgb 33.2 pg (27.0-32.0); Mean Corpuscular Volume 100.3 fL (81-99); Mean Platelet Vol. 9.7 fl (6.2-12.0); Monocyte# 0.67 X10^3/uL; Monocyte% 9.8 % (0-10); NRBC Flagged by Analyzer 0 % (0-5); Neutrophil # 4.98 X10^3/uL (2.7-7.7); Neutrophil % 72.7 % (47-70); Platelet Count 246 K/mm3 (150-450); RBC Distribution Width CV 12.3 % (11.6-14.6); RBC Distribution Width SD 45.8 fl (35.1-43.9); Red Blood Count 3.98 M/mm3 (4.2-5.4); White Blood Count 6.9 K/mm3 (4.4-11.0)
--- NOTE | 2023-12-27 09:15 | CASEMGMT ---
Addendum entered by Georgina Collier 12/27/23 15:37: Social Work SW made referral to [facility] via [facility]. SW to follow up on Friday. LIZETH Esquivel Original Note: Social Work SW met w/pt in room in regard to discharge plan. SW did provide to pt a list via [facility] of [facility] facilities in network w/insurance, in pt's preferred geographic area, and complete w/quality and resource use data. Pt states if SNF needed would want to go to [facility]. SW explained will leave list w/her in the event that [facility] does not have availability. Pt states understanding. SW will continue to follow, will start referral process to [facility] later today. LIZETH Esquivel
[2023-12-27 09:33] LABS: Anion Gap 8 (5-15); BUN 13 mg/dL (7-18); Calcium,Total 9.5 mg/dL (8.5-10.1); Chloride 104 mmol/L (98-107); Creatinine, Serum 0.76 mg/dL (0.55-1.02); EST Glomerular Filtration Rate 76 mL/min (>60); Est Glom Filt Rate - Afr Amer 92 mL/min (>60); Estimated Creatinine Clearance 37.34 ml/min; Glucose 102 mg/dL (74-106); Magnesium 1.5 mg/dL (1.6-2.6); Phosphorus 3.1 mg/dL (2.5-4.9); Potassium 3.5 mmol/L (3.5-5.1); Sodium Level 139 mmol/L (136-145)
[2023-12-27] MEDS: Triamterene 37.5MG/Hctz 25MG Capsule 1 CAP PO (09:57)
[2023-12-27] MEDS: hydrALAZINE 25 MG Tablet PO ×2 (09:57→21:48)
[2023-12-27] MEDS: Metoprolol Tartrate 25 MG Tablet PO ×2 (09:58→21:48)
[2023-12-27] MEDS: Enoxaparin 40 MG/0.4 ML Syringe SC (09:58)
[2023-12-27] MEDS: Magnesium Chloride 64 MG Delay Rel.Tablet 128 MG PO (09:58)
[2023-12-27] MEDS: Ascorbic Acid 500 MG Tablet 1000 MG PO (09:58)
[2023-12-27] MEDS: Lidocaine 5% Patch 1 PATCH TOPICAL (09:58)
[2023-12-27] MEDS: Cholecalciferol (VIT D3) 25 MCG TABLET (1,000 UNITS) PO (10:05)
[2023-12-27] MEDS: oxyCODONE 5 MG Tablet PO ×2 (14:41→21:48)
[2023-12-28] VITALS (7 sets, daily range): BP systolic 109–147; BP diastolic 74–106; PULSE 81–95; RESP 15–16; TEMP 36.6–37.1; O2SAT 94–97
[2023-12-28] MEDS: Acetaminophen 500 MG Tablet 1000 MG PO ×3 (06:38→22:18)
[2023-12-28] MEDS: oxyCODONE 5 MG Tablet PO ×3 (06:38→22:16)
--- NOTE | 2023-12-28 07:00 | PN.HOSP_ITS ---
Reason for Visit Reason for Visit: Diagnoses Dorsalgia, unspecified (12/26/23) Age-related osteoporosis with current pathological fracture, unspecified site, initial encounter for fracture (12/26/23) Difficulty in walking, not elsewhere classified (12/26/23) Weakness (12/26/23) Wedge compression fracture of fifth lumbar vertebra, initial encounter for closed fracture (12/26/23) Subjective Subjective Patient seen had a relatively uneventful night. Pain remains relatively well- controlled. Her plan is to have a discussion with Dr. Lawrence prior to making any decision regarding kyphoplasty Objective Data Objective Data Vital Signs: Vital Signs Temp Pulse Resp BP Pulse Ox O2 Del Method 98.2 F 95 15 133/85 H 94 Room Air 12/28/23 03:30 12/28/23 03:30 12/28/23 03:30 12/28/23 03:30 12/28/23 03:30 12/28/23 03:30 Oxygen Delivery Method Room Air Weight: 55.792 kg Body Mass Index (BMI) 24.0 Intake & Output: Intake and Output for Last 24 Hours 12/26/23 12/27/23 12/28/23 23:59 23:59 23:59 Intake Total 440 / 640 400 / 400 Output Total 300 / 300 Balance 440 / 640 400 / 400 -300 / -300 Lab / Micro Data 12/28/23 06:05 12/28/23 06:05 Labs: Laboratory Results - last 24 hr 12/27/23 08:30: WBC 6.9, RBC 3.98 L, Hgb 13.2, Hct 39.9, MCV 100.3 H, MCH 33.2 H , MCHC 33.1, RDW Std Deviation 45.8 H, RDW Coeff of Jared 12.3, Plt Count 246, MPV 9.7, Immature Gran % (Auto) 0.400, Neut % (Auto) 72.7 H, Lymph % (Auto) 14.7 L, [place] % (Auto) 9.8, Eos % (Auto) 1.7, Baso % (Auto) 0.7, Absolute Neuts (auto) 5.0, Absolute Lymphs (auto) 1.01, Nucleated RBC % 0, Sodium 139, Potassium 3.5, Chloride 104, Carbon Dioxide 27.0, Anion Gap 8, BUN 13, Creatinine 0.76, Estim Creat Clear Calc 37.34, Est GFR (MDRD) Af Amer 92, Est GFR (MDRD) Non-Af 76, BUN/Creatinine Ratio 17.0, Glucose 102, Calcium 9.5, Phosphorus 3.1, Magnesium 1.5 L Physical Exam Narrative GENERAL: cooperative HEENT: Atraumatic; normocephalic EYES; Anicteric, Normal Conjunctiva NECK; supple, normal thyroid, RESPIRATORY: Diminished to auscultation CARDIOVASCULAR: Regular S1 S2, GI: soft, normoactive bowel sounds, : No Renal angle tenderness; EXTREMITIES: No edema, no clubbing, MUSCULOSKELETAL: no muscle wasting NEURO: Awake; no lateralizing signs. SKIN: No Rash PSYCH; Flat affect Assessment & Plan Assessment/Plan (1) Intractable back pain: (2) Inability to walk: (3) Weakness: PLAN: Plan Patient is an 88-year-old female who presented [facility] ED on 12/25/2023 with worsening low back pain with debility. 1. Acute on chronic low back pain with significant debility ? CT of the lumbar spine obtained in the emergency department demonstrated complete collapse of T12, L1, L3 and L4 vertebrae and L3-4 diffuse disc bulge causing central and bilateral neuroforaminal stenosis. Admitted to regular nursing floor for pain management with consultation placed to orthopedic surgery as well as pain management physical deconditioning. Also requested for PT OT eval and social media job titles to assist with discharge planning ? 12/27/2023 MRI obtained the day prior did show Severe chronic compression fractures at T12, L1 and L4 with milder compression deformity of L5. Prior kyphoplasty changes at T12, L1 and L4. Abnormal marrow signal of the L5 vertebral body, edema versus malignancy. Severe degenerative disc changes with multilevel stenoses as above. Most severe changes at L4-5. Patient was seen and evaluated by Dr. Leonard Lawrence with orthopedic surgery patient offered treatment options including conservative versus kyphoplasty -12/28/2023; Patient seen had a relatively uneventful night. Pain remains relatively well-controlled. Her plan is to have a discussion with Dr. Lawrence prior to making any decision regarding kyphoplasty 2. Hypertension ? Blood pressure controlled, home medications continued with dose adjustment as needed 3. Chronic bronchiectasis ? Follows with outpatient pulmonology, last office visit on 09/08. Stable on room air on admit with no respiratory symptoms. Continue home inhalers. 4. Paroxysmal A-fib, multifocal atrial tachycardia, atrial myxoma ? Follows with outpatient cardiology, last office visit on 09/16. Last echo in 03/2023 showed EF 70%, moderately enlarged LA, mildly enlarged RA, mild aortic stenosis, no other significant abnormalities. Patient hemodynamically stable and in normal sinus rhythm on admit. Not on anticoagulation due to history of falls. Continue home Lopressor. 5. Former tobacco abuse ? Encouraged continued cessation. 6. DVT prophylaxis ? On enoxaparin Time spent in the patient's overall evaluation,decision-making process, review of diagnostic data, adjustment of management, discussion with other providers, nursing nursing and ancillary staff involved in patient's care documentation, 36 minutes Charges/Coding Visit Charges Inpatient E&M: 18284 Subs Hosp L2
[2023-12-28 07:18] LABS: Absolute Lymphocyte Count 1.21 X10^3/uL (0.83-4.51); Absolute Neutrophil Count 3.8 X10^3/uL (2.0-7.7); Basophil# 0.06 X10^3/uL; Eosinophil# 0.24 X10^3/uL; Eosinophils% 3.9 % (0-5); Lymphocyte # 1.21 X10^3/ul (0.83-4.51); Lymphocyte % 19.7 % (19-41); Mean Corp Hgb Conc 32.5 g/dL (32-36); Mean Corpuscular Hgb 32.6 pg (27.0-32.0); Mean Corpuscular Volume 100.3 fL (81-99); Monocyte# 0.78 X10^3/uL; Monocyte% 12.7 % (0-10); NRBC Flagged by Analyzer 0 % (0-5); Neutrophil # 3.84 X10^3/uL (2.7-7.7); Neutrophil % 62.4 % (47-70); Platelet Count 255 K/mm3 (150-450); RBC Distribution Width CV 12.4 % (11.6-14.6); RBC Distribution Width SD 45.8 fl (35.1-43.9); Red Blood Count 3.99 M/mm3 (4.2-5.4); White Blood Count 6.2 K/mm3 (4.4-11.0)
[2023-12-28 07:46] LABS: Anion Gap 8 (5-15); BUN 17 mg/dL (7-18); BUN/Creat Ratio 19.7 RATIO (10-20); Calcium,Total 9.5 mg/dL (8.5-10.1); Chloride 102 mmol/L (98-107); Creatinine, Serum 0.86 mg/dL (0.55-1.02); EST Glomerular Filtration Rate 66 mL/min (>60); Est Glom Filt Rate - Afr Amer 80 mL/min (>60); Estimated Creatinine Clearance 34.74 ml/min; Glucose 94 mg/dL (74-106); Potassium 3.4 mmol/L (3.5-5.1); Sodium Level 137 mmol/L (136-145)
[2023-12-28] MEDS: hydrALAZINE 25 MG Tablet PO ×2 (09:26→20:36)
[2023-12-28] MEDS: Triamterene 37.5MG/Hctz 25MG Capsule 1 CAP PO (09:27)
[2023-12-28] MEDS: Lidocaine 5% Patch 1 PATCH TOPICAL (09:27)
[2023-12-28] MEDS: Metoprolol Tartrate 25 MG Tablet PO ×2 (09:28→20:36)
[2023-12-28] MEDS: Magnesium Chloride 64 MG Delay Rel.Tablet 128 MG PO (09:29)
[2023-12-28] MEDS: Enoxaparin 40 MG/0.4 ML Syringe SC (09:29)
[2023-12-29] VITALS (14 sets, daily range): BP systolic 106–164; BP diastolic 81–103; PULSE 74–91; RESP 15–18; TEMP 36.6–36.8; O2SAT 93–97; BMI 23.6
--- NOTE | 2023-12-29 01:49 | EKG12_ITS ---
Test Reason : AM EKG Blood Pressure : / mmHG Vent. Rate : 094 BPM Atrial Rate : 000 BPM P-R Int : 000 ms QRS Dur : 078 ms QT Int : 374 ms P-R-T Axes : 000 -78 -06 degrees QTc Int : 467 ms Atrial fibrillation Left axis deviation Low voltage QRS Septal infarct (cited on or before 24-JAN-2020) Possible Lateral infarct (cited on or before 24-JAN-2020) Inferior infarct (cited on or before 10-FEB-2017) Abnormal ECG Confirmed by COLLIN OQUENDO, YAN ([id number]), supervising editor news reel MERARI RUSSELL ([id number]) on 12/30/2023 9:27:33 AM Referred By: JEANNE Confirmed By:YAN POLANCO MD
[2023-12-29 06:21] LABS: Absolute Lymphocyte Count 1.19 X10^3/uL (0.83-4.51); Absolute Neutrophil Count 3.7 X10^3/uL (2.0-7.7); Basophil# 0.06 X10^3/uL; Eosinophil# 0.22 X10^3/uL; Eosinophils% 3.8 % (0-5); Hemoglobin 13.4 g/dL (12.0-15.0); Lymphocyte # 1.19 X10^3/ul (0.83-4.51); Lymphocyte % 20.3 % (19-41); Mean Corp Hgb Conc 33.5 g/dL (32-36); Mean Corpuscular Hgb 33.3 pg (27.0-32.0); Mean Corpuscular Volume 99.3 fL (81-99); Mean Platelet Vol. 9.7 fl (6.2-12.0); Monocyte# 0.67 X10^3/uL; Monocyte% 11.5 % (0-10); NRBC Flagged by Analyzer 0 % (0-5); Neutrophil # 3.69 X10^3/uL (2.7-7.7); Neutrophil % 63.1 % (47-70); Platelet Count 249 K/mm3 (150-450); RBC Distribution Width CV 12.3 % (11.6-14.6); RBC Distribution Width SD 45.2 fl (35.1-43.9); Red Blood Count 4.03 M/mm3 (4.2-5.4); White Blood Count 5.9 K/mm3 (4.4-11.0)
[2023-12-29 06:50] LABS: Anion Gap 6 (5-15); BUN 16 mg/dL (7-18); Calcium,Total 9.6 mg/dL (8.5-10.1); Chloride 102 mmol/L (98-107); EST Glomerular Filtration Rate 84 mL/min (>60); Est Glom Filt Rate - Afr Amer 102 mL/min (>60); Glucose 106 mg/dL (74-106); Potassium 3.7 mmol/L (3.5-5.1); Sodium Level 135 mmol/L (136-145)
--- NOTE | 2023-12-29 08:35 | CASEMGMT ---
Discharge Planning Msg sent to [facility] regarding status of referral. NATALIA Liu Planning Asst.
[2023-12-29] MEDS: Triamterene 37.5MG/Hctz 25MG Capsule 1 CAP PO (09:30)
[2023-12-29] MEDS: Metoprolol Tartrate 25 MG Tablet PO ×2 (09:30→21:14)
[2023-12-29] MEDS: hydrALAZINE 25 MG Tablet PO ×2 (09:30→21:14)
--- NOTE | 2023-12-29 10:10 | BON_PTH ---
PATIENT: JADON SUNG LOC: MS3 U#:[id number] AGE/SX: 88/F ROOM: [facility] [place] RE12/26/[address]: Dr. Tiffany Serna MD : [id number] BED: 1 DIS: 12/30/2023 SPEC #: [id number] RECD: 12/29/23 13:35 STATUS: [place] REJossy #: [id number] MARIANNA: 12/29/23 10:[address]: Leonard Lawrence DEPT: SURGICAL PATHOLOGY RECD BY: Mechelle Vallejo ENTERED: 12/29/23 14:05 SP TYPE: Bone OTHR DR: MD Dr. Yemi Oswald DO Dr. David Kittoe, MD Dr. Paul Nielsen, MD Dr. Paige Pierce, MD Tissues: Vertebra, NOS Procedures: Decalcification bone/plaque Surgery Specimen Level IV HEADER OPERATION: Kyphoplasty, L5 PRE-OP DIAGNOSIS: Compression fracture of L5 vertebra TISSUE SUBMITTED: L 5 vertebral body biopsy MICROSCOPIC DIAGNOSIS L5 vertebral body, bone biopsy: Negative for malignant cells. See comment. 12/30/2023 COMMENT The specimen contains mostly fibrinoid material and occasional maturing bone marrow elements. Clinical correlation is suggested. MICROSCOPIC DESCRIPTION Slides are reviewed. GROSS DESCRIPTION Received in fixative is one container labeled with the patient's name and designated L5 vertebral body biopsy. The specimen consists of multiple fragments of blood clot with possible fragments of bone measuring in aggregate 2.0 x 1.0 x 0.1cm. The entire specimen is submitted in one cassette after decalcification. 12/29/2023 TC:5 CPT:34918,80688
--- NOTE | 2023-12-29 10:52 | CASEMGMT ---
Discharge Planning [facility] [place] has accepted. Pt anticipated to discharge tomorrow. Celina Lopes DC Planning Asst.
--- NOTE | 2023-12-29 10:54 | PN.ORTHO_ITS ---
Subjective Subjective Saw patient today morning 303. I discussed again the possibility of L5 kyphoplasty. Patient had multiple questions regarding the procedure and pain relief after the surgery. Denies no new symptoms. She had a period of improvement of pain on Friday, but the pain returned and she is hoping to proceed with kyphoplasty today. Objective Data Objective Data Vital Signs: Vital Signs Temp Pulse Resp BP Pulse Ox O2 Del Method 98.1 F 89 16 164/81 H 94 Room Air 12/29/23 09:14 12/29/23 09:30 12/29/23 09:14 12/29/23 09:30 12/29/23 09:14 12/29/23 09:18 Oxygen Delivery Method Room Air Weight: 121 lb 4.068 oz Body Mass Index (BMI) 23.6 Intake & Output: Intake and Output for Last 24 Hours 12/27/23 12/28/23 12/29/23 23:59 23:59 23:59 Intake Total 400 / 400 200 / 200 Output Total 300 / 700 400 / 400 Balance 400 / 400 -300 / -500 -200 / -200 Lab / Micro Data 12/29/23 06:10 12/29/23 06:10 Labs: Laboratory Results - last 24 hr 12/29/23 06:10: WBC 5.9, RBC 4.03 L, Hgb 13.4, Hct 40.0, MCV 99.3 H, MCH 33.3 H, MCHC 33.5, RDW Std Deviation 45.2 H, RDW Coeff of Jared 12.3, Plt Count 249, MPV 9.7, Immature Gran % (Auto) 0.300, Neut % (Auto) 63.1, Lymph % (Auto) 20.3, [place] % (Auto) 11.5 H, Eos % (Auto) 3.8, Baso % (Auto) 1.0, Absolute Neuts (auto) 3.7, Absolute Lymphs (auto) 1.19, Nucleated RBC % 0, Sodium 135 L, Potassium 3.7, Chloride 102, Carbon Dioxide 27.0, Anion Gap 6, BUN 16, Creatinine 0.70, Estim Creat Clear Calc 37.10, Est GFR (MDRD) Af Amer 102, Est GFR (MDRD) Non-Af 84, B UN/Creatinine Ratio 23.0 H, Glucose 106, Calcium 9.6 Physical Exam Narrative There is in the back shows lidocaine patch over the lower lumbar region. There is mild midline tenderness in the lower lumbar region. Neurologic motion of lower extremity shows 5 x 5 power normal shows normal sensations in all dermatomes. Assessment & Plan Assessment/Plan (1) Compression fracture of L5 vertebra: QUALIFIERS: Encounter type: initial encounter Qualified Code(s): S32.050A - Wedge compression fracture of fifth lumbar vertebra, initial encounter for closed fracture (2) Inability to walk: (3) Osteoporosis: QUALIFIERS: Osteoporosis type: age-related Presence of current pathological fracture: with current pathological fracture Encounter type: i nitial encounter Qualified Code(s): M80.00XA - Age-related osteoporosis with current pathological fracture, unspecified site, initial encounter for fracture PLAN: Plan I again evaluated the CT lumbar spine done overnight which shows cement augmentation in T12, L1, L4. There is cement extravasation especially at L4 with left lateral recess showing some cement in the canal. Patient's symptoms are more in the right lower extremity. MRI done Friday appears to show a new L5 compression fracture with bony edema. There is mild height loss at L5. No obvious neural compression noticed on the right side to explain the weakness. Explained to her the imaging findings and treatment options. The new L5 compression fracture can be treated with rest, analgesics and physical therapy. However if the pain from the fracture is causing her severe debilitating difficulties with ambulation, she may consider cement augmentation at L5 in the form of kyphoplasty to help with the pain. Patient is agreeable. All risk benefits and alternatives were discussed in detail. The risks include but are not limited to infection, bleeding, hematoma formation, nerve injury, need for surgery, persistent pain, persistent weakness, persistent deformity, inability to ambulate, DVT, pulmonary embolism, cardiopulmonary event, , cement embolism, cement extravasation. Patient understands and agrees to proceed with surgery. All questions answered. Charges/Coding Visit Charges Inpatient E&M: 84989 Subs Hosp L3
--- NOTE | 2023-12-29 11:34 | PRE.ANES_ITS ---
ASA Classification* ASA Classification ASA Classification: 3 Assessment & Plan Anesthesia* Anesthesia Assessment Anesthesia Assessment: Discussed sedation and/or anesthesia options, risks, benefits, and alternatives with patient/parents/legal guardian/POA. Questions invited. The patient/parents/legal guardian/POA seems to understand and agrees to proceed with anesthesia plan. Reviewed the physical assessment, medical history, allergy history and patient home medications list prior to surgery/procedure/anesthetic and documented any changes. Performed airway and anesthesia risk assessments. Anesthesia Type Anesthesia Type: MAC Anesthesia Focused Assessment* Temperature: 98.1 F Pulse Rate: 89 Blood Pressure: 164/81 Respiratory Rate: 16 Pulse Ox: 94 Airway Assessment Mouth opens: >3 cm Mallampati Score: II Focused Labs Anesthesia Preop lab: CBC WBC 5.9 K/mm3 (4.4-11.0) 12/29/23 06:10 RBC 4.03 M/mm3 (4.2-5.4) L 12/29/23 06:10 Hgb 13.4 g/dL (12.0-15.0) 12/29/23 06:10 Hct 40.0 % (37-47) 12/29/23 06:10 Plt Count 249 K/mm3 (150-450) 12/29/23 06:10 CHEMISTRY Potassium 3.7 mmol/L (3.5-5.1) 12/29/23 06:10 Sodium 135 mmol/L (136-145) L 12/29/23 06:10 Magnesium 1.5 mg/dL (1.6-2.6) L 12/27/23 08:30 Phosphorus 3.1 mg/dL (2.5-4.9) 12/27/23 08:30 BUN 16 mg/dL (7-18) 12/29/23 06:10 Creatinine 0.70 mg/dL (0.55-1.02) 12/29/23 06:10 Glucose 106 mg/dL (74-106) 12/29/23 06:10 POC Glucose 125 mg/dL (70-110) H 01/28/21 13:44 TSH 2.04 uIU/mL (0.358-3.74) 04/17/22 11:53 COAG Pre-Assessment Diagnosis/Proposed Procedure Planned Operative Procedure(s): kyphoplasty L5 Anesthesia History 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 When Was Last Pacemaker Check QUESTION #4 FULL TEXT: You/Your Family Experience fever (hyperthermia) with Anesthesia Last Oral Intake Last Oral intake: Last Oral Intake NPO since 00:00 12/29/23 09:47 Meds taken in AM with sips of Yes 12/29/23 09:47 water? Meds patient instructed to see MAR 12/29/23 09:47 take am of surgery PONV PONV - senior revenue accountant: PONV - senior revenue accountant Female HX of Motion Sickness HX of N/V After Surgery Non-Smoker Duration of Surgery greater than 60 minutes Number of Risk Factors PONV Score Height & Weight Height & Weight: Anesthesia: Height & Weight Height 5 ft 12/29/23 10:45 Weight: 55 kg 12/29/23 10:45 Body Mass Index (BMI) 23.6 12/29/23 09:47 Respiratory Assessment Respiratory Assessment - senior revenue accountant: Respiratory Tract Infection Hx - senior revenue accountant Hx Respiratory Tract Infection No 12/29/23 01:04 STOP Sleep Apnea STOP Sleep Apnea - senior revenue accountant: STOP Sleep Apnea - senior revenue accountant Hx Hypertension Yes 12/26/23 10:39 Hx Sleep Apnea No 12/25/23 17:01 CPAP BIPAP Do you snore loudly (louder No 12/25/23 17:01 than talking or can be heard Do you often feel tired/ Yes 12/25/23 17:01 fatigued/ sleepy during daytime? Has anyone observed you stop No 12/25/23 17:01 breathing during sleep? STOP Results Positive 12/25/23 17:01 QUESTION #5 FULL TEXT : Do you snore loudly (louder than talking or can be heard through closed doors)? 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 Specify any problems Hx of Preganancy in last 3 No 12/25/23 17:01 Months Nurse Filling Out Transfusion EBOOTHE 12/25/23 17:01 & Questions: Date: 12/25/23 12/25/23 17:01 Time: 17:12/25/23 17:01 Patient unable to answer at this time (ie. confused, unrespo /Reproduction History /Reproductive History - senior revenue accountant: /Reproductive Hx- senior revenue accountant Hx Now No 12/29/23 01:04 Gestational Age (in weeks): EDC: Hx Hx Para Hx Section SAB Active Medications Active Medications: Current Medications Generic Name Dose Route Start Last Admin Trade Name Freq PRN Reason Stop Dose Admin Acetaminophen 1,000 mg 12/25/23 16:54 12/29/23 06:41 Acetaminophen 500 Mg Tablet PO Not Given Q8 BRANDT Albuterol Sulfate 2.5 mg 12/25/23 16:54 Albuterol 2.5 Mg/3 Ml Vial.Neb. INHALATION Q4H PRN shortness of breath or wheezing Ascorbic Acid 1,000 mg 12/26/23 10:00 12/29/23 09:28 Ascorbic Acid 500 Mg Tablet PO Not Given DAILY [facility] Cholecalciferol 25 mcg 12/26/23 10:00 12/29/23 09:28 Cholecalciferol (Vit D3) 25 Mcg Tablet (1,000 Units) PO Not Given DAILY [facility] Enoxaparin Sodium 40 mg 12/26/23 10:00 12/29/23 09:27 Enoxaparin 40 Mg/0.4 Ml Syringe SC Not Given DAILY [facility] Hydralazine HCl 25 mg 12/25/23 22:00 12/29/23 09:30 Hydralazine 25 Mg Tablet PO 25 mg BID BRANDT Administration Protocol Hydralazine HCl 10 mg 12/25/23 16:54 Hydralazine 20 Mg/Ml Vial IV Q4H PRN PRN SBP GREATER THAN 170 Protocol Hydromorphone HCl 0.5 mg 12/25/23 16:54 Hydromorphone 0.5 Mg/0.5 Ml Syringe IV Q4H PRN PRN Pain Score 6-10 Cefazolin Sodium 2 gm/ Sodium 110 mls @ 150 mls/hr 12/29/23 11:12 Chloride IV 12/29/23 11:55 X1 ONE Lidocaine 1 patch 12/25/23 16:54 12/29/23 09:27 Lidocaine 5% Patch TOPICAL Not Given DAILY [facility] Protocol Magnesium Chloride 128 mg 12/26/23 10:00 12/29/23 09:27 Magnesium Chloride 64 Mg Delay Rel.Tablet PO Not Given DAILY [facility] Melatonin 3 mg 12/25/23 16:54 Melatonin 3 Mg Tablet PO QHS PRN PRN INSOMNIA Metoprolol Tartrate 25 mg 12/25/23 22:00 12/29/23 09:30 Metoprolol Tartrate 25 Mg Tablet PO 25 mg BID [facility] Administration Protocol Ondansetron HCl 4 mg 12/25/23 16:54 Ondansetron 4 Mg/2 Ml Vial IV Q8H PRN PRN NAUSEA/VOMITING Oxycodone HCl 5 mg 12/25/23 16:54 12/28/23 22:16 Oxycodone 5 Mg Tablet PO 5 mg Q4H PRN PRN Administration Pain Score 4-10 Polyethylene Glycol 17 gm 12/29/23 10:00 12/29/23 09:28 Polyethylene Glycol 3350 17 Gm Packet PO Not Given BID [facility] Sodium Chloride 10 - 40 ml 12/25/23 18:39 12/26/23 14:19 0.9% Saline Lock 10 Ml Syringe IV 10 ml UD PRN Administration SALINE FLUSH Triamterene/Hydrochlorothiazide 1 cap 12/26/23 10:00 12/29/23 09:30 Triamterene 37.5mg/Hctz 25mg Capsule PO 1 cap DAILY BRANDT Administration PFSH Medical History Pneumonia Kidney stones Former smoker Atrial fibrillation Nose abrasion Contusion of right shoulder Right shoulder strain Paroxysmal atrial fibrillation Compression fracture of lumbar spine, non-traumatic Vision loss of left eye (Unknown) Anxiety Depression Osteoporosis GERD (gastroesophageal reflux disease) Former smoker Irregular heart beat Hypertension ETOH abuse Essential hypertension Ventricular premature depolarization Abnormal electrocardiogram Benign cardiac neoplasm Atrial myxoma Home Medications ?Medication ?Instructions ?Recorded ?Last Taken ?Type cholecalciferol (vitamin D3) 25 25 mcg PO DAILY vitamin 11/11/19 2 Days Ago History mcg (1,000 unit) capsule ~01/22/20 vitamin B complex 1 tab PO DAILY supplement 01/24/20 01/23/20 History magnesium oxide 500 mg PO DAILY supplement 11/09/20 12/24/23 History vit A 300 mcg-C 200 mg-E 27 1 tab PO DAILY supplement 11/09/20 Unknown History mg-lutein 2 mg and minerals tablet (Ocuvite with Lutein) coenzyme Q10 200 mg capsule (Co 200 mg PO DAILY 05/22/21 Unknown History Q-10) hydralazine 25 mg tablet 25 mg PO BID 10/31/21 12/24/23 History albuterol sulfate 2.5 mg/3 mL 2.5 mg (3 mL) inhalation Q4H PRN 06/09/23 Unknown Rx (0.083 %) solution for nebulization shortness of breath or wheezing #180 mL metoprolol tartrate 25 mg tablet 25 mg PO BID 06/09/23 12/24/23 History ascorbic acid (vitamin C) 1,000 mg 1 g PO DAILY 09/17/23 Unknown History tablet food supplemt, lactose-reduced 118 ml PO DAILY 09/17/23 12/24/23 History (Ensure Compact oral liquid) triamterene 37.5 1 tab PO QDAY 09/17/23 12/24/23 History mg-hydrochlorothiazide 25 mg tablet zinc gluconate 30 mg tablet 30 mg PO DAILY 09/17/23 Unknown History acetaminophen 325 mg tablet 650 mg PO Q6H PRN Pain Score 12/25/23 12/25/23 History (Tylenol) 1-10/Temp > 100.7 F hydrocodone-acetaminophen 5-325mg 1 tab PO TID 12/25/23 12/24/23 History 5mg-325mg Allergy/AdvReac Type Severity Reaction Status Date / Time triamcinolone Allergy Mild Other Verified 09/17/23 13:15 alprazolam (From Xanax) Allergy Unknown Verified 09/17/23 13:15 atenolol Allergy Shortness Verified 09/17/23 13:15 of breath carvedilol Allergy Anaphylaxis Verified 09/17/23 13:15 cetirizine (From Zyrtec) Allergy Unknown Verified 09/17/23 13:15 cimetidine (From Tagamet) Allergy Unknown Verified 09/17/23 13:15 diltiazem (From Cardizem) Allergy Unknown Verified 09/17/23 13:15 erythromycin base Allergy Unknown Verified 09/17/23 13:15 famotidine (From Pepcid) Allergy Unknown Verified 09/17/23 13:15 grass pollen Allergy NEEDS Verified 09/17/23 13:15 FOLLOW-UP guaifenesin (From Entex [place]) Allergy Unknown Verified 09/17/23 13:15 house dust Allergy Unknown Verified 09/17/23 13:15 lansoprazole (From Prevacid) Allergy Unknown Verified 09/17/23 13:15 loracarbef (From Lorabid) Allergy Unknown Verified 09/17/23 13:15 metoprolol (From Toprol XL) Allergy Unknown Verified 09/17/23 13:15 mold Allergy Unknown Verified 09/17/23 13:15 phenylephrine (From Entex [place]) Allergy Unknown Verified 09/17/23 13:15 phenylpropanolamine (From Allergy Unknown Verified 09/17/23 13:15 Entex [place]) promethazine (From Phenergan) Allergy Unknown Verified 09/17/23 13:15 raloxifene (From Evista) Allergy Unknown Verified 09/17/23 13:15 ranitidine (From Zantac) Allergy Unknown Verified 09/17/23 13:15 risedronate sodium (From Allergy Unknown Verified 09/17/23 13:15 Actonel) escitalopram (From Lexapro) AdvReac Severe Unknown Verified 09/17/23 13:15 lisinopril AdvReac Severe Lip Verified 09/17/23 13:15 swelling losartan (From Cozaar) AdvReac Severe Swelling Verified 09/17/23 13:15 lips meloxicam AdvReac Severe Unknown Verified 09/17/23 13:15 prednisone AdvReac Severe Unknown Verified 09/17/23 13:15 zolpidem (From Ambien) AdvReac Severe Unknown Verified 09/17/23 13:15 amlodipine (From Norvasc) AdvReac SOB Verified 09/17/23 13:15 clonazepam (From Klonopin) AdvReac NEEDS Verified 09/17/23 13:15 FOLLOW-UP diphenhydramine (From AdvReac NEEDS Verified 09/17/23 13:15 Benadryl) FOLLOW-UP metronidazole (From Flagyl) AdvReac Pain in Verified 09/17/23 13:15 joints Family History Mother CAD (coronary artery disease) Father Kidney disease Surgical History History of hysterectomy H/O partial resection of colon Social History Smoking Status: Former smoker how long ago did patient quit smokin years ago alcohol intake: former details: Patient states he quit alcohol in January 2020. substance use type: does not use caffeine: Yes Type: coffee Number of servings: 1 Review of Systems (Anesthesia) ROS Narrative System reviewed and no additional complaints, except as documented.
[2023-12-29] MEDS: Cefazolin 2 GM in 0.9% Normal Saline (100mL Bag) 100 ML IV (11:53)
--- NOTE | 2023-12-29 11:59 | RAD_ITS ---
STUDY: X-RAY - LUMBAR SPINE REASON FOR EXAM: Female, 88 years old. KYPHO L5 TECHNIQUE: 2 view(s) of the lumbar spine were obtained. COMPARISON: None FINDINGS: 3 minutes of fluoroscopy of the lumbar spine was utilized operating room during kyphoplasty and T2 images are cemented for interpretation.. RAD/Lumbar Spine 2 or 3 Views IMPRESSION: Fluoroscopy during kyphoplasty. Electronically Signed: Kishan Estrada MD at 14:15 EDT ,
[2023-12-29] MEDS: Lidocaine 1% (30 ml sdv) 30 ML Vial (12:28)
[2023-12-29] MEDS: Bupivacaine 0.25% 30 ML Vial (12:28)
--- NOTE | 2023-12-29 12:44 | PN.HOSP_ITS ---
Reason for Visit Reason for Visit: Diagnoses Dorsalgia, unspecified (12/26/23) Age-related osteoporosis with current pathological fracture, unspecified site, initial encounter for fracture (12/26/23) Difficulty in walking, not elsewhere classified (12/26/23) Weakness (12/26/23) Wedge compression fracture of fifth lumbar vertebra, initial encounter for closed fracture (12/26/23) Subjective Subjective Still having waxing waning back pain, for kyphoplasty today Objective Data Objective Data Vital Signs: Vital Signs Temp Pulse Resp BP Pulse Ox O2 Del Method 98.1 F 89 16 164/81 H 94 Room Air 12/29/23 11:35 12/29/23 11:35 12/29/23 11:35 12/29/23 11:35 12/29/23 11:35 12/29/23 09:18 Oxygen Delivery Method Room Air Weight: 55 kg Body Mass Index (BMI) 23.6 Intake & Output: Intake and Output for Last 24 Hours 12/27/23 12/28/23 12/29/23 23:59 23:59 23:59 Intake Total 400 / 400 310 / 310 Output Total 300 / 700 400 / 400 Balance 400 / 400 -300 / -500 -90 / -90 Lab / Micro Data 12/29/23 06:10 12/29/23 06:10 Labs: Laboratory Results - last 24 hr 12/29/23 06:10: WBC 5.9, RBC 4.03 L, Hgb 13.4, Hct 40.0, MCV 99.3 H, MCH 33.3 H, MCHC 33.5, RDW Std Deviation 45.2 H, RDW Coeff of Jared 12.3, Plt Count 249, MPV 9.7, Immature Gran % (Auto) 0.300, Neut % (Auto) 63.1, Lymph % (Auto) 20.3, [place] % (Auto) 11.5 H, Eos % (Auto) 3.8, Baso % (Auto) 1.0, Absolute Neuts (auto) 3.7, Absolute Lymphs (auto) 1.19, Nucleated RBC % 0, Sodium 135 L, Potassium 3.7, Chloride 102, Carbon Dioxide 27.0, Anion Gap 6, BUN 16, Creatinine 0.70, Estim Creat Clear Calc 37.10, Est GFR (MDRD) Af Amer 102, Est GFR (MDRD) Non-Af 84, B UN/Creatinine Ratio 23.0 H, Glucose 106, Calcium 9.6 Physical Exam Narrative General: Alert, oriented, no apparent distress HEENT: Atraumatic, normocephalic Eyes: Anicteric, normal conjunctiva, extraocular movements grossly intact Neck: Supple Respiratory: Clear to auscultation bilaterally, normal respiratory effort Cardiovascular: Regular rate GI: Soft, nontender, nondistended Extremities: No edema Musculoskeletal: Moving all extremities Neuro: No overt focal neurological deficits Skin: No rashes appreciated Psych: Cooperative Assessment & Plan Assessment/Plan (1) Intractable back pain: (2) Inability to walk: (3) Weakness: PLAN: Plan Patient is an 88-year-old female who presented [facility] ED on 12/25/2023 with worsening low back pain with debility. 1. Acute on chronic low back pain with significant debility ? CT of the lumbar spine obtained in the emergency department demonstrated complete collapse of T12, L1, L3 and L4 vertebrae and L3-4 diffuse disc bulge causing central and bilateral neuroforaminal stenosis. Admitted to regular nursing floor for pain management with consultation placed to orthopedic surgery as well as pain management physical deconditioning. Also requested for PT OT eval and director social welfare to assist with discharge planning ? 12/27/2023 MRI obtained the day prior did show Severe chronic compression fractures at T12, L1 and L4 with milder compression deformity of L5. Prior kyphoplasty changes at T12, L1 and L4. Abnormal marrow signal of the L5 vertebral body, edema versus malignancy. Severe degenerative disc changes with multilevel stenoses as above. Most severe changes at L4-5. Patient was seen and evaluated by Dr. Leonard Lawrence with orthopedic surgery patient offered treatment options including conservative versus kyphoplasty -12/28/2023; Patient seen had a relatively uneventful night. Pain remains relatively well-controlled. Her plan is to have a discussion with Dr. Lawrence prior to making any decision regarding kyphoplasty -12/28: Patient status post kyphoplasty, doing well. Spoke with orthopedic surgeon and patient can likely DC tomorrow with weightbearing as tolerated if doing well 2. Hypertension ? Blood pressure controlled, home medications continued with dose adjustment as needed -12/28: Remains on hydralazine and Lopressor as well as triamterene hydrochlorothiazide, blood pressure variable, most recent 135/97. Will need to follow-up outpatient 3. Chronic bronchiectasis ? Follows with outpatient pulmonology, last office visit on 09/08. Stable on room air on admit with no respiratory symptoms. Continue home inhalers. -12/28: Patient with no respiratory complaints. 96% on 2 L, O2 was placed post kyphoplasty but can be weaned off 4. Paroxysmal A-fib, multifocal atrial tachycardia, atrial myxoma ? Follows with outpatient cardiology, last office visit on 09/16. Last echo in 03/2023 showed EF 70%, moderately enlarged LA, mildly enlarged RA, mild aortic stenosis, no other significant abnormalities. Patient hemodynamically stable and in normal sinus rhythm on admit. Not on anticoagulation due to history of falls. Continue home Lopressor. -12/28: Heart rate 74, continue metoprolol 6. DVT prophylaxis ? On enoxaparin Time spent in the patient's overall evaluation,decision-making process, review of diagnostic data, adjustment of management, discussion with other providers, nursing nursing and ancillary staff involved in patient's care documentation, 35 minutes Charges/Coding Visit Charges Inpatient E&M: 84535 Subs Hosp L2
--- NOTE | 2023-12-29 12:50 | OP.PCM_ITS ---
Report of Operation Date of Procedure: 12/29/23 Description of Surgical Findings:: ATTENDING SURGEON: Leonard Lawrence MD MILK WAGON DRIVER: none PREOPERATIVE DIAGNOSIS: L5 compression fracture POSTOPERATIVE DIAGNOSIS: L5 compression fracture PROCEDURE PERFORMED: L5 kyphoplasty CPT 97502 INDICATIONS FOR THE PROCEDURE: The patient is a 88-year-old lady, who presents with back pain after lifting something heavy 10 days ago following shoulder pain made it difficult for her to ambulate and she was admitted to the hospital. Imaging showed prior T12, L1, L4 compression fractures with kyphoplasty's done in the past. Of note L4 had cement extravasation. A new L5 compression fracture with osteopenia noted. After failing conservative management, the patient requested cement augmentation with kyphoplasty. Risk benefits were discussed in detail. The risks include but are not limited to infection, bleeding, hematoma formation, nerve or spinal cord injury, DVT, pulmonary embolism, cement Mollison, hypertension, cardiac arrest, persistent pain, need for further procedures, cement extravasation, future insufficiency fractures. After a discussion of the risks and benefits of the procedure, consent was signed for the procedure. DETAILS OF PROCEDURE: Patient was met in the preoperative holding area and the correct site was marked. The patient was brought back to the operative suite. Timeout was performed. Patient was carefully positioned flat Arley table with pillows. MAC anesthesia sedation was performed. Back was prepped and draped in usual fashion. Timeout was again performed. C-arm AP and lateral view was then taken. 2 C-arms were positioned in a way that L5 was centralized and superior endplate was parallel to the beams. Spinous process was centered between the pedicles. Point of entry was marked with skin marker. local anesthetic was injected subcutaneously. Small stab incision was placed to allow Jamshidi needle. The Jamshidi needle was then taken down up to the lateral edge of the pedicle seen on AP view and confirmed the lateral view. Jamshidi needle was then malleted into the bone up to the medial wall of the pedicle seen on AP view and confirmed on lateral view to be inside the body. This was then advanced to the anterior third of the vertebral bodies. This was done on both sides. Stylette was removed. Core biopsy was performed. Drill was utilized up to balloon size. Balloon was inserted. The balloon was inflated with radiopaque dye and evaluated on AP lateral C-arm images. Once adequate expansion of the balloon was noticed, the balloons were emptied and removed. Cement was mixed. Once the cement consistency was putty like, this was slowly inserted into the vertebral body through both Jamshidi needles. AP lateral views were confirmed to make sure no cement extravasation occurs. Once adequate cement was placed, time was given to allow cement setting. Jamshidi needles were then removed. Steri-Strips were applied along with 4 x 4 and Tegaderm. AP lateral views showed good cement fill. Patient was then taken to PACU in stable condition and will be discharged from their home. I was present for the entire case. Surgeon: Leonard Lawrence boxing and pressing supervisor: Claudia Child Admit VTE Documentation VTE Mechan Device Prophylaxis: SCD's Procedures Musculoskeletal [id number]: Other Procedure See Report
--- NOTE | 2023-12-29 12:56 | PN.ORTHO_ITS ---
Subjective Subjective Seen with Dr. Lawrence. POD# 0 L5 kyphoplasty. Patient tolerated anesthesia well. Objective Data Objective Data Vital Signs: Vital Signs Temp Pulse Resp BP Pulse Ox O2 Del Method 98.1 F 89 16 164/81 H 94 Room Air 12/29/23 11:35 12/29/23 11:35 12/29/23 11:35 12/29/23 11:35 12/29/23 11:35 12/29/23 09:18 Oxygen Delivery Method Room Air Weight: 121 lb 4.068 oz Body Mass Index (BMI) 23.6 Intake & Output: Intake and Output for Last 24 Hours 12/27/23 12/28/23 12/29/23 23:59 23:59 23:59 Intake Total 400 / 400 310 / 310 Output Total 300 / 700 400 / 400 Balance 400 / 400 -300 / -500 -90 / -90 Lab / Micro Data 12/29/23 06:10 12/29/23 06:10 Labs: Laboratory Results - last 24 hr 12/29/23 06:10: WBC 5.9, RBC 4.03 L, Hgb 13.4, Hct 40.0, MCV 99.3 H, MCH 33.3 H, MCHC 33.5, RDW Std Deviation 45.2 H, RDW Coeff of Jared 12.3, Plt Count 249, MPV 9.7, Immature Gran % (Auto) 0.300, Neut % (Auto) 63.1, Lymph % (Auto) 20.3, Sherman % (Auto) 11.5 H, Eos % (Auto) 3.8, Baso % (Auto) 1.0, Absolute Neuts (auto) 3.7, Absolute Lymphs (auto) 1.19, Nucleated RBC % 0, Sodium 135 L, Potassium 3.7, Chloride 102, Carbon Dioxide 27.0, Anion Gap 6, BUN 16, Creatinine 0.70, Estim Creat Clear Calc 37.10, Est GFR (MDRD) Af Amer 102, Est GFR (MDRD) Non-Af 84, B UN/Creatinine Ratio 23.0 H, Glucose 106, Calcium 9.6 Physical Exam Narrative Steri Strips and tegaderm with gauze applied over incisions. Assessment & Plan Assessment/Plan (1) S/P kyphoplasty: PLAN: Plan Discharge from orthopedics, ready whenever medically appropriate. Continue Lovenox starting tomorrow. Continue PT/OT - No bending, lifting, or twisting.
--- NOTE | 2023-12-29 12:57 | PCM.POST.ANE ---
Anesthesia: Postop Eval I Current Vital Signs Temperature: 97.9 F Pulse Rate: 82 Blood Pressure: 112/82 Respiratory Rate: 18 Pulse Ox: 94 Assessment Airway patent: Yes Spontaneous unlabored respirations: Yes nausea: No Vomiting: No Anesthesia Complication: No Fluid Hydration Crystalloid volume administer (ml): 0 Total IV fluid infused: 0 Progress Note Anesthesia document: Postop Eval 1 completed: Yes
--- NOTE | 2023-12-29 13:16 | POSTOPAN2_ITS ---
Anesthesia Postop Eval I Sum Postop Eval Completion status Anesthesia document: Postop Eval 1 completed: Yes Anesthesia Postop Eval I Summary Anesthesia Postop Eval I Summary: Anesthesia Postop Eval I: Assessment Summary Airway patent Yes 12/29/23 12:57 DONOR [email or web address] Spontaneous unlabored Yes 12/29/23 12:57 DONOR [email or web address] respirations Mental status nausea No 12/29/23 12:57 DONOR [email or web address] Vomiting No 12/29/23 12:57 DONOR [email or web address] Anesthesia Postop Eval I: Fluid Summary Crystalloid volume administer 0 12/29/23 12:57 DONOR [email or web address] (ml) Colloids volume administered ( ml) Blood Product volume administered (ml) Total IV fluid infused 0 12/29/23 12:57 DONOR [email or web address] Anesthesia Postop Eval I: Summary Notes Anesthesia Complication No 12/29/23 12:57 DONOR [email or web address] Anesthesia Complication Comment: Post-operative progress note Anesthesia: Postop Eval II Evaluation Mental status: Awake Pain Level: 0 nausea: No Vomiting: No
--- NOTE | 2023-12-29 13:16 | PCM.POSTANE2 ---
Anesthesia Postop Eval I Sum Postop Eval Completion status Anesthesia document: Postop Eval 1 completed: Yes Anesthesia Postop Eval I Summary Anesthesia Postop Eval I Summary: Anesthesia Postop Eval I: Assessment Summary Airway patent Yes 12/29/23 12:57 PASTER [email or web address] Spontaneous unlabored Yes 12/29/23 12:57 PASTER [email or web address] respirations Mental status nausea No 12/29/23 12:57 PASTER [email or web address] Vomiting No 12/29/23 12:57 PASTER [email or web address] Anesthesia Postop Eval I: Fluid Summary Crystalloid volume administer 0 12/29/23 12:57 PASTER [email or web address] (ml) Colloids volume administered ( ml) Blood Product volume administered (ml) Total IV fluid infused 0 12/29/23 12:57 PASTER [email or web address] Anesthesia Postop Eval I: Summary Notes Anesthesia Complication No 12/29/23 12:57 PASTER [email or web address] Anesthesia Complication Comment: Post-operative progress note Anesthesia: Postop Eval II Evaluation Mental status: Awake Pain Level: 0 nausea: No Vomiting: No
[2023-12-29] MEDS: Acetaminophen 500 MG Tablet 1000 MG PO ×2 (14:25→21:13)
[2023-12-29] MEDS: 0.9% Saline Lock 10 ML Syringe IV (21:10)
[2023-12-30 04:24] VITALS: BP 106/88; PULSE 89; RESP 16; TEMP 36.7; O2SAT 95
[2023-12-30] MEDS: Acetaminophen 500 MG Tablet 1000 MG PO ×2 (05:21→14:36)
[2023-12-30 09:59] VITALS: BP 112/69; PULSE 69; RESP 15; TEMP 36.7; O2SAT 95
[2023-12-30 10:12] VITALS: BP 112/69; PULSE 69
[2023-12-30] MEDS: Menthol/Lanolin/Calamine/Znox 113 GM Tube 1 APPLIC TOPICAL (10:12)
[2023-12-30] MEDS: hydrALAZINE 25 MG Tablet PO (10:12)
[2023-12-30 10:13] VITALS: BP 112/69; PULSE 69
[2023-12-30] MEDS: Enoxaparin 40 MG/0.4 ML Syringe SC (10:13)
[2023-12-30] MEDS: Metoprolol Tartrate 25 MG Tablet PO (10:13)
[2023-12-30] MEDS: Lidocaine 5% Patch 1 PATCH TOPICAL (10:13)
[2023-12-30] MEDS: Triamterene 37.5MG/Hctz 25MG Capsule 1 CAP PO (10:13)
[2023-12-30] MEDS: Magnesium Chloride 64 MG Delay Rel.Tablet 128 MG PO (10:14)
[2023-12-30] MEDS: Cholecalciferol (VIT D3) 25 MCG TABLET (1,000 UNITS) PO (10:15)
--- NOTE | 2023-12-30 10:16 | CASEMGMT ---
Social Work- SW followed up with pt to advise of acceptance at [facility] and pending d/c. Pt agreeable to d/c plan. JEANNIE Modi
--- NOTE | 2023-12-30 13:26 | PCM.PN.ORT ---
Subjective Subjective Postop day 1 status post L5 kyphoplasty. Sitting comfortably in recliner. Patient says that some of her pain has gone away but some is still there. No new symptoms. Objective Data Objective Data Vital Signs: Vital Signs Temp Pulse Resp BP Pulse Ox O2 Del Method O2 Flow Rate 98.1 F 69 15 112/69 95 Room Air 1.5 12/30/23 09:59 12/30/23 10:13 12/30/23 09:59 12/30/23 10:13 12/30/23 09:59 12/30/23 10:05 12/30/23 04:24 Oxygen Flow Rate (L/min) 1.5 Oxygen Delivery Method Room Air Weight: 121 lb 4.068 oz Body Mass Index (BMI) 23.6 Intake & Output: Intake and Output for Last 24 Hours 12/28/23 12/29/23 12/30/23 23:59 23:59 23:59 Intake Total 310 / 310 Output Total 300 / 700 1700 / 1700 300 / 300 Balance -300 / -500 -1390 / -1390 -300 / -300 Lab / Micro Data 12/29/23 06:10 12/29/23 06:10 Radiography Diagnostic Testing: Radiology Impression Lumbar Spine X-Ray 12/29/23 11:59 IMPRESSION: Fluoroscopy during kyphoplasty. Electronically Signed: Kisahn Estrada MD at 14:15 EDT , Physical Exam Narrative Neurologic evaluation of lower extremity shows 5 x 5 power normal scripts. Pain with right straight leg raise test actively. Assessment & Plan Assessment/Plan (1) Compression fracture of L5 vertebra: QUALIFIERS: Encounter type: sequela Qualified Code(s): S32.050S - Wedge compression fracture of fifth lumbar vertebra, sequela PLAN: Plan Again reviewed CT and MRI done late last week. She underwent L5 kyphoplasty yesterday. Explained to her that her residual pain will likely require continued physical therapy. Patient requested and I spoke with her niece on the phone. Discussed the previous L4 kyphoplasty done 3 years ago with some cement extravasation. Discussed that removing the extravasated cement from that 3-year-old kyphoplasty would require extensive surgery and may have limited benefit as most of the extravasation is actually on the left side and her pain is on the right. Both patient and niece agree with not considering any further surgery. Okay to restart DVT chemoprophylaxis. Continue PT OT. Okay to discharge to rehab from orthopedic perspective. Recommend follow-up in clinic in 2 weeks for repeat x-rays.
[2023-12-30 14:30] VITALS: BP 98/85; PULSE 81; RESP 15; TEMP 37; O2SAT 94
--- NOTE | 2023-12-30 14:41 | TREXTCAR_ITS ---
Diet Diet Order/Speech Therapy: 12/29/23 15:31 Diet: Regular - General Routine Orders/Code Status Suppository Type: Dulcolax 10mg Suppository Frequency: Daily PRN Routine Lab Work: BMP (2-3 days) Code Status: DNRCC-A Wound(s) lt lower back: Wound Type: Surgical Incision right lower back: Wound Type: Surgical Incision Therapies Physical Therapy: Eval and Treat Occupational Therapy: Eval and Treat Problem/Diagnosis (1) Compression fracture of L5 vertebra: Status: Acute Code(s): S32.050A - Wedge compression fracture of fifth lumbar vertebra, initial encounter for closed fracture Plan 1. Acute on chronic low back pain with significant debility 2. Hypertension 3. Chronic bronchiectasis 4. Paroxysmal A-fib, multifocal atrial tachycardia, atrial myxoma 88-year-old female history of chronic low back pain, hypertension, paroxysmal A- fib who presented to [facility] ED 12/25/2023 with acute on chronic low back pain with debility. She had worsened pain over 1 week without any falls or trauma and also some right leg weakness. CT in the ED showed almost complete collapse of the vertebrae at T12, L1 and L4. Diffuse posterior disc bulge causing central and bilateral neuroforaminal stenosis was noted at L3-4. Had mild disc bulge with stenosis at L2-3. Given her significant pain and difficulty caring for self at home patient was admitted to the hospital with orthopedic consultation. Patient ultimately opted for kyphoplasty and this was done 12/29/2023. Patient continued to have some pain but is aware of recommendation for physical therapy and supportive care at this time. Did discuss with Dr. Calvo prior to patient being discharged and patient okay to DC to [place]. Patient had no other new or acute focal complaints but did voice her frustration with her chronic pain which she reports has been present since 2009. Discussed that we will be important to follow-up with her physician outpatient for any further management or alternative treatment options. Patient able to get up to chair and is able to get around without debilitating pain so do not think she necessitates further acute inpatient hospitalization and is reasonable for her to go to SNF. She also discussed with Dr. Calvo before discharge and will follow-up in the clinic in 2 weeks for repeat x-rays. Discharge instructions as followed: DISCHARGE INSTRUCTIONS PLEASE READ *Please take this with you to your next doctors appointment* -It is recommended that you have a BMP to check your sodium and potassium in 2 to 3 days. Your potassium at times is low and other times is within normal range and this could be medication related given your blood pressure medications. Will continue at this time but may need further adjustments if lab work would change -Please follow-up with Dr. Lawrence upon discharge in his office for further evaluation and x-rays. Please call their office to schedule hospital follow-up appointment upon discharge. -Please call your primary care provider's office upon discharge to schedule a hospital follow up within 1 week. -For any concerning signs or symptoms please call 911 or proceed to the nearest emergency department Allergies/Procedures Done in Hospital Allergies triamcinolone Allergy (Mild, Verified 09/17/23 13:15) Other causes area to swell that it was applied to alprazolam (From Xanax) Allergy (Verified 09/17/23 13:15) Unknown atenolol Allergy (Verified 09/17/23 13:15) Shortness of breath carvedilol Allergy (Verified 09/17/23 13:15) Anaphylaxis cetirizine (From Zyrtec) Allergy (Verified 09/17/23 13:15) Unknown cimetidine (From Tagamet) Allergy (Verified 09/17/23 13:15) Unknown diltiazem (From Cardizem) Allergy (Verified 09/17/23 13:15) Unknown erythromycin base Allergy (Verified 09/17/23 13:15) Unknown famotidine (From Pepcid) Allergy (Verified 09/17/23 13:15) Unknown grass pollen Allergy (Verified 09/17/23 13:15) NEEDS FOLLOW-UP grass bent guaifenesin (From Entex LA) Allergy (Verified 09/17/23 13:15) Unknown house dust Allergy (Verified 09/17/23 13:15) Unknown lansoprazole (From Prevacid) Allergy (Verified 09/17/23 13:15) Unknown loracarbef (From Lorabid) Allergy (Verified 09/17/23 13:15) Unknown metoprolol (From Toprol XL) Allergy (Verified 09/17/23 13:15) Unknown mold Allergy (Verified 09/17/23 13:15) Unknown phenylephrine (From Entex LA) Allergy (Verified 09/17/23 13:15) Unknown phenylpropanolamine (From Entex LA) Allergy (Verified 09/17/23 13:15) Unknown promethazine (From Phenergan) Allergy (Verified 09/17/23 13:15) Unknown raloxifene (From Evista) Allergy (Verified 09/17/23 13:15) Unknown ranitidine (From Zantac) Allergy (Verified 09/17/23 13:15) Unknown risedronate sodium (From Actonel) Allergy (Verified 09/17/23 13:15) Unknown escitalopram (From Lexapro) Adverse Reaction (Severe, Verified 09/17/23 13:15) Unknown lisinopril Adverse Reaction (Severe, Verified 09/17/23 13:15) Lip swelling losartan (From Cozaar) Adverse Reaction (Severe, Verified 09/17/23 13:15) Swelling lips meloxicam Adverse Reaction (Severe, Verified 09/17/23 13:15) Unknown prednisone Adverse Reaction (Severe, Verified 09/17/23 13:15) Unknown zolpidem (From Ambien) Adverse Reaction (Severe, Verified 09/17/23 13:15) Unknown amlodipine (From Norvasc) Adverse Reaction (Verified 09/17/23 13:15) SOB clonazepam (From Klonopin) Adverse Reaction (Verified 09/17/23 13:15) NEEDS FOLLOW-UP reaction like hangover diphenhydramine (From Benadryl) Adverse Reaction (Verified 09/17/23 13:15) NEEDS FOLLOW-UP agitation metronidazole (From Flagyl) Adverse Reaction (Verified 09/17/23 13:15) Pain in joints Type of Care/Length of Stay Estimated LOS: Convalescent Care Less Than 30 days Type of Care Needed: Skilled Rehab Potential: Fair Prognosis: Fair Additional Orders/Day of Discharge Day of Discharge: 12/30/23 Dietary and Speech Recommendations Dietitian Recommendations/Changes: As medically able, rec NITESH to Regular w/ 4 oz chocolate ensure plus high protein tid w/ meals Discharge Plan Admission Admit Date/Time: 12/26/23 15:17 Primary Reason for Your Visit: Low back pain Attending Provider: Tiffany Serna Primary Care Provider: Qasim Lorenzo Consulting Providers: Leonard Lawrence; Aysha Ernandez; Yemi Curtis; Keith Lozano Instructions Patient Instructions: ED Fall Prevention Additional Instructions / Restrictions: DISCHARGE INSTRUCTIONS PLEASE READ *Please take this with you to your next doctors appointment* -It is recommended that you have a BMP to check your sodium and potassium in 2 to 3 days. Your potassium at times is low and other times is within normal range and this could be medication related given your blood pressure medications. Will continue at this time but may need further adjustments if lab work would change -Please follow-up with Dr. Lawrence upon discharge in his office for further ev aluation and x-rays. Please call their office to schedule hospital follow-up appointment upon discharge. -Please call your primary care provider's office upon discharge to schedule a hospital follow up within 1 week. -For any concerning signs or symptoms please call 911 or proceed to the nearest emergency department Discharge Orders/Prescriptions Prescriptions: New acetaminophen 500 mg Tablet 1,000 mg PO Q8 7 Days Qty: 0 0RF lidocaine 5 % Adhesive Patch,Medicated 1 patch topical DAILY Qty: 15 0RF Protocol: *Topical Application Instructions APPLICATION INSTRUCTIONS: low back Continued cholecalciferol (vitamin D3) 25 mcg (1,000 unit) capsule 25 mcg PO DAILY magnesium oxide 400 mg magnesium tablet 500 mg PO DAILY coenzyme Q10 [Co Q-10] 200 mg capsule 200 mg PO DAILY hydralazine 25 mg tablet 25 mg PO BID Ocuvite with Lutein 1,000 unit-200 mg-60 unit-2 mg tablet 1 tab PO DAILY Rx Instructions: administer after a meal triamterene-hydrochlorothiazid 37.5-25 mg tablet 1 tab PO QDAY Ensure Compact Liquid 118 ml PO DAILY ascorbic acid (vitamin C) 1,000 mg tablet 1 g PO DAILY zinc gluconate 30 mg tablet 30 mg PO DAILY metoprolol tartrate 25 mg tablet 25 mg PO BID albuterol sulfate 2.5 mg /3 mL (0.083 %) solution for nebulization 2.5 mg inhalation Q4H PRN (Reason: shortness of breath or wheezing) Qty: 180 3RF Patient Comments: DOESNT USE OFTEN vitamin B complex 1 EACH tablet 1 tab PO DAILY Discontinued hydrocodone-acetaminophen 5-325 mg tablet 1 tab PO TID Patient Comments: PT ALMOST OUT OF MED acetaminophen [Tylenol] 325 mg Tablet 650 mg PO Q6H PRN (Reason: Pain Score 1-10/Temp > 100.7 F) Referrals / Follow Up: Leonard Lawrence MD [Med Staff - Active Staff] - Within 2 Weeks Qasim Lorenzo MD [Primary Care Provider] - Within 1 Week Disposition Disposition (needs filled in before D/C Order can be placed): [facility] Facility (1) Compression fracture of L5 vertebra Qualifiers: Encounter type: sequela Qualified Code(s): S32.050S - Wedge compression fracture of fifth lumbar vertebra, sequela
--- NOTE | 2023-12-30 14:43 | DS.PCM_ITS ---
Providers Date of Admission: 12/26/23 Date of Discharge: 12/30/23 Primary Care Physician: Dr. Qasim Lorenzo MD Consultations 12/25/23 16:54 Consult: Orthopedics Routine Consulting Provider: Leonard Lawrence Reason for Consult: intractable low back pain w/ prior vertebroplasty EMERGENT Consult: No Notified: Yes Date Notified: 12/25/23 Time Notified: 18:31 Method of Notification: Text Consult: Pain Management Routine Consulting Provider: Aysha Ernandez Reason for Consult: intractable low back pain w/ prior vertebroplasties EMERGENT Consult: No Notified: Yes Date Notified: 12/25/23 Time Notified: 18:29 Method of Notification: Answering Service Reason For Visit: INTRACTABLE BACK PAIN W/ WEAKNESS Diagnosis Discharge Diagnosis (1) Compression fracture of L5 vertebra: Status: Acute Code(s): S32.050A - Wedge compression fracture of fifth lumbar vertebra, initial encounter for closed fracture Qualifiers: Encounter type: sequela Qualified Code(s): S32.050S - Wedge compression fracture of fifth lumbar vertebra, sequela Plan 1. Acute on chronic low back pain with significant debility 2. Hypertension 3. Chronic bronchiectasis 4. Paroxysmal A-fib, multifocal atrial tachycardia, atrial myxoma Medications at Discharge Home Medications cholecalciferol (vitamin D3) 25 mcg (1,000 unit) capsule 25 mcg PO DAILY vitamin 11/11/19 vitamin B complex 1 tab PO DAILY supplement 01/24/20 magnesium oxide 500 mg PO DAILY supplement 11/09/20 vit A 300 mcg-C 200 mg-E 27 mg-lutein 2 mg and minerals tablet (Ocuvite with Lutein) 1 tab PO DAILY supplement 11/09/20 coenzyme Q10 200 mg capsule (Co Q-10) 200 mg PO DAILY 05/22/21 hydralazine 25 mg tablet 25 mg PO BID 10/31/21 albuterol sulfate 2.5 mg/3 mL (0.083 %) solution for nebulization 2.5 mg (3 mL) inhalation Q4H PRN shortness of breath or wheezing #180 mL 06/09/23 metoprolol tartrate 25 mg tablet 25 mg PO BID 06/09/23 ascorbic acid (vitamin C) 1,000 mg tablet 1 g PO DAILY 09/17/23 food supplemt, lactose-reduced (Ensure Compact oral liquid) 118 ml PO DAILY 09/17/23 triamterene 37.5 mg-hydrochlorothiazide 25 mg tablet 1 tab PO QDAY 09/17/23 zinc gluconate 30 mg tablet 30 mg PO DAILY 09/17/23 acetaminophen 500 mg tablet 1,000 mg (2 x 500 mg) PO Q8 7 days #0 tabs 12/30/23 lidocaine 5 % topical patch 1 patch topical DAILY #15 ea 12/30/23 Hospital Course Procedures - (L5 kyphoplasty 12/28) Summary of Care Provided Minutes Spent on Discharge: 35 Hospital Course: 88-year-old female history of chronic low back pain, hypertension, paroxysmal A- fib who presented to [facility] ED 12/25/2023 with acute on chronic low back pain with debility. She had worsened pain over 1 week without any falls or trauma and also some right leg weakness. CT in the ED showed almost complete collapse of the vertebrae at T12, L1 and L4. Diffuse posterior disc bulge causing central and bilateral neuroforaminal stenosis was noted at L3-4. Had mild disc bulge with stenosis at L2-3. Given her significant pain and difficulty caring for self at home patient was admitted to the hospital with orthopedic consultation. Patient ultimately opted for kyphoplasty and this was done 12/29/2023. Patient continued to have some pain but is aware of recommendation for physical therapy and supportive care at this time. Did discuss with Dr. Calvo prior to patient being discharged and patient okay to DC to [facility]. Patient had no other new or acute focal complaints but did voice her frustration with her chronic pain which she reports has been present since 2009. Discussed that we will be important to follow-up with her physician outpatient for any further management or alternative treatment options. Patient able to get up to chair and is able to get around without debilitating pain so do not think she necessitates further acute inpatient hospitalization and is reasonable for her to go to SNF. She also discussed with Dr. Calvo before discharge and will follow-up in the clinic in 2 weeks for repeat x-rays. Discharge instructions as followed: DISCHARGE INSTRUCTIONS PLEASE READ *Please take this with you to your next doctors appointment* -It is recommended that you have a BMP to check your sodium and potassium in 2 to 3 days. Your potassium at times is low and other times is within normal range and this could be medication related given your blood pressure medications. Will continue at this time but may need further adjustments if lab work would change -Please follow-up with Dr. Lawrence upon discharge in his office for further evaluation and x-rays. Please call their office to schedule hospital follow-up appointment upon discharge. -Please call your primary care provider's office upon discharge to schedule a hospital follow up within 1 week. -For any concerning signs or symptoms please call 911 or proceed to the nearest emergency department Physical Exam Narrative General: Alert, oriented, no apparent distress HEENT: Atraumatic, normocephalic Eyes: Anicteric, normal conjunctiva, extraocular movements grossly intact Neck: Supple Respiratory: Clear to auscultation bilaterally, normal respiratory effort Cardiovascular: Regular rate GI: Soft, nontender, nondistended Extremities: No edema Musculoskeletal: Moving all extremities Neuro: No overt focal neurological deficits Skin: No rashes appreciated Psych: Cooperative Weight / BMI Weight Weight: 55 kg Body Mass Index (BMI) 23.6 ABG / Lab / Microbiology Data 12/29/23 06:10 12/29/23 06:10 D/C Instructions Discharge Diet: No restrictions Meaningful Use Info Meaningful Use Meaningful Use Diagnoses (Choose all that apply): None applicable Ischemic Stroke Statin Dosing Therapy Reference: STATIN DOSE THERAPY REFERENCE: * Patients > 75 years receive moderate or high dose statin therapy. * Patients 75 years or YOUNGER should receive HIGH intensity statin dose unless contraindicated. You will be required to document reason for non-treatment if statin daily dose does not meet guidelines. HIGH DOSE STATIN THERAPY DAILY Atorvastatin > than or = to 40 mg Rosuvastatin > than or = to 20 mg Amlodipine + Atorvastatin > than or = to 2.5/40 mg Ezetimibe + Simvastatin 10/80 mg Simvastatin 80mg Discharge Plan Admission Admit Date/Time: 12/26/23 15:17 Primary Reason for Your Visit: Low back pain Attending Provider: Tiffany Serna Primary Care Provider: Qasim Lorenzo Consulting Providers: Leonard Lawrence; Aysha Ernandez; Yemi Curtis; Keith Lozano Instructions Patient Instructions: ED Fall Prevention Additional Instructions / Restrictions: DISCHARGE INSTRUCTIONS PLEASE READ *Please take this with you to your next doctors appointment* -It is recommended that you have a BMP to check your sodium and potassium in 2 to 3 days. Your potassium at times is low and other times is within normal range and this could be medication related given your blood pressure medications. Will continue at this time but may need further adjustments if lab work would change -Please follow-up with Dr. Lawrence upon discharge in his office for further evaluation and x-rays. Please call their office to schedule hospital follow-up appointment upon discharge. -Please call your primary care provider's office upon discharge to schedule a hospital follow up within 1 week. -For any concerning signs or symptoms please call 911 or proceed to the nearest emergency department Discharge Orders/Prescriptions Prescriptions: New acetaminophen 500 mg Tablet 1,000 mg PO Q8 7 Days Qty: 0 0RF lidocaine 5 % Adhesive Patch,Medicated 1 patch topical DAILY Qty: 15 0RF Protocol: *Topical Application Instructions APPLICATION INSTRUCTIONS: low back Continued cholecalciferol (vitamin D3) 25 mcg (1,000 unit) capsule 25 mcg PO DAILY magnesium oxide 400 mg magnesium tablet 500 mg PO DAILY coenzyme Q10 [Co Q-10] 200 mg capsule 200 mg PO DAILY hydralazine 25 mg tablet 25 mg PO BID Ocuvite with Lutein 1,000 unit-200 mg-60 unit-2 mg tablet 1 tab PO DAILY Rx Instructions: administer after a meal triamterene-hydrochlorothiazid 37.5-25 mg tablet 1 tab PO QDAY Ensure Compact Liquid 118 ml PO DAILY ascorbic acid (vitamin C) 1,000 mg tablet 1 g PO DAILY zinc gluconate 30 mg tablet 30 mg PO DAILY metoprolol tartrate 25 mg tablet 25 mg PO BID albuterol sulfate 2.5 mg /3 mL (0.083 %) solution for nebulization 2.5 mg inhalation Q4H PRN (Reason: shortness of breath or wheezing) Qty: 180 3RF Patient Comments: DOESNT USE OFTEN vitamin B complex 1 EACH tablet 1 tab PO DAILY Discontinued hydrocodone-acetaminophen 5-325 mg tablet 1 tab PO TID Patient Comments: PT ALMOST OUT OF MED acetaminophen [Tylenol] 325 mg Tablet 650 mg PO Q6H PRN (Reason: Pain Score 1-10/Temp > 100.7 F) Referrals / Follow Up: Leonard Lawrence MD [Med Staff - Active Staff] - Within 2 Weeks Qasim Lorenzo MD [Primary Care Provider] - Within 1 Week Disposition Disposition (needs filled in before D/C Order can be placed): [facility] Charges/Coding Visit Charges Inpatient E&M: 69329 Disch Hosp >30min
--- NOTE | 2023-12-30 14:54 | PHA.DC.MR.R ---
Pharmacy [place] Med Reconciliation Pharmacy Service has performed discharge medication reconciliation for this patient. The patient's discharge medication list was reviewed for discrepancies and discrepancies were resolved. Medications at Discharge Home Medications cholecalciferol (vitamin D3) 25 mcg (1,000 unit) capsule 25 mcg PO DAILY vitamin 11/11/19 vitamin B complex 1 tab PO DAILY supplement 01/24/20 magnesium oxide 500 mg PO DAILY supplement 11/09/20 vit A 300 mcg-C 200 mg-E 27 mg-lutein 2 mg and minerals tablet (Ocuvite with Lutein) 1 tab PO DAILY supplement 11/09/20 coenzyme Q10 200 mg capsule (Co Q-10) 200 mg PO DAILY 05/22/21 hydralazine 25 mg tablet 25 mg PO BID 10/31/21 albuterol sulfate 2.5 mg/3 mL (0.083 %) solution for nebulization 2.5 mg (3 mL) inhalation Q4H PRN shortness of breath or wheezing #180 mL 06/09/23 metoprolol tartrate 25 mg tablet 25 mg PO BID 06/09/23 ascorbic acid (vitamin C) 1,000 mg tablet 1 g PO DAILY 09/17/23 food supplemt, lactose-reduced (Ensure Compact oral liquid) 118 ml PO DAILY 09/17/23 triamterene 37.5 mg-hydrochlorothiazide 25 mg tablet 1 tab PO QDAY 09/17/23 zinc gluconate 30 mg tablet 30 mg PO DAILY 09/17/23 acetaminophen 500 mg tablet 1,000 mg (2 x 500 mg) PO Q8 7 days #0 tabs 12/30/23 lidocaine 5 % topical patch 1 patch topical DAILY #15 ea 12/30/23
--- NOTE | 2023-12-30 15:05 | CASEMGMT ---
Social Work Physician feels pt is ready for discharge today.? 7000 convalescent form completed in [facility]. DCA and bedside nurse notified of discharge. Disposition:[facility], skilled level of care under convalescent stay. JEANNIE Modi
--- NOTE | 2023-12-30 15:34 | CASEMGMT ---
Discharge Planning Discharge orders, signed med list, and transport time sent to [facility]. Physicians will transport patient by wheelchair at 5p. Nursing, SW, and patient updated. Patient states that her neice is aware that she is leaving today and she will update her with time. Celina Lopes DC Planning Asst.
[2023-12-30 16:08] VITALS: BP 101/67; PULSE 79; RESP 16; TEMP 36.7; O2SAT 96
== END 2023-12-30 18:18 | disposition skilled nursing facility (03) | DRG 479 ==
LOC: ED 15:01 → MS3 15:04
PROVIDERS: Internal Medicine; Nurse Practitioner; Orthopaedic Surgery Orthopaedic Surgery of the Spine; Admitting Provider Hospitalist; Emergency Provider Emergency Medicine; PCP Family Medicine; Visit Provider Internal Medicine
PROC: 0QB03ZX Excision of Lumbar Vertebra, Percutaneous Approach, Diagnostic (ICD-10-PCS; principal; 2023-12-29 09:55)
DX: M80.08XA Age-related osteoporosis with current pathological fracture, vertebra(e), initial encounter for fracture (principal); I10 Essential (primary) hypertension; J47.9 Bronchiectasis, uncomplicated; I48.0 Paroxysmal atrial fibrillation; R26.2 Difficulty in walking, not elsewhere classified; M48.061 Spinal stenosis, lumbar region without neurogenic claudication; J44.9 Chronic obstructive pulmonary disease, unspecified; M51.369 Other intervertebral disc degeneration, lumbar region without mention of lumbar back pain or lower extremity pain; R53.81 Other malaise; Z66 Do not resuscitate; Z79.891 Long term (current) use of opiate analgesic; Z87.891 Personal history of nicotine dependence; Z90.710 Acquired absence of both cervix and uterus
CPT/HCPCS: 36415; 72100; 72131; 72148; 76000; 80048; 81001; 83735; 84100; 85025; 85027; 88305; 88311; 93005; 94668; 97162; 97166; 97530; 97535; 99252; 99284; A4216; G0463; J2405

== ENCOUNTER → 2024-02-12 | Outpatient (CLI) | payer MEDICARE, OTHER, SELFPAY ==
[2024-02-12 15:11] LABS: Potassium 3.3 mmol/L (3.5-5.1)
== END | disposition home or self-care (01) ==
LOC: MFPLAB 11:45
PROVIDERS: PCP Family Medicine; Visit Provider Family Medicine
DX: E87.1 Hypo-osmolality and hyponatremia (principal)
CPT/HCPCS: 36415; 84132

== ENCOUNTER → 2024-03-02 | Outpatient (CLI) | payer MEDICARE, OTHER, SELFPAY ==
--- NOTE | 2024-03-02 10:08 | ART_ITS ---
Reason For Study: Cold Rt Foot Procedure A bilateral lower extremity continuous wave Doppler with analog waveform analysis and ankle brachial indexes. Left Segmental Pressures Left brachial= 179mmHg. Left posterior tibial artery = 187mmHg. Left dorsalis pedis artery = 183mmHg. Left digit = 136 mmHg. Right Segmental Pressures Right brachial= 167mmHg. Right posterior tibial artery = 190mmHg. Right dorsalis pedis artery = 185mmHg. Right digit = 152 mmHg. Indices The right ankle brachial index by the posterior tibial artery is 1.06. The right ankle brachial index by the dorsalis pedis is 1.03. The right digital-brachial index is 0.85. The left ankle brachial index by the posterior tibial artery is 1.04. The left ankle brachial index by the dorsalis pedis is 1.02. The left digital-brachial index is 0.76. VL/Ankle Brachial Index Interpretation Summary Right SANDEEP 1.06, normal. TBI and Doppler/PVR waveforms of the right ankle normal at rest. Left SANDEEP 1.04, normal. TBI and Doppler/PVR waveforms of the left ankle normal a t rest. Ordering Physician: Qasim Lorenzo Referring Physician: QASIM LORENZO MD Performed By: Delilah Tate RDANAT/RVT
== END | disposition home or self-care (01) ==
LOC: CVS 10:07
PROVIDERS: PCP Family Medicine; Referring Provider Family Medicine; Visit Provider Family Medicine
DX: R20.9 Unspecified disturbances of skin sensation (principal)
CPT/HCPCS: 93922

== ENCOUNTER 2024-08-09 13:23 | Emergency (ER) | payer MEDICARE, OTHER, SELFPAY ==
[2024-08-09 13:24] VITALS: BP 187/108; PULSE 92; RESP 18; TEMP 36.7; O2SAT 91; BMI 24.5
--- NOTE | 2024-08-09 13:44 | CT_ITS ---
PROCEDURE: CHEST WITHOUT CONTRAST 08/09/2024 REASON FOR EXAM: RIB/BACK PAIN FROM FALL Former smoker. TECHNIQUE: Chest CT without contrast. Coronal and Sagittal reconstruction series were provided. One or more dose reduction techniques were used (e.g., Automated exposure control, adjustment of the mA and/or kV according to patient size, use of iterative reconstruction technique RADIATION DOSE SUMMARY: CTDlvol: 12.22 mGy DLP: 491.73 mGycm COMPARISON: Prior chest radiograph dated June 23, 2023. FINDINGS: Hardware: None Lymph nodes: Small mediastinal lymph nodes. Heart and Vasculature: Coronary artery calcifications are noted. Atherosclerotic calcifications of the thoracic aorta. Thoracic aorta and pulmonary arteries have normal contours; noncontrast technique limits evaluation. Coronary Artery Calcifications: Present Lungs and Airways: Mild linear increased markings at the posterior aspect of the left upper lobe suggestive of scarring. There is evidence of scarring and bronchiectasis in the left lower lobe. Pleura: No pleural effusion. Upper Abdomen: Small left renal cysts. Small cyst in the right lobe of the liver. Bones: Increased kyphosis. Osteopenia with loss of height and prior vertebroplasty of the lower thoracic and lumbar vertebrae as well as almost complete collapse of a mid dorsal vertebrae. CT/Chest without Contrast IMPRESSION: Coronary artery calcification (CAC) is is present Findings suggestive of scarring in the left lower lobe as well as lingular segm ent of the left upper lobe. Reading Location: [place] [id number]
--- NOTE | 2024-08-09 13:53 | EX.ED.GENINJ ---
HPI History of Present Illness Chief Complaint: Fall Informant: patient and EMS Narrative Narrative: 88-year-old female presenting to the emergency room with back pain following a fall at home. Patient states that she was walking and her feet got stuck on the carpet and she fell down. She states that she hit her upper back on the washer and dryer. No loss of consciousness. She denies any headache or neck pain. She denies any low back or leg symptoms. She used her medic alert bracelet to call the EMS who helped her up onto the cot. Patient states she has had prior fractures of her back. She notes pain across the upper back by the shoulder blades bilaterally. She notes no change in her breathing from baseline. She states that she has a prior lung injury from a fall but does not know what it is. She states that her cloth shrinking machine operator helper told her that her lung does not breathe as well in that area. She denies any change in cough. She denies any radicular symptoms leg weakness or paresthesias. She is not on anticoagulant. [facility] Medical History Pneumonia Kidney stones Former smoker Atrial fibrillation Nose abrasion Contusion of right shoulder Right shoulder strain Paroxysmal atrial fibrillation Compression fracture of lumbar spine, non-traumatic Vision loss of left eye (Unknown) Anxiety Depression Osteoporosis GERD (gastroesophageal reflux disease) Former smoker Irregular heart beat Hypertension ETOH abuse Essential hypertension Ventricular premature depolarization Abnormal electrocardiogram Benign cardiac neoplasm Atrial myxoma Home Medications ?Medication ?Instructions ?Recorded ?Last Taken ?Type cholecalciferol (vitamin D3) 25 25 mcg PO DAILY vitamin 11/11/19 2 Days Ago History mcg (1,000 unit) capsule ~01/22/20 vitamin B complex 1 tab PO DAILY supplement 01/24/20 01/23/20 History magnesium oxide 500 mg PO DAILY supplement 11/09/20 12/24/23 History vit A 300 mcg-C 200 mg-E 27 1 tab PO DAILY supplement 11/09/20 Unknown History mg-lutein 2 mg and minerals tablet (Ocuvite with Lutein) coenzyme Q10 200 mg capsule (Co 200 mg PO DAILY 05/22/21 Unknown History Q-10) albuterol sulfate 2.5 mg/3 mL 2.5 mg (3 mL) inhalation Q4H PRN 06/09/23 Unknown Rx (0.083 %) solution for nebulization shortness of breath or wheezing #180 mL metoprolol tartrate 25 mg tablet 25 mg PO BID 06/09/23 12/24/23 History ascorbic acid (vitamin C) 1,000 mg 1 g PO DAILY 09/17/23 Unknown History tablet food supplemt, lactose-reduced 118 ml PO DAILY 09/17/23 12/24/23 History (Ensure Compact oral liquid) zinc gluconate 30 mg tablet 30 mg PO DAILY 09/17/23 Unknown History lidocaine 5 % topical patch 1 patch topical DAILY #15 ea 12/30/23 Unknown Rx triamterene 37.5 1 tab PO QDAY PRN 04/19/24 Unknown History mg-hydrochlorothiazide 25 mg tablet hydralazine 25 mg tablet 50 mg PO BID 04/23/24 Unknown History oxycodone-acetaminophen 5 mg-325 1 tab PO Q6H PRN PRN Pain 3 days 08/09/24 Unknown Rx mg tablet #12 TABLETS Allergy/AdvReac Type Severity Reaction Status Date / Time triamcinolone Allergy Mild Other Verified 04/23/24 10:56 alprazolam (From Xanax) Allergy Unknown Verified 04/23/24 10:56 atenolol Allergy Shortness Verified 04/23/24 10:56 of breath carvedilol Allergy Anaphylaxis Verified 04/23/24 10:56 cetirizine (From Zyrtec) Allergy Unknown Verified 04/23/24 10:56 cimetidine (From Tagamet) Allergy Unknown Verified 04/23/24 10:56 diltiazem (From Cardizem) Allergy Unknown Verified 04/23/24 10:56 erythromycin base Allergy Unknown Verified 04/23/24 10:56 famotidine (From Pepcid) Allergy Unknown Verified 04/23/24 10:56 grass pollen Allergy NEEDS Verified 04/23/24 10:56 FOLLOW-UP guaifenesin (From Entex [place]) Allergy Unknown Verified 04/23/24 10:56 house dust Allergy Unknown Verified 04/23/24 10:56 lansoprazole (From Prevacid) Allergy Unknown Verified 04/23/24 10:56 loracarbef (From Lorabid) Allergy Unknown Verified 04/23/24 10:56 metoprolol (From Toprol XL) Allergy Unknown Verified 04/23/24 10:56 mold Allergy Unknown Verified 04/23/24 10:56 phenylephrine (From Entex LA) Allergy Unknown Verified 04/23/24 10:56 phenylpropanolamine (From Allergy Unknown Verified 04/23/24 10:56 Entex LA) promethazine (From Phenergan) Allergy Unknown Verified 04/23/24 10:56 raloxifene (From Evista) Allergy Unknown Verified 04/23/24 10:56 ranitidine (From Zantac) Allergy Unknown Verified 04/23/24 10:56 risedronate sodium (From Allergy Unknown Verified 04/23/24 10:56 Actonel) escitalopram (From Lexapro) AdvReac Severe Unknown Verified 04/23/24 10:56 lisinopril AdvReac Severe Lip Verified 04/23/24 10:56 swelling losartan (From Cozaar) AdvReac Severe Swelling Verified 04/23/24 10:56 lips meloxicam AdvReac Severe Unknown Verified 04/23/24 10:56 prednisone AdvReac Severe Unknown Verified 04/23/24 10:56 zolpidem (From Ambien) AdvReac Severe Unknown Verified 04/23/24 10:56 amlodipine (From Norvasc) AdvReac SOB Verified 04/23/24 10:56 clonazepam (From Klonopin) AdvReac NEEDS Verified 04/23/24 10:56 FOLLOW-UP diphenhydramine (From AdvReac NEEDS Verified 04/23/24 10:56 Benadryl) FOLLOW-UP metronidazole (From Flagyl) AdvReac Pain in Verified 04/23/24 10:56 joints Family History Mother CAD (coronary artery disease) Father Kidney disease Surgical History History of hysterectomy H/O partial resection of colon Social History Smoking Status: Former smoker how long ago did patient quit smokin years ago alcohol intake: former details: Patient states he quit alcohol in January 2020. substance use type: does not use caffeine: Yes Type: coffee Number of servings: 1 ROS ROS ED Constitutional Constitutional ED: Denies chills, fever(s) or weight loss Eyes Eyes: Denies change in vision or diplopia ENT ENT ED: Denies ear pain, rhinorrhea or sore throat Cardiovascular Cardiovascular: Denies chest pain, orthopnea, palpitations or racing heartbeat Respiratory/Chest Respiratory/Chest: Denies cough, dyspnea or orthopnea Gastrointestinal Gastrointestinal: Denies abdominal pain, diarrhea, nausea or vomiting Genitourinary Genitourinary ED: Denies dysuria, hematuria or urinary frequency Musculoskeletal Musculoskeletal: Reports back pain; Denies arthralgias, myalgias or neck pain Integumentary Denies abscess or rash Neurologic Neurologic: Denies headache(s), paresthesias or weakness Psychiatric Psychiatric: Denies anxiety, depression, suicidal ideation or suicidal thoughts Endocrine Endocrinology: Denies polydipsia, polyphagia or polyuria Allergic/Immunologic Allergic/Immunologic ED: Denies mouth swelling, tongue swelling or urticaria EXAM Physical Exam Const Vital Signs: 08/09/24 13:24 08/09/24 13:27 08/09/24 14:54 Temperature 98.1 F 98.1 F Temperature Source Oral Pulse Rate 92 92 Respiratory Rate 18 18 Respiratory Effort Normal Respiratory Depth Normal Respiratory Pattern Normal Blood Pressure 187/108 H 187/108 H Blood Pressure Mean 134 134 Pulse Ox 91 91 Oxygen Delivery Method Room Air Room Air Positive well nourished and well developed General Appearance ED: well developed HEENT Reports normocephalic, head/scalp atraumatic and moist mucous membranes Eyes PERRL and EOMs intact bilaterally Neck no lymphadenopathy, supple and no JVD Chest Wall inspection of chest normal and palpation of chest normal Resp normal respiratory effort and clear to auscultation bilaterally Cardio regular rate, regular rhythm and no murmurs GI normal to inspection, nondistended, normoactive bowel sounds and non-tender Palpation: soft Back/Spine no CVA tenderness Back/Spine Narrative: Patient has generalized tenderness to palpation across the scapular and periscapular region bilaterally. There is no midline tenderness. There is no subcutaneous emphysema or crepitance felt. No hematomas or abrasions are seen. There is no low back pain on palpation. Extremity normal to inspection General Extremety ED: Negative for edema General Extremity: Negative for edema Neuro oriented x3, CN's II-XII intact bilaterally, moves all extremities, no focal motor deficits and no sensory deficits noted Carmen Coma Scale: document GCS findings Spontaneous Obeys Commands Oriented 15 Sensorium / Orientation: alert Motor Exam: strength 5/5 throughout Deep Tendon Reflexes: Rt Patellar (L4): 2+, Lt Patellar (L4): 2+, Rt Ankle (S1): 2+ and Lt Ankle (S1): 2+ Deep Tendon Reflexes Back: Rt Patellar (L4): 2+, Lt Patellar (L4): 2+, Rt Ankle (S1): 2+ and Lt Ankle (S1): 2+ Psych mental status grossly normal Mood & Affect: Negative for depressed or tearful Skin no rashes or lesions noted and no wounds MDM MDM MDM Narrative Medical decision making narrative: Differential diagnosis includes but not limited to back strain contusion fracture rib vertebrae pneumothorax hemothorax CT of the chest does not demonstrate acute fracture pneumothorax or pleural effusion. Patient states she has done well with oxycodone in the past would like something stronger than Tylenol I can write her for oxycodone. Will ambulate the patient. Would recommend PCP follow-up within the week. History & Record Review Discussion w/independent historian: EMS personnel and Patient Additional record(s) reviewed:: Prior ED visit Radiography Diagnostic Testing: Clinical Impression(s) from Imaging Studies Chest CT 08/09/24 13:44 IMPRESSION: Coronary artery calcification (CAC) is is present Findings suggestive of scarring in the left lower lobe as well as lingular segment of the left upper lobe. Reading Location: [place] [id number] Discharge Plan Triage Chief Complaint: Fall ED Provider: Min Levin Dx/Rx/DC Orders Clinical Impression: Fall, Back pain Instructions: ED Back Contusion Prescriptions: New oxycodone-acetaminophen 5-325 mg tablet 1 tab PO Q6H PRN PRN (Reason: Pain) 3 Days Qty: 12 0RF No Action cholecalciferol (vitamin D3) 25 mcg (1,000 unit) capsule 25 mcg PO DAILY magnesium oxide 400 mg magnesium tablet 500 mg PO DAILY coenzyme Q10 [Co Q-10] 200 mg capsule 200 mg PO DAILY Ocuvite with Lutein 1,000 unit-200 mg-60 unit-2 mg tablet 1 tab PO DAILY Rx Instructions: administer after a meal Ensure Compact Liquid 118 ml PO DAILY ascorbic acid (vitamin C) 1,000 mg tablet 1 g PO DAILY zinc gluconate 30 mg tablet 30 mg PO DAILY triamterene-hydrochlorothiazid 37.5-25 mg tablet 1 tab PO QDAY PRN metoprolol tartrate 25 mg tablet 25 mg PO BID albuterol sulfate 2.5 mg /3 mL (0.083 %) solution for nebulization 2.5 mg inhalation Q4H PRN (Reason: shortness of breath or wheezing) Qty: 180 3RF Patient Comments: DOESNT USE OFTEN hydralazine 25 mg tablet 50 mg PO BID vitamin B complex 1 EACH tablet 1 tab PO DAILY lidocaine 5 % Adhesive Patch,Medicated 1 patch topical DAILY Qty: 15 0RF Protocol: *Topical Application Instructions APPLICATION INSTRUCTIONS: low back Primary Care Provider: Qasim Lorenzo Referrals: Qasim Lorenzo MD [Primary Care Provider] - 1 Week Print Language: Slovak Disposition Disposition: Home, Self Care
--- NOTE | 2024-08-09 14:00 | ED.RN ---
Patient transported to CT
[2024-08-09 14:54] VITALS: BP 187/108; PULSE 92; RESP 18; TEMP 36.7; O2SAT 91
[2024-08-09] MEDS: oxyCODONE 5 MG Tablet PO (15:19)
[2024-08-09 15:34] VITALS: PULSE 63; RESP 16
== END 2024-08-09 15:34 | disposition home or self-care (01) ==
PROVIDERS: Emergency Provider Emergency Medicine; PCP Family Medicine; Visit Provider Emergency Medicine
DX: M54.9 Dorsalgia, unspecified (principal); Z87.891 Personal history of nicotine dependence; I10 Essential (primary) hypertension; W01.198A Fall on same level from slipping, tripping and stumbling with subsequent striking against other object, initial encounter
CPT/HCPCS: 71250; 99284

== ENCOUNTER → 2024-08-12 | Outpatient (CLI) | payer MEDICARE, OTHER, SELFPAY ==
--- NOTE | 2024-08-12 11:55 | CT_ITS ---
PROCEDURE: BRAIN/HEAD WITHOUT CONTRAST 08/12/2024 REASON FOR EXAM: HEADACHE TECHNIQUE: Head CT without intravenous contrast. Coronal and Sagittal reconstruction series were provided. One or more dose reduction techniques were used (e.g., Automated exposure control, adjustment of the mA and/or kV according to patient size, use of iterative reconstruction technique. RADIATION DOSE SUMMARY: CTDlvol: 44.99 mGy DLP: 796.11 mGycm COMPARISON: No prior study. FINDINGS: Brain: Low density in the periventricular white matter suggests mild chronic small vessel ischemic changes. CSF Spaces: Moderate generalized cerebral atrophy Sinuses/Mastoids: Clear at visualized levels Bones: Unremarkable CT/Brain/Head without Contrast IMPRESSION: CHRONIC CHANGES. NO ACUTE FINDINGS. Reading Location: [place] [id number]
== END | disposition home or self-care (01) ==
LOC: CT 11:54
PROVIDERS: PCP Family Medicine; Referring Provider Nurse Practitioner Family; Visit Provider Nurse Practitioner Family
DX: R51.9 Headache, unspecified (principal)
CPT/HCPCS: 70450

== ENCOUNTER → 2024-11-01 | Outpatient (CLI) | payer MEDICARE, OTHER, SELFPAY ==
[2024-11-01 18:05] LABS: Hematocrit 38.4 % (37-47); Hemoglobin 12.7 g/dL (12.0-15.0); Immature Granulocytes Count 0.020 X10^3/uL (0.0-0.0); Mean Corp Hgb Conc 33.1 g/dL (32-36); Mean Corpuscular Volume 97.2 fL (81-99); Mean Platelet Vol. 10.6 fl (6.2-12.0); NRBC Flagged by Analyzer 0 % (0-5); Platelet Count 240 K/mm3 (150-450); RBC Distribution Width CV 12.5 % (11.6-14.6); RBC Distribution Width SD 45.0 fl (35.1-43.9); Red Blood Count 3.95 M/mm3 (4.2-5.4); White Blood Count 8.8 K/mm3 (4.4-11.0)
[2024-11-01 18:36] LABS: AST(SGOT) 19 U/L (<=31); Alanine Aminotransfer ALT/SGPT 8 U/L (<=34); Albumin, Serum 3.9 g/dL (3.4-4.8); Alkaline Phosphatase 88 U/L (35-104); Anion Gap 13 (5-15); BUN 9 mg/dL (4-19); BUN/Creat Ratio 14.6 RATIO (10-20); Calcium,Total 9.8 mg/dL (7.6-11.0); Carbon Dioxide 25.5 mmol/L (21.0-32.0); Chloride 99 mmol/L (98-108); Globulin 2.5 g/dL (2.2-4.2); Glucose 107 mg/dL (70-99); Potassium 3.7 mmol/L (3.3-5.1)
== END | disposition home or self-care (01) ==
LOC: MTLAB 15:30
PROVIDERS: PCP Family Medicine; Referring Provider Family Medicine; Visit Provider Family Medicine
DX: R53.83 Other fatigue (principal)
CPT/HCPCS: 36415; 80053; 84443; 85025